=== PATIENT | male | born 1945 | race Caucasian/White ===

== ENCOUNTER 2016-03-13 20:10 | Inpatient (IN) | payer MEDICARE, OTHER ==
[~2016-03-13] VITALS: Ht 172.7 cm; Wt 85.5 kg
[~2016-03-13 20:10] MED LIST: ACETAMINOPHEN500 M1 PO; ATIVAN1 MG PO; BUMEX 1 MG TAB1 MG PO; CARDURA8 MG PO; CATAPRES0.2 MG PO; CELEXA10 MG PO; CLARITIN 10 MG10 MG PO; DIOVAN320 MG PO; FERROUS SULFAT325 MG PO; FLOMAX0.4 MG PO; FLOVENT DISKU100 MCG INH; FLUTICASONE PRO16 GM NASAL; HYDROCODON-ACE1 EAC7 PO; IPRAT-ALBUT 0.5-3 ML UPD; LANTUS INSULIN10 ML SC; LANTUS SOL100 UNIT/1 SC; LEVEMIR100 U/M1 SC; LIPOFEN50 MG PO; LOFIBRA134 MG PO; METOLAZONE5 MG PO; MUCINEX600 MG PO; NORVASC10 MG PO; NOVOLOG100 U/M1 SC; OMEPRAZOLE40 MG PO; PEPCID40 MG PO; PERSANTINE75 MG PO; PLAVIX75 MG PO; PREDNISONE20 MG PO; PROVENTIL HFA6.7 GM INH; RENA-VITE TABL0.8 MG PO; ROCALTROL0.25 MCG PO; SINGULAIR10 MG PO; SODIUM BICARBO650 MG PO; SYMBICORT 16010.2 GM INH; TOPROL XL100 MG PO; TOUJEO SOL300 UNIT/1 SQ; ULTRAM50 MG PO; VITAMIN D250000 UNIT PO; VITAMIN D50000 UNIT PO; ZOCOR40 MG PO; Zaroxolyn PO; [UNRECOGNIZED DRUG - OTHER]
[2016-03-13 20:35] LABS: BASOPHILS 0.2 % (0.0-2.0); EOSINOPHILS 2.7 % (0-7); HEMOGLOBIN 11.1 g/dL (13.5-17.5); IMMATURE GRANULOCYTES 0.3 % (0-5); LYMPHOCYTES 14.1 % (15-50); MCH 30.5 pg (26.0-34.0); MCHC 33.6 g/dL (31.0-37.0); MCV 90.7 fL (80.0-100.0); MEAN PLATELET VOLUME 12.2 fL (7.4-10.4); MONOCYTES 7.3 % (2-11); NEUTROPHILS 75.4 % (40-80); PLATELET COUNT 184 10x3/uL (130-400); RBC 3.64 10x6/uL (4.20-6.10); RDW 15.2 % (11.5-14.5); WBC 10.1 10x3/uL (4.8-10.8)
[2016-03-13 20:54] LABS: ALBUMIN 3.7 g/dL (3.4-5.0); ANION GAP 16.2 mmol/L (8-16); BILIRUBIN - TOTAL 0.3 mg/dL (0.2-1.3); CARBON DIOXIDE 29.4 mmol/L (21.0-32.0); CREATININE - SERUM 6.5 mg/dL (0.6-1.3); POTASSIUM - SERUM 3.6 mmol/L (3.5-5.1); PROTEIN - SERUM 7.4 g/dL (6.4-8.2)
[2016-03-14] VITALS (7 sets, daily range): BP systolic 138–164; BP diastolic 65–81; Ht 172.7 cm; Wt 85.5 kg
[2016-03-14] MEDS ORDERED: ULTRAM50 MG PO (01:25)
[2016-03-14] MEDS ORDERED: SINGULAIR10 MG PO (01:29)
--- NOTE | 2016-03-14 01:50 | NUR ---
PT ARRIVED TO ROOM @ 23:30 VIA WHEELCHAIR, AWAKE, ALERT, ORIENTED, OBVIOUSLY WEAK AND NEEDING ASSIST WITH AMBULATION. PT STATES HE DOES STILL MAKE URINE AND NEEDED TO HAVE A BM SOON HE GOT TO HIS ROOM. PT WAS GIVEN 58 UNITS OF LEVEMIR IN THE ER, FSBS AT THAT TIME WAS 128. PT WAS GIVEN WAS A TURKEY SANDWICH ONCE PLACED IN BED AFTER USING THE BATHROOM. I RECHECKED PTS FSBS AFTER HE ATE AND IT WAS 149. PT IS C/O PAIN BEING 7 OUT OF 10 ON NUMERIC PAIN SCALE AT THIS TIME. PT STATES HE HAS FALLEN AT HOME X 2, ONCE 03/13/16, AND ONCE TWO DAYS AGO PER PT. PT DENIES ANY OTHER NEEDS. PT STATES HE HAS NEVER BEEN TOLD HE HAS A-FIB, AND HAS HAD STENT PLACEMENT IN HIS LEG, AND IS CURRENTLY TAKING PLAVIX FOR OVER A YEAR NOW. WILL CONTINUE TO MONITOR CLOSELY.
--- NOTE | 2016-03-14 02:12 | NUR ---
SPOKE WITH SHAE MARTINS, INSURANCE COORDINATOR FOR RENAL, WHO GAVE VERBAL AUTHORIZATION TO GIVE TRAMADOL AND HIS PRN LORAZEPAM BUT TO HOLD ALL OTHER MEDICATIONS AT THIS TIME. CONTINUE TO MONITOR PT CLOSELY.
--- NOTE | 2016-03-14 02:28 | NUR ---
PT NEEDED TO GO TO BATHROOM TO VOID, HAD URGENCY INCONTINENCE, HOWEVER, STATED THAT HE DID NOT GET WEAK OR DIZZY WHEN AMBULATING AND WALKING. I WAS THERE TO ASSIST PT. CONTINUE TO MONITOR CLOSELY. AGAIN, REMINDED PT THAT HE IS TO ALWAYS CALL WHEN NEEDING TO GET UP. PT STATED THAT HE AGREED TO DO SO.
--- NOTE | 2016-03-14 05:51 | NUR ---
PT HAS HAD BOTH URINARY AND BOWEL URGENCY WITH INCONTINENCE. PT IS WEARING DISPOSABLE BRIEFS. CONTINUE TO MONITOR CLOSELY.
--- NOTE | 2016-03-14 14:47 | NUR ---
Patient Name: ASHLEY HSU Admission Status: ER Accout number: [id number] Admission Date: 03-13-2016 : 1945 Admission Diagnosis: Attending: ERIK Current LOS: 1 Anticipated DC Date: Planned Disposition: Home Primary Insurance: MEDICARE A & B Discharge Planning Comments: * Is the patient Alert and Oriented? Yes 0 * How many steps to enter\exit or inside your home? 13 W/RAIL 0 * PCP DR. MICKY HOOK 0 * Pharmacy [facility] ON [address] 0 * Preadmission Environment Home with Family 0 * ADLs Independent 0 * Equipment None 0 * Other Equipment NONE 0 * List name and contact numbers for known caregivers / representatives who currently or will assist patient after discharge: ENRIQUETA HSU, SPOUSE, 0 * Community resources currently utilized None 0 * Please name any agencies selected above. NONE 0 * Additional services required to return to the preadmission environment? No 0 * Can the patient safely return to the preadmission environment? Yes 0 * Has this patient been hospitalized within the prior 30 days at any hospital? No 0 CM MET WITH PT AND SPOUSE IN ROOM TO DISCUSS DISCHARGE PLANNING AND NEEDS. PT REPORTS LIVING AT HOME INDEPENDENTLY WITH SPOUSE. PT HAS NO MEDICAL EQUIPMENT AND NO OUTSIDE SERVICES ASSISTING IN THE HOME. CM DISCUSSED AVAILABILITY OF HOME HEALTH, REHAB SERVICES AND MEDICAL EQUIPMENT. PT DENIES DISCHARGE NEEDS, REPORTS HIS WILL PICK HIM UP FOR DISCHARGE HOME. PT PLANS TO DISCHARGE HOME WITH SPOUSE, DENIES DISCHARGE NEEDS AT THIS TIME. CM TO FOLLOW AND ASSIST NEEDED. Car Rental Sales Assistant: Tate Paula
--- NOTE | 2016-03-14 18:50 | NUR ---
NO CHANGE. DENIES SOB. DENIES PAIN OR SOB. CONTINUE PLAN OF CARE AND SAFETY PRECAUTIONS. PREPARE SHIFT CHANGE REPORT. CONTROLLED A FIB ON TELEMETRY 65bpm.
--- NOTE | 2016-03-14 20:14 | NUR ---
PT LYING IN BED, FLAT ON BACK, C/O GREAT PAIN IN HIS LEFT SIDE, AND ASKING IF HIS CHEST X-RAY SHOWED ANY RIB FX, IN WHICH IT DID NOT. PT STATES HIS PRN TRAMADOL HELPS MINIMALLY. DENIES ANY OTHER NEEDS. CONTINUE TO MONITOR CLOSELY.
[2016-03-15 01:42] VITALS: BP 156/66
--- NOTE | 2016-03-15 03:56 | NUR ---
PT LYING IN BED, ON HIS RIGHT SIDE, EYES CLOSED, RESPIRATIONS EVEN AND UNLABORED. CONTINUE TO MONITOR CLOSELY.
[2016-03-15 05:24] LABS: BASOPHILS 0.5 % (0.0-2.0); EOSINOPHILS 2.6 % (0-7); HEMOGLOBIN 9.5 g/dL (13.5-17.5); IMMATURE GRANULOCYTES 0.3 % (0-5); LYMPHOCYTES 16.4 % (15-50); MCH 30.6 pg (26.0-34.0); MCHC 33.9 g/dL (31.0-37.0); MCV 90.3 fL (80.0-100.0); MEAN PLATELET VOLUME 12.4 fL (7.4-10.4); MONOCYTES 6.9 % (2-11); NEUTROPHILS 73.3 % (40-80); PLATELET COUNT 156 10x3/uL (130-400); RDW 15.1 % (11.5-14.5); WBC 8.8 10x3/uL (4.8-10.8)
[2016-03-15 05:34] LABS: CALCIUM 10.7 mg/dL (8.5-10.1); CARBON DIOXIDE 25.2 mmol/L (21.0-32.0); CREATININE - SERUM 6.2 mg/dL (0.6-1.3); PHOSPHOROUS 4.5 mg/dL (2.5-4.9)
[2016-03-15 05:46] LABS: ANION GAP 17.6 mmol/L (8-16)
[2016-03-15 05:48] VITALS: BP 140/77
[2016-03-15 05:50] LABS: POTASSIUM - SERUM 2.8 mmol/L (3.5-5.1)
--- NOTE | 2016-03-15 05:57 | NUR ---
RECIEVED CRITICAL LAB FROM JUAN IN LAB, K+ 2.8, NOTIFIED DIPTI FLORES.
[2016-03-15 07:45] VITALS: BP 124/60
--- NOTE | 2016-03-15 12:12 | NUR ---
ALERT AND ORIENTED X4. RESTING IN BED. ORTHOSTATIC BP COMPLETE. LAYING-178/64, P-87. SITTING-104/56, P-96. STANDING-97/51, P-97. DENIES SOB. CONTINUE PAIN MANAGEMENT. CONTROLLED A-FIB 78bpm ON TELEMETRY. CONTINUE PLAN OF CARE AND SAFETY PRECAUTIONS.
[2016-03-15 12:20] VITALS: BP 178/64
[2016-03-15 15:43] VITALS: BP 140/89
[2016-03-15 20:03] VITALS: BP 125/57
[2016-03-16 01:14] VITALS: BP 125/57
[2016-03-16 04:00] VITALS: BP 144/67
--- NOTE | 2016-03-16 04:14 | NUR ---
NURSE ROUNDS 20:00 - PT SITTING ON SIDE OF BED, AWAKE, ALERT, ORIENTED. DENIES ANY ACUTE NEEDS. CONTINUE TO MONITOR CLOSELY. GAVE PT VIVEK CRACKERS AND SALTINE CRACKERS WITH HIS INSULIN.
--- NOTE | 2016-03-16 05:35 | NUR ---
PT LYING IN BED ON LEFT SIDE, EYES CLOSED, RESPIRATIONS EVEN AND UNLABORED. CONTINUE TO MONITOR CLOSELY.
[2016-03-16 05:51] LABS: BASOPHILS 0.2 % (0.0-2.0); EOSINOPHILS 3.1 % (0-7); HEMOGLOBIN 9.8 g/dL (13.5-17.5); IMMATURE GRANULOCYTES 0.2 % (0-5); LYMPHOCYTES 17.2 % (15-50); MCH 30.8 pg (26.0-34.0); MCHC 33.8 g/dL (31.0-37.0); MCV 91.2 fL (80.0-100.0); MEAN PLATELET VOLUME 12.7 fL (7.4-10.4); MONOCYTES 7.8 % (2-11); NEUTROPHILS 71.5 % (40-80); PLATELET COUNT 162 10x3/uL (130-400); RBC 3.18 10x6/uL (4.20-6.10); RDW 15.4 % (11.5-14.5); WBC 8.1 10x3/uL (4.8-10.8)
[2016-03-16 06:21] LABS: ANION GAP 17.2 mmol/L (8-16); CALCIUM 9.8 mg/dL (8.5-10.1); CREATININE - SERUM 5.9 mg/dL (0.6-1.3); PHOSPHOROUS 4.8 mg/dL (2.5-4.9); POTASSIUM - SERUM 3.2 mmol/L (3.5-5.1)
--- NOTE | 2016-03-16 06:50 | NUR ---
PT EASILY ROUSABLE TO VERBAL STIMULI, DENIES ANY NEEDS. CONTINUE TO MONITOR CLOSELY.
[2016-03-16 07:50] VITALS: BP 166/76
[2016-03-16 11:59] VITALS: BP 155/68
--- NOTE | 2016-03-16 12:58 | NUR ---
Nutrition follow-up: Diet: Consistent CHO PO intake ~75% of meals Labs reviewed Wt: 187# Diet changed to consistent CHO by physician due to low K. RDN following.
[2016-03-16 16:44] VITALS: BP 157/89
[2016-03-16 20:20] VITALS: BP 158/73
[2016-03-17 01:10] VITALS: BP 139/56
--- NOTE | 2016-03-17 03:32 | NUR ---
NURSE ROUNDS 19:30 - PT LYING ON HIS RIGHT SIDE, EYES CLOSED, RESPIRATIONS EVEN AND UNLABORED. PT EASILY ROUSABLE TO VERBAL STIMULI. CONTINUE TO MONITOR CLOSELY.
[2016-03-17 05:14] VITALS: BP 181/73
[2016-03-17 05:24] LABS: BASOPHILS 0.3 % (0.0-2.0); EOSINOPHILS 4.4 % (0-7); HEMATOCRIT 27.1 % (42.0-54.0); HEMOGLOBIN 8.9 g/dL (13.5-17.5); IMMATURE GRANULOCYTES 0.2 % (0-5); LYMPHOCYTES 18.4 % (15-50); MCH 30.6 pg (26.0-34.0); MCHC 32.8 g/dL (31.0-37.0); MCV 93.1 fL (80.0-100.0); MEAN PLATELET VOLUME 12.9 fL (7.4-10.4); MONOCYTES 8.2 % (2-11); NEUTROPHILS 68.5 % (40-80); PLATELET COUNT 150 10x3/uL (130-400); RBC 2.91 10x6/uL (4.20-6.10); RDW 15.6 % (11.5-14.5)
[2016-03-17 05:34] LABS: ANION GAP 15.3 mmol/L (8-16); CALCIUM 9.1 mg/dL (8.5-10.1); CARBON DIOXIDE 25.3 mmol/L (21.0-32.0); POTASSIUM - SERUM 3.6 mmol/L (3.5-5.1)
[2016-03-17 05:40] LABS: PHOSPHOROUS 2.9 mg/dL (2.5-4.9)
[2016-03-17 08:37] VITALS: BP 144/43
--- NOTE | 2016-03-17 09:57 | NUR ---
EPOGEN NOT LOCATED IN [facility], BRITTANY FLORES NOTIFIED. WILL CALL PHARMACY
--- NOTE | 2016-03-17 10:45 | NUR ---
Nutrition Education: Pt and had questions regarding renal diabetic diet. RD spoke with them regarding diet and provided written information. RD name and email address provided to pt. Pt and encouraged to contact RD with any questions or concerns. RD will continue to monitor pt progress.
[2016-03-17 12:29] VITALS: BP 147/61
--- NOTE | 2016-03-17 13:59 | EC ---
PATIENT:ASHLEY HSU DATE OF SERVICE: 03/14/16 SEX: M MEDICAL RECORD: [id number] DATE OF : [birth year] LOCATION:D.M2 D.210 AGE OF PATIENT: 70 ADMISSION DATE: 03/14/16 REFERRING PHYSICIAN: INTERPRETING PHYSICIAN: ELISSA MILLER MD ECHOCARDIOGRAM REPORT ECHO CHARGES 4 ECHO COMPLETE CLINICAL DIAGNOSIS: A-FIB ECHOCARDIOGRAPHIC MEASUREMENTS (adult normal given) AC root (d.<3.7cm) 2.9 LV Septum d (<1.2 cm> 1.4 Valve Excursion 1.7 LV Septum (systole) 2.1 Left Atria (s.<4.0cm> 4.8 LVPW d(<1.2cm) 1.4 RV (d.<2.3cm) 2.6 LVPW (sytole) 1.8 LV diastole(<5.6CM) 5.2 MV E-F(>70mm/sec) LV systole 3.0 LVOT Diameter 1.9 MV exc.(>10mm) Est.ejection fraction (50-75%) Pericardial Effusion N DOPPLER: LVIT A E 116 LA RVSP 30.0 LVOT 90.0 AOP1/2T Asc. Ao 210 RVOT 111 RA PA 111 AV Gradient Peak 18.0 AV Mean 8.7 AV Area 1.1 MV Gradient Peak 6.2 MV Mean 1.8 MV Area COMMENTS: Housekeeper Manager: Mao GIMENEZ Prawn Trawler Hand:Josey Owusu TAPE# PACS DATE OF SERVICE: 03/14/2016 Echocardiogram FINDINGS: 1. Left ventricular chamber size is within normal limits. Left ventricular systolic function is normal. Overall ejection fraction estimated at 60%. 2. Left atrium, right atrium, and right ventricular chamber sizes are mildly dilated. Left atrium measures 4.8 cm. 3. Valvular structures have normal structure and motion. ECHOCARDIOGRAM REPORT [id number] ASHLEY HSU 4. Doppler interrogation reveals trace mitral regurgitation. No other valvular insufficiency or stenosis. Pulmonary systolic pressure is normal estimated at 30 mmHg. 5. No evidence of pericardial effusion or left ventricular thrombus. TRANSINT:[id number] Voice Confirmation ID: [id number] DOCUMENT ID: [id number] ELISSA MILLER MD at 1352 CC: [id number] DICTATION DATE: 03/16/16921 THIRD MATE: 03/16/[address] [facility] [address] [facility]
--- NOTE | 2016-03-17 14:44 | NUR ---
Patient Name: ASHLEY HSU Encounter No: [id number] : 1945 Primary Insurance: MEDICARE A & B Anticipated DC Date: 03-17-2016 Planned Disposition: Home WITH HOME HEALTH External Planned Provider: [facility] DCP follow-up note: CM MET WITH PT AND SPOUSE IN ROOM TO DISCUSS DISCHARGE NEEDS AND PLANNING. CM DISCUSSED AVAILABILITY OF HOME HEALTH, REHAB SERVICES AND MEDICAL EQUIPMENT. PT AND SPOUSE WOULD LIKE PT TO HAVE FOLLOW UP FOR PHYSICAL THERAPY AND NURSING; SPOUSE IS CONCERNED THAT PT WILL BE HOME ALL DAY WHILE SHE IS AT WORK. SPOUSE TO TRANSPORT HOME AT DISCHARGE. IMPORTANT MESSAGE FROM MEDICARE PROVIDED AND EXPLAINED. CHOICE LETTER SIGNED FOR [facility]. CM CALLED [facility], , PROVIDED REFERRAL TO [facility]IA [facility]ICE [facility]IL. CM CONFIRMED WITH [facility] VIA CELL PHONE AT [phone]. CM FAXED REFERRAL TO [facility] AT [phone]. PT NOTIFIED, NO FURHTER DISCHARGE NEEDS IDENTIFIED. Tate Paula, CASE MANAGEMENT
--- NOTE | 2016-03-17 15:47 | NUR ---
REVIEWED PATIENT'S DISCHARGE INSTRUCTIONS. HE AND ARE WITHOUT QUESTIONS.
== END 2016-03-17 15:45 | disposition home health service (06) | DRG 309 ==
LOC: D.ER 20:10 → D.M2 21:29 → OBSVTIME 21:29 → D.M2 03-14 15:30
PROVIDERS: Emergency Medicine; Internal Medicine Nephrology; ADMIT Internal Medicine Nephrology
DX: I48.91 Unspecified atrial fibrillation (principal); N18.4 Chronic kidney disease, stage 4 (severe); R55 Syncope and collapse; E11.22 Type 2 diabetes mellitus with diabetic chronic kidney disease; I12.9 Hypertensive chronic kidney disease with stage 1 through stage 4 chronic kidney disease, or unspecified chronic kidney disease; J44.9 Chronic obstructive pulmonary disease, unspecified; D63.1 Anemia in chronic kidney disease; E83.39 Other disorders of phosphorus metabolism; E78.5 Hyperlipidemia, unspecified; E87.6 Hypokalemia; Z72.0 Tobacco use

== ENCOUNTER 2016-05-25 07:59 | Outpatient (CLI) | payer MEDICARE, OTHER ==
[~2016-05-25] VITALS: Ht 172.7 cm; Wt 83.2 kg
--- NOTE | ~2016-05-25 | HP ---
PATIENT: ASHLEY HSU MEDICAL RECORD: [id number] ACCOUNT: [id number] LOCATION:[place] : [birth year] ADMISSION DATE: 05/25/16 HISTORY AND PHYSICAL EXAMINATION DIAGNOSES: 1. Angina. 2. Coronary artery disease. 3. Hypertension. 4. Hyperlipidemia. 5. End-stage renal failure, on dialysis. HISTORY OF PRESENT ILLNESS: This is a gentleman who presents with anginal symptomatology, found to have significant stress test with reversible ischemia. He is now brought for cardiac catheterization. PHYSICAL EXAMINATION: GENERAL APPEARANCE: Well-nourished, well-developed, appears stated age. Level of distress, comfortable. PSYCHIATRIC: Mental status, alert, normal affect. Orientation, oriented to time, place and person. EYES: Lids and conjunctiva, noninjected. No discharge, no pallor. ENT: Lips, teeth, gums, normal dentition. Oropharynx, no cyanosis, no pallor. NECK: Carotid arteries, bilateral normal upstroke, no bruits, no thrills. JUGULAR VEINS: No jugular venous pressure or distention. CERVICAL LYMPH NODES: Nontender, nonenlarged. THYROID: Not enlarged. Nontender. No nodules. LUNGS: Respiratory effort, unlabored. CHEST: Normal curvature. No thoracic deformity. No chest wall tenderness. Percussion, resonant. Auscultation, clear. No wheezes, no rales, no rhonchi. CARDIOVASCULAR: Precordial exam, nondisplaced. No heaves or pericardial thrills. Rate and rhythm, regular. Heart sounds, normal S1, normal S2. No S3, no gallop, no rub. Systolic murmur, not heard. Diastolic murmur, not heard. EXTREMITIES: No cyanosis, no edema. Peripheral pulses, full and equal in all extremities, except as noted. No bruits appreciated. ABDOMEN: Soft, nondistended. Normal aorta. No bruit. Nontender. No masses. Liver, nontender, no hepatomegaly. Spleen, nontender, no splenomegaly. MUSCULOSKELETAL: No joint tenderness. No joint swelling. No erythema. NEUROLOGICAL: Normal gait, normal strength, normal tone. SKIN: Warm and dry. REVIEW OF SYSTEMS: The patient reports easy bruising but reports no swollen glands. The patient reports no fever, no night sweats, no significant weight gain, no significant weight loss. No significant exercise tolerance. The patient reports no dry eyes, no irritation, no vision change. Patient reports no difficulty hearing and no ear pain. Patient reports no frequent nose bleeds or nose and sinus problems. Patient reports on arm pain on exertion. No shortness of breath while lying down. No history of heart murmur. Patient reports no cough, no wheezing or coughing up blood. Patient reports no abdominal pain, no vomiting. Normal appetite. No diarrhea and not vomiting blood. No nausea and no constipation. Patient reports no incontinence. No difficulty urinating. No hematuria. No increased frequency. Patient reports no muscle aches. No weakness, no arthralgias, no back pain. No swelling of the extremities. Patient reports no abnormal mole, no jaundice, no rashes. Reports no loss of consciousness. No weakness and no numbness. No seizures, dizziness, HISTORY AND PHYSICAL [id number] ASHLEY HSU or headaches. The patient reports no depression, no sleep disturbance, feeling safe in a relationship and no alcohol abuse. Patient reports on fatigue. Reports no runny nose or sinus pressure. No itching, no hives, and no frequent sneezing. OVERALL IMPRESSION: Anginal symptomatology with abnormal nuclear stress test, most likely he has hemodynamically significant coronary artery disease. We will proceed with coronary angiography. Further care depends upon findings of the angiography. TRANSINT:[id number] Voice Confirmation ID: [id number] DOCUMENT ID: [id number] ELISSA MILLER MD CC: [id number] DICTATION DATE: 05/25/16 0952 FLAKE OR SHRED ROLL OPERATOR: 05/25/16 1034 [facility] [address] [place] [address]
--- NOTE | ~2016-05-25 | OP ---
PATIENT NAME: ASHLEY HSU MEDICAL RECORD: [id number] :[birth year] LOCATION:D.CAT ADMISSION DATE: SURGEON: ELISSA MILELR MD DATE OF OPERATION: 05/25/2016 PROCEDURES: 1. Aortofemoral runoff. 2. Abdominal aortography. INDICATION: Claudication, peripheral vascular disease. PROCEDURE IN DETAIL: After informed consent obtained and after detailed explanation of risks, benefits as well as alternative therapies, the patient elected to proceed with angiogram and aortofemoral runoff. The right femoral area had a preexisting sheath from coronary intervention. All catheters exchanged through this sheath. FINDINGS: The abdominal aortography was performed. The catheter was pulled down for aortofemoral runoff. Abdominal aortography reveals no significant abdominal aortic disease. No dissection or aneurysm formation. No renal artery stenosis. RIGHT LEG: A. Iliac: The common internal and external iliacs have moderate irregularities, but no flow-limiting stenosis. B. Femoral system: The common superficial and deep femoral have moderate irregularities, but no flow-limiting stenosis. C. Popliteal and infrapopliteal vessels are widely patent with good 3-vessel runoff to the foot. LEFT LEG: A. Iliac: There is a previously placed stent in the common iliac. This is widely patent with no significant restenosis. No disease elsewise throughout the iliac system. B. Femoral system: The common superficial and deep femoral have moderate irregularities, but no flow-limiting stenosis. C. Popliteal and infrapopliteal vessels are widely patent with good 3-vessel runoff to the foot. OVERALL IMPRESSION: Wide patency of the previously placed stent in the left iliac, no disease elsewise. Continue medical management of peripheral vascular disease and peripheral risk factors. TRANSINT:[id number] Voice Confirmation ID: [id number] DOCUMENT ID: [id number] ELISSA MILLER MD CC: [id number] DICTATION DATE: 05/25/16 1048 RAILROAD REPAIRER: 05/25/16 [id number] [place] [address]
--- NOTE | ~2016-05-25 | OP ---
PATIENT NAME: ASHLEY HSU MEDICAL RECORD: [id number] :[birth year] LOCATION:D.CAT ADMISSION DATE: SURGEON: ELISSA MILLER MD DATE OF OPERATION: 05/25/2016 PROCEDURES: 1. PTCA stent LAD. 2. Left heart catheterization. 3. Selective coronary angiography. 4. Left ventriculogram. 5. Intravascular ultrasound. PROCEDURE IN DETAIL: After informed consent was obtained, after detailed explanation of risks, benefits as well as alternative therapies, the patient elected to proceed with angiogram and angioplasty. The right femoral area was prepped and draped in normal sterile fashion. The right femoral artery was cannulated via modified Seldinger technique with placement of 6-Pashto sheath. All catheters exchanged through this sheath. FINDINGS: Left ventriculogram was performed in the standard 30-degree POSADA view, reveals preserved cardiac wall motion, ejection fraction 55%. SELECTIVE CORONARY ANGIOGRAPHY: 1. Left main showed no significant angiographic disease. 2. Left anterior descending has a 75% stenosis proximally confirmed by intravascular ultrasound. 3. Left circumflex has moderate irregularities, but no flow-limiting stenosis. 4. Right coronary has moderate irregularities, but no flow-limiting stenosis. PTCA STENT OF THE LAD: The stent used is a 3.5 x 22 mm Integrity. Result was 0% residual stenosis. OVERALL IMPRESSION: Successful percutaneous transluminal coronary angioplasty stent of the left anterior descending going from 75% initial stenosis to 0% residual. TRANSINT:[id number] Voice Confirmation ID: [id number] DOCUMENT ID: [id number] ELISSA MILLER MD CC: [id number] DICTATION DATE: 05/25/16 1048 PARTS RUNNER: 05/25/16 1148 [facility] [address] [place] [address]
--- NOTE | ~2016-05-25 | HEMODYNAMI ---
PATIENT:ASHLEY HSU MEDICAL RECORD: [id number] : 43 LOCATION:D.CAT ADMISSION DATE: 05/25/16 Generatedon:05/25/201610:47 Patient name: ASHLEY HSU Patient #: [id number] SSN: : 1945 Date of study: 05/25/2016 Page: Of Hemodynamic Procedure Report Patient Data Patient Demographics Procedure consent was obtained First Name: ASHLEY Gender: Male Last Name: SHADI : 1945 Middle Initial: M Age: 70 year(s) Patient #: [id number] Race: Unknown Additional ID: [id number] Contact details Address: [address] [place] [address] State: [place] City: [place] Zip code: [address] Past Medical History Allergies Allergen Reaction Date Comments Reported Aspirin 05/25/2016 Admission Admission Data Admission Date: 05/25/2016 Admission Time: 7:59 Lab Results Lab Result Date: 05/25/2016 Lab Result Time: 0:00 Biochemistry Name Units Result Min Max Creatinine mg/dl 4.2 --(----)-* 0.6 1.3 CBC Name Units Result Min Max Hemoglobin g/dl 11.4 *-(----)-- 13.5 17.5 Procedure Procedure Types Cath Procedure Diagnostic Procedure [facility] w/Coronaries FFR/IVUS Intra-Coronary IVUS Initial PCI Procedure Coronary Stent Initial Miscellaneous Procedures Moderate Sedation up to 45 minutes Peripheral Cath Diagnostic Procedure Cath Peripheral Msroq-Uebacrv-Lgg-Off Procedure Description Procedure Date Procedure Date: 05/25/2016 Procedure Start Time: 10:23 Procedure End Time: 10:45 Procedure Staff Name Function Jeramie Guzmán MD Performing Physician Francis Blevins RT Scrub Joby Luciano RN Nurse Larissa Oodm RT Monitor Procedure Data Cath Procedure Fluoroscopy Diagnostic fluoroscopy Total fluoroscopy Time: 4.6 time: 4.6 min min Diagnostic fluoroscopy Total fluoroscopy dose: 818 dose: 818 mGy mGy Contrast Material Contrast Material Type Amount (ml) Isovue 300 187 Entry Location Entry Primary Successful Side Size Upsize Upsize Entry Closure Succes sful Closure Location (Fr) 1 (Fr) 2 (Fr) Remarks Device Remarks Femoral Right 5 Fr 6 Fr Exoseal artery Short Estimated blood loss: 10 ml Diagnostic catheters Device Type Used For End Catheter Placement Cordis 5Fr Pigtail LV Angiography Catheter (MP) Cordis 5Fr Pigtail Abdominal Catheter (MP) aortogram with runoff Cordis 5Fr JL 4.0 Left Coronary Catheter (MP) Angiography Cordis 5Fr 3DRC Catheter Right Coronary (MP) Angiography Procedure Complications No complications Procedure Medications Medication Administration Route Dosage Oxygen NC 2 l/min Heparin Flush Bag added to field 2 bags (1000units/500ml NS) 0.9% NaCl I.V. 100 ml/hr Fentanyl I.V. 50 mcg Versed I.V. 1 mg Fentanyl I.V. 50 mcg Versed I.V. 1 mg Fentanyl I.V. 50 mcg Heparin Bolus I.V. 4000 units Fentanyl I.V. 50 mcg Hemodynamics Rest HGB: 11.4 (g/dl) Heart Rate: 68 (bpm) Snapshots Pre Cath Intra NCS Post Cath Vital Signs Time Heart Resp SPO2 etCO2 [id number] NIBP (mmHg) Rhythm Pain Sedation Rate (ipm) (%) (mmHg) (mmHg) Status Level (bpm) 10:03:24 68 20 99 0 0 176/84(140) NSR 0 (11) 10(A) , No pain 10:08:38 66 16 100 0 0 172/75(135) NSR 0 (11) 10(A) , No pain 10:13:02 66 20 100 0 0 171/72(142) NSR 0 (11) 9(A) , No pain 10:17:26 65 17 97 0 0 161/70(128) NSR 0 (11) 9(A) , No pain 10:21:48 65 17 97 0 0 158/72(132) NSR 0 (11) 9(A) , No pain 10:26:08 65 18 98 0 0 151/71(123) NSR 0 (11) 9(A) , No pain 10:30:24 69 16 98 0 0 159/72(129) NSR 0 (11) 9(A) , No pain 10:34:44 69 17 96 0 0 159/70(119) NSR 0 (11) 9(A) , No pain 10:39:06 71 18 96 0 0 147/68(117) NSR 0 (11) 9(A) , No pain 10:43:23 68 17 97 0 0 150/69(129) NSR 0 (11) 9(A) , No pain Medications Time Medication Route Dose Verified Delivered Reason Notes Effectiveness by by 10:06:51 Oxygen NC 2 Joby Joby Per physician l/min Mustapha Luciano RN RN 10:07:00 Heparin Flush added 2 Joby Joby used for Bag to bags Mustapha Luciano RN procedure (1000units/500ml field RN NS) 10:07:09 0.9% NaCl I.V. 100 Joby Joby Per physician ml/hr Mustapha Luciano RN RN 10:09:46 Fentanyl I.V. 50 Joby Joby for sedation mcg Mustapha Luciano RN RN 10:09:54 Versed I.V. 1 mg Joby Joby for sedation Mustapha Luciano RN RN 10:19:30 Fentanyl I.V. 50 Joby Joby for sedation mcg Mustapha Luciano RN RN 10:19:33 Versed I.V. 1 mg Joby Joby for sedation Mustapha Luciano RN RN 10:24:37 Fentanyl I.V. 50 Joby Joby for sedation mcg Mustapha Luciano RN RN 10:32:58 Heparin Bolus I.V. 4000 Joby Joby for units Mustapha Luciano RN anticoagulation RN 10:33:02 Fentanyl I.V. 50 Joby Joby for sedation mcg Mustapha Luciano RN clothing consultant Log Time Note 9:42:05 Francis Blevins RT(R) sent for patient. Start room use. 9:52:06 Time tracking: Regular hours 9:52:10 Plan of Care:Hemodynamics will remain stable., Cardiac rhythm will remain stable., Comfort level will be maintained., Respiratory function will remain adequate., Patient/ family verbilizes understanding of procedure., Procedure tolerated without complication., Recovers from procedure without complications.. 9:56:30 Patient received from Pre/Post Procedure Room to CCL 1 Alert and oriented. Tansferred to table in Supine position. 9:56:31 Warm blankets applied, and bartolo hugger turned on for patient comfort. 9:56:32 Correct patient and procedure confirmed by team. 9:56:33 Signed procedure consent form obtained from patient. 9:56:34 ECG and BP/O2 sat monitors applied to patient. 9:56:34 Full Disclosure recording started 10:02:14 Vital chart was started 10:02:17 Rhythm: sinus rhythm 10:02:22 H&P Date Dictated: 05/25/2016 New H&P dictated by physician.. 10:02:24 Pre-procedure instructions explained to patient. 10:02:24 Pre-op teaching completed and patient verbalized understanding. 10:02:26 Family in waiting room. 10:02:27 Patient NPO since Midnight. 10:02:34 Patient allergic to Aspirin 10:02:36 Is the patient allergic to Iodine/contrast media? No. 10:02:37 Is patient on blood thinner?Yes 10:02:39 ACC The patient was administered the following blood thiners within the last 24 hours: ACCPlavix 10:02:41 Patient diabetic? Yes. 10:02:43 If diabetic: On Metformin? No 10:02:46 Previous problem with sedation/anesthesia? No ? 10:02:47 Snore? Yes 10:02:48 Sleep apnea? No 10:02:49 Deviated septum? No 10:02:50 Opens mouth fully? Yes 10:02:50 Sticks out tongue? Yes 10:02:54 Airway obstruction? Yes COPD 10:03:20 Dentures? No ? 10:03:33 Pre procedure: right dorsailis pedis pulse 2+ Normal; easily identifiable; not easily obliterated 10:03:35 Patient pain scale 0/10 ?. 10:04:29 IV patent on arrival in right wrist with 0.9% NaCl at KVO. 10:04:49 Lab Result : Hemoglobin 11.4 g/dl 10:04:49 Lab Result : Creatinine 4.2 mg/dl 10:04:53 Lab results completed and on chart. 10:04:56 Right groin area was prepped with chlora-prep and draped in sterile fashion 10:04:58 Alarms reviewed by R. N. 10:04:58 Sharps counted by scrub and verified by R.N. 10:05:02 Use device set Femoral Dx 10:05:03 Acist Syringe opened to sterile field. 10:05:03 Bag Decanter opened to sterile field. 10:05:04 Medline Cath Pack opened to sterile field. 10:05:04 Terumo 5Fr Bellevue Sheath opened to sterile field. 10:05:05 St Flaco 260cm J .035 wire opened to sterile field. 10:05:06 Acist Hand Control opened to sterile field. 10:05:06 Acist Manifold opened to sterile field. 10:05:07 Diagnostic Infinity 5Fr Multipack catheter opened to sterile field. 10:05:07 Tegaderm 4 x 4 opened to sterile field. 10:05:12 Baseline sample Acquired. 10:06:51 Oxygen 2 l/min NC was administered by Joby Luciano RN; Per physician; 10:07:00 Heparin Flush Bag (1000units/500ml NS) 2 bags added to field was administered by Joby Luciano RN; used for procedure; 10:07:09 0.9% NaCl 100 ml/hr I.V. was administered by Joby Luciano RN; Per physician; 10:09:14 Final Timeout: patient, procedure, and site verified with staff and physician. All members of the team are in agreement. 10:09:17 Right groin site verified by team. 10:09:19 Physical assessment completed. ASA score P 2 - A patient with mild systemic disease as per Jeramie Guzmán MD. 10:09:22 Sedation plan: IV Moderate Sedation Versed, Fentanyl 10:09:46 Fentanyl 50 mcg I.V. was administered by Joby Luciano RN; for sedation; 10:09:54 Versed 1 mg I.V. was administered by Joby Luciano RN; for sedation; 10:12:08 Zero performed for pressure channel P1 10:19:30 Fentanyl 50 mcg I.V. was administered by Joby Luciano RN; for sedation; 10:19:33 Versed 1 mg I.V. was administered by Joby Luciano RN; for sedation; 10:23:15 Procedure started. 10:23:23 Local anesthetic to right femoral artery with Lidocaine 2% by Jeramie Guzmán MD.INITIAL ACCESS ONLY 10:24:17 A 5 Fr sheath was inserted into the Right Femoral artery 10:24:37 Fentanyl 50 mcg I.V. was administered by Joby Luciano RN; for sedation; 10:24:50 A Cordis 5Fr Pigtail Catheter (MP) was advanced over the wire and used for LV Angiography. 10:25:19 LV gram done using POSADA 10:25:22 Injector settings: Ml/sec: 10, Volume: 20, 10:25:38 EF : 55 % 10:26:50 A Cordis 5Fr Pigtail Catheter (MP) was advanced over the wire and used for Abdominal aortogram with runoff. 10:27:22 Catheter removed. 10:27:38 A Cordis 5Fr JL 4.0 Catheter (MP) was advanced over the wire and used for Left Coronary Angiography. 10:27:56 Procedure type changed to Cath procedure, Diagnostic procedure, LHC, LHC w/Coronaries, FFR/IVUS, Intra-Coronary IVUS Initial, PCI procedure, Coronary Stent Initial, Miscellaneous Procedures, Moderate Sedation up to 45 minutes, Peripheral Cath Diagnostic Procedure, Cath Peripheral, Jpfeb-Uzmfonl-Svv-Off 10:29:15 Terumo 6Fr Bellevue Sheath opened to sterile field. 10:29:15 Allen Yobongoisper J 300cm 0.014 guide wire opened to sterile field. 10:29:16 Seedpost & Seedpaper BasixCompak Inflation Kit opened to sterile field. 10:30:08 Catheter removed. 10:30:13 A Cordis 5Fr 3DRC Catheter (MP) was advanced over the wire and used for Right Coronary Angiography. 10:31:20 Cordis 6FR XBLAD 3.5 guide catheter opened to sterile field. 10:32:06 Grannis [place] Eagleye IVUS Catheter opened to sterile field. 10:32:44 Sheath upsized to a 6 Fr Short. 10:32:57 6 Fr XBLAD 3.5 guide catheter was inserted over the wire 10:32:58 Heparin Bolus 4000 units I.V. was administered by Joby Luciano RN; for anticoagulation; 10:33:02 Fentanyl 50 mcg I.V. was administered by Joby Luciano RN; for sedation; 10:33:26 WHISPER wire advanced. 10:34:48 IVUS catheter advanced over wire. 10:37:35 IVUS pass to LAD lesion performed. 10:37:36 IVUS catheter removed over wire. 10:39:48 Inflation Number: 1 A Fraud Sciencestronic Integrity 3.5 X 22 stent was prepped and advanced across the Mid LAD. The stent was deployed at 11 VICTOR M for 0:08 (min:sec). 10:40:09 Stent catheter was removed intact over wire. 10:40:10 Wire removed. 10:40:10 Guide catheter removed. 10:40:24 Sheath removed intact; hemostasis achieved with Exoseal to the Right Femoral artery. 10:40:26 Procedure ended.(Physican Out) 10:41:36 Fluoroscopy time 04.60 minutes. 10:41:40 Fluoroscopy dose: 818 mGy 10:41:40 Flurop Dose total: 818 10:41:43 Contrast amount:Isovue 300 187ml. 10:41:45 Sharps counted by scrub and verified by R.N. 10:41:47 Insertion/operative site no bleeding no hematoma. 10:41:50 Post-op/insertion site Right Femoral artery dressed using a 4 x 4 and Tegaderm. 10:41:53 Post right femoral artery:stable, clean and dry 10:41:56 Post Procedure Pulses reassessed and unchanged 10:42:04 Post-procedure physical assessment completed. ASA score P 2 - A patient with mild systemic disease as per Jeramie Guzmán MD. 10:42:09 Post procedure rhythm: unchanged. 10:42:15 Estimated blood loss: 10 ml 10:42:17 Post procedure instruction explained to patient.Patient verbalizes understanding. 10:42:17 Patient needs reinforcement of post procedure teaching. 10:42:22 Procedure Complication : No complications 10:42:28 Cordis 6Fr Exoseal opened to sterile field. 10:42:31 See physician's report for complete and final results. 10:45:23 Procedure and supply charges have been captured, reviewed, submitted and are correct. 10:45:31 Vital chart was stopped 10:45:33 Report given to Pre/Post Procedure Room. 10:45:36 Patient transfered to Pre/Post Procedure Room with Stretcher. 10:45:44 Procedure ended. 10:45:44 Full Disclosure recording stopped 10:47:23 End room use (Document Last) Intervention Summary Intervention Notes Time ActionType Lesion and Equipment Action# Pressure Duration Attributes Used 10:39:48 Place stent Mid LAD Medtronic 1 11 00:08 Integrity 3.5 X 22 stent Device Usage Item Name Manufacture Quantity Catalog Hospital Part Current Minimal L ot# / Number Charge Number Stock Stock Serial# Code [employer] 1 30029 [id number] [id number] 221038 20 Syringe Medical Systems Inc Bag Microtek 1 2002S 086141 20966 377415 5 DecThe [employer]. Medline Cardinal 1 [id number] 560501 35343 759937 5 Cath Pack Health Terumo 5Fr Terumo 1 [id number] 182156 099794 784849 [address] Flaco St Flaco 1 856037 416564 724442 134068 30 260cm J .035 wire Acist Hand Acist 1 59032 023571 987673 942018 5 Control Medical Systems Inc Acist Acist 1 58462 901649 025203 880565 5 Manifold Medical Systems Inc Diagnostic Cardinal 1 [id number] 022352 45172 434868 30 Infinity Health 5Fr Multipack catheter Tegaderm 4 3M 1 1626W 417095 977403 735414 5 x 4 Cordis 5Fr Cardinal 1 141541 5 Pigtail Health Catheter (MP) Cordis 5Fr Cardinal 1 043863 5 JL 4.0 Health Catheter (MP) Terumo 6Fr Terumo 1 TRI137 062622 277470 951590 40 Bellevue Sheath Allen Allen 1 [id number] 734723 913115 853646 5 Whisper J Vascular 300cm 0.014 guide wire Merit Merit 1 [id number] 118631 108688 333288 15 Instart LogicTimpanogos Regional HospitalMill33 Medical Inflation Kit Cordis 5Fr Cardinal 1 952135 5 3DRC Health Catheter (MP) Cordis 6FR Cardinal 1 [id number] 167681 707151 285324 10 XBLAD 3.5 Health guide catheter Grannis Grannis 1 [id number] 147107 460672 656288 8 [place] Eagleye IVUS Catheter Medtronic Medtronic 1 [id number] 825733 430692 1 0 [id number] Integrity 3.5 X 22 stent Cordis 6Fr Cardinal 1 EX600 904566 054195 567021 10 [facility] Signature Audit [place] Stage Time Signature Unsigned Intra-Procedure 05/25/2016 Larissa 10:47:33 AM Counts RT(R) Signatures Monitor : Larissa Signature : Counts RT Date : Time : [facility] [address] [place] [address]
[2016-05-25 08:23] VITALS: BP 177/65; Ht 172.7 cm; Wt 83.2 kg
[2016-05-25 08:37] LABS: BASOPHILS 0.5 % (0.0-2.0); EOSINOPHILS 3.9 % (0-7); HEMATOCRIT 35.2 % (42.0-54.0); HEMOGLOBIN 11.4 g/dL (13.5-17.5); IMMATURE GRANULOCYTES 0.1 % (0-5); LYMPHOCYTES 11.8 % (15-50); MCHC 32.4 g/dL (31.0-37.0); MCV 95.7 fL (80.0-100.0); MEAN PLATELET VOLUME 11.3 fL (7.4-10.4); MONOCYTES 10.5 % (2-11); NEUTROPHILS 73.2 % (40-80); RBC 3.68 10x6/uL (4.20-6.10); WBC 7.8 10x3/uL (4.8-10.8)
[2016-05-25 08:50] LABS: ANION GAP 17.2 mmol/L (8-16); CALCIUM 7.6 mg/dL (8.5-10.1); CARBON DIOXIDE 24.6 mmol/L (21.0-32.0); CREATININE - SERUM 4.2 mg/dL (0.6-1.3); PLATELET COUNT 191 10x3/uL (130-400); POTASSIUM - SERUM 3.8 mmol/L (3.5-5.1)
--- NOTE | 2016-05-25 11:12 | NUR ---
VSS WITH CHEST PAIN DENIED 6 FR EXOSEAL R/GROIN CDI NO BLEEDING NO HEMATOMA NOTED PULSES PRESENT AND MARKED. INSTRUCTED PATIENT TO KEEP HEAD FLAT ON PILLOW WITH RLE STRAIGHT
--- NOTE | 2016-05-25 11:45 | NUR ---
1145 RESTING QUIETLY WITH EYES CLOSED NO DISTRESS NOTED. VSS WITH 6 FR EXOSEAL R/GROIN CDI NO BLEEDING NO HEMATOMA NOTED 1215 NO CHANGE IN ASSESSMENT PATIENT CONTINUES TO SLEEP
--- NOTE | 2016-05-25 12:48 | NUR ---
SANDWICH AND SODA TO BEDSIDE WITH PRESENT TO ASSIST. 6 FR EXOSEAL R/GROIN CDI NO BLEEDING NO HEMATOMA NOTED
--- NOTE | 2016-05-25 13:15 | NUR ---
NO CHANGE IN ASSESSMENT CHEST PAIN DENIED
--- NOTE | 2016-05-25 13:45 | NUR ---
RESTING QUIETLY WITH EYES CLOSED. FAMILY AT BEDSIDE VSS WITH 6 FR EXOSEAL R/GROIN CDI NO BLEEDING NO HEMATOMA NOTED.
--- NOTE | 2016-05-25 14:18 | NUR ---
SODA TO BEDSIDE WITH CHEST PAIN DENIED R/GROIN CDI NO BLEEDING NO HEMATOMA NOTED
--- NOTE | 2016-05-25 14:41 | NUR ---
PATIENT REPOSITIONED TO SITTING WITH HOB UP 45 DEGREES. CHEST PAIN IS DENIED WITH 6 FR EXOSEAL R/GROIN CDI NO BLEEDING NO HEMATOMA NOTED. VSS. PIV REMOVED WITH DRESSING APPLIED. PATIENT UP TO GET DRESSED FOR DISCHARGE HOME
--- NOTE | 2016-05-25 15:05 | NUR ---
D/C INSTRUCTIONS DISCUSSED WITH PATIENT AND AT BEDSIDE. WHEELED OUT VIA WHEELCHAIR BY CATH TEAM.
== END 2016-05-25 15:06 | disposition home or self-care (01) ==
LOC: D.CATH 07:59
PROVIDERS: Internal Medicine Interventional Cardiology
DX: I25.119 Atherosclerotic heart disease of native coronary artery with unspecified angina pectoris (principal); E78.5 Hyperlipidemia, unspecified; I12.0 Hypertensive chronic kidney disease with stage 5 chronic kidney disease or end stage renal disease; N18.6 End stage renal disease; Z99.2 Dependence on renal dialysis; R94.30 Abnormal result of cardiovascular function study, unspecified

== ENCOUNTER → 2017-08-11 11:26 | Outpatient (CLI) | payer MEDICARE, OTHER ==
[2016-05-25 08:23] VITALS: BMI 27.8
[~2017-08-11 11:26] MED LIST changes: +AUGMENTIN 500-11 TA1 PO; +HYDRALAZINE HCL25 MG PO; +LASIX20 MG PO; +LEVEMIR100 U/M1 SQ; +PROTONIX40 MG PO
== END | disposition home or self-care (01) ==
LOC: D.CT 11:26
DX: I73.9 Peripheral vascular disease, unspecified (principal)

== ENCOUNTER → 2017-09-12 09:37 | Outpatient (CLI) | payer MEDICARE, OTHER ==
[2016-05-25 08:23] VITALS: BMI 27.8
--- NOTE | ~2017-09-12 | HEMODYNAMI ---
PATIENT:ASHLEY HSU III MEDICAL RECORD: [id number] : 43 [facility] AD[facility] DATE: 09/12/17 Generatedon:09/12/201710:39 Patient name: ASHLEY HSU Patient #: [id number] SSN: : 1945 Date of study: 09/12/2017 Page: Of Hemodynamic Procedure Report Patient Data Patient Demographics Procedure consent was obtained First Name: ASHLEY Gender: Male Last Name: SHADI Suffix: III Middle Initial: M : 1945 Patient #: [id number] Age: 71 year(s) Race: Unknown Additional ID: [id number] Contact details Address: [address] [place] [address] State: [place] City: [place] Zip code: [address] Past Medical History Allergies Allergen Reaction Date Comments Reported Aspirin 05/25/2016 Aspirin 09/12/2017 Admission Admission Data Admission Date: 09/12/2017 Admission Time: 9:37 Procedure Procedure Types Cath Procedure Peripheral Cath Diagnostic Procedure Miscellaneous Procedure Description Procedure Date Procedure Date: 09/12/2017 Procedure Start Time: 10:19 Procedure Staff Name Function Jhony Linares MD Performing Physician Jethro Dinh RT Monitor Edith Garcia RN Nurse Procedure Data Cath Procedure Fluoroscopy Diagnostic fluoroscopy Total fluoroscopy Time: 1.8 time: 1.8 min min Diagnostic fluoroscopy Total fluoroscopy dose: 71 dose: 71 mGy mGy Hemodynamics Rest Pre Cath Intra NCS Post Cath Procedure Log Time Note 10:05:02 Jethro Dinh RT (R) (CV) sent for patient. Start room use. 10:05:14 Patient received from Outpatients to IR Alert and oriented. Tansferred to table in Prone position. 10:05:16 Correct patient and procedure confirmed by team. 10:05:18 Signed procedure consent form obtained from patient. 10:05:20 Pre-procedure instructions explained to patient. 10:05:21 Pre-op teaching completed and patient verbalized understanding. 10:05:35 Patient allergic to Aspirin 10:06:22 PT TAKES PLAVIX HAS BEEN OFF OF IT FOR 3 DAYS PRIOR TO PROCEDURED 10:06:36 Left abdomen area was prepped with betadine and draped in sterile fashion 10:13:00 Physician arrived 10:19:23 --------ALL STOP TIME OUT------ 10:19:24 Final Timeout: patient, procedure, and site verified with staff and physician. All members of the team are in agreement. 10:19:28 Lumbar site verified by team. 10:19:34 Sedation plan: Local Anesthetic Medication:Lidocaine 10:19:51 Local anesthetic to Lumbar area with Lidocaine 1% by Jhony Linares MD.INITIAL ACCESS ONLY 10:19:53 Procedure started. 10:19:54 Full Disclosure recording started 10:35:23 Procedure ended.(Physican Out) 10:35:46 Fluoroscopy time 01.80 minutes. 10:35:50 Fluoroscopy dose: 71 mGy 10:35:50 Flurop Dose total: 71 10:35:55 Insertion/operative site no bleeding no hematoma. 10:36:04 BANDAIDE APPLIED 10:36:14 Post Lumbar area:stable 10:36:16 Post procedure instruction explained to patient.Patient verbalizes understanding. 10:36:19 Procedure and supply charges have been captured, reviewed, submitted and are correct. Signature Audit [place] Stage Time Signature Unsigned Intra-Procedure 09/12/2017 Jethro 10:39:05 AM Fabrizio RT (R) (CV) Signatures Monitor : Jethro Signature : Fabrizio RT Date : Time : [facility] [address] [place] [address]
== END | disposition home or self-care (01) ==
LOC: D.RAD 09-01 13:30
DX: M48.061 Spinal stenosis, lumbar region without neurogenic claudication (principal)

== ENCOUNTER → 2017-10-04 11:48 | Outpatient (CLI) | payer MEDICARE, OTHER ==
[2016-05-25 08:23] VITALS: BMI 27.8
[2017-10-04 12:45] LABS: BASOPHILS 0.1 % (0-2); EOSINOPHILS 0.1 % (0-7); HEMATOCRIT 24.6 % (42.0-54.0); HEMOGLOBIN 8.1 g/dL (13.5-17.5); IMMATURE GRANULOCYTES 0.3 % (0-5); LYMPHOCYTES 8.8 % (15-50); MCH 32.1 pg (26.0-34.0); MCHC 32.9 g/dL (31.0-37.0); MCV 97.6 fL (80.0-100.0); MEAN PLATELET VOLUME 10.3 fL (7.4-10.4); MONOCYTES 5.6 % (2-11); NEUTROPHILS 85.1 % (40-80); RBC 2.52 10x6/uL (4.20-6.10); RDW 14.4 % (11.5-14.5); WBC 10.8 10x3/uL (4.8-10.8)
[2017-10-04 12:46] LABS: PLATELET COUNT 392 10x3/uL (130-400)
== END | disposition home or self-care (01) ==
LOC: D.LAB 11:48
PROVIDERS: Internal Medicine Nephrology
DX: R05 Cough (principal); R42 Dizziness and giddiness; R53.1 Weakness; R53.83 Other fatigue; Z91.81 History of falling; R41.0 Disorientation, unspecified

== ENCOUNTER 2017-10-13 16:21 | Inpatient (IN) | payer MEDICARE, OTHER ==
[~2017-10-13] VITALS: Ht 172.7 cm; Wt 90.9 kg
[~2017-10-13 16:21] MED LIST changes: -AUGMENTIN 500-11 TA1 PO; -HYDRALAZINE HCL25 MG PO; -LASIX20 MG PO; -LEVEMIR100 U/M1 SQ; -PROTONIX40 MG PO
[2017-10-13] MEDS ORDERED: LEVEMIR100 U/M1 SQ (16:36)
[2017-10-13] MEDS ORDERED: AUGMENTIN 500-11 TA1 PO (16:38)
[2017-10-13] MEDS ORDERED: RENA-VITE TABL0.8 MG PO (16:38)
[2017-10-13] MEDS ORDERED: LASIX20 MG PO (16:39)
[2017-10-13 17:38] LABS: HEMOGLOBIN 8.2 g/dL (13.5-17.5); MCV 95.4 fL (80.0-100.0); RBC 2.62 10x6/uL (4.20-6.10); WBC 8.6 10x3/uL (4.8-10.8)
[2017-10-13 17:39] LABS: BASOPHILS 0.1 % (0-2); EOSINOPHILS 0.6 % (0-7); LYMPHOCYTES 16.4 % (15-50); MCH 31.3 pg (26.0-34.0); MCHC 32.8 g/dL (31.0-37.0); MEAN PLATELET VOLUME 9.9 fL (7.4-10.4); PLATELET COUNT 349 10x3/uL (130-400); RDW 15.3 % (11.5-14.5)
[2017-10-13 17:40] LABS: IMMATURE GRANULOCYTES 0.9 % (0-5)
[2017-10-13 18:37] LABS: CALCIUM 10.2 mg/dL (8.5-10.1); CARBON DIOXIDE 26.7 mmol/L (21.0-32.0); GLUCOSE 206 mg/dL (74-106); UREA NITROGEN 105 mg/dL (7-18)
[2017-10-13 18:38] LABS: ALBUMIN 2.6 g/dL (3.4-5.0); ALKALINE PHOSPHATASE 67 U/L (46-116); ALT (SGPT) 31 U/L (10-68); PROTEIN - SERUM 6.8 g/dL (6.4-8.2)
[2017-10-13 19:20] VITALS: BP 136/66
[2017-10-13 22:00] VITALS: BP 153/66
[2017-10-13 23:00] VITALS: BP 142/71
[2017-10-14] VITALS (23 sets, daily range): BP systolic 124–175; BP diastolic 57–90; Ht 172.7 cm; Wt 90.9 kg
[2017-10-14 02:24] LABS: BASOPHILS 0.1 % (0-2); EOSINOPHILS 0.7 % (0-7); HEMATOCRIT 24.4 % (42.0-54.0); IMMATURE GRANULOCYTES 0.5 % (0-5); LYMPHOCYTES 17.4 % (15-50); MCH 30.9 pg (26.0-34.0); MCHC 32.8 g/dL (31.0-37.0); MCV 94.2 fL (80.0-100.0); MONOCYTES 5.9 % (2-11); NEUTROPHILS 75.4 % (40-80); PLATELET COUNT 291 10x3/uL (130-400); RBC 2.59 10x6/uL (4.20-6.10); RDW 15.9 % (11.5-14.5); WBC 8.8 10x3/uL (4.8-10.8)
[2017-10-14 02:42] LABS: ALBUMIN 2.3 g/dL (3.4-5.0); BILIRUBIN - TOTAL 0.8 mg/dL (0.2-1.3); CALCIUM 9.7 mg/dL (8.5-10.1); CARBON DIOXIDE 26.8 mmol/L (21.0-32.0); CREATININE - SERUM 7.5 mg/dL (0.6-1.3); POTASSIUM - SERUM 3.8 mmol/L (3.5-5.1)
[2017-10-14] MEDS ORDERED: HYDRALAZINE HCL25 MG PO (05:58)
[2017-10-14 06:04] LABS: HEMATOCRIT 27.9 % (42.0-54.0); HEMOGLOBIN 9.2 g/dL (13.5-17.5)
[2017-10-14 12:41] LABS: HEMOGLOBIN 9.7 g/dL (13.5-17.5)
[2017-10-14 21:28] LABS: HEMATOCRIT 27.6 % (42.0-54.0); HEMOGLOBIN 9.1 g/dL (13.5-17.5)
[2017-10-15] VITALS (21 sets, daily range): BP systolic 101–165; BP diastolic 56–101
[2017-10-15 04:03] LABS: BASOPHILS 0.3 % (0-2); EOSINOPHILS 0.5 % (0-7); HEMATOCRIT 28.4 % (42.0-54.0); HEMOGLOBIN 9.3 g/dL (13.5-17.5); IMMATURE GRANULOCYTES 0.6 % (0-5); LYMPHOCYTES 16.2 % (15-50); MCH 30.7 pg (26.0-34.0); MCHC 32.7 g/dL (31.0-37.0); MCV 93.7 fL (80.0-100.0); MEAN PLATELET VOLUME 10.1 fL (7.4-10.4); MONOCYTES 5.1 % (2-11); NEUTROPHILS 77.3 % (40-80); PLATELET COUNT 238 10x3/uL (130-400); RBC 3.03 10x6/uL (4.20-6.10); RDW 16.3 % (11.5-14.5); WBC 7.8 10x3/uL (4.8-10.8)
[2017-10-15 04:21] LABS: ALBUMIN 2.4 g/dL (3.4-5.0); ANION GAP 16.6 mmol/L (8-16); BILIRUBIN - TOTAL 0.61 mg/dL (0.2-1.3); CARBON DIOXIDE 21.6 mmol/L (21.0-32.0); CREATININE - SERUM 7.9 mg/dL (0.6-1.3); POTASSIUM - SERUM 4.2 mmol/L (3.5-5.1); PROTEIN - SERUM 6.2 g/dL (6.4-8.2)
[2017-10-15 04:35] LABS: APTT 27.3 SECONDS (22.8-39.4); INR 1.09 (0.85-1.17); PROTIME 13.7 SECONDS (11.6-15.0)
[2017-10-16 00:07] VITALS: BP 130/54
[2017-10-16 04:00] VITALS: BP 156/75
[2017-10-16 05:21] LABS: BASOPHILS 0.1 % (0-2); EOSINOPHILS 0.8 % (0-7); HEMATOCRIT 28.8 % (42.0-54.0); HEMOGLOBIN 9.3 g/dL (13.5-17.5); IMMATURE GRANULOCYTES 0.7 % (0-5); LYMPHOCYTES 15.4 % (15-50); MCH 30.9 pg (26.0-34.0); MCHC 32.3 g/dL (31.0-37.0); MEAN PLATELET VOLUME 10.3 fL (7.4-10.4); MONOCYTES 6.9 % (2-11); NEUTROPHILS 76.1 % (40-80); PLATELET COUNT 257 10x3/uL (130-400); RBC 3.01 10x6/uL (4.20-6.10); RDW 16.3 % (11.5-14.5); WBC 7.1 10x3/uL (4.8-10.8)
[2017-10-16 05:24] LABS: MCV 95.7 fL (80.0-100.0)
[2017-10-16 05:29] LABS: ALBUMIN 2.5 g/dL (3.4-5.0); BILIRUBIN - TOTAL 0.43 mg/dL (0.2-1.3); CALCIUM 8.5 mg/dL (8.5-10.1); CREATININE - SERUM 8.5 mg/dL (0.6-1.3); PROTEIN - SERUM 6.1 g/dL (6.4-8.2)
[2017-10-16 05:31] LABS: ANION GAP 11.7 mmol/L (8-16); CARBON DIOXIDE 27.3 mmol/L (21.0-32.0)
[2017-10-16 09:21] VITALS: BP 114/72
[2017-10-16 11:51] VITALS: BP 150/69
[2017-10-16 16:35] VITALS: BP 136/76
[2017-10-16 18:45] LABS: MACROPHAGES BF 20 %; MESOTHELIALS BF 2 %; NEUT - BF 22 %
[2017-10-16 20:00] VITALS: BP 149/80
[2017-10-17 00:04] VITALS: BP 112/76
[2017-10-17 04:00] VITALS: BP 158/84
[2017-10-17 05:35] LABS: BASOPHILS 0.1 % (0-2); EOSINOPHILS 0.5 % (0-7); HEMATOCRIT 28.3 % (42.0-54.0); HEMOGLOBIN 9.4 g/dL (13.5-17.5); IMMATURE GRANULOCYTES 0.6 % (0-5); LYMPHOCYTES 8.6 % (15-50); MCH 31.1 pg (26.0-34.0); MCHC 33.2 g/dL (31.0-37.0); MEAN PLATELET VOLUME 10.5 fL (7.4-10.4); MONOCYTES 4.4 % (2-11); NEUTROPHILS 85.8 % (40-80); PLATELET COUNT 260 10x3/uL (130-400); RBC 3.02 10x6/uL (4.20-6.10); RDW 15.9 % (11.5-14.5); WBC 8.6 10x3/uL (4.8-10.8)
[2017-10-17 05:42] LABS: MCV 93.7 fL (80.0-100.0)
[2017-10-17 05:55] LABS: ALBUMIN 2.5 g/dL (3.4-5.0); ANION GAP 14.3 mmol/L (8-16); BILIRUBIN - TOTAL 0.41 mg/dL (0.2-1.3); CALCIUM 8.1 mg/dL (8.5-10.1); CARBON DIOXIDE 24.3 mmol/L (21.0-32.0); CREATININE - SERUM 8.2 mg/dL (0.6-1.3); POTASSIUM - SERUM 3.6 mmol/L (3.5-5.1); PROTEIN - SERUM 6.2 g/dL (6.4-8.2)
[2017-10-17 07:40] VITALS: BP 100/48
[2017-10-17] MEDS ORDERED: PROTONIX40 MG PO (11:35)
[2017-10-17 11:37] VITALS: BP 154/73
== END 2017-10-17 13:51 | disposition home or self-care (01) | DRG 377 ==
LOC: D.ER 16:21 → D.ICU 20:27 → D.M2 20:27
PROVIDERS: Anesthesiology; Emergency Medicine; Family Medicine; Internal Medicine Gastroenterology; Internal Medicine Nephrology
PROC: 0DB78ZX Excision of Stomach, Pylorus, Via Natural or Artificial Opening Endoscopic, Diagnostic (ICD-10-PCS; principal; 2017-10-15 12:30)
DX: K26.4 Chronic or unspecified duodenal ulcer with hemorrhage (principal); N18.6 End stage renal disease; D62 Acute posthemorrhagic anemia; E87.1 Hypo-osmolality and hyponatremia; I12.0 Hypertensive chronic kidney disease with stage 5 chronic kidney disease or end stage renal disease; D63.1 Anemia in chronic kidney disease; E11.22 Type 2 diabetes mellitus with diabetic chronic kidney disease; J44.9 Chronic obstructive pulmonary disease, unspecified; F41.9 Anxiety disorder, unspecified; F32.9 Major depressive disorder, single episode, unspecified; K44.9 Diaphragmatic hernia without obstruction or gangrene; K21.9 Gastro-esophageal reflux disease without esophagitis; I48.2 Chronic atrial fibrillation; K29.00 Acute gastritis without bleeding

== ENCOUNTER → 2017-12-06 11:23 | Outpatient (CLI) | payer MEDICARE, OTHER ==
[2017-10-14 13:35] VITALS: BMI 28.2
[~2017-12-06 11:23] MED LIST changes: +AUGMENTIN 500-11 TA1 PO; +HYDRALAZINE HCL25 MG PO; +LASIX20 MG PO; +LEVEMIR100 U/M1 SQ; +PROTONIX40 MG PO
== END | disposition home or self-care (01) ==
LOC: D.RAD 11:23
DX: R06.02 Shortness of breath (principal)

== ENCOUNTER 2017-12-08 09:18 | Outpatient (CLI) | payer MEDICARE, OTHER ==
[~2017-12-08] VITALS: Ht 172.7 cm; Wt 88.2 kg
--- NOTE | ~2017-12-08 | OP ---
PATIENT NAME: ASHLEY HSU III MEDICAL RECORD: [id number] :43 LOCATION:D.CAT ADMISSION DATE: SURGEON: ELISSA MILLER MD DATE OF OPERATION: 12/08/2017 DATE OF SERVICE: 12/08/2017 PROCEDURE: Four-vessel carotid and vertebral angiography. INDICATION: Unsteady gait, syncope. PROCEDURE IN DETAIL: After informed consent was obtained and after detailed description of risks, benefits as well as alternative therapies, the patient elected to proceed with angiogram. The left femoral area had a preexisting sheath from cardiac intervention. All catheters exchanged through this sheath. FINDINGS: There was subselection of each subclavian as well as the left carotid. RIGHT SIDE: Common internal and external carotids have mild plaquing, none greater than 30%, no flow-limiting stenosis. Vertebral artery is with no significant angiographic disease. LEFT SYSTEM: The common carotid is devoid of disease. The external carotid appears to be totally occluded. The internal carotid has 70% to 80% stenosis proximally. Vertebral artery has no significant disease. 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 TRANSINT:[id number] Voice Confirmation ID: [id number] DOCUMENT ID: [id number] ELISSA MILLER MD at 1256 CC: [id number] DICTATION DATE: 12/19/17 1209 SENIOR SUSTAINABILITY ADVISOR: 12/19/17 1245 DEP CLI 12/08/17 [place] [id number] [place] [id number]
--- NOTE | ~2017-12-08 | HEMODYNAMI ---
PATIENT:ASHLEY HSU III MEDICAL RECORD: [id number] : 43 LOCATION:D.CAT ADMISSION DATE: 12/08/17 Generatedon:12/08/201714:26 Patient name: ASHLEY HSU Patient #: [id number] SSN: : 1945 Date of study: 12/08/2017 Page: Of Hemodynamic Procedure Report Patient Data Patient Demographics Procedure consent was obtained First Name: ASHLEY Gender: Male Last Name: SHADI Suffix: NATHALY Middle Initial: M : 1945 Patient #: [id number] Age: 72 year(s) Race: Unknown Additional ID: [id number] Contact details [address]: [address] [place] [address] State: [place] City: [place] Zip code: [address] Past Medical History Allergies Allergen Reaction Date Comments Reported Aspirin 05/25/2016 Aspirin 09/12/2017 Admission Admission Data Admission Date: 12/08/2017 Admission Time: 9:18 Procedure Procedure Types Cath Procedure Diagnostic Procedure LHC LHC w/Coronaries Sedation Charges Moderate Sedation up to 15 minutes PCI Procedure Coronary Stent Coronary Stent Initial Peripheral Cath Diagnostic Procedure Professor/Nurse Anesthetist Peripheral Procedures Ehkrr-Mqpclhr-Nxn-Off Four Vessel Arteriogram Peripheral vascular Intervention Stent Stent Iliac w/plasty Initial Procedure Description Procedure Date Procedure Date: 12/08/2017 Procedure Start Time: 13:45 Procedure Staff Name Function Jeramie Guzmán MD Performing Physician Joie Villegas RT Monitor Donnell Ortiz RT Scrub Eran Lacey RN Nurse Procedure Data Cath Procedure Fluoroscopy Diagnostic fluoroscopy Total fluoroscopy Time: time: 11.5 min 11.5 min Diagnostic fluoroscopy Total fluoroscopy dose: dose: 2184 mGy 2184 mGy Contrast Material Contrast Material Type Amount (ml) Isovue 300 222 Entry Location Entry Primary Successful Side Size Upsize Upsize Entry Closure Succes sful Closure Location (Fr) 1 (Fr) 2 (Fr) Remarks Device Remarks Femoral Right 5 Fr Vascade artery Closure System Femoral Left 6 Fr 6 Fr Exoseal artery Long Short Estimated blood loss: 5 ml Diagnostic catheters Device Type Used For End Catheter Placement MULTIPACK Pigtail 5 Fr LV Angiography catheter MULTIPACK JL 4.0 5Fr Left Coronary catheter Angiography MULTIPACK 3DRC 5Fr Right Coronary catheter Angiography MULTIPACK 3DRC 5Fr Multi-vessel catheter Angiography Procedure Medications Medication Administration Route Dosage 0.9% NaCl I.V. 10 ml/hr Oxygen etCO2 Nasal cannula 3 l/min Heparin Flush Bag added to field 2 bags (1000units/500ml NS) Lidocaine 2% added to field 20 Versed I.V. 0.5 mg Fentanyl I.V. 25 mcg Heparin Bolus I.V. 5000 units Hemodynamics Rest Heart Rate: 72 (bpm) Snapshots Pre Cath Intra NCS Post Cath Vital Signs Time Heart Resp SPO2 etCO2 NIBP (mmHg) Rhythm Pain Sedation Rate (ipm) (%) (mmHg) Status Level (bpm) 13:26:25 72 15 100 12.7 160/80(125) NSR 0 (11) 10(A) , No pain 13:30:41 71 16 100 17.2 160/85(140) NSR 0 (11) 10(A) , No pain 13:34:57 85 16 99 21.6 158/85(119) NSR 0 (11) 10(A) , No pain 13:39:13 72 18 99 21.6 153/81(101) NSR 0 (11) 10(A) , No pain 13:43:29 72 17 98 23.1 159/78(101) NSR 0 (11) 10(A) , No pain 13:47:47 72 16 97 21.6 137/81(124) NSR 0 (11) 9(A) , No pain 13:51:57 72 15 93 15.6 156/79(121) NSR 0 (11) 9(A) , No pain 13:56:11 73 19 97 23.9 155/84(118) NSR 0 (11) 9(A) , No pain 14:00:27 73 14 96 27.6 156/78(125) NSR 0 (11) 9(A) , No pain 14:04:43 73 15 96 32.1 150/81(110) NSR 0 (11) 9(A) , No pain 14:08:59 75 18 90 26.9 144/74(116) NSR 0 (11) 9(A) , No pain 14:13:15 73 18 94 21.6 132/71(111) NSR 0 (11) 10(A) , No pain 14:17:23 74 17 94 21.6 152/79(120) NSR 0 (11) 10(A) , No pain 14:21:39 73 16 97 24.6 155/80(125) NSR 0 (11) 10(A) , No pain Medications Time Medication Route Dose Verified Delivered Reason Notes Effectiveness by by 13:25:01 0.9% NaCl I.V. 10 Eran Eran Per physician ml/hr Abhijit Lacey RN RN 13:25:11 Oxygen etCO2 3 Eran Eran Per physician Nasal l/min Abhijit Lacey cannula RN RN 13:25:28 Heparin Flush added 2 Eran Eran used for Bag to bags Abhijit Lacey procedure (1000units/500ml field RN RN NS) 13:25:43 Lidocaine 2% added 20ml Eran Eran for local to vial Abhijit Lacey anesthetic field RN RN 13:44:31 Versed I.V. 0.5 Eran Eran for sedation mg Abhijit Lacey RN RN 13:44:38 Fentanyl I.V. 25 Eran Eran for sedation mcg Abhijit Lacey RN RN 13:56:16 Heparin Bolus I.V. 5000 Eran Eran for units Abhijit Lacey anticoagulation RN clamper Log Time Note 13:10:05 Eran Lacey RN sent for patient. Start room use. 13:10:06 Time tracking: Regular hours (M-F 7:00 - 5:00) 13:10:10 Plan of Care:Hemodynamics will remain stable., Cardiac rhythm will remain stable., Comfort level will be maintained., Respiratory function will remain adequate., Patient/ family verbilizes understanding of procedure., Procedure tolerated without complication., Recovers from procedure without complications.. 13:12:21 Patient received from Pre/Post Procedure Room to CCL 2 Alert and oriented. Tansferred to table in Supine position. 13:12:22 Warm blankets applied, and bartolo hugger turned on for patient comfort. 13:12:23 Correct patient and procedure confirmed by team. 13:12:24 Signed procedure consent form obtained from patient. 13:12:25 ECG and BP/O2 sat monitors applied to patient. 13:25:01 0.9% NaCl 10 ml/hr I.V. was administered by Eran Lacey RN; Per physician; 13:25:11 Oxygen 3 l/min etCO2 Nasal cannula was administered by Eran Lacey RN; Per physician; 13:25:13 Vital chart was started 13:25:28 Heparin Flush Bag (1000units/500ml NS) 2 bags added to field was administered by Eran Lacey RN; used for procedure; 13::43 Lidocaine 2% 20ml vial added to field was administered by Eran Lacey RN; for local anesthetic; 13:26:44 Baseline sample Acquired. 13:26:50 Rhythm: sinus rhythm 13:26:51 Full Disclosure recording started 13:27:03 H&P Date Dictated: 12/08/2017 Within 30 days and on chart., H&P Addendum completed by physician on day of procedure. (MUST COMPLETE FOR ALL OUTPATIENTS). 13:27:04 Pre-procedure instructions explained to patient. 13:27:05 Pre-op teaching completed and patient verbalized understanding. 13:27:06 Family in waiting room. 13:27:07 Patient NPO since Midnight. 13:27:09 Is the patient allergic to Iodine/contrast media? No. 13:27:10 Was the patient premedicated? No 13:27:22 Is patient on blood thinner?Yes 13:27:25 ACC The patient was administered the following blood thiners within the last 24 hours: ACCPlavix 13:27:30 Patient diabetic? Yes. 13:27:43 If diabetic: On Metformin? No 13:27:51 Previous problem with sedation/anesthesia? No ? 13:27:53 Snore? Yes 13:27:55 Sleep apnea? Yes 13:27:58 Deviated septum? No 13:27:58 Opens mouth fully? Yes 13:27:59 Sticks out tongue? Yes 13:28:07 Airway obstruction? No ? 13:28:10 Dentures? No ? 13:28:13 Pre procedure: right dorsailis pedis pulse 2+ Normal; easily identifiable; not easily obliterated 13:28:16 Pre procedure: left dorsailis pedis pulse 2+ Normal; easily identifiable; not easily obliterated 13:28:19 Patient pain scale 0/10 ?. 13:28:26 IV patent on arrival in right forearm with 0.9% NaCl at [facility]. 13:28:29 Lab results completed and on chart. 13::33 Right groin area was prepped with chlora-prep and draped in sterile fashion 13::34 Alarms reviewed by R. N. 13:28:34 Sharps counted by scrub and verified by R.N. 13:35:03 Zero performed for pressure channel P1 13:38: Physician arrived 13:: --------ALL STOP TIME OUT------ 13:: Final Timeout: patient, procedure, and site verified with staff and physician. All members of the team are in agreement. 13:38:25 Right groin site verified by team. 13:38:28 Physical assessment completed. ASA score P 2 - A patient with mild systemic disease as per Jeramie Guzmán MD. 13:38:32 Sedation plan: IV Moderate Sedation Medication:Versed, Fentanyl 13:38:47 Use device set Femoral Dx 13:38:48 ACIST Syringe (35522) opened to sterile field. 13:38:48 Bag Decanter (2002S) opened to sterile field. 13:38:49 Medline Cath Pack ([id number]) opened to sterile field. 13:38:49 DIAGNOSTIC WIRE .035 260cm J wire (401092) opened to sterile field. 13:38:51 ACIST Hand Control (63792) opened to sterile field. 13:38:51 ACIST Manifold (27313) opened to sterile field. 13:38:52 DIAGNOSTIC Multipack 5Fr catheter set (MT0421) opened to sterile field. 13:38:52 Tegaderm 4 x 4 (1626W) opened to sterile field. 13:38:54 SHEATH Prelude 5Fr 0.035 (ZJY-4A-05-035) opened to sterile field. 13:44:31 Versed 0.5 mg I.V. was administered by Eran Lacey RN; for sedation; 13:44:38 Fentanyl 25 mcg I.V. was administered by Eran Lacey RN; for sedation; 13:44:56 Procedure started. 13:45:06 Local anesthetic to right femoral artery with Lidocaine 2% by Jeramie Guzmán MD.INITIAL ACCESS ONLY 13:45:20 A 5 Fr sheath was inserted into the Right Femoral artery 13:45:55 A MULTIPACK Pigtail 5 Fr catheter was advanced over the wire and used for LV Angiography. 13:46:09 LV hemodynamics recorded. 13:46:10 LV gram done using POSADA 13:46:13 Injector settings: Ml/sec: 5, Volume: 15, 13:46:41 EF : 40 % 13:46:51 Abdominal angiogram w/ runoff was performed. 13:48:05 Catheter removed. 13:48:12 A MULTIPACK JL 4.0 5Fr catheter was advanced over the wire and used for Left Coronary Angiography. 13:48:16 LCA angiography performed. 13:49:49 Catheter removed. 13:49:54 A MULTIPACK 3DRC 5Fr catheter was advanced over the wire and used for Right Coronary Angiography. 13:50:28 RCA angiography performed. 13:50:30 Injector settings: Ml/sec: 3, Volume: 6, 13:54:50 Catheter removed. 13:54:51 Proceeding to intervention. 13:54:59 Local anesthetic to left femerol artery with Lidocaine 2% by Jeramie Guzmán MD.ADDITIONAL ACCESS 13:55:20 A 6 Fr Long sheath was inserted into the Left Femoral artery 13:55:50 SHEATH 6FR Brite Tip 35cm ([id number]) opened to sterile field. 13:55:51 SHEATH 6FR [place] (NOM766) opened to sterile field. 13:56:04 INFLATOR Merit BasixCompak (FY6037) opened to sterile field. 13:56:12 SHINOBI 300cm 0.014 guide wire ([id number]) opened to sterile field. 13:56:16 Heparin Bolus 5000 units I.V. was administered by Eran Lacey RN; for anticoagulation; 13:56:29 GLIDE WIRE Super Stiff Angled 260cm (JO7786) opened to sterile field. 13:57:03 glise wire advanced. 13:58:10 Procedure type changed to Cath procedure, Diagnostic procedure, LHC, LHC w/Coronaries, Sedation Charges, Moderate Sedation up to 15 minutes, PCI procedure, Coronary Stent, Coronary Stent Initial, Peripheral Cath Diagnostic Procedure, Professor/Nurse Anesthetist Peripheral Procedures, Hhesd-Axiecfh-Zvs-Off, Four Vessel Arteriogram, Peripheral vascular Intervention, Stent, Stent Iliac w/plasty Initial 13:58:28 Place stent Inflation Number: 1 A FRANCIA 7 x 29 x 135 stent ([id number]) was prepped and advanced across the Proximal Common Iliac, Left. The stent was deployed at 9 VICTOR M for 0:10 (min:sec). 13:58:35 Inflation number: 2 The stent balloon was then re-inflated across the Proximal Common Iliac, Left to 13 VICTOR M for 0:10 (min:sec). 13:58:42 Inflation number: 3 The stent balloon was then re-inflated across the Proximal Common Iliac, Left to 13 VICTOR M for 0:10 (min:sec). 13:58:54 Balloon removed over the wire. 13:59:57 GUIDE 6FR XBLAD 4.0 catheter ([id number]) opened to sterile field. 14:00:53 A MULTIPACK 3DRC 5Fr catheter was advanced over the wire and used for Multi-vessel Angiography. 14:01:09 Bilateral carotid angiography performed. 14:02:12 Catheter removed. 14:02:18 6 Fr xblad 4 guide catheter was inserted over the wire 14:02:35 shinobi wire advanced. 14:06:09 Inflate balloon Inflation number: 1 A EMERGE OTW 1.5 x 20 balloon ([id number]) was prepped and advanced across the Prox LAD, then inflated to 21 VICTOR M for 0:10 (min:sec). 14:06:15 Inflation number: 2 The EMERGE OTW 1.5 x 20 balloon ([id number]) was reinflated across the Prox LAD, to 21 VICTOR M for 0:10 (min:sec). 14:06:24 Inflation number: 3 The EMERGE OTW 1.5 x 20 balloon ([id number]) was reinflated across the Prox LAD, to 21 VICTOR M for 0:10 (min:sec). 14:08:08 CHOICE PT Extra Support J 300cm guide wire ([id number]) opened to sterile field. 14:11:26 shinobi wire exchanged for choice pt 14:12:17 Place stent Inflation Number: 4 A ANA OTW 2.25 x 26 stent ([id number]) was prepped and advanced across the Prox LAD. The stent was deployed at 9 VICTOR M for 0:10 (min:sec). 14:19:20 Stent catheter was removed intact over wire. 14:19:21 Wire removed. 14:19:22 Guide catheter removed. 14:20:32 Sheath removed intact; hemostasis achieved with Vascade Closure System to the Right Femoral artery. 14:20:46 Sheath upsized to a 6 Fr Short. 14:21:13 Sheath removed intact; hemostasis achieved with Exoseal to the Left Femoral artery. 14:21:20 Procedure ended.(Physican Out) 14:22:32 Fluoroscopy time 11.50 minutes. 14:22:37 Fluoroscopy dose: 2184 mGy 14:22:37 Flurop Dose total: 2184 14:22:48 Contrast amount:Isovue 300 222ml. 14:22:49 Sharps counted by scrub and verified by R.N. 14:22:50 Insertion/operative site no bleeding no hematoma. 14:22:54 Post-op/insertion site Right Femoral artery dressed using a 4 x 4 and Tegaderm. 14:22:58 Post-op/insertion site Left Femoral artery dressed using a 4 x 4 and Tegaderm. 14:23:00 Post right femoral artery:stable 14:23:05 Post left femerol artery:stable 14:23:07 Post Procedure Pulses reassessed and unchanged 14:23:09 Post procedure rhythm: unchanged. 14:23:11 Estimated blood loss: 5 ml 14:23:13 Post procedure instruction explained to patient.Patient verbalizes understanding. 14:23:13 Patient needs reinforcement of post procedure teaching. 14:24:22 EXOSEAL 6Fr (EX600) opened to sterile field. 14:24:24 VASCADE 5Fr ([id number]) opened to sterile field. 14:26:15 Vital chart was stopped Intervention Summary Intervention Notes Time ActionType Lesion and Equipment Action# Pressure Duration Attributes Used 13:58:28 Place stent Proximal FRANCIA 7 x 1 9 00:10 Common 29 x 135 Iliac, Left stent ([id number]) 13:58:35 Reinflate Proximal FRANCIA 7 x 2 13 00:10 stent Common 29 x 135 balloon Iliac, Left stent ([id number]) 13:58:42 Reinflate Proximal FRANCIA 7 x 3 13 00:10 stent Common 29 x 135 balloon Iliac, Left stent ([id number]) 14:06:09 Inflate Prox LAD EMERGE OTW 1 21 00:10 balloon 1.5 x 20 balloon ([id number]) 14:06:15 Reinflate Prox LAD EMERGE OTW 2 21 00:10 balloon 1.5 x 20 balloon ([id number]) 14:06:24 Reinflate Prox LAD EMERGE OTW 3 21 00:10 balloon 1.5 x 20 balloon ([id number]) 14:12:17 Place stent Prox LAD ANA OTW 2.25 4 9 00:10 x 26 stent ([id number]) Device Usage Item Name Manufacture Quantity Catalog Number Hospital Part Current Minimal Lot# / Charge Number Stock Stock Serial# Code ACIST Syringe Acist 1 41463 464763 242560 409465 20 (81346) Medical [employer] Inc Bag Decanter Microtek 1 2001S 434650 97695 642886 5 () Medical Inc. Medline Cath Medline 1 [id number] 288677 04778 125224 5 Pack ([id number]) DIAGNOSTIC WIRE St Flaco 1 273439 133472 562298 408211 30 .035 260cm J wire (259083) ACIST Hand Acist 1 78874 786168 591658 870536 5 Control (14980) [employer] Inc ACIST Manifold Acist 1 24482 095675 216600 285342 5 (85126) [employer] Inc DIAGNOSTIC Cardinal 1 XD8485 789683 97958 995583 30 Multipack 5Fr Health catheter set (RB7413) Tegaderm 4 x 4 3M 1 1626W 002491 637464 646502 5 (1626W) SHEATH Prelude Merit 1 [id number]-0K-79-035 002461 061757 396538 5 5Fr 0.035 Medical (WVI-3C-54-035) MULTIPACK Cardinal 1 844826 5 Pigtail 5 Fr Health catheter MULTIPACK JL Cardinal 1 409619 5 4.0 5Fr Health catheter MULTIPACK 3DRC Cardinal 1 566490 5 5Fr catheter Health SHEATH 6FR Cardinal 1 [id number] 936763 989812 073712 1 Brite Tip 35cm Health (024178V) SHEATH 6FR Terumo 1 DOQ061 794875 703686 818998 40 [place] (XES538) INFLATOR Merit Merit 1 SW4724 483457 808277 353482 15 [facility] (SQ8310) SHINOBI 300cm Cardinal 1 [id number] 158548 621405 054110 1 0.014 guide Health wire (260663X) GLIDE WIRE Terumo 1 PB0863 786669 500190 676290 5 Super Stiff Angled 260cm (GO0550) FRANCIA 7 x 29 Cardinal 1 [id number] 822453 346307 5 70967000 x 135 stent Health ([id number]) GUIDE 6FR XBLAD Cardinal 1 01042040 459833 063481 617167 3 4.0 catheter Health (37265977) EMERGE OTW 1.5 Jasper 1 [id number] 176267 727824 601775 5 [id number] x 20 balloon Scientific ([id number]) CHOICE PT Extra Jasper 1 [id number] 990481 303257 338084 5 Support J 300cm Scientific guide wire ([id number]) ANA OTW 2.25 x Medtronic 1 [id number] 420531 62254 963056 5 [id number] 26 stent ([id number]) EXOSEAL 6Fr Cardinal 1 EX600 672046 528759 855234 10 (EX600) Health VASCADE 5Fr Cardiva 1 [id number] 978446 43744 328120 10 ([id number]) Medical, Inc. Signature Audit [place] Stage Time Signature Unsigned Intra-Procedure 12/08/2017 Joie Villegas 2:26:12 PM RT(R) Signatures Monitor : Joie Villegas RT Signature : Date : Time : [facility] [address] [place] [address]
--- NOTE | ~2017-12-08 | OP ---
PATIENT NAME: ASHLEY HSU III MEDICAL RECORD: [id number] :43 LOCATION:D.CAT ADMISSION DATE: SURGEON: ELISSA MILLER MD DATE OF OPERATION: 12/08/2017 DATE OF SERVICE: 12/08/2017 PROCEDURES: 1. Stent placement, iliac, left. 2. CLIPPER OPERATOR iliac, left. 3. Aortofemoral runoff. INDICATION: Claudication and peripheral vascular disease. DESCRIPTION OF PROCEDURE: After informed consent was obtained and after detailed explanation of risks, benefits as well as alternative therapies, the patient elected to proceed with angiogram and angioplasty. The left femoral area had a preexisting sheath from cardiac interventional catheters exchanged through this sheath. FINDINGS: Abdominal aortography was performed. The catheter was pulled down for aortofemoral runoff and abdominal aortography, reveals no significant abdominal aortic disease, no dissection or annulus formation. RIGHT LEG: A. Iliac: The common internal and external iliacs have moderate irregularities, but no flow-limiting stenosis. B. Femoral system: The common superficial and deep femoral have moderate irregularities, but no discrete flow-limiting stenosis. C. Popliteal and infrapopliteal vessels are widely patent giving good 3-vessel runoff to the foot. LEFT LEG: A. Iliac: The common iliac has previously placed stent. This is widely patent; however, after this, in the external iliac there is 90-95% stenosis. B. Femoral system: The common superficial and deep femoral have moderate irregularities, but no flow-limiting stenosis. C. Popliteal and infrapopliteal vessels are widely patent with good 3-vessel runoff to the foot. CLIPPER OPERATOR STENT OF THE LEFT EXTERNAL ILIAC: The stent used was a 7 x 29 Cordis Marva stent. Result was 0% residual stenosis. OVERALL IMPRESSION: Successful percutaneous transluminal angioplasty stent of the left external iliac going from 95% initial stenosis to 0% residual. TRANSINT:[id number] Voice Confirmation ID: [id number] DOCUMENT ID: [id number] OPERATIVE REPORT [id number] ASHLEY HSU III ELISSA MILLER MD at 1256 CC: [id number] DICTATION DATE: 12/19/17 1209 GROUP CAPTAIN: 12/19/17 1252 DEP CLI 12/08/17 [place] [address]
--- NOTE | ~2017-12-08 | OP ---
PATIENT NAME: ASHLEY HSU III MEDICAL RECORD: [id number] :43 LOCATION:D.CAT ADMISSION DATE: SURGEON: ELISSA MILLER MD DATE OF OPERATION: 12/08/2017 DATE OF SERVICE: 12/08/2017 PROCEDURES: 1. PTCA stent LAD. 2. Left heart catheterization. 3. Selective coronary angiography. 4. Left ventriculogram. INDICATION: Acute coronary syndrome, angina. PROCEDURE IN DETAIL: After informed consent was obtained and after detailed description of risks, benefits as well as alternative therapies, the patient elected to proceed with angiogram and angioplasty. The left femoral area was prepped and draped in normal sterile fashion. Left femoral artery was cannulated via modified Seldinger technique with placement of 6-[place] sheath. All catheters exchanged through this sheath. FINDINGS: The left ventriculogram was performed in standard 30-degree POSADA view, reveals anteroapical hypokinesis. Overall ejection fraction is 30 to 35%. SELECTIVE CORONARY ANGIOGRAPHY: 1. Left main is with no significant angiographic disease. 2. Left anterior descending is totally occluded proximally. 3. Left circumflex has mild irregularities, but no flow-limiting stenosis. 4. Right coronary has mild irregularities, but no flow-limiting stenosis. PTCA STENT OF THE LAD: We are able to traverse the chronic total occlusion with a Shinobi wire and ballooned this with a 1.5 and 2.0 balloon. Stenting was undertaken with a 2.25 x 26 mm [place] stent. Result was 0% residual stenosis. OVERALL IMPRESSION: Successful percutaneous transluminal coronary angioplasty stent of the left anterior descending going from 100% initial stenosis to 0% residual. TRANSINT:[id number] Voice Confirmation ID: [id number] DOCUMENT ID: [id number] ELISSA MILLER MD at 1256 CC: [id number] DICTATION DATE: 12/19/17 1209 NURSE COORDINATOR: 12/19/17 1241 [facility] CLI 12/08/17 [place] [id number]
[2017-12-08 10:12] VITALS: BP 143/65; Ht 172.7 cm; Wt 88.2 kg
[2017-12-08 10:34] LABS: ANION GAP 15.8 mmol/L (8-16); CALCIUM 8.1 mg/dL (8.5-10.1); CARBON DIOXIDE 28.4 mmol/L (21.0-32.0); CREATININE - SERUM 6.5 mg/dL (0.6-1.3); POTASSIUM - SERUM 3.2 mmol/L (3.5-5.1)
[2017-12-08 10:36] LABS: BASOPHILS 0.3 % (0-2); EOSINOPHILS 1.9 % (0-7); HEMATOCRIT 26.9 % (42.0-54.0); HEMOGLOBIN 8.7 g/dL (13.5-17.5); IMMATURE GRANULOCYTES 0.2 % (0-5); LYMPHOCYTES 16.9 % (15-50); MCH 31.1 pg (26.0-34.0); MCHC 32.3 g/dL (31.0-37.0); MCV 96.1 fL (80.0-100.0); MEAN PLATELET VOLUME 11.6 fL (7.4-10.4); MONOCYTES 7.8 % (2-11); NEUTROPHILS 72.9 % (40-80); PLATELET COUNT 213 10x3/uL (130-400); RDW 17.1 % (11.5-14.5); WBC 6.2 10x3/uL (4.8-10.8)
[2017-12-08] MEDS ORDERED: TOPROL XL50 MG PO (10:43)
== END 2017-12-08 18:30 | disposition home or self-care (01) ==
LOC: D.CATH 09:18
PROVIDERS: Internal Medicine Interventional Cardiology
DX: I24.9 Acute ischemic heart disease, unspecified (principal); I25.10 Atherosclerotic heart disease of native coronary artery without angina pectoris; I25.82 Chronic total occlusion of coronary artery; R26.81 Unsteadiness on feet; R55 Syncope and collapse; I65.22 Occlusion and stenosis of left carotid artery; I70.212 Atherosclerosis of native arteries of extremities with intermittent claudication, left leg; Z01.812 Encounter for preprocedural laboratory examination
CPT/HCPCS: 93458; 36222; 36225; 37221; C9600

== ENCOUNTER → 2018-01-03 12:49 | Outpatient (CLI) | payer MEDICARE, OTHER ==
[2017-12-08 10:12] VITALS: BMI 29.5
[~2018-01-03 12:49] MED LIST changes: +TOPROL XL50 MG PO
== END | disposition home or self-care (01) ==
LOC: D.CT 12:49
DX: I25.10 Atherosclerotic heart disease of native coronary artery without angina pectoris (principal)

== ENCOUNTER → 2018-02-05 12:19 | Outpatient (CLI) | payer MEDICARE, OTHER ==
[2017-12-08 10:12] VITALS: BMI 29.5
[~2018-02-05 12:19] MED LIST changes: +HYDROXYZINE HCL10 MG PO; +IPRAT-ALBUT 0.5-3 ML; -IPRAT-ALBUT 0.5-3 ML UPD; +LASIX80 MG PO; +LEVEMIR IN100 UNITS/ SC; +MIRALAX17 GM PO; +NOVOLOG100 UNIT/1 SQ; +STOOL SOFTENER100 M1 PO
[2018-02-05 15:16] LABS: APPEARANCE CLEAR (CLEAR); BILIRUBIN NEGATIVE (NEGATIVE); COLOR YELLOW (YELLOW); GLUCOSE 250 mg/dL (NEGATIVE); KETONE NEGATIVE (NEGATIVE); NITRITE NEGATIVE (NEGATIVE); PROTEIN 1+ mg/dL (NEGATIVE); SPECIFIC GRAVITY 1.015 (1.005-1.020); UROBILINOGEN NORMAL (NORMAL)
[2018-02-05 15:18] LABS: EPITHELIAL CELLS 0-5 /hpf (0-5); RED CELLS - URINE 0-5 /hpf (0-5)
[2018-02-05 15:19] LABS: BACTERIA FEW /hpf (NONE SEEN)
== END | disposition home or self-care (01) ==
LOC: D.LAB 12:19
PROVIDERS: Internal Medicine Cardiovascular Disease
DX: N39.0 Urinary tract infection, site not specified (principal)

== ENCOUNTER 2018-02-21 05:00 | Inpatient (IN) | payer MEDICARE, OTHER ==
[2018-02-19 11:23] LABS: HEMATOCRIT 30.8 % (42.0-54.0); MCH 31.9 pg (26.0-34.0); MCHC 32.5 g/dL (31.0-37.0); MCV 98.4 fL (80.0-100.0); MEAN PLATELET VOLUME 11.1 fL (7.4-10.4); RBC 3.13 10x6/uL (4.20-6.10); RDW 14.6 % (11.5-14.5); WBC 9.2 10x3/uL (4.8-10.8)
[2018-02-19 11:39] LABS: APTT 30.1 SECONDS (22.8-39.4); INR 1.15 (0.85-1.17); PROTIME 14.2 SECONDS (11.6-15.0)
[2018-02-19 11:52] LABS: ALBUMIN 3.1 g/dL (3.4-5.0); ANION GAP 16.9 mmol/L (8-16); BILIRUBIN - TOTAL 0.63 mg/dL (0.2-1.3); CALCIUM 7.7 mg/dL (8.5-10.1); CARBON DIOXIDE 27.6 mmol/L (21.0-32.0); CREATININE - SERUM 9.3 mg/dL (0.6-1.3); POTASSIUM - SERUM 4.5 mmol/L (3.5-5.1); PROTEIN - SERUM 7.7 g/dL (6.4-8.2)
[2018-02-19 11:58] LABS: APPEARANCE CLOUDY (CLEAR); COLOR YELLOW (YELLOW)
[2018-02-19 11:59] LABS: BILIRUBIN NEGATIVE (NEGATIVE); GLUCOSE NEGATIVE (NEGATIVE); KETONE NEGATIVE (NEGATIVE); NITRITE NEGATIVE (NEGATIVE); PROTEIN 3+ mg/dL (NEGATIVE); UROBILINOGEN NORMAL (NORMAL); WHITE CELLS - URINE >50 /hpf (0-5)
[2018-02-19 12:18] LABS: BACTERIA MANY /hpf (NONE SEEN); EPITHELIAL CELLS 0-5 /hpf (0-5)
[2018-02-20 09:17] LABS: HEPATITIS C ANTIBODY <0.1 S/CO RAT (0.0-0.9)
[2018-02-21] VITALS (46 sets, daily range): BP systolic 113–138; BP diastolic 47–62; BMI 27.7
[~2018-02-21] VITALS: Ht 172.7 cm; Wt 85.1 kg
[~2018-02-21 05:00] MED LIST changes: +VENTOLIN HFA18 GM INH
[2018-02-21] MEDS ORDERED: TUMS X-STR300 MG PO (05:34)
--- NOTE | 2018-02-21 11:48 | NUR ---
PT RECIEVED TO ROOM APPROX 1040 ALERT ANDCONFUSED TO SITUATION, VSS, O2 3L NC, R SUBCLAVIAN CVL DRESSIN GCDI WITH PLASMALYTE 30ML/HR ZINACEF INITAITED AND NITRO TITRATING TO BP, L NECK CEA DRESSING CDI WITH ICE APPLIED AND GELACIO DRAIN COMPRESSED, PD CATH TO ABD, JJ DRAINING SCANT YELLOW URINE, TOLERATING ICE CHIPS WELL, WILL CONTINUE TO MONITOR
--- NOTE | 2018-02-21 12:47 | NUR ---
PD SUPPLIES BROUGHT BY CENTRAL SUPPLY, AWAITING PD TO WARM AND WILL ADMINISTER
--- NOTE | 2018-02-21 19:15 | NUR ---
Received patient resting in bed with eyes open, assessment completed per flowsheet. Patient AOx4, calm and cooperative. L anterior neck GELACIO x1 with small bloody drainage, compressed with dressing CDI. Patient slightly hoarse, no difficulty breathing/swallowing noted. S1/S2 noted NSR on telemetry, rythmic and regular. Breathing is even/unlabored on 2L via NC with O2 sat 96%, lung sounds clear throughout. Performs 1000ml consistently on IS, strong cough/good effort noted. Peritoneal dialysis catheter R lower abdomen secured, clamped with dressing CDI. R radial A-line with good waveform, wrist protector in use. Remaining pulses palpable with cap refill < 3 sec, skin warm/dry. Denies pain or other needs at this time, see flowsheet for details. All VSS and will continue to monitor.
--- NOTE | 2018-02-21 19:40 | NUR ---
PD started per orders, Heparin added to dialysate as ordered. 1500ml drained from indwelling, 1500ml instilled without difficulty.
--- NOTE | 2018-02-21 21:00 | NUR ---
HS meds given without difficulty, no breathing/swallowing problem noted. No visitors at this time, discussed medications with all questions answered to satisfaction. No further needs at this time, all VSS and will continue to monitor.
--- NOTE | 2018-02-21 23:10 | NUR ---
Reassessment completed per flowsheet, patient resting in bed with eyes closed. L anterior neck GELACIO x1 with dressing CDI, small bloody drainage. No difficulty breathing/swallowing noted, no edema noted. Abdominal PD cath clamped/secure, dressing CDI. All pulses palpable with cap refill < 3 sec, skin warm/dry. No further needs at this time, see flowsheet for details. All VSS and will continue to monitor.
[2018-02-22] VITALS (69 sets, daily range): BP systolic 107–154; BP diastolic 41–111; Ht 172.7 cm; Wt 85.1 kg
--- NOTE | 2018-02-22 01:00 | NUR ---
Patient awake in bed with eyes open, states having "trouble sleeping". Repositioned with stated relief, denies pain or other needs at this time. All VSS and will continue to monitor.
--- NOTE | 2018-02-22 01:35 | NUR ---
PD performed as ordered, 1500ml dialysate drained. 1500ml infused without difficulty, PD cath clamped/secured.
--- NOTE | 2018-02-22 03:10 | NUR ---
Reassessment completed per flowsheet, patient resting in bed with eyes open. L anterior neck incision dressing CDI, no difficulty breathing/swallowing noted. GELACIO x1 with bloody drainage noted, compressed. Abdominal PD Cath secured/clamped, dressing CDI. R radial A-line with good waveform, wrist protector in use. Remaining pulses palpable with cap refill < 3 sec, skin warm/dry. No further needs at this time, see flowsheet for details. All VSS and will continue to monitor.
--- NOTE | 2018-02-22 04:55 | NUR ---
Patient laying in bed with eyes open, denies pain or other needs at this time. States he wants to "get out of the bed and stretch", explained why he shouldn't right now and patient declined to be repositioned in bed. No further needs at this time, all VSS and will continue to monitor.
--- NOTE | 2018-02-22 07:00 | NUR ---
ASSESSMENT COMPLETE PER FLOWSHEET.
[2018-02-22 11:08] LABS: BASOPHILS 0.1 % (0-2); EOSINOPHILS 0.2 % (0-7); HEMATOCRIT 21.8 % (42.0-54.0); IMMATURE GRANULOCYTES 0.2 % (0-5); LYMPHOCYTES 3.6 % (15-50); MCH 31.6 pg (26.0-34.0); MCHC 32.6 g/dL (31.0-37.0); MCV 96.9 fL (80.0-100.0); MEAN PLATELET VOLUME 11.2 fL (7.4-10.4); MONOCYTES 7.6 % (2-11); NEUTROPHILS 88.3 % (40-80); RBC 2.25 10x6/uL (4.20-6.10); RDW 14.4 % (11.5-14.5); WBC 11.8 10x3/uL (4.8-10.8)
[2018-02-22 11:11] LABS: HEMOGLOBIN 7.1 g/dL (13.5-17.5); PLATELET COUNT 159 10x3/uL (130-400)
[2018-02-22 11:18] LABS: ANION GAP 20.2 mmol/L (8-16); CALCIUM 7.5 mg/dL (8.5-10.1); CARBON DIOXIDE 23.4 mmol/L (21.0-32.0); CREATININE - SERUM 9.3 mg/dL (0.6-1.3); MAGNESIUM - SERUM 1.1 mg/dL (1.8-2.4); POTASSIUM - SERUM 4.6 mmol/L (3.5-5.1)
[2018-02-22 11:50] LABS: BASOPHILS 0.1 % (0-2); EOSINOPHILS 0.1 % (0-7); IMMATURE GRANULOCYTES 0.1 % (0-5); LYMPHOCYTES 5.1 % (15-50); MCHC 33.2 g/dL (31.0-37.0); MCV 96.4 fL (80.0-100.0); MONOCYTES 4.7 % (2-11); NEUTROPHILS 89.9 % (40-80); RDW 14.4 % (11.5-14.5)
--- NOTE | 2018-02-22 11:54 | MORECARE ---
CASE MANAGEMENT DISCHARGE SUMMARY PATIENT: ASHLEY HSU III UNIT: [id number] ADM DATE: 02/21/18 AGE: 72 : 44 SEX: M ROOM/BED: D[facility] AUTHOR: JUDITH CASE PHYSICIAN: REFERRING PHYSICIAN: KELLEN SAENZ MD DATE OF SERVICE: 02/22/18 Discharge Plan Patient Name: ASHLEY HSU [facility] [facility] 1945 Planned Disposition: Home Anticipated Discharge Date: Discharge Date: Expected LOS: Initial Reviewer: [email or web address] Initial Review Date: 02/22/2018 Generated: 02/22/18 12:54 pm DCPIA - Discharge Planning Initial Assessment Updated by [email or web address]: Laurie Torres on 02/22/18 11:54 am * Is the patient Alert and Oriented? Yes * How many steps to enter\exit or inside your home? * PCP Dr. Betancourt * Pharm[facility] * Preadmission Environment Home with Family * ADLs Independent * Equipment Oxygen * Other Equipment PD supplies * List name and contact numbers for known caregivers / representatives who currently or will assist patient after discharge: Robert Hsu - - [phone] * Verbal permission to speak to the caregivers and representatives has been obtained from the patient. N/A * Community resources currently utilized None * Additional services required to return to the preadmission environment? No * Can the patient safely return to the preadmission environment? Yes * Has this patient been hospitalized within the prior 30 days at any hospital? No Patient Name: ASHLEY HSU Page 99833 at 1154 All edits/amendments must be made on the electronic document DICTATION DATE: 02/22/18 1154 LAVENDER FARM WORKER: KARIN 02/22/18 1154 RPT#: [id number] DE DATE: STATUS: ADM IN [facility] [address] [place] [address] END OF REPORT
[2018-02-22 12:00] LABS: HEMATOCRIT 26.5 % (42.0-54.0); HEMOGLOBIN 8.8 g/dL (13.5-17.5); PLATELET COUNT 192 10x3/uL (130-400); RBC 2.75 10x6/uL (4.20-6.10); WBC 14.8 10x3/uL (4.8-10.8)
--- NOTE | 2018-02-22 12:04 | MORECARE ---
CASE MANAGEMENT DISCHARGE SUMMARY PATIENT: ASHLEY HSU III UNIT: [id number] ADM DATE: 02/21/18 AGE: 72 : 44 SEX: M ROOM/BED: D[facility] AUTHOR: EVIE,DOC PHYSICIAN: REFERRING PHYSICIAN: KELLEN SAENZ MD DATE OF SERVICE: 02/22/18 Discharge Plan Patient Name: ASHLEY HSU Facility: [facility]:[place] : 1945 Planned Disposition: Home Anticipated Discharge Date: Discharge Date: Expected LOS: Initial Reviewer: [email or web address] Initial Review Date: 02/22/2018 Generated: 02/22/18 1:04 pm Comments DCP- Discharge Planning Updated by [email or web address]: Laurie Torres on 02/22/18 10:[address] Patient Name: ASHLEY HSU Admission Status: Elective Accout number: [id number] Admission Date: 02-21-2018 : 1945 Admission Diagnosis: Attending: KELLEN SAENZ Current LOS: 1 Anticipated DC Date: Planned Disposition: Home Primary Insurance: MEDICARE A & B Discharge Planning Comments: CM met with patient at bedside after obtaining verbal consent. Patient states he plans on returning home after discharge with his . Patient states he does peritoneal dialysis at home daily. Patient sates he has home 02. Patient denies any discharge needs at this time. CM will continue to follow and assist as needed for discharge planning / needs. Supervisor Propellant Charge Loading: Laurie Torres DCPIA - Discharge Planning Initial Assessment Updated by [email or web address]: Laurie Torres on 02/22/18 11:54 am * Is the patient Alert and Oriented? Yes * How many steps to enter\exit or inside your home? * PCP Dr. Betancourt * Pharmacy [facility] * Preadmission Environment Home with Family * ADLs Independent * Equipment Oxygen * Other Equipment PD supplies * List name and contact numbers for known caregivers / representatives who currently or will assist patient after discharge: Robert Hsu - - [phone] * Verbal permission to speak to the caregivers and representatives has been obtained from the patient. N/A * Community resources currently utilized None * Additional services required to return to the preadmission environment? No * Can the patient safely return to the preadmission environment? Yes * Has this patient been hospitalized within the prior 30 days at any hospital? No Last DP export: 02/22/18 10:54 a Patient Name: ASHLEY HSU Page 12651 at 1204 All edits/amendments must be made on the electronic document DICTATION DATE: 02/22/181203 ENVIRONMENTAL SERVICES TECH: KARIN 02/22/18 1204 RPT#: [id number] DC DATE: STATUS: ADM IN [facility] [address] [place] [address] END OF REPORT
--- NOTE | 2018-02-22 13:00 | NUR ---
UP IN CHAIR WITH PT. VOICES NO CO AT TIME. PT HAS PERIODS OF CONFUSION BUT EASILY REORIENT.
--- NOTE | 2018-02-22 15:00 | NUR ---
UP IN CHAIR NO CO AT TIME.
--- NOTE | 2018-02-22 17:30 | NUR ---
UP IN CHAIR. DR SAENZ HERE SEEING PATIENT. NO NEW ORDERS OBTAINED.
--- NOTE | 2018-02-22 19:10 | NUR ---
Received patient resting in bed with eyes open, assessment completed per flowsheet. Patient Disoriented to time/place/situation, reorients easily but requires frequent reorientation. L anterior neck incision dressing CDI, no difficulty swallowing/breathing noted. S1/S2 noted NSR with rare PVC on telemetry, rythmic and regular. Breathing is even/unlabored on 2L via NC with O2 sat 94%, expiratory/inspiratory wheeze noted bilateral upper and mid with diminished lower. PD Cath R lower abdomen with dressing CDI, cath is clamped/secure. All pulses palpable with cap refill < 3 sec, skin warm/dry. Denies pain or other needs at this time, see flowsheet for details. All VSS and will continue to monitor.
--- NOTE | 2018-02-22 21:00 | NUR ---
HS meds given and PD initiated, 1400ml drained. 1500ml infused without difficulty, cath clamped/secured. Patient disoriented to time/place/situation with frequent reorientation required, slight agitation observed with patient stating desire to "go home now". Will continue to close monitoring
--- NOTE | 2018-02-22 23:10 | NUR ---
Reassessment completed per flowsheet, patient laying in bed with eyes open. Patient disoriented to time/place/situation, patient requires frequent reorientation with increasing agitation noted. L anterior neck incision dressing CDI, no difficulty breathing/swallowing noted. Breathing is even/unlabored on 2L via NC with O2 sat 93%, lung sounds clear bilateral upper and mid with diminished lower. Frequent coughing with small thick/white sputum, 750ml IS performed. No further needs at this time, see flowsheet for details. All VSS and will continue to monitor.
[2018-02-23] VITALS (48 sets, daily range): BP systolic 115–144; BP diastolic 57–81
--- NOTE | 2018-02-23 01:00 | NUR ---
Patient laying in bed with eyes closed, no s/s of distress at this time. Patient remains disoriented to time/place/situation and requires frequent reorientation, appears less agitated. Denies pain or other needs at this time, will continue close monitoring.
--- NOTE | 2018-02-23 03:10 | NUR ---
Reassessment completed per flowsheet, patient resting in bed with eyes closed. Patient disoriented to time/place/situation, appears calmer and follows instructions. L anterior neck incision dressing CDI, no difficulty breathing/swallowing noted. S1/S2 noted NSR with rare PVC on telemetry, rythmic and regular. Breathing is even/unlabored on 2L via NC with O2 sat 94%, expiratory wheeze noted bilateral upper and mid with diminished lower. All pulses palpable with cap refill < 3 sec, skin warm/dry. PD intiated per orders with 1600ml drained. Denies pain or other needs at this time, see flowsheet for details. All VSS and will continue to monitor.
--- NOTE | 2018-02-23 03:35 | NUR ---
1500ml instilled via abdominal PD cath, cath clamped/secured. Patient c/o slight nausea, denies needs at this time.
--- NOTE | 2018-02-23 05:10 | NUR ---
Patient agitated and attempting to get out of bed, states he "needs to pee". Provided Urinal jug and attempted to calm with limited success, small yellow urine collected. Patient eventually calmed and returned to resting in bed with eyes open, will continue close monitoring.
--- NOTE | 2018-02-23 07:00 | NUR ---
REPORT RECIEVED FROM THE OFF GOING RN. ASSISTED WITH THE OVER NIGHT NURSE GET HIM OOB AND INTO THE BEDSIDE CHAIR. BED WAS WET WITH URINE. THE OVER NIGHT NURSE STATED THAT HE JUST NOW URINATED IN THE URINAL AND SPILLED IT. PT CLEANED AND A NEW GOWN KIMBERLY ON THE PT. PT VSS. PT A&OX2 TO PERSON AND PLACE ONLY. HE KNOWS STATED HIS NAME, STATED HE WAS IN A HOSPITAL FOR HIP SURGERY AND THAT ITS 2004. REORIENTED THE PT. PT IN A PLEASANT AND COOPERATIVE MOOD. DRESSING NOTED TO HIS LEFT NECK. C/D/I. TRACHIA MID LINE. ABD SOFT AND ROUND. PD CATH NOTED TO HIS ABD. DRESSING C/D/I. RIGHT SUBCLAVIAN DRESSING NOTED WITH IV FLUIDS INFUSING. SEE IV FLOW SHEET. VSS. BREAKFAST TRAY PROVIDED. CALL LIGTH IN REACH. WILL CONT POC.
[2018-02-23 07:10] LABS: ANION GAP 18.9 mmol/L (8-16); CALCIUM 7.4 mg/dL (8.5-10.1); CARBON DIOXIDE 23.4 mmol/L (21.0-32.0); CREATININE - SERUM 9.4 mg/dL (0.6-1.3); PHOSPHOROUS 7.6 mg/dL (2.5-4.9); POTASSIUM - SERUM 4.3 mmol/L (3.5-5.1)
[2018-02-23 07:15] LABS: BASOPHILS 0.1 % (0-2); EOSINOPHILS 0.3 % (0-7); HEMATOCRIT 24.8 % (42.0-54.0); HEMOGLOBIN 8.1 g/dL (13.5-17.5); IMMATURE GRANULOCYTES 0.3 % (0-5); MCH 31.6 pg (26.0-34.0); MCHC 32.7 g/dL (31.0-37.0); MCV 96.9 fL (80.0-100.0); MEAN PLATELET VOLUME 11.5 fL (7.4-10.4); MONOCYTES 5.4 % (2-11); NEUTROPHILS 88.9 % (40-80); PLATELET COUNT 184 10x3/uL (130-400); RBC 2.56 10x6/uL (4.20-6.10); RDW 14.4 % (11.5-14.5)
[2018-02-23 07:21] LABS: WBC 10.7 10x3/uL (4.8-10.8)
[2018-02-23 07:24] LABS: MAGNESIUM - SERUM 1.6 mg/dL (1.8-2.4)
--- NOTE | 2018-02-23 08:30 | NUR ---
NITRO AND CLEVIPREX OFF
--- NOTE | 2018-02-23 09:11 | NUR ---
PT UP AMBULATING WITH PHYSCIAL THERAPY. ABOUT 80 FEET WITH A VERY SLOW AND SOMEWHAT UNSTEADY GAIT PER PHYSCIAL THEARPY.
--- NOTE | 2018-02-23 09:59 | NUR ---
PD DIALYSIS COMPLETED WITH 1700CC CLEAR, YELLOW LIQUID DRAIN AND 1500CC PER ORDERS ADMINISTERED.
--- NOTE | 2018-02-23 11:20 | NUR ---
PT HAD A RUN OF VT. PT NON SYMTOMATIC. VSS PT BACK IN NSR. DR SAENZ NOTIFIED. THE PT SEES DR MILLER FOR CARDIOLOGY. DR SAENZ STATED TO CONSULT DR MILLER FOR VT.
--- NOTE | 2018-02-23 12:31 | NUR ---
SPOKE WITH DR MILLER. HE IS AWARE OF CONSULT.
--- NOTE | 2018-02-23 14:47 | NUR ---
SPOKE WITH DR MILLER AGAIN ABOUT THE PT AND DR MILLER BEING CONSULTED. DR MILLER OK FOR THE PT TO GO HOME SINCE THAT HE IS ON LOPRESSOR XL. DR MILLER WANTS HIM TO F/U IN 2-[address] LOGAN NURSE NOTIFIED.
--- NOTE | 2018-02-23 14:49 | MORECARE ---
CASE MANAGEMENT DISCHARGE SUMMARY PATIENT: ASHLEY HSU III UNIT: [id number] ADM DATE: 02/21/18 AGE: 72 : 43 SEX: M [facility] AUTHOR: EVIE,DOC PHYSICIAN: REFERRING PHYSICIAN: KELLEN SAENZ MD DATE OF SERVICE: 02/23/18 Discharge Plan Patient Name: ASHLEY HSU Facility: [facility]:[place] : 1945 Planned Disposition: Home Anticipated Discharge Date: Discharge Date: Expected LOS: Initial Reviewer: [email or web address] Initial Review Date: 02/22/2018 Generated: 02/23/18 3:49 pm Comments DCP- Discharge Planning Updated by [email or web address]: Laurie Torres on 02/23/18 1:[address] CM explained and served d/c IMM 02/23/18 @ [facility]. Denies any discharge needs at this time. CM will continue to follow and assist as needed with discharge planning / needs. DCP- Discharge Planning Updated by [id number]: Laurie Torres on 02/22/18 10:[address] Patient Name: ASHLEY HSU Admission Status: Elective Accout number: [id number] Admission Date: 02-21-2018 : 1945 Admission Diagnosis: Attending: KELLEN SAENZ Current LOS: 1 Anticipated DC Date: Planned Disposition: Home Primary Insurance: MEDICARE A & B Discharge Planning Comments: CM met with patient at bedside after obtaining verbal consent. Patient states he plans on returning home after discharge with his . Patient states he does peritoneal dialysis at home daily. Patient sates he has home 02. Patient denies any discharge needs at this time. CM will continue to follow and assist as needed for discharge planning / needs. Net Wpf Developer: Laurie Torres DCPIA - Discharge Planning Initial Assessment Updated by [id number]: Laurie Torres on 02/22/18 11:54 am * Is the patient Alert and Oriented? Yes * How many steps to enter\exit or inside your home? * PCP Dr. Betancourt * Pharmacy [facility] * Preadmission Environment Home with Family * ADLs Independent * Equipment Oxygen * Other Equipment PD supplies * List name and contact numbers for known caregivers / representatives who currently or will assist patient after discharge: Robert Hsu - - [phone] * Verbal permission to speak to the caregivers and representatives has been obtained from the patient. N/A * Community resources currently utilized None * Additional services required to return to the preadmission environment? No * Can the patient safely return to the preadmission environment? Yes * Has this patient been hospitalized within the prior 30 days at any hospital? No Coverage Notice Reviewer: [id number] Roxanna Torres Notice Issued Date-Time: 02/23/2018 9:40 Notice Type: IM Discharge Notice Notice Delivered To: Family Member Relationship to Patient: Spouse Emergency Communications Dispatcher Name: WES HSU Delivery Method: HAND - Hand Delivered Suki Days: Prior Verbal Notification: Recipient Understood Notice: Yes Recipient Signature: Yes Med Rec Note Co-signed by Attending: Coverage Notice Comment: Last DP export: 02/22/18 11:04 a Patient Name: ASHLEY HSU Page 61710 at 1449 All edits/amendments must be made on the electronic document DICTATION DATE: 02/23/18 1449 APPRENTICE FUNERAL DIRECTOR: KARIN 02/23/18 1449 RPT#: [id number] DC DATE: STATUS: ADM IN [facility] [address] [place] [address] END OF REPORT
[2018-02-23] MEDS ORDERED: OMNICEF300 MG PO (15:34)
--- NOTE | 2018-02-23 16:00 | NUR ---
Simon SAENZ IN THE UNIT. DR SAENZ WANTS TO KEEP THE PT OVER NIGHT THEN DC IN THE AM.
--- NOTE | 2018-02-23 19:00 | NUR ---
REPORT RECEIVED AND ASSESSMENT COMPLETED. SEE FLOWSHEET FOR FULL DETAILS. VSS. PT TO HAVE FOLLOW UP APPOINTMENT WITH DR MILLER AND DANY FOLLOWING POTENTIAL D/C IN THE AM. WILL MONITOR THROUGHOUT SHIFT.
--- NOTE | 2018-02-23 21:54 | NUR ---
INCORRECT PD FLUID PRESENT. COMMUNITY HEALTH WORKER CONTACTED. WILL ADMINISTER WHEN AVAILABLE.
--- NOTE | 2018-02-23 23:03 | NUR ---
PT FINISHED DRAINING PT FLUID. 1750 REMOVED. NOW -750 BALANCE. REASSESSMENT COMPLETED. SEE FLOWSHEET.
[2018-02-24] VITALS (19 sets, daily range): BP systolic 130–158; BP diastolic 56–80
[2018-02-24 06:36] LABS: ANION GAP 17.6 mmol/L (8-16); CALCIUM 7.8 mg/dL (8.5-10.1); CARBON DIOXIDE 24.2 mmol/L (21.0-32.0); CREATININE - SERUM 9.5 mg/dL (0.6-1.3); PHOSPHOROUS 7.7 mg/dL (2.5-4.9); POTASSIUM - SERUM 3.8 mmol/L (3.5-5.1)
[2018-02-24 06:59] LABS: HEMATOCRIT 22.3 % (42.0-54.0); HEMOGLOBIN 7.6 g/dL (13.5-17.5); LYMPHOCYTES 7.3 % (15-50); MCH 32.6 pg (26.0-34.0); MCHC 34.1 g/dL (31.0-37.0); MCV 95.7 fL (80.0-100.0); MEAN PLATELET VOLUME 11.8 fL (7.4-10.4); NEUTROPHILS 87.4 % (40-80); PLATELET COUNT 144 10x3/uL (130-400); RBC 2.33 10x6/uL (4.20-6.10); RDW 13.7 % (11.5-14.5); WBC 7.9 10x3/uL (4.8-10.8)
--- NOTE | 2018-02-24 07:00 | NUR ---
ALERT. REORIENTATED TO WHAT HOSPITAL AND WHY HE IS HERE. NO DISTRESS DENIES PAIN. RIGHT NECK DRESSING DRY AND INTACT. HAND DISTRICT LEADER EQUAL. VOIDING SMALL AMOUNTS OF CLEAR YELLOW URINE. PD CATH INTACT. NO REDNESS OR DRAINAGE AT SITE. PATIENT STATES HE IS READY TO GO HOME
--- NOTE | 2018-02-24 08:00 | NUR ---
OATMEAL ORDERED FOR BREAKFAST. ONLY ATE A COUPLE OF BITES DRANK SOME MILK. NO DISTRESS. HERE UPDATE GIVEN
--- NOTE | 2018-02-24 09:00 | NUR ---
PD EXCHANGE INPROGRESS. PATIENT TOLERATED WELL. NO DIFFICULTIES. LOPRESSOR IV GIVEN FOR ELEVATED BLOOD PRESSURE GREATER THAN 150 SYS.
--- NOTE | 2018-02-24 10:43 | NUR ---
NO DISTRESS. WAITING ON PHYSICAN TO DISCHARGE PATIENT
--- NOTE | 2018-02-24 12:02 | NUR ---
RENAL ADA DIET SERVED. ENCOURAGE TO USE INCENTIVE SPIROMETRY. AT BEDSIDE ASSISTING WITH INSTRUCTING PATIENT. ON DEEP BREATHING AND COUGHING.
--- NOTE | 2018-02-24 12:30 | NUR ---
AMBULATED TO BATHROOM. PATIENT COULD NOT HARDLY WALK, ASSISTANCES REQUIRED TO MAKE IT TO THE BATHROOM. LARGE SOFT BROWN STOOL. WALKER USED TO AMBULATE TO CHAIR IN ROOM. AT BEDSIDE
--- NOTE | 2018-02-24 13:54 | NUR ---
AMBULATED AROUND BED, MUCH IMPROVED WALKING WITH WALKER. AT BEDSIDE. STATES THIS IS HIS NORMAL WALKING. PATIENT WANTED TO GO BACK TO BED.
--- NOTE | 2018-02-24 14:24 | NUR ---
HERE ORDERS RECEIVED TO TRANFUSE ONE UNIT OF BLOOD BEFORE GOING HOME. HERE AGREES WITH BLOOD TRANFUSION.G PATIENT NAPPING IN BED.
--- NOTE | 2018-02-24 16:05 | NUR ---
UNIT OF BLOOD STARTED WITHOUT REACTION REVIEWED SIGNS AND SYMTPOMS OF BLOOD REACTION AND PATIENT VERBALIZED UNDERSTANDING.
--- NOTE | 2018-02-24 16:51 | NUR ---
NO REACTION TO BLOOD TOLERATING WELL. NO COMPLAINTS VOICED
--- NOTE | 2018-02-24 17:06 | NUR ---
BLOOD INFUSING WITHOUT REACTION. TOLERATING WELL. UP IN CHAIR WATCHING TV WITH
--- NOTE | 2018-02-24 18:23 | NUR ---
blood complete. pateint tolerated well. states he is feeling better. ambulated to bed. central line pulled. no bleeding at site. small bruise noted. tolerated well reviewed reaction of blood with . discharge papers reviewed with patient and . reviewed MD nati appointments, wound care. papers signed by . assist patient with dressing self.
--- NOTE | 2018-02-26 10:06 | MORECARE ---
CASE MANAGEMENT DISCHARGE SUMMARY PATIENT: ASHLEY HSU III UNIT: [id number] ADM DATE: 02/21/18 AGE: 72 : 44 SEX: M [facility] AUTHOR: EVIE,DOC PHYSICIAN: REFERRING PHYSICIAN: KELLEN SAENZ MD DATE OF SERVICE: 02/26/18 Discharge Plan Patient Name: ASHLEY HSU Facility: [facility]:[place] : 1945 Planned Disposition: Home Anticipated Discharge Date: Discharge Date: 02/24/2018 Expected LOS: Initial Reviewer: [email or web address] Initial Review Date: 02/22/2018 Generated: 02/26/18 11:06 am Comments DCP- Discharge Planning Updated by [id number]: Laurie Torres on 02/23/18 1:[address] CM explained and served d/c IMM 02/23/18 @ [facility]. Denies any discharge needs at this time. CM will continue to follow and assist as needed with discharge planning / needs. DCP- Discharge Planning Updated by [id number]: Laurie Torres on 02/22/18 10:[address] Patient Name: ASHLEY HSU Admission Status: Elective Accout number: [id number] Admission Date: 02-21-2018 : 1945 Admission Diagnosis: Attending: KELLEN SAENZ Current LOS: 1 Anticipated DC Date: Planned Disposition: Home Primary Insurance: MEDICARE A & B Discharge Planning Comments: CM met with patient at bedside after obtaining verbal consent. Patient states he plans on returning home after discharge with his . Patient states he does peritoneal dialysis at home daily. Patient sates he has home 02. Patient denies any discharge needs at this time. CM will continue to follow and assist as needed for discharge planning / needs. Disability Manager: Laurie Torres DCPIA - Discharge Planning Initial Assessment Updated by [id number]: Laurie Torres on 02/22/18 11:54 am * Is the patient Alert and Oriented? Yes * How many steps to enter\exit or inside your home? * PCP Dr. Betancourt * [facility] * Preadmission Environment Home with Family * ADLs Independent * Equipment Oxygen * Other Equipment PD supplies * List name and contact numbers for known caregivers / representatives who currently or will assist patient after discharge: Robert Hsu - - [phone] * Verbal permission to speak to the caregivers and representatives has been obtained from the patient. N/A * Community resources currently utilized None * Additional services required to return to the preadmission environment? No * Can the patient safely return to the preadmission environment? Yes * Has this patient been hospitalized within the prior 30 days at any hospital? No Coverage Notice Reviewer: [id number] Roxanna Torres Notice Issued Date-Time: 02/23/2018 9:40 Notice Type: IM Discharge Notice Notice Delivered To: Family Member Relationship to Patient: Spouse Ict Sales Representative Name: WES HSU Delivery Method: HAND - Hand Delivered Suki Days: Prior Verbal Notification: Recipient Understood Notice: Yes Recipient Signature: Yes Med Rec Note Co-signed by Attending: Coverage Notice Comment: Last DP export: 02/23/18 1:49 p Patient Name: ASHLEY HSU Page 69963 at 1006 All edits/amendments must be made on the electronic document DICTATION DATE: 02/26/18 1006 CREW CAR DRIVER: KARIN 02/26/18 1006 RPT#: [id number] DC DATE:02/24/18 STATUS: DIS IN [facility] [address] [place] [address] END OF REPORT
--- NOTE | 2018-03-03 12:11 | HP ---
PATIENT: ASHLEY HSU III MEDICAL RECORD: [id number] ACCOUNT: [id number] LOCATION:[facility].CV04 : 44 ADMISSION DATE: 02/21/18 PCP: KELLEN SAENZ MD HISTORY AND PHYSICAL EXAMINATION ASHLEY Palomo (72yo, M) ID# [id number]. Date/Time01/08/2018 01:40BUITS29 1945Service Dept.NPP_[facility] ClinicProviderEDWAYNE SAENZ MDInsuranceMed Primary[place] Insurance # : [id number] Referring Provider Name : GUANAKITO HOOK Employer Name : RETIRED Med Secondary: [employer] [place] (POS) Insurance # : [id number] Policy/Group # : PSPRIM Employer Name : RETIRED Prescription: DSTPSDIR - Member is eligible. Prescription: MDIM - Member is eligible. Chief Complaint Carotid stenosis Patient's Care Team Referring Provider (): GUANAKITO HOOK: [address] [place] [address], [address], [place] [address], , Patient's Pharmacies [facility] [address] (ERX): [address] [facility] [address], , Vitals BP:128/56 sitting R arm 01/08/2018 01:15 pmHR:76/reg 01/08/2018 01:15 pmHt:5 ft 8 in 01/08/2018 01:09 pmWt:194 lbs 01/08/2018 01:12 pmBMI:29.5 01/08/2018 01:12 pmAllergies Reviewed Allergies ASPIRINMedications Reviewed Medications acetaminophen 500 mg obnhsd57/13/17 [facility] 10 mg oeetwy43/23/17 [facility]ArgSilver[facility] Newseramoxicillin 500 mg chbanxr86/17/18 filledArgSilverado Health Newseramoxicillin 500 mg-potassium clavulanate 125 mg qfilcd37/29/18 filledArgSilverado Health Systemsazithromycin 250 mg /18/18 filledAbrazo Central CampusViraloid SystemsBD Luer-Rachel Syringe 3 mL 25 gauge x 1" U UTD06/12/17 filledsurescriptsbisacodyl 5 mg tablet,delayed release TK JXELAUIR17/26/18 filledsurescriptsbumetanide 1 mg tablet TK 3 TS PO BID01/13/16 filledArgus Health Systemscalcitriol 0.25 mcg capsule TK 1 C PO D004/27/16 filledsurescriptscefdinir 300 mg /20/18 filledArgus Health SystemscephALEXin 500 mg sedfupf61/06/18 filledArgus Health Systemscitalopram 10 mg tablet TK 1 T PO QD10/10/17 filledArgus Health Systemsclopidogrel 75 mg tablet TK 1 T PO QD01/05/18 filledArgus Health SystemsContour Test Strips CHECK BS QID09/25/17 filledsurescriptscyproheptadine 4 mg jbifxw63/24/17 filledArgus Health Systemsergocalciferol (vitamin D2) 50,000 unit capsule TK 1 C PO CRTECD37/17/16 filledsurescriptsethyl chloride 100 % topical spray TK TO UNIT ON DIALYSIS DAYS05/24/16 filledsurescriptsferrous sulfate 325 mg (65 mg iron) tablet TK 1 T PO BID04/08/16 filledsurescriptsfluticasone 50 mcg/actuation nasal spray,tarlhmbttn98/01/17 filledArgus Health Systemsfurosemide 20 mg ajjtjz82/23/15 filledArgus Health Systemsfurosemide 80 mg nuavea93/05/18 filledArgus Health SystemshydrALAZINE 10 mg tablet TK 1 T PO BID02/15/17 filledsurescriptshydrALAZINE 25 mg /07/18 filledArgus Health SystemsHYDROcodone 5 mg-acetaminophen 325 mg mhlocz27/17/16 HISTORY AND PHYSICAL [id number] ASHLEY HSU III filledArgus Health SystemshydrOXYzine HCl 10 mg tablet TK 1 T PO TID PRN FOR AZVJPMJ37/08/18 filledsurescripts insulin aspart U-100 100 unit/mL subcutaneous jolapwze61/13/[address] [facility] syringe U-100 with needle 0.3 mL 29 gauge12/14/17 filledArgus Health Systemsipratropium-albuterol 0.5 mg-3 mg(2.5 mg base)/3 mL nebulization soln VVN Q 4 H UTD10/25/17 filledsurescriptsLevemir FlexTouch U-100 Insulin 100 unit/mL (3 mL) subcutaneous pen INJECT 48 UNITS SUBCUTANEOUSLY ONCE DAILY AT SMPAENA55/24/18 filledArgus Health SystemsLevemir U-100 Insulin 100 unit/mL subcutaneous solution INJECT 48 UNITS SUBCUTANEOUSLY HS12/16/16 filledsurescriptsLORazepam 1 mg wosicx32/01/18 filledArgus InneractivemetOLazone 5 mg tablet TK 1 T PO BID02/08/16 filledsurescriptsmetoprolol succinate ER 100 mg tablet,extended release 24 hr TK 1 T PO BID07/05/17 filledArgus Health Systemsmetoprolol succinate ER 50 mg tablet,extended release 24 hr11/08/17 filledAbrazo Central CampusInspherionmetroNIDAZOLE 500 mg tablet Take 1 tablet(s) every 12 hours by oral route for 10 days.02/09/16 filledGeoDigitalmontelukast 10 mg /02/18 filledAbrazo Central CampusViraloid Systemsneomycin 500 mg /30/16 filledAbrazo Central CampusViraloid SystemsNovoLIN R Regular U-100 Insulin 100 unit/mL injection patelxgb74/30/18 filledAbrazo Central CampusInspherionNovoLOG Flexpen U-100 Insulin aspart 100 unit/mL subcutaneous INJECT UP TO 100 UNITS DAILY12/01/17 filledsurescriptsnystatin-triamcinolone 100,000 unit/g-0.1 % topical cream10/03/15 filledGeoDigitalomeprazole 40 mg capsule,delayed release TK ONE C PO D004/18/16 filledsurescriptspantoprazole 40 mg tablet,delayed fjonrji31/12/18 filledGeoDigitalpeg 3350 240 gram-electrolytes 22.72 gram-6.72 g-5.84 g powdr for soln06/01/17 filledAbrazo Central CampusViraloid SystemspredniSONE 10 mg yqesks09/18/16 filledAbrazo Central CampusInspherionpromethazine 25 mg tablet TK 1-2 TS PO Q 6 HOURS PRN FOR NV04/11/15 filledsurescriptsRena-Dwayne 0.8 mg tablet TK 1 T PO D010/10/17 filledArgInspherionsimvastatin 40 mg wniqrn04/23/17 filledAbrazo Central CampusInspherionsodium bicarbonate 650 mg tablet TK 2 TS PO BID04/04/16 filledArgus InneractiveSymbicort 160 mcg-4.5 mcg/actuation HFA aerosol inhaler INHALE 2 PUFFS PO BID09/21/17 filledArgus Inneractivetamsulosin 0.4 mg capsule TK 1 C PO D007/31/16 filledArgInspheriontemazepam 15 mg /28/15 filledGeoDigitaltraMADol 50 mg tablet TK 1 T PO Q 8 H PRN FOR PAIN12/14/17 filledArgInspheriontriamcinolone acetonide 0.1 % topical bwihtlwo77/05/16 filledArgInspherionvalsartan 320 mg tgquoq92/04/18 filledGeoDigitalVentolin HFA 90 mcg/actuation aerosol inhaler INL 2 PFS PO Q 4 H009/20/17 filledGeoDigitalVaccines Reviewed Vaccines Vaccine TypeDateAmt.RouteSiteLot #Mfr.Exp. DateDate on VISVIS GivenVaccinatorInfluenzainfluenza, high dose [id number] Reviewed Problems Polyp of colon Diabetes mellitus Hyperlipidemia Slkxf-6-fhdcimyffco deficiency Deficiency anemias Anemia of renal disease HISTORY AND PHYSICAL [id number] ASHLEY HSU III Tobacco dependence syndrome Obstructive sleep apnea syndrome Malignant essential hypertension Heart valve disorder Congestive heart failure Peripheral arterial occlusive disease Allergic rhinitis Asthma Chronic obstructive lung disease Chronic hypoxemic respiratory failure Chronic kidney disease stage 4 Chronic kidney disease Benign prostatic hyperplasia Family History Reviewed Family History Mother- Hypertensive disorderFather- Heart diseaseMaternal Grandfather- Kidney diseaseSocial History Reviewed Social History Smoking Status: Current every day smoker (Notes: 2- PPD) Surgical History Reviewed Surgical History Other - STINT PLACEMENT Other - FISTULA Hemicolectomy, peritoneal dialysis catheter placed Past Medical History Reviewed Past Medical History Anemia: Y Diabetes: Y High Blood Pressure: Y Joint Pain or Swelling: Y Kidney Disease: Y Kidney Failure: Y Peripheral Vascular Disease (PVD): Y Notes: BPH Documents for Discussion N/A Screening None recorded. HPI Bilateral carotid artery disease left greater than the right ROS Patient reports difficulty hearing but reports no ear pain. He reports nose/sinus problems but reports no frequent nosebleeds. He reports snoring and dry mouth but reports no sore throat, no bleeding gums, no mouth ulcers, no oral abnormalities, and no teeth problems. He reports shortness of br eath when walking but reports no chest pain, no arm pain on exertion, no shortness of breath when lying down, no palpitations, and no known heart murmur. He reports no incontinence, no difficulty urinating, and no hematuria; peritoneal dialysis catheter placed . He reports rash, itching, and dry skin but reports no abnormal mole and no jaundice. He reports depression and sleep disturbances but reports feeling safe in relationship and no alcohol abuse. He reports fatigue and cold intolerance. He reports sinus pressure and itching but reports no runny nose, no hives, and no HISTORY AND PHYSICAL [id number] SHADIBAILEY III frequent sneezing. He reports no fever, no night sweats, no significant weight gain, no significant weight loss, and no exercise intolerance. He reports no dry eyes, no irritation, and no v ision change. He reports no jugular vein distension and no swollen glands. He reports no cough, no wheezing, no shortness of breath, and no coughing up blood. He reports no abdominal pain, no vomiting, normal appetite, no diarrhea, not vomiting blood, no n ausea, and no constipation. He reports no muscle aches, no muscle weakness, no arthralgias/joint pain, no back pain, and no swelling in the extremities. He reports no loss of consciousness, no weakness, no numbness, no seizures, no dizziness, and no heada ches. He reports no swollen glands and no bruising. Physical Exam Patient is a 72-year-old male. Constitutional: General Appearance: well developed. Level of Distress: no acute distress. Ears: Cerumen negative. Canal: no erythema or swelling. Tympanic Membrane: no bulging or fluid and perforated; scarring in both TMs left greater than right. Nasal: Nasal Mucosa: no discharge and edematous. Septum: not markedly deformed. Oropharynx: Lips, Teeth, and Gums normal dentition and lips. Oral Mucosa no ulcer, ma ss, inflammation, swelling, or leukoplakia and moist. Palate: normal hard palate and soft palate. Tongue: no erythema, lesions, enlargement, or swelling. Tonsils: no enlargement or lesions. Posterior Pharynx no enlargement, erythema, exudate, ulcers, mass , or white patches. Neck: Neck: supple, trachea midline, no masses, and Full ROM. Thyroid: no enlargement or nodules and non-tender. Jugular Veins: no jugular venous distention or browning a waves present and normal jugular venous pressure. Lungs: Respiratory effort: unlabored. Inspection: normal curve and chest wall expansion; no deformity, tenderness, or swelling; and tactile fremitus present and equal on both sides. Auscultation: no wheezing or rales/crackles and rhonchi, and decreased breath sounds,. Percussion: hyperresonance. Cardiovascular: Precordial Exam: non displaced focal PMI. Heart Rate And Rhythm: normal heart rate and rhythm. Heart Sounds: no gallop, click, physiologically split S2, or pericardial friction rub and normal s1. Systolic Murmur: grade 2/6 systolic murmur. Diastolic Murmur: no diastolic murmurs. Observation/Palpation of peripheral vascular system: no cyanosis or varicosity changes and normal dorsalis pedis and posterior tibialis. Abdomen: Inspection and Palpation: no tende rness or masses and soft and non-distended. Liver: non-tender and no hepatomegaly. Spleen: non-tender and no splenomegaly. Bowel Sounds: normal and no abdominal bruits. Lymphatic: no cervical lymph enlargement, axillary LAD, inguinal LAD, femoral LAD, sup raclavicular LAD, or popliteal LAD. Musculoskeletal:: Motor Strength and Tone: normal bulk, tone, and motor strength. Gait and Station: normal gait, station, and tandem gait. Joints, Bones, and Muscles: no contractures, malalignment, tenderness, scoliosis, kyphosis, or bony abnormalities and normal movement of all extremities. Extremities: Inspection/Palpation of digits and nails: no clubbing, cyanosis, HISTORY AND PHYSICAL [id number] ASHLEY HSU III petechiae, ischemia, edema, or nodular lesions. Skin: Inspection and palpation: no rash, lesions, jaundice, ulcer, erythema, or induration and normal turgor; Rt hand skin tear. Neurologic: Mental Status/Orientation: oriented to person, place, problem/situation, and time. Mood/Affect: normal mood and affect. Sensation sensation normal. Cranial Nerves cranial nerves II - XII intact; [place]. Deep Tendon Reflexes upper extremities positive and lower extremities positive. Assessment / Plan Severe left internal carotid artery stenosis Peritoneal dialysis daily 1. Carotid artery stenosis I65.29: Occlusion and stenosis of unspecified carotid artery CAROTID STENOSIS: CARE INSTRUCTIONS Discussion Notes I have discussed the patient's disease process with him and his in detail as well as the alternative methods of treatment. We discussed left carotid e ndarterectomy including the splenic benefits and risks which include bleeding, infection, stroke, , and imponderables. They understand all of the above and he wishes to proceed with planned surgery .We will discuss with Dr. Mitchell and schedule his operation Return to Office None recorded. KELLEN SAENZ MD at 1211 CC: [id number] DICTATION DATE: 01/08/18 1300 INSURANCE RATER: DM 02/13/18 0945 DIS IN 02/24/18 [facility] [address] [place] [address]
--- NOTE | 2018-03-03 12:11 | OP ---
PATIENT NAME: ASHLEY HSU III MEDICAL RECORD: [id number] :43 LOCATION:[place] [address] ADMISSION DATE:02/21/18 SURGEON: KELLEN SAENZ MD DATE OF OPERATION: 02/21/2018 SURGEON: Kellen Saenz MD ANESTHESIA: General endotracheal, Dr. Levin. OPERATION PERFORMED: Left carotid endarterectomy with patch angioplasty. PREOPERATIVE DIAGNOSIS: Severe left internal carotid artery stenosis. POSTOPERATIVE DIAGNOSIS: Severe left internal carotid artery stenosis. INDICATION FOR OPERATION: Severe left internal carotid artery stenosis. FINDINGS OF THE OPERATION: Severe left internal carotid artery stenosis. There were no EEG changes with unclamping or clamping of the carotid artery. ESTIMATED BLOOD LOSS: Less than 100 mL. DESCRIPTION OF PROCEDURE: After informed consent, adequate preoperative medication evaluation, the patient was brought to the operating room, placed on the table in the supine position. After induction of general endotracheal anesthesia and application of appropriate monitoring devices, the left neck and chest were prepped and draped in sterile field, utilizing Betadine scrub, alcohol, and Betadine solution. Betadine-impregnated drape was also used. An oblique incision was made in the skin crease. Dissection carried down the fascia. Hemostasis maintained with electrocautery. Facial vein was identified and divided. Utilizing sharp dissection, the common carotid, internal and external carotid arteries were dissected free of surrounding structures, protecting the neurological structures. The patient was given a calculated dose of heparin, after 3 minutes, clamps were applied. After 2 minutes, no EEG change. The arteriotomy was made and extended with Bahena scissors. Artery underwent endarterectomy sharply. Artery underwent extensive debridement and irrigation. Utilizing a CorMatrix vascular patch and running 7-0 Prolene suture, the arteriotomy was closed with a patch angioplasty technique. All maneuvers to remove trapped air were performed. The clamps removed sequentially. There were no EEG changes. The patient was given a calculated dose of protamine to reverse the heparin. Hemostasis was achieved. A #7 Avni-Oswald drain was left in depths of wound and brought through the base of the neck. Neck was again irrigated. Instrument count and sponge count were correct times 2. Neck was closed in layers utilizing 3-0 Vicryl on the platysma, 5-0 subcuticular Monocryl on the skin. Sterile dressings were applied. The patient tolerated the procedure well and was transferred to ICU in satisfactory condition. TRANSINT:[id number] Voice Confirmation ID: [id number] DOCUMENT ID: [id number] OPERATIVE REPORT [id number] ASHLEY HSU III, EDWARD MD at 1211 CC: [id number] DICTATION DATE: 02/21/18 1115 APPAREL FASHION DESIGNER: 02/21/18 1456 DIS IN 02/24/18 [place] [address] [place] [address]
== END 2018-02-24 18:26 | disposition home or self-care (01) | DRG 37 ==
LOC: D.SDCHOLD 05:00 → D.CVICU 05:00 → D.SDCHOLD 07:30 → D.CVICU 08:52
PROVIDERS: Internal Medicine Nephrology; ADMIT Internal Medicine Cardiovascular Disease
PROC: 03UL0JZ Supplement Left Internal Carotid Artery with Synthetic Substitute, Open Approach (ICD-10-PCS; 2018-02-21)
PROC: 03CL0ZZ Extirpation of Matter from Left Internal Carotid Artery, Open Approach (ICD-10-PCS; principal; 2018-02-21 07:30)
DX: I65.23 Occlusion and stenosis of bilateral carotid arteries (principal); N18.6 End stage renal disease; I12.0 Hypertensive chronic kidney disease with stage 5 chronic kidney disease or end stage renal disease; N39.0 Urinary tract infection, site not specified; I47.2 Ventricular tachycardia; E11.22 Type 2 diabetes mellitus with diabetic chronic kidney disease; Z99.2 Dependence on renal dialysis; J44.9 Chronic obstructive pulmonary disease, unspecified; K21.9 Gastro-esophageal reflux disease without esophagitis; F41.9 Anxiety disorder, unspecified; D63.1 Anemia in chronic kidney disease; F17.200 Nicotine dependence, unspecified, uncomplicated; I73.9 Peripheral vascular disease, unspecified

== ENCOUNTER 2018-06-12 19:33 | Inpatient (IN) | payer MEDICARE, BC ==
[~2018-06-12] VITALS: Ht 172.7 cm; Wt 79.1 kg
[~2018-06-12 19:33] MED LIST changes: +OMNICEF300 MG PO; +TUMS X-STR300 MG PO
[2018-06-12 21:19] LABS: ALBUMIN 2.7 g/dL (3.4-5.0); ALKALINE PHOSPHATASE 89 U/L (46-116); ALT (SGPT) 21 U/L (10-68); BILIRUBIN - TOTAL 0.53 mg/dL (0.2-1.3); CALC OSMOLALITY 306 mosm/kg (275-300); CALCIUM 8.2 mg/dL (8.5-10.1); CARBON DIOXIDE 23.2 mmol/L (21.0-32.0); CHLORIDE - SERUM 94 mmol/L (98-107); POTASSIUM - SERUM 4.2 mmol/L (3.5-5.1); PROTEIN - SERUM 7.6 g/dL (6.4-8.2); SODIUM 134 mmol/L (136-145); UREA NITROGEN 115 mg/dL (7-18); eGFR NON AFRICAN AMERICAN 4 mL/min (90-120)
[2018-06-12 21:21] LABS: GLUCOSE 131 mg/dL (74-106)
[2018-06-12 21:30] LABS: CKMB 1.8 U/L (0.0-3.6); CREATINE KINASE 88 UL (21-232)
--- NOTE | 2018-06-12 21:34 | NUR ---
PATIENT COMPLAINS OF PAIN IN BOTH KNEES FROM FALL. AT BEDSIDE. PATIENT VERY [place]. NO OTHER COMPLAINTS VOICED.
[2018-06-12 21:35] LABS: TROPONIN-I 0.123 ng/mL (0.000-0.060)
[2018-06-12 22:51] LABS: APPEARANCE HAZY (CLEAR); BILIRUBIN NEGATIVE (NEGATIVE); COLOR YELLOW (YELLOW); GLUCOSE NEGATIVE (NEGATIVE); KETONE NEGATIVE (NEGATIVE); NITRITE NEGATIVE (NEGATIVE); PROTEIN 2+ mg/dL (NEGATIVE); UROBILINOGEN NORMAL (NORMAL)
[2018-06-12 22:58] LABS: BACTERIA FEW /hpf (NONE SEEN); EPITHELIAL CELLS OCC /hpf (0-5); HYALINE CAST RARE /lpf (NONE SEEN); MUCUS >1+ /lpf (NONE SEEN); RED CELLS - URINE 0-5 /hpf (0-5); WHITE CELLS - URINE >50 /hpf (0-5)
[2018-06-12 23:24] LABS: BASOPHILS 0.1 % (0-2); EOSINOPHILS 0.5 % (0-7); HEMATOCRIT 23.1 % (42.0-54.0); HEMOGLOBIN 7.8 g/dL (13.5-17.5); IMMATURE GRANULOCYTES 0.5 % (0-5); LYMPHOCYTES 7.8 % (15-50); MCHC 33.8 g/dL (31.0-37.0); MCV 94.7 fL (80.0-100.0); MEAN PLATELET VOLUME 10.5 fL (7.4-10.4); MONOCYTES 8.2 % (2-11); NEUTROPHILS 82.9 % (40-80); RBC 2.44 10x6/uL (4.20-6.10); RDW 13.4 % (11.5-14.5); WBC 7.9 10x3/uL (4.8-10.8)
[2018-06-12 23:25] LABS: PLATELET COUNT 250 10x3/uL (130-400)
[2018-06-12 23:50] LABS: UDS - AMPHET NEGATIVE QUAL (NEGATIVE); UDS - BARB NEGATIVE QUAL (NEGATIVE); UDS - BENZO NEGATIVE QUAL (NEGATIVE); UDS - COCAINE NEGATIVE QUAL (NEGATIVE); UDS - OPIATE NEGATIVE QUAL (NEGATIVE); UDS - PCP NEGATIVE QUAL (NEGATIVE); UDS - THC NEGATIVE QUAL (NEGATIVE)
[2018-06-13] VITALS (7 sets, daily range): BP systolic 116–145; BP diastolic 46–75; Ht 172.7 cm; Wt 79.1 kg
--- NOTE | 2018-06-13 01:30 | NUR ---
PATIENT AWAKE AND ALERT, NO COMPLAINTS VOICED.
--- NOTE | 2018-06-13 01:52 | NUR ---
STOP TIME FOR NS AND ROCEPHIN IS 3601
--- NOTE | 2018-06-13 02:12 | NUR ---
PT ARRIVED BY BED TO MED 3 UNIT. CALL LIGHT IN REACH. DENIES NEEDS AT THIS TIME. BED IN LOW. SIDE RAILS X2. RESP EVEN AND UNLABORED. WCTM
--- NOTE | 2018-06-13 05:37 | NUR ---
PT LYING IN BED. CALL LIGHT IN REACH. DENIES NEEDS OR PAIN. BED IN LOW SIDE RAILS X2. IV TO RIGHT FORARM. NS RUNNING 125ML/HR. PD SITE TO [facility] DRESSING INTACT. SCABS/SORES TO BILATERAL KNEES FROM PREVIOUS FALL. A/O X4. BOWEL ACTIVE X4. LUNGS DO HAVE WHEEZES EXPIRATORY. WCTM
--- NOTE | 2018-06-13 07:20 | NUR ---
INITIAL ROUNDING ON THE PATIENT, HE IS AWAKE AND DRESSED IN HIS CLOTHES. ON O2 VIA NC AT 2LPM, CALL LIGHT IN REACH, PATIENT DENIES PAIN AND SOB.
[2018-06-13 08:40] LABS: % SATURATION 12 % (15-55); IRON 23 ug/dl (35-150); TOTAL IRON BIND CAPACITY 188 ug/dl (260-445); UNSAT IRON BIND CAPACITY 165 ug/dl (150-375)
[2018-06-13 08:56] LABS: CKMB 2.1 U/L (0.0-3.6); CREATINE KINASE 81 UL (21-232); FERRITIN 927 ng/mL (3-244); MAGNESIUM - SERUM 1.3 mg/dL (1.8-2.4)
[2018-06-13 08:57] LABS: TROPONIN-I 0.137 ng/mL (0.000-0.060)
[2018-06-13 09:01] LABS: APTT 36.4 SECONDS (22.8-39.4); INR 1.27 (0.85-1.17); PROTIME 15.3 SECONDS (11.6-15.0)
--- NOTE | 2018-06-13 10:00 | MORECARE ---
CASE MANAGEMENT DISCHARGE SUMMARY PATIENT: ASHLEY HSU III UNIT: [id number] ADM DATE: 06/12/18 AGE: 72 : 44 SEX: M ROOM/BED: D.1211 AUTHOR: JUDITH CASE PHYSICIAN: REFERRING PHYSICIAN: YESIKA SMITH MD DATE OF SERVICE: 06/13/18 Discharge Plan Patient Name: ASHLEY HSU [facility] [facility] 1945 Planned Disposition: Anticipated Discharge Date: Discharge Date: Expected LOS: Initial Reviewer: [email or web address] Initial Review Date: 06/13/2018 Generated: 06/13/18 10:59 am DCPIA - Discharge Planning Initial Assessment Updated by [email or web address]: Yadira Samson on 06/13/18 9:58 am * Is the patient Alert and Oriented? Yes * PCP CRISTINA * Pharmacy [facility] * Preadmission Environment Home with Family * ADLs Independent * Equipment Glucometer Oxygen Walker * Other Equipment CYCLER FOR PERITONEAL DYALISIS, * List name and contact numbers for known caregivers / representatives who currently or will assist patient after discharge: GALE ROBISON, * Verbal permission to speak to the caregivers and representatives has been obtained from the patient. Yes * Community resources currently utilized None * Has this patient been hospitalized within the prior 30 days at any hospital? No Patient Name: ASHLEY HSU Page 40463 at 1000 All edits/amendments must be made on the electronic document DICTATION DATE: 06/13/18958 FOREIGN STUDENT ADVISER: KARIN 06/13/1859 RPT#: [id number] DC DATE: STATUS: ADM IN [facility] [address] [place] [address] END OF REPORT
--- NOTE | 2018-06-13 10:06 | MORECARE ---
CASE MANAGEMENT DISCHARGE SUMMARY PATIENT: ASHLEY HSU III UNIT: [id number] ADM DATE: 06/12/18 AGE: 72 : 44 SEX: M ROOM/BED: D.1211 AUTHOR: EVIEDOC PHYSICIAN: REFERRING PHYSICIAN: YESIKA SMITH MD DATE OF SERVICE: 06/13/18 Discharge Plan Patient Name: ASHLEY HSU Facility: [facility]:[place] : 1945 Planned Disposition: Anticipated Discharge Date: Discharge Date: Expected LOS: Initial Reviewer: [email or web address] Initial Review Date: 06/13/2018 Generated: 06/13/18 11:06 am Comments DCP- Discharge Planning Updated by [id number]: Yadira Samson on 06/13/18 9:[address] Patient Name: ASHLEY HSU Encounter No: [id number] : 1945 Primary Insurance: MEDICARE A & B Anticipated DC Date: Planned Disposition: External Planned Provider: :CM MET WITH PATIENT AND HIS ENRIQUETA ABOUT DC PLANNING/NEEDS. THINKS HE MAY HAVE [facility], STATES IF HE IS NOT ABLE TO WALK AT TIME OF DISCHARGE THAT HE MAY NEED SOME TYPE OF SERVICE. CM WILL FOLLOW AND ASSES NEEDED WITH DC PLANNING/NEEDS. DCP follow-up note: Patient and family in agreement with discharge plan. No changes to plan. Case management will follow and assist as needed. Yadira Samson DCPIA - Discharge Planning Initial Assessment Updated by [id number]: Yadira Samson on 06/13/18 9:58 am * Is the patient Alert and Oriented? Yes * PCP CRISTINA * Pharmacy [facility] [address] * Preadmission Environment Home with Family * ADLs Independent * Equipment Glucometer Oxygen Walker * Other Equipment CYCLER FOR PERITONEAL DYALISIS, * List name and contact numbers for known caregivers / representatives who currently or will assist patient after discharge: ENRIQUETA, , * Verbal permission to speak to the caregivers and representatives has been obtained from the patient. Yes * Community resources currently utilized None * Has this patient been hospitalized within the prior 30 days at any hospital? No Last DP export: 06/13/18 8:59 am Patient Name: ASHLEY HSU Page 43969 at 1006 All edits/amendments must be made on the electronic document DICTATION DATE: 06/13/18 100 REPAIRER AND CHECKER: KARIN 06/13/18 1006 RPT#: [id number] DC DATE: STATUS: ADM IN [facility] [address] [place] [address] END OF REPORT
[2018-06-13 14:14] LABS: CKMB 2.3 U/L (0.0-3.6); CREATINE KINASE 88 UL (21-232)
[2018-06-13 14:16] LABS: TROPONIN-I 0.127 ng/mL (0.000-0.060)
--- NOTE | 2018-06-13 16:03 | NUR ---
CONSULTS CALLED TO DR MILLER, SPOKE TO CELSO AND TO DR SÁNCHEZ, SPOKE TO JESSENIA
--- NOTE | 2018-06-13 19:00 | NUR ---
NOTIFIED [facility] THAT WE NEED DELFLEX 1.5% SOLUTION TO START PD DIALYSIS.
[2018-06-13 20:30] LABS: CKMB 2.1 U/L (0.0-3.6); CREATINE KINASE 89 UL (21-232)
[2018-06-13 20:31] LABS: TROPONIN-I 0.115 ng/mL (0.000-0.060)
[2018-06-13 22:41] LABS: EOS BF 1 %; MACROPHAGES BF 9 %; MESOTHELIALS BF 4 %; NEUT - BF 37 %
--- NOTE | 2018-06-14 03:03 | NUR ---
I have reviewed this patient and I concur with the Shift Assessment completed by the Licensed Practical Nurse today this shift.
[2018-06-14 04:00] VITALS: BP 117/50
--- NOTE | 2018-06-14 04:39 | NUR ---
PD EXCHANGE COMPLETE. PT TOLERATED WELL.
[2018-06-14 05:36] LABS: BASOPHILS 0 % (0-2); EOSINOPHILS 0.2 % (0-7); HEMATOCRIT 22.1 % (42.0-54.0); IMMATURE GRANULOCYTES 0.5 % (0-5); LYMPHOCYTES 6.2 % (15-50); MCH 31.3 pg (26.0-34.0); MCV 94.8 fL (80.0-100.0); MONOCYTES 8.2 % (2-11); NEUTROPHILS 84.9 % (40-80); RBC 2.33 10x6/uL (4.20-6.10); WBC 8.8 10x3/uL (4.8-10.8)
[2018-06-14 05:49] LABS: HEMOGLOBIN 7.3 g/dL (13.5-17.5); PLATELET COUNT 317 10x3/uL (130-400)
[2018-06-14 05:55] LABS: ALBUMIN 2.3 g/dL (3.4-5.0); ANION GAP 23.3 mmol/L (8-16); BILIRUBIN - TOTAL 0.47 mg/dL (0.2-1.3); CALCIUM 7.9 mg/dL (8.5-10.1); CREATININE - SERUM 12.3 mg/dL (0.6-1.3); POTASSIUM - SERUM 4.3 mmol/L (3.5-5.1); PROTEIN - SERUM 6.9 g/dL (6.4-8.2)
--- NOTE | 2018-06-14 07:36 | NUR ---
REPORT RECIEVED AND MORNING ROUNDING COMPLETE. PT SITTING UP IN CHAIR. BLOOD ON THE FLOOR. PT STATES HE STUBBED HIS TOE. UPON FURTHER INSPECTION PT HAD PULLED OUT HIS RIGHT FOREARM PIV. CATH INTACT. CLEANED UP THE BLOOD ON THE FLOOR. BLLEDING HAS STOPPED ON PT'S FOREARM. NO OTHER NEEDS AT THIS TIME CALL LIGHT WITHIN REACH. PT STILL SITTING UP IN HIS CHAIR.
[2018-06-14 07:46] VITALS: BP 143/52
[2018-06-14 11:39] VITALS: BP 142/71
--- NOTE | 2018-06-14 12:03 | NUR ---
PT REFUSES TO WEAR YELLOW GOWN. HE WANTS TO WEAR HIS OWN CLOTHES.
[2018-06-14 13:12] LABS: FOLATE (FOLIC ACID) - SERUM >20.0 ng/mL (>3.0)
[2018-06-14 15:37] VITALS: BP 131/66
--- NOTE | 2018-06-14 16:55 | NUR ---
20 GUAGE PIV INSERTED TO R.MACHELLE X1 STICK. HUSSAIN WITH FRANCOIS CDI.
[2018-06-14 20:00] VITALS: BP 153/75
[2018-06-14 20:08] LABS: APPEARANCE CLOUDY (CLEAR); COLOR YELLOW (YELLOW); NITRITE NEGATIVE (NEGATIVE); PROTEIN 2+ mg/dL (NEGATIVE)
[2018-06-14 20:09] LABS: BILIRUBIN NEGATIVE (NEGATIVE); GLUCOSE 100 mg/dL (NEGATIVE); KETONE NEGATIVE (NEGATIVE); RED CELLS - URINE 0-5 /hpf (0-5); UROBILINOGEN NORMAL (NORMAL); WHITE CELLS - URINE 25-50 /hpf (0-5)
[2018-06-14 20:10] LABS: BACTERIA FEW /hpf (NONE SEEN)
--- NOTE | 2018-06-14 20:15 | NUR ---
EVENING ROUNDS COMPLETED. REPORT RECEIVED. PT SITTING UP IN BED WITH EYES OPEN, RR EVEN AND UNLABORED. ONE UNIT OF PRBC INFUSING ORDERED. ASSISTED PT BACK TO BED, FALL ALARM TURNED ON. CALL LIGHT IN REACH. WILL CTM.
--- NOTE | 2018-06-14 23:01 | NUR ---
ASSISTED YVON RN TELEPHONE TRIAGE WITH PD FOR PT. PT DRAINED 1550 PT TOLERATED, HAS NO S/S OF DISTRESS. WILL CPOC
--- NOTE | 2018-06-15 03:31 | NUR ---
OBSERVED [employer] YVON STARTED PD. CORRECT TECHNIQUE.
--- NOTE | 2018-06-15 03:32 | NUR ---
I have reviewed this patient and I concur with the Shift Assessment completed by the Licensed Practical Nurse today this shift.
[2018-06-15 04:00] VITALS: BP 132/66
--- NOTE | 2018-06-15 07:12 | NUR ---
PT AWAKE AND ORIENTED, NO REQUESTS OR COMPLAINTS AT THIS TIME. CL IN REACH, SRX2. AT BEDSIDE.
--- NOTE | 2018-06-15 07:52 | NUR ---
NO 2.5 PD BAGS AVALIABLE AT THIS TIME. CALLED [facility], THEY'RE NOT HERE YET. TOLD RN URGENT CARE. WAITING ON BAG
[2018-06-15 07:56] VITALS: BP 163/72
[2018-06-15 08:07] LABS: BASOPHILS 0 % (0-2); EOSINOPHILS 0.1 % (0-7); HEMATOCRIT 25.9 % (42.0-54.0); IMMATURE GRANULOCYTES 0.6 % (0-5); LYMPHOCYTES 4.6 % (15-50); MCH 31.5 pg (26.0-34.0); MEAN PLATELET VOLUME 10.9 fL (7.4-10.4); MONOCYTES 7.1 % (2-11); NEUTROPHILS 87.6 % (40-80); PLATELET COUNT 297 10x3/uL (130-400); RBC 2.79 10x6/uL (4.20-6.10); RDW 14.8 % (11.5-14.5); WBC 10.3 10x3/uL (4.8-10.8)
[2018-06-15 08:12] LABS: HEMOGLOBIN 8.8 g/dL (13.5-17.5); MCV 92.8 fL (80.0-100.0)
[2018-06-15 08:30] LABS: ALBUMIN 2.5 g/dL (3.4-5.0); ANION GAP 24.6 mmol/L (8-16); BILIRUBIN - TOTAL 0.5 mg/dL (0.2-1.3); CALCIUM 8.5 mg/dL (8.5-10.1); CARBON DIOXIDE 21.7 mmol/L (21.0-32.0); CREATININE - SERUM 12.3 mg/dL (0.6-1.3); POTASSIUM - SERUM 4.3 mmol/L (3.5-5.1); PROTEIN - SERUM 7.4 g/dL (6.4-8.2)
--- NOTE | 2018-06-15 09:53 | NUR ---
INSTILLED 1999, WILL DO AGAIN AT 1345. PT VOMMITED ALEJANDRA DORSEY VOMIT DURING PROCESS. STATES HE FEELS BETTER NOW, GAVE ZOFRAN TO HELP WITH FURTHER NAUSEA.
[2018-06-15 11:37] VITALS: BP 149/78
--- NOTE | 2018-06-15 14:08 | NUR ---
I have reviewed this patient and I concur with the Shift Assessment completed by the Licensed Practical Nurse today this shift.
--- NOTE | 2018-06-15 15:38 | MORECARE ---
CASE MANAGEMENT DISCHARGE SUMMARY PATIENT: ASHLEY HSU III UNIT: [id number] ADM DATE: 06/12/18 AGE: 72 : [birth year] SEX: M ROOM/BED: D.2111 AUTHOR: EVIE,DOC PHYSICIAN: REFERRING PHYSICIAN: YESIKA SMITH MD DATE OF SERVICE: 06/15/18 Discharge Plan Patient Name: ASHLEY HSU Facility: [facility]:[place] : 1945 Planned Disposition: Inpatient Rehab Anticipated Discharge Date: Discharge Date: Expected LOS: Initial Reviewer: [id number] Initial Review Date: 06/13/2018 Generated: 06/15/18 4:37 pm Comments DCP- Discharge Planning Updated by [email or web address]: Yadira Samson on 06/13/18 9:[address] Patient Name: ASHLEY HSU Encounter No: [id number] : 1945 Primary Insurance: MEDICARE A & B Anticipated DC Date: Planned Disposition: External Planned Provider: :CM MET WITH PATIENT AND HIS ENRIQUETA ABOUT DC PLANNING/NEEDS. THINKS HE MAY HAVE [facility], STATES IF HE IS NOT ABLE TO WALK AT TIME OF DISCHARGE THAT HE MAY NEED SOME TYPE OF SERVICE. CM WILL FOLLOW AND ASSES NEEDED WITH DC PLANNING/NEEDS. DCP follow-up note: Patient and family in agreement with discharge plan. No changes to plan. Case management will follow and assist as needed. Yadira Samson DCPIA - Discharge Planning Initial Assessment Updated by [email or web address]: Yadira Samson on 06/13/18 9:58 am * Is the patient Alert and Oriented? Yes * PCP CRISTINA * Pharmacy [facility] [address] * Preadmission Environment Home with Family * ADLs Independent * Equipment Glucometer Oxygen Walker * Other Equipment CYCLER FOR PERITONEAL DYALISIS, * List name and contact numbers for known caregivers / representatives who currently or will assist patient after discharge: ENRIQUETA, , * Verbal permission to speak to the caregivers and representatives has been obtained from the patient. Yes * Community resources currently utilized None * Has this patient been hospitalized within the prior 30 days at any hospital? No Coverage Notice Reviewer: [id number] - Tate Paula Notice Issued Date-Time: 06/15/2018 15:15 Notice Type: IM Discharge Notice Notice Delivered To: Family Member Relationship to Patient: Spouse City Weighmaster Name: ENRIQUETA HSU Delivery Method: HAND - Hand Delivered Suki Days: Prior Verbal Notification: Recipient Understood Notice: Yes Recipient Signature: Yes Med Rec Note Co-signed by Attending: Coverage Notice Comment: Last DP export: 06/13/18 9:06 am Patient Name: ASHLEY HSU Page [phone] at 1538 All edits/amendments must be made on the electronic document DICTATION DATE: 06/15/181536 PAYLOADER MACHINE OPERATOR: KARIN 06/15/181536 RPT#: [id number] DC DATE: STATUS: ADM IN [facility] [address] [place] [address] END OF REPORT
[2018-06-15 15:56] VITALS: BP 167/71
--- NOTE | 2018-06-15 16:42 | EC ---
PATIENT:ASHLEY HSU III DATE OF SERVICE: 06/12/18 SEX: M MEDICAL RECORD: [id number] DATE OF : [birth year] LOCATION:D.M2 D.211 AGE OF PATIENT: 72 ADMISSION DATE: 06/12/18 REFERRING PHYSICIAN: INTERPRETING PHYSICIAN: ELISSA GUZMÁN MD ECHOCARDIOGRAM REPORT ECHO CHARGES 4 ECHO COMPLETE Date: 06/13/18 CLINICAL DIAGNOSIS: CHF ECHOCARDIOGRAPHIC MEASUREMENTS (adult normal given) AC root (d.<3.7cm) 3.2 cm LV Septum d (<1.2 cm> 1.1 cm Valve Excursion 1.8 cm LV Septum (systole) 1.5 cm Left Atria (s.<4.0cm> 4.4 cm LVPW d(<1.2cm) 1.2 cm RV (d.<2.3cm) 2.7 cm LVPW (sytole) 1.8 cm LV diastole(<5.6CM) 7.2 cm MV E-F(>70mm/sec) cm LV systole 5.5 cm LVOT Diameter 1.8 cm MV exc.(>10mm) cm Est.ejection fraction (50-75%) % DOPPLER: LVIT cm/sec A cm/sec E 141 cm/sec LA cm/sec RVSP 32.0 mmHg LVOT 72.0 cm/sec AOP1/2T m/s Asc. Ao 176 cm/sec RVOT 65.0 cm/sec RA cm/sec PA 77.0 cm/sec AV Gradient Peak 12.4 mmHg AV Mean 5.6 mmHg AV Area 1.2 cm MV Gradient Peak 10.4 mmHg MV Mean 2.8 mmHg MV Area cm COMMENTS: Irrigation Pump Installer: Mao CORONADOOE Button Cutting Machine Operator: 1 Dr. Guzmán TAPE# PACS Pericardial Effusion N DATE OF SERVICE: 06/13/2018 PROCEDURE: Echocardiogram. FINDINGS: 1. Left ventricular chamber size is dilated. Left ventricular systolic function is moderately reduced. Overall ejection fraction in the 30% range. 2. Left atrium is enlarged at 4.4 cm. Right atrium and right ventricular chamber sizes are as well mildly dilated. 3. Valvular structures have normal structure and motion. ECHOCARDIOGRAM REPORT [id number] ASHLEY HSU III 4. Doppler interrogation reveals trace aortic insufficiency, mild mitral regurgitation, mild tricuspid regurgitation, no other valvular insufficiency or stenosis. Pulmonary systolic pressure is estimated at 32 mmHg. 5. No evidence of pericardial effusion or left ventricular thrombus. TRANSINT:[id number] Voice Confirmation ID: [id number] DOCUMENT ID: [id number] ELISSA GUZMÁN MD at 1642 CC: [id number] DICTATION DATE: 06/14/18 0836 DISTRIBUTION A CLASS LINEMAN: 06/14/[address] [facility] [address] [id number]
--- NOTE | 2018-06-15 18:47 | NUR ---
STARTED P.D. PT UP AT BESIDE. AND SON IN ROOM. CL IN REACH, SRX2. NO COMPLAINTS/CONCERNS AT THIS TIME.
--- NOTE | 2018-06-15 19:55 | NUR ---
EVENING ROUNDS COMPLETED. REPORT RECEIVED. PT SITTING UP IN BEDSIDE CHAIR WITH EYES OPEN, RR EVEN AND UNLABORED. ORDERED PD FLUIDS FINISHED FILL AT 194. INTRODUCED SELF TO PT. PT DENIES FURTHER NEEDS AT THIS TIME. CALL LIGHT IN REACH. ALYSON ALARM PLACED BENEATH PT. WILL CTM.
[2018-06-15 20:00] VITALS: BP 124/70
[2018-06-16] VITALS (7 sets, daily range): BP systolic 128–163; BP diastolic 66–95
--- NOTE | 2018-06-16 03:31 | NUR ---
I have reviewed this patient and I concur with the Shift Assessment completed by the Licensed Practical Nurse today this shift.
[2018-06-16 06:48] LABS: BASOPHILS 0 % (0-2); EOSINOPHILS 0.4 % (0-7); HEMATOCRIT 25.5 % (42.0-54.0); HEMOGLOBIN 8.6 g/dL (13.5-17.5); IMMATURE GRANULOCYTES 0.7 % (0-5); LYMPHOCYTES 4.9 % (15-50); MCH 30.9 pg (26.0-34.0); MCHC 33.7 g/dL (31.0-37.0); MCV 91.7 fL (80.0-100.0); MONOCYTES 6.5 % (2-11); NEUTROPHILS 87.5 % (40-80); PLATELET COUNT 245 10x3/uL (130-400); RBC 2.78 10x6/uL (4.20-6.10); RDW 14.8 % (11.5-14.5); WBC 10.4 10x3/uL (4.8-10.8)
[2018-06-16 07:05] LABS: ALBUMIN 2.2 g/dL (3.4-5.0); BILIRUBIN - TOTAL 0.46 mg/dL (0.2-1.3); CALCIUM 8.3 mg/dL (8.5-10.1); CARBON DIOXIDE 23.9 mmol/L (21.0-32.0); CREATININE - SERUM 10.5 mg/dL (0.6-1.3); MAGNESIUM - SERUM 1.6 mg/dL (1.8-2.4)
[2018-06-16 07:08] LABS: ANION GAP 18.6 mmol/L (8-16); POTASSIUM - SERUM 3.5 mmol/L (3.5-5.1)
--- NOTE | 2018-06-16 07:30 | NUR ---
REPORT RECIEVED AND MORNING ROUNDING COMPLETE. PT SITTING UP ON THE SIDE OF HIS BED. PT HAS A RIGHT AC PIV THAT'S SALINE LOCKED. PT IS VERY HARD OF HEARING. PT STATES THAT HE HAS NO NEEDS AT THIS TIME CALL LIGHT WITHIN REACH AND BED IN LOWEST POSITION. AT BEDSIDE
--- NOTE | 2018-06-16 09:39 | NUR ---
PT'S IN ROOM CLEANING HIS PD CATH SITE. STATED IT NEEDED TO BE DONE EVERYDAY. I ASKED HER TO INFORM THE NURSE WHEN SHE DOES SO WE CAN NOTE IT. I ALSO OFFERED TO DO IT FOR HER AND SHE REFUSED MT HELP OR ASSISTANCE.
--- NOTE | 2018-06-16 15:39 | NUR ---
I have reviewed this patient and I concur with the Shift Assessment completed by the Licensed Practical Nurse today this shift.
--- NOTE | 2018-06-16 16:31 | NUR ---
ASSISTED CARD PUNCHER IN ADJUSTING PT IN BED. PT LETHARGIC TODAY. EASLY AROUSED AND SPOKE JUST FINE , STATED HE WAS JUST SUPER TIRED TODAY. PT HAS NO APPETITE HAS NOT ATE IN SEVERAL DAYS. ASKED PT IF HE WOULD LIKE AN ENSURE OR A DRINK ALIKE IT AND HE STATED NOT AT THIS TIME.
--- NOTE | 2018-06-16 20:03 | NUR ---
EVENING ROUNDS COMPLETED. REPORT RECEIVED. PT SITTING UP IN BED WITH EYES OPEN, RR EVEN AND UNLABORED. PERITONEAL DIALYSIS CURRENTLY DRAINING ORDERED. INTRODUCED SELF TO PT. PT DENIES FURTHER NEEDS AT THIS TIME. BED IN LOW POSITION. FALL ALARM TURNED ON. CALL LIGHT IN REACH. WILL CTM.
--- NOTE | 2018-06-17 02:03 | NUR ---
I have reviewed this patient and I concur with the Shift Assessment completed by the Licensed Practical Nurse today this shift.
[2018-06-17 03:55] VITALS: BP 148/79
[2018-06-17 04:30] VITALS: BP 110/56
[2018-06-17 06:35] LABS: BASOPHILS 0 % (0-2); EOSINOPHILS 0.7 % (0-7); HEMATOCRIT 27.9 % (42.0-54.0); HEMOGLOBIN 9.3 g/dL (13.5-17.5); IMMATURE GRANULOCYTES 0.8 % (0-5); LYMPHOCYTES 2.7 % (15-50); MCH 31.4 pg (26.0-34.0); MCHC 33.3 g/dL (31.0-37.0); MCV 94.3 fL (80.0-100.0); MEAN PLATELET VOLUME 10.5 fL (7.4-10.4); MONOCYTES 9.5 % (2-11); NEUTROPHILS 86.3 % (40-80); PLATELET COUNT 275 10x3/uL (130-400); RBC 2.96 10x6/uL (4.20-6.10); RDW 14.6 % (11.5-14.5); WBC 10.7 10x3/uL (4.8-10.8)
[2018-06-17 06:50] LABS: ALBUMIN 2.3 g/dL (3.4-5.0); ANION GAP 20.2 mmol/L (8-16); BILIRUBIN - TOTAL 0.49 mg/dL (0.2-1.3); CALCIUM 8.7 mg/dL (8.5-10.1); CARBON DIOXIDE 24.3 mmol/L (21.0-32.0); CREATININE - SERUM 10.3 mg/dL (0.6-1.3); POTASSIUM - SERUM 3.5 mmol/L (3.5-5.1); PROTEIN - SERUM 7.5 g/dL (6.4-8.2)
--- NOTE | 2018-06-17 07:30 | NUR ---
REPORT RECIEVED AND MORNING ROUNDING COMPLETE. PT LAYING IN BED. EYES CLOSED BREATHING EVEN AND UNLABORED. PT NOT WEARING NC THIS AM. PT NOT SHOWING ANY S/SX OF DISTRESS. CALL LIGHT LAYING NEXT TO PATIENT ON BED AND BED IN LOWEST POSITION. BED ALARM IS ON.
[2018-06-17 08:10] VITALS: BP 154/84
[2018-06-17 13:10] VITALS: BP 150/66
--- NOTE | 2018-06-17 13:17 | NUR ---
I have reviewed this patient and I concur with the Shift Assessment completed by the Licensed Practical Nurse today this shift.
--- NOTE | 2018-06-17 13:37 | NUR ---
PT REQUESTED A SHOWER. PLATE PUT IN WORKER AND PHYSICAL THERAPY ASSISTED PT INTO SHOWER.
[2018-06-17 16:20] VITALS: BP 148/71
--- NOTE | 2018-06-17 19:40 | NUR ---
EVENING ROUNDS COMPLETED. REPORT RECEIVED. PT CURRENTLY SITTING UP IN BEDSIDE CHAIR WITH EYES OPEN, RR EVEN AND UNLABORED. NO S/S OF DISTRESS NOTED. CALL LIGHT IN REACH. INTRODUCED SELF TO PT. PT REQUESTED ASSISTANCE WITH URINAL, 100 MLS OF CONCENTRATED YELLOW URINE VOIDED. PT THEN STATED HE WANTED TO SIT IN CHAIR. ASSISTED PT IN AMBULATING 3 STEPS TO BEDSIDE CHAIR. ALYSON ALARM PLACED UNDER PT. PT DENIES FURTHER NEEDS AT THIS TIME. CALL LIGHT IN REACH. WILL CTM.
[2018-06-18 00:24] VITALS: BP 160/75
--- NOTE | 2018-06-18 04:38 | NUR ---
PT SITTING UP IN BED WITH EYES CLOSED, RR EVEN AND UNLABORED. BED IN LOW POSITION. NO S/S OF DISTRESS NOTED. OXYGEN AT 3 LITERS BY NASAL CANNULA. 103 SINUS TACH ON TELEMETRY. CALL LIGHT IN REACH. WILL CTM.
[2018-06-18 05:34] VITALS: BP 154/89
[2018-06-18 06:09] LABS: BASOPHILS 0 % (0-2); HEMATOCRIT 27.4 % (42.0-54.0); HEMOGLOBIN 8.8 g/dL (13.5-17.5); IMMATURE GRANULOCYTES 0.7 % (0-5); LYMPHOCYTES 5.1 % (15-50); MCH 30.4 pg (26.0-34.0); MCHC 32.1 g/dL (31.0-37.0); MCV 94.8 fL (80.0-100.0); MEAN PLATELET VOLUME 10.6 fL (7.4-10.4); MONOCYTES 7.5 % (2-11); NEUTROPHILS 85.7 % (40-80); PLATELET COUNT 268 10x3/uL (130-400); RBC 2.89 10x6/uL (4.20-6.10); RDW 14.5 % (11.5-14.5)
[2018-06-18 06:33] LABS: ALBUMIN 2.1 g/dL (3.4-5.0); BILIRUBIN - TOTAL 0.47 mg/dL (0.2-1.3); CALCIUM 8.7 mg/dL (8.5-10.1); CARBON DIOXIDE 25.2 mmol/L (21.0-32.0); CREATININE - SERUM 9.5 mg/dL (0.6-1.3); POTASSIUM - SERUM 3.2 mmol/L (3.5-5.1); PROTEIN - SERUM 6.9 g/dL (6.4-8.2)
--- NOTE | 2018-06-18 08:23 | NUR ---
AM MEDICATIONS ADMINISTERED. RECEIVED ORDERS FROM TO PERFORM PD ONE MORE TIME AND THEN THE PT WILL BE SCHEDULED FOR HD THIS AM. PT DENIES ANY NEEDS AT THIS TIME. ABX CURRENTLY INFUSING VIA R.FOR PIV. NO S/S OF DISTRESS NOTED. PD PERFORMED. WILL CTM.
[2018-06-18 08:47] VITALS: BP 129/81
--- NOTE | 2018-06-18 09:53 | NUR ---
PT CURRENTLY LYING SEMI FOWLERS. CALL LIGHT W/I REACH. RR EVEN AND UNLABORED ON 3L 02. ABX INFUSION COMPLETE. R.FOR PIV IS SALINE LOCKED. FAMILY AT BEDSIDE. PT DENIES ANY NEEDS. WILL CTM. NO S/S OF DISTRESS NOTED. PD COMPLETED.
--- NOTE | 2018-06-18 11:55 | NUR ---
Rehab Note- Acute Inpatient Rehab prescreen order received. The patient is still being worked up by Nephrology at this time to determine if will continue PD or change number operator to HD. WIll follow at this time as the patient may benenfit from a short inpatient rehab stay prior to discharging home. Will continue to follow at this time. Thank you for this referral! Tessie Garcia RN Clinical Liaison, [facility]
[2018-06-18 13:02] VITALS: BP 101/63
--- NOTE | 2018-06-18 14:56 | NUR ---
PT TRANSFERED TO DIALYSIS. WILL CTM.
--- NOTE | 2018-06-18 19:36 | NUR ---
STILL REMAINS IN DYALISIS WAITING ON PT REPORT FOR HIM TO RETURN
[2018-06-18 20:00] VITALS: BP 123/63
--- NOTE | 2018-06-18 20:02 | NUR ---
RETURNED FROM DYALISIS ESCORTED BY MYSELF TO ROOM AND COMFORT MEASURES TAKEN
[2018-06-19] VITALS: BP 124/64
[2018-06-19 04:00] VITALS: BP 135/71
--- NOTE | 2018-06-19 05:02 | NUR ---
I have reviewed this patient and I concur with the Shift Assessment completed by the Licensed Practical Nurse today this shift.
[2018-06-19 06:24] LABS: BASOPHILS 0.1 % (0-2); HEMATOCRIT 26.8 % (42.0-54.0); HEMOGLOBIN 8.7 g/dL (13.5-17.5); MCH 31.1 pg (26.0-34.0); MCHC 32.5 g/dL (31.0-37.0); MCV 95.7 fL (80.0-100.0); MEAN PLATELET VOLUME 10.4 fL (7.4-10.4); NEUTROPHILS 78.9 % (40-80); PLATELET COUNT 261 10x3/uL (130-400); RDW 14.7 % (11.5-14.5); WBC 8.2 10x3/uL (4.8-10.8)
[2018-06-19 06:27] LABS: ANION GAP 14.3 mmol/L (8-16); CALCIUM 8.9 mg/dL (8.5-10.1); CARBON DIOXIDE 27.5 mmol/L (21.0-32.0); MAGNESIUM - SERUM 1.8 mg/dL (1.8-2.4); PHOSPHOROUS 4.8 mg/dL (2.5-4.9); VANCOMYCIN - RANDOM 15.8 ug/mL (10.0-20.0)
[2018-06-19 06:32] LABS: POTASSIUM - SERUM 3.8 mmol/L (3.5-5.1)
[2018-06-19 08:35] VITALS: BP 141/72
[2018-06-19 11:33] VITALS: BP 123/87
--- NOTE | 2018-06-19 13:25 | NUR ---
ALERT AND ORIENTED TO SELF. SPOUSE AT BEDSIDE. INITIATE PD DIALYSIS ORDERED. SITTING UP IN CHAIR FOR BETTER DRAINAGE PER PATIENT'S SPOUSE. REFUSED TO EAT LUNCH. DRANK 90% OF ENSURE. DENIES ANY NEEDS AT THIS TIME. CONTINUE PLAN OF CARE AND SAFETY PRECAUTIONS.
[2018-06-19 15:59] VITALS: BP 161/83
[2018-06-19 20:00] VITALS: BP 157/86
--- NOTE | 2018-06-19 21:30 | NUR ---
PD IN PROCESS. DRAINED 2000ML OF PLACED 2000ML OF 2.5% PT HAS NO S/S OF DISTRESS. BEDLOW AND CALL LIGHT IN REACH. PT URINATED A SMALL AMOUNT IN URINAL, CLEANED PT AND CHANGED BRIEF FOR THE URINE THAT MISSED URINAL. WILL CPOC
[2018-06-20] VITALS: BP 178/80
--- NOTE | 2018-06-20 02:21 | NUR ---
ASSISTING NURSE IN CHARGE OF PATIENT WITH PD, NURSE USED CORRECT TECH. PT HAS NO S/S OF DISTRESS. WILL CPOC
--- NOTE | 2018-06-20 03:43 | NUR ---
I have reviewed this patient and I concur with the Shift Assessment completed by the Licensed Practical Nurse today this shift.
[2018-06-20 04:00] VITALS: BP 175/68
--- NOTE | 2018-06-20 04:57 | NUR ---
RESUMING CARE, PT LAYING IN BED ALEART/CONFUSED BREATH SOUNDS EVEN 3LITERS NC IV RT FOREARM , LEFT ARM RESERVE LFT AVF, RT ABDOMIN PD CATH, NO C/O PAIN OR DISTRESS CL IN REACH WILL CONT TO MONITOR
--- NOTE | 2018-06-20 05:02 | NUR ---
PT C/O OF NAUSEA AND VOMITED , PT GIVEN IV ZOFRAN
[2018-06-20 07:11] LABS: BASOPHILS 0.3 % (0-2); EOSINOPHILS 0.7 % (0-7); HEMATOCRIT 27.3 % (42.0-54.0); HEMOGLOBIN 8.7 g/dL (13.5-17.5); IMMATURE GRANULOCYTES 1.5 % (0-5); LYMPHOCYTES 1.4 % (15-50); MCH 30.9 pg (26.0-34.0); MCHC 31.9 g/dL (31.0-37.0); MCV 96.8 fL (80.0-100.0); MEAN PLATELET VOLUME 11.1 fL (7.4-10.4); MONOCYTES 10.6 % (2-11); NEUTROPHILS 85.5 % (40-80); PLATELET COUNT 268 10x3/uL (130-400); RBC 2.82 10x6/uL (4.20-6.10); RDW 14.5 % (11.5-14.5)
[2018-06-20 07:12] LABS: WBC 12.7 10x3/uL (4.8-10.8)
[2018-06-20 07:16] LABS: ANION GAP 15.8 mmol/L (8-16); CALCIUM 8.9 mg/dL (8.5-10.1); CARBON DIOXIDE 26.4 mmol/L (21.0-32.0); CREATININE - SERUM 7.2 mg/dL (0.6-1.3); VANCOMYCIN - RANDOM 21.5 ug/mL (10.0-20.0)
[2018-06-20 07:19] LABS: POTASSIUM - SERUM 4.2 mmol/L (3.5-5.1)
--- NOTE | 2018-06-20 08:45 | MORECARE ---
CASE MANAGEMENT DISCHARGE SUMMARY PATIENT: ASHLEY HSU III UNIT: [id number] ADM DATE: 06/12/18 AGE: 72 : 44 SEX: M ROOM/BED: D.[facility] AUTHOR: JUDITH CASE PHYSICIAN: REFERRING PHYSICIAN: YESIKA SMITH MD DATE OF SERVICE: 06/20/18 Discharge Plan Patient Name: ASHLEY HSU Facility: [facility]:[place] : 1945 Planned Disposition: Inpatient Rehab Anticipated Discharge Date: 06/20/18 Discharge Date: Expected LOS: 8 Initial Reviewer: [id number] Initial Review Date: 06/13/2018 Generated: 06/20/18 9:44 am Comments DCP- Discharge Planning Updated by [email or web address]: Tate Paula on 06/20/18 7:[address] Patient Name: ASHLEY HSU Encounter No: [id number] : 1945 Primary Insurance: MEDICARE A & B Anticipated DC Date: 06-20-2018 Planned Disposition: Inpatient Rehab External Planned Provider: [facility] INPATIENT REH[facility] DCP follow-up note: CM SPOKE TO DR. SANTOYO WHO INFORMED CM THAT PT IS STABLE FOR DISCHARGE TO REHAB TODAY. PT NOTIFIED, IN AGREEMENT WITH DISCHARGE TO INPATIENT REHAB. IMPORTANT MESSAGE FROM MEDICARE PROVIDED AND EXPLAINED. CM TO NOTIFY [facility] INPATIENT REHAB SCREENER THIS MORNING. [facility] INPATIENT REHAB TO CONTACT MED 2 NURSE WITH ROOM NUMBER IF ACCEPTING AND WHEN READY TO ACCEPT PT AND NURSE REPORT. JANA Tian DCP- Discharge Planning Updated by [email or web address]: Tate Paula on 06/15/18 2:[address] Patient Name: ASHLEY HSU Admission Status: ER Accout number: [id number] Admission Date: 06-12-2018 : 1945 Admission Diagnosis:WEAKNESS Attending: YESIKA SMITH Current LOS: 3 Anticipated DC Date: Planned Disposition: Inpatient Rehab Primary Insurance: MEDICARE A & B PLANNED EXTERNAL PROVIDER: [facility] INPATIENT REH[facility] Discharge Planning Comments: CM MET WITH PT AND SPOUSE IN ROOM TO DISCUSS DISCHARGE PLANNING AND NEEDS. ASHLEY HSU provided verbal consent to discuss current and ongoing needs with/in the presence of: SPOUSE, ENRIQUETA. CM DISCUSSED AVAILABILITY OF HOME HEALTH, REHAB SERVICES AND MEDICAL EQUIPMENT. PT AND SPOUSE WOULD LIKE FOR PT TO BE CONSIDERED FOR INPATIENT REHAB. IMPORTANT MESSAGE FROM MEDICARE PROVIDED AND EXPLAINED. CM NOTIFIED SHAE OF INPATIENT REHAB, SPOKE TO DR. SMITH AND OBTAINED ORDER FOR INPATIENT REHAB PRESCREENING. CM WAITING MEDICAL STABILITY AND INPATIENT REHAB PRESCREENING BY [facility] INPATIENT [facility]. Sausage Smoker: Tate Paula DCP- Discharge Planning Updated by [id number]: Yadira Samson on 06/13/18 9:[address] Patient Name: ASHLEY HSU Encounter No: [id number] : 1945 Primary Insurance: MEDICARE A & B Anticipated DC Date: Planned Disposition: External Planned Provider: :CM MET WITH PATIENT AND HIS ENRIQUETA ABOUT DC PLANNING/NEEDS. THINKS HE MAY HAVE [facility], STATES IF HE IS NOT ABLE TO WALK AT TIME OF DISCHARGE THAT HE MAY NEED SOME TYPE OF SERVICE. CM WILL FOLLOW AND ASSES NEEDED WITH DC PLANNING/NEEDS. DCP follow-up note: Patient and family in agreement with discharge plan. No changes to plan. Case management will follow and assist as needed. Yadira Samson DCPIA - Discharge Planning Initial Assessment Updated by [id number]: Yadira Samson on 06/13/18 9:58 am * Is the patient Alert and Oriented? Yes * PCP CRISTINA * Pharmacy [facility] [address] * Preadmission Environment Home with Family * ADLs Independent * Equipment Glucometer Oxygen Walker * Other Equipment CYCLER FOR PERITONEAL DYALISIS, * List name and contact numbers for known caregivers / representatives who currently or will assist patient after discharge: GALE ROBISON, * Verbal permission to speak to the caregivers and representatives has been obtained from the patient. Yes * Community resources currently utilized None * Has this patient been hospitalized within the prior 30 days at any hospital? No Coverage Notice Reviewer: [id number] Roxanna Paula Notice Issued Date-Time: 06/15/2018 15:15 Notice Type: IM Discharge Notice Notice Delivered To: Family Member Relationship to Patient: Spouse Infusion Pharmacist Name: ENRIQUETA HSU Delivery Method: HAND - Hand Delivered Suki Days: Prior Verbal Notification: Recipient Understood Notice: Yes Recipient Signature: Yes Med Rec Note Co-signed by Attending: Coverage Notice Comment: Reviewer: [id number] Paula Notice Issued Date-Time: 06/20/2018 8:35 Notice Type: IM Discharge Notice Notice Delivered To: Patient Relationship to Patient: Infusion Pharmacist Name: Delivery Method: HAND - Hand Delivered Suki Days: Prior Verbal Notification: Recipient Understood Notice: Yes Recipient Signature: Yes Med Rec Note Co-signed by Attending: Coverage Notice Comment: Last DP export: 06/15/18 2:38 p Patient Name: ASHLEY HSU Page [id number] at 0845 All edits/amendments must be made on the electronic document DICTATION DATE: 06/20/18843 PROOFER: KARIN 06/[birth year]44 RPT#: [id number] DC DATE: STATUS: ADM IN [facility] [address] [place] [address] END OF REPORT
--- NOTE | 2018-06-20 09:01 | NUR ---
Nutrition follow-up: Diet: Renal ADA Visited with pt and at bedside; reports pts po intake has been poor during hospital stay. states pt will drink Ensure. RDN order ensure Labs reviewed Will honor food preferences due to pt with very poor po intake at this time. RDN following.
[2018-06-20 09:06] VITALS: BP 162/79
[2018-06-20] MEDS ORDERED: OMNICEF300 MG PO (10:09)
[2018-06-20] MEDS ORDERED: LEVEMIR FL100 UNIT/1 SC (10:14)
[2018-06-20] MEDS ORDERED: HUMULIN R100 U/ML SC (10:14)
[2018-06-20] MEDS ORDERED: TUMS PO (10:15)
[2018-06-20] MEDS ORDERED: MAG-OX 400 MG400 MG PO (10:15)
--- NOTE | 2018-06-20 12:02 | MORECARE ---
CASE MANAGEMENT DISCHARGE SUMMARY PATIENT: ASHLEY HSU III UNIT: [id number] ADM DATE: 06/12/18 AGE: 72 : 44 SEX: M ROOM/BED: D.2111 AUTHOR: EVIE,DOC PHYSICIAN: REFERRING PHYSICIAN: YESIKA SMITH MD DATE OF SERVICE: 06/20/18 Discharge Plan Patient Name: ASHLYE HSU [facility] [facility] 1945 Planned Disposition: Inpatient Rehab Anticipated Discharge Date: 06/20/18 Discharge Date: Expected LOS: 8 Initial Reviewer: [id number] Initial Review Date: 06/13/2018 Generated: 06/20/18 1:02 pm Comments DCP- Discharge Planning Updated by [id number]: Tate Paula on 06/20/18 11:[address] Patient Name: ASHLEY HSU Encounter No: [id number] : 1945 Primary Insurance: MEDICARE A & B Anticipated DC Date: 06-20-2018 Planned Disposition: Inpatient Rehab External Planned Provider: [facility] INPATIENT REH[facility] DCP follow-up note: CM SPOKE TO DR. SANTOYO WHO INFORMED CM THAT PT IS STABLE FOR DISCHARGE TO REHAB TODAY. PT NOTIFIED, IN AGREEMENT WITH DISCHARGE TO INPATIENT REHAB. IMPORTANT MESSAGE FROM MEDICARE PROVIDED AND EXPLAINED. CM TO NOTIFY [facility] INPATIENT REHAB SCREENER THIS MORNING. [facility] INPATIENT REH[facility] TO CONTACT MED 2 NURSE WITH ROOM NUMBER IF ACCEPTING AND WHEN READY TO ACCEPT PT AND NURSE REPORT. Tate Paula, CASE MANAGEMENT Appended by Tate Paula on 06/20/2018 12:01 CDT: CM NOTIFIED BILLY OF [facility] INPATIENT REH[facility] WHO INFORMED CM THEY PLAN TO ACCEPT PT TODAY FOR REHAB. BILLY IS AWARE THAT DR. SANTOYO HAS DISCHARGED, WAITING PRIMARY DOCTOR DISCHARGE. NOTIFY REHAB WHEN DISCHARGE ORDER IS RECEIVED. [facility] INPATIENT REH[facility] TO CONTACT MED 2 NURSE WITH ROOM NUMBER IF ACCEPTING AND WHEN READY TO ACCEPT PT AND NURSE REPORT. JANA Tian DCP- Discharge Planning Updated by [email or web address]: Tate Paula on 06/15/18 2:[address] Patient Name: ASHLEY HSU Admission Status: ER Accout number: [id number] Admission Date: 06-12-2018 : 1945 Admission Diagnosis:WEAKNESS Attending: YESIKA SMITH Current LOS: 3 Anticipated DC Date: Planned Disposition: Inpatient Rehab Primary Insurance: MEDICARE A & B PLANNED EXTERNAL PROVIDER: [facility] INPATIENT REH[facility] Discharge Planning Comments: CM MET WITH PT AND SPOUSE IN ROOM TO DISCUSS DISCHARGE PLANNING AND NEEDS. ASHLEY HSU provided verbal consent to discuss current and ongoing needs with/in the presence of: SPOUSE, ENRIQUETA. CM DISCUSSED AVAILABILITY OF HOME HEALTH, REHAB SERVICES AND MEDICAL EQUIPMENT. PT AND SPOUSE WOULD LIKE FOR PT TO BE CONSIDERED FOR INPATIENT REHAB. IMPORTANT MESSAGE FROM MEDICARE PROVIDED AND EXPLAINED. CM NOTIFIED SHAE OF INPATIENT REHAB, SPOKE TO DR. SMITH AND OBTAINED ORDER FOR INPATIENT REHAB PRESCREENING. CM WAITING MEDICAL STABILITY AND INPATIENT REHAB PRESCREENING BY [facility] INPATIENT [facility]. Acid Tender: Tate Paula DCP- Discharge Planning Updated by [email or web address]: Yadira Samson on 06/13/18 9:[address] Patient Name: ASHLEY HSU Encounter No: [id number] : 1945 Primary Insurance: MEDICARE A & B Anticipated DC Date: Planned Disposition: External Planned Provider: :CM MET WITH PATIENT AND HIS ENRIQUETA ABOUT DC PLANNING/NEEDS. THINKS HE MAY HAVE [facility], STATES IF HE IS NOT ABLE TO WALK AT TIME OF DISCHARGE THAT HE MAY NEED SOME TYPE OF SERVICE. CM WILL FOLLOW AND ASSES NEEDED WITH DC PLANNING/NEEDS. DCP follow-up note: Patient and family in agreement with discharge plan. No changes to plan. Case management will follow and assist as needed. Yadira Samson DCPIA - Discharge Planning Initial Assessment Updated by [id number]: Yadira Samson on 06/13/18 9:58 am * Is the patient Alert and Oriented? Yes * PCP CRISTINA * Pharmacy [facility] [address] * Preadmission Environment Home with Family * ADLs Independent * Equipment Glucometer Oxygen Walker * Other Equipment CYCLER FOR PERITONEAL DYALISIS, * List name and contact numbers for known caregivers / representatives who currently or will assist patient after discharge: ENRIQUETA , * Verbal permission to speak to the caregivers and representatives has been obtained from the patient. Yes * Community resources currently utilized None * Has this patient been hospitalized within the prior 30 days at any hospital? No Coverage Notice Reviewer: [id number] Roxanna Paula Notice Issued Date-Time: 06/15/2018 15:15 Notice Type: IM Discharge Notice Notice Delivered To: Family Member Relationship to Patient: Spouse Prosthetist Name: ENRIQUETA HSU Delivery Method: HAND - Hand Delivered Suki Days: Prior Verbal Notification: Recipient Understood Notice: Yes Recipient Signature: Yes Med Rec Note Co-signed by Attending: Coverage Notice Comment: Reviewer: [id number] Paula Notice Issued Date-Time: 06/20/2018 8:35 Notice Type: IM Discharge Notice Notice Delivered To: Patient Relationship to Patient: Prosthetist Name: Delivery Method: HAND - Hand Delivered Suki Days: Prior Verbal Notification: Recipient Understood Notice: Yes Recipient Signature: Yes Med Rec Note Co-signed by Attending: Coverage Notice Comment: Last DP export: 06/20/18 7:45 a Patient Name: ASHLEY HSU Page [phone] at 1202 All edits/amendments must be made on the electronic document DICTATION DATE: 06/20/18 1202 CIVIL DIVISION COMMANDER DEPUTY SHERIFF: KARIN 06/20/18 1202 RPT#: [id number] DC DATE: STATUS: ADM IN [facility] [address] [place] [address] END OF REPORT
[2018-06-20 12:20] VITALS: BP 101/74
--- NOTE | 2018-06-20 17:28 | NUR ---
CONFUSED. SPOUSE AT BEDSIDE. DISCHARGE INSTRUCTIONS GIVEN VERBALLY AND WRITTEN. DISCHARGE PAPERS SIGNED ON CHART. RT FA IV SL. ASSIST GETTING DRESSED. CALL REPORT TO MARK ALONSO IN REHAB. TRANSPORT TO ROOM 1109 VIA WHEELCHAIR. REMAINS FREE FROM INJURY.
[2018-06-21 21:06] LABS: WNVS - IGG Positive (Negative); WNVS - IGM Negative (Negative)
[2018-06-22 03:08] LABS: RMSF IGM 0.47 index (0.00-0.89)
[2018-06-22 14:11] LABS: EHRLICHIA CHAFF IGG Negative (Neg:<1:64); EHRLICHIA CHAFF IGM Negative (Neg:<1:20); HGE IGG TITER Negative (Neg:<1:64); HGE IGM TITER Negative (Neg:<1:20)
[2018-06-25 11:09] LABS: F. TULARENSIS - IGG Negative (Negative); F. TULARENSIS - IGM Negative (Negative)
== END 2018-06-20 17:56 | DRG 689 ==
LOC: D.ER 19:33 → D.EDHOLD 23:57 → D.M3 23:57 → D.M2 23:57 → D.M3 06-13 01:57 → D.M2 06-13 17:42
PROVIDERS: Family Medicine; Internal Medicine Nephrology; ADMIT Internal Medicine Nephrology; ATTEND Internal Medicine Nephrology
PROC: 5A1D70Z Performance of Urinary Filtration, Intermittent, Less than 6 Hours Per Day (ICD-10-PCS; principal; 2018-06-18)
DX: N39.0 Urinary tract infection, site not specified (principal); K65.9 Peritonitis, unspecified; N18.6 End stage renal disease; I13.2 Hypertensive heart and chronic kidney disease with heart failure and with stage 5 chronic kidney disease, or end stage renal disease; I42.9 Cardiomyopathy, unspecified; F17.213 Nicotine dependence, cigarettes, with withdrawal; Z99.2 Dependence on renal dialysis; Z91.15 Patient's noncompliance with renal dialysis; D50.9 Iron deficiency anemia, unspecified; E11.22 Type 2 diabetes mellitus with diabetic chronic kidney disease; I50.9 Heart failure, unspecified; B95.2 Enterococcus as the cause of diseases classified elsewhere; E11.51 Type 2 diabetes mellitus with diabetic peripheral angiopathy without gangrene; I48.0 Paroxysmal atrial fibrillation; J44.9 Chronic obstructive pulmonary disease, unspecified; I25.10 Atherosclerotic heart disease of native coronary artery without angina pectoris; F01.50 Vascular dementia, unspecified severity, without behavioral disturbance, psychotic disturbance, mood disturbance, and anxiety; E78.5 Hyperlipidemia, unspecified; Z91.81 History of falling

== ENCOUNTER 2018-06-20 17:53 | Inpatient (IN) | payer MEDICARE, BC ==
[~2018-06-20] VITALS: Ht 172.7 cm; Wt 84.8 kg
--- NOTE | ~2018-06-20 | RHP ---
PATIENT: ASHLEY HSU III MEDICAL RECORD: [id number] ACCOUNT: [id number] LOCATION:[id number] : 43 ADMISSION DATE: 06/20/18 REHABILITATION HISTORY AND PHYSICAL EXAMINATION POST ADMISSION PHYSICIAN EXAMINATION DATE OF ADMISSION: 06/20/2018. ADMITTING DIAGNOSIS: Uremic myopathy. HISTORY OF PRESENT ILLNESS: The patient is a 72-year-old gentleman admitted with a neurological condition of uremic myopathy. He has had a history of coronary artery stenosis status post left CEA in February of 2018. He has got diabetes, CHF with an EF of 25%, cardiomyopathy, coronary artery disease, peripheral arterial disease, peripheral vascular disease, and weakness. He also has end-stage dialysis and dementia. He was admitted to the acute hospital on 06/12/2018. His family reports that he had been having some increased weakness, falls over the previous 2-3 days and mental status changes prior to this. He had not on any peritoneal dialysis since 06/11/2018. His BUN was 115 upon admission. Nephrology was consulted and restarted his PD. CT of his head was negative. EF is 30% on his most recent echocardiogram. Neurology and cardiology were consulted for recommendations on his dyspnea on exertion. He was found to have a UTI with Enterococcus faecalis and placed on Rocephin. He started having hemodialysis on 06/18/2018 and he was placed in for acute therapies at that time with intensive therapies to include PT, OT, speech therapy in order to regain strength. Barriers to his discharge now at this time include a new onset hemodialysis, electrolyte replacement protocol, self-care deficits, he is on GI and DVT prophylaxis, telemetry, smoking cessation. He has got an ataxic gait. He has only walked minimal steps with his PT. He has also got 13 steps or stairs to get into his house. Prior to this episode he was moderately independent at home with a rolling walker was independent with ADLs. He is currently min to mod assist with ADLs and max assist with rolling walker, ambulating only 12 feet with PT. COMORBIDITIES: In this patient include end-stage renal dialysis. He has got an elevated troponin, UTI, microcytic anemia, hyperlipidemia, tobacco use, nicotine dependence, peritonitis, carotid disease, hyperlipidemia, atrial fib, dementia, arthritis, osteoporosis, falls, and cardiomyopathy. PAST MEDICAL HISTORY: Significant for coronary artery disease, diabetes, hypertension, CHF, COPD, arthritis, osteoporosis, dementia. PAST SURGICAL HISTORY: Includes gallbladder surgery, peritoneal catheter placement, AV fistula placement, bilateral stents to his legs. ALLERGIES: LISINOPRIL AND ASPIRIN. CURRENT MEDICATIONS: Include calcitriol 0.25 mcg on Monday, Monday and Monday. He is on erythropoietin 6000 units on Monday, and Monday. He is on heparin prior to dialysis, on nicotine patch 14 mg in 24 hours, Floranex 460 daily, calcium 500 mg t.i.d. with meals, Protonix 40 mg daily, Mag-Ox 400 mg daily, furosemide 80 mg daily, folic acid 1 tab daily, Colace 100 mg daily, Plavix 75 mg daily, citalopram 10 mg daily, Omnicef 300 mg daily, insulin glucose replacement, tramadol 50 mg b.i.d., polyethylene glycol 17 grams in 8 ounces of water daily, metoprolol 50 mg b.i.d., Ativan 0.5 mg b.i.d., HISTORY AND PHYSICAL [id number] ASHLEY HSU III [facility] updrafts 3 cc q.i.d. p.r.n. He is on a low-resistant sliding scale with Humulin, Levemir 30 units q.h.s., Atarax 10 mg q.8 hours p.r.n., Flonase nasal spray 1 spray b.i.d., Advair 115/21 two puffs b.i.d., and Ventolin p.r.n. HABITS: He does have a history of tobacco use. FAMILY HISTORY: Noncontributory. SOCIAL HISTORY: The patient hopes to return back home and get back to his prior level of functioning. REVIEW OF SYSTEMS: GENERAL: Does complain of weakness and fatigue. HEENT: Denies cold, cough, or congestion. CARDIOVASCULAR: Denies chest pain. PHYSICAL EXAMINATION: VITAL SIGNS: Stable, afebrile. GENERAL: A well-developed gentleman in no acute distress, alert upon exam. HEENT: Normocephalic and atraumatic. Mucosa moist. NECK: Supple, with no lymphadenopathy. LUNGS: Clear at this time. HEART: Regular rate and rhythm. ABDOMEN: Benign, nontender, nondistended. Positive bowel sounds times 4. EXTREMITIES: No clubbing, cyanosis or edema. NEUROLOGIC: He does have some noted problems with his memory and also with proximal muscle weakness. LABORATORY DATA: White count is 14,000, H&H of 7.9 and 24.5, and platelet count was noted to be 254. His sodium is 131, potassium 4.5, BUN and creatinine of 93 and 8.5, and blood sugar was noted to be 152. ASSESSMENT: This is a 72-year-old gentleman admitted to the rehab with a working diagnosis of uremic myopathy. The patient has potential to make improvement. We instituted the following multidisciplinary therapies including, but not limited to physical, occupational, respiratory, speech, nutritional services, prosthetics and orthotics. Given his complex medical condition and risks for more complications, rehabilitation services cannot be provided at a low level of care such as jail facility. PLAN: 1. Admit to [facility] for intensive inpatient therapy to include the following disciplines: A. Physical therapy to improve gait, all transfer skills and bed mobility to a modified independent level. B. Occupational therapy to improve activities of daily living to a modified independent level. C. Case management to assist with discharge planning and placement options. D. Nutrition to assist with nutritional needs. E. Rehabilitation nursing to assist in monitoring the patient's underlying medical conditions and to assist with any type of bowel or bladder management. 2. The patient's current medications and medical care will be continued. 3. The patient will be placed on standard fall precautions. 4. The patient's estimated length of stay is approximately 7-10 days. 5. I will discuss the patient during care team staff meeting this week and will HISTORY AND PHYSICAL [id number] ASHLEY HSU III go ahead and continue on current medications. Appreciate nephrology seeing this patient, may consider giving him some blood at some point if it affects his therapy. TRANSINT:[id number] Voice Confirmation ID: [id number] DOCUMENT ID: [id number] BREANNA notes whether there has been none or any medical/functional change since admission: - No change since prescreen. BREANNA attests patient continues to be appropriate for IRF: - Continues to be approptiate. ASHLEY WADE MD CC: [id number] DICTATION DATE: 06/21/18 1011 GENERAL INTERN: 06/21/18 1205 ADM IN [facility] [address] [place] [address]
[~2018-06-20 17:53] MED LIST changes: +HUMULIN R100 U/ML SC; +LEVEMIR FL100 UNIT/1 SC; +MAG-OX 400 MG400 MG PO; +TUMS PO
[2018-06-20 19:00] VITALS: BP 154/73
[2018-06-21 00:51] VITALS: BP 154/73; BMI 28.4
[2018-06-21 07:26] LABS: ANION GAP 16.4 mmol/L (8-16); CALCIUM 9.3 mg/dL (8.5-10.1); CARBON DIOXIDE 27.1 mmol/L (21.0-32.0); CREATININE - SERUM 8.5 mg/dL (0.6-1.3); POTASSIUM - SERUM 4.5 mmol/L (3.5-5.1)
[2018-06-21 07:28] LABS: BASOPHILS 0 % (0-2); EOSINOPHILS 0.3 % (0-7); HEMATOCRIT 24.5 % (42.0-54.0); HEMOGLOBIN 7.9 g/dL (13.5-17.5); IMMATURE GRANULOCYTES 0.9 % (0-5); LYMPHOCYTES 5.8 % (15-50); MCH 31.1 pg (26.0-34.0); MCHC 32.2 g/dL (31.0-37.0); MCV 96.5 fL (80.0-100.0); MEAN PLATELET VOLUME 10.5 fL (7.4-10.4); MONOCYTES 7.7 % (2-11); NEUTROPHILS 85.3 % (40-80); PLATELET COUNT 254 10x3/uL (130-400); RBC 2.54 10x6/uL (4.20-6.10); RDW 14.5 % (11.5-14.5); WBC 14.1 10x3/uL (4.8-10.8)
[2018-06-21 08:00] VITALS: BP 185/65
[2018-06-21 09:24] VITALS: Ht 172.7 cm; Wt 84.8 kg
[2018-06-22] VITALS: BP 154/75
[2018-06-22 05:00] VITALS: BP 170/77
[2018-06-22 07:52] LABS: ANION GAP 16.4 mmol/L (8-16); CALCIUM 8.9 mg/dL (8.5-10.1); CARBON DIOXIDE 27.2 mmol/L (21.0-32.0); CREATININE - SERUM 6.7 mg/dL (0.6-1.3); POTASSIUM - SERUM 4.6 mmol/L (3.5-5.1)
[2018-06-22 08:02] VITALS: BP 165/70
[2018-06-22 08:23] LABS: HEMATOCRIT 26.4 % (42.0-54.0); HEMOGLOBIN 8.4 g/dL (13.5-17.5); MCH 30.9 pg (26.0-34.0); MCHC 31.8 g/dL (31.0-37.0); MCV 97.1 fL (80.0-100.0); MEAN PLATELET VOLUME 11.1 fL (7.4-10.4); PLATELET COUNT 315 10x3/uL (130-400); RBC 2.72 10x6/uL (4.20-6.10); RDW 14.9 % (11.5-14.5)
[2018-06-22 09:41] LABS: HYPOCHROMASIA OCC; LYMPHOCYTES 10 % (15-50); MONOCYTES 11 % (2-11); NEUTROPHILS 76 % (40-80); PLATELET ESTIMATE NORMAL
[2018-06-22 09:42] LABS: ANISOCYTOSIS OCC; POLYCHROMASIA OCC
[2018-06-22 12:31] LABS: MAGNESIUM - SERUM 2.3 mg/dL (1.8-2.4); PHOSPHOROUS 6.4 mg/dL (2.5-4.9)
[2018-06-22 18:00] VITALS: BP 142/54
[2018-06-23 00:01] VITALS: BP 170/70
[2018-06-23 06:01] VITALS: BP 168/69
[2018-06-23 07:26] LABS: ANION GAP 17.2 mmol/L (8-16); CALCIUM 8.6 mg/dL (8.5-10.1); CARBON DIOXIDE 25.1 mmol/L (21.0-32.0); CREATININE - SERUM 6.6 mg/dL (0.6-1.3); PHOSPHOROUS 4.9 mg/dL (2.5-4.9); POTASSIUM - SERUM 4.3 mmol/L (3.5-5.1); THYROID STIMULATING HORMONE 1.41 uIU/mL (0.36-3.74)
[2018-06-23 07:41] LABS: BASOPHILS 0.2 % (0-2); EOSINOPHILS 1.2 % (0-7); HEMOGLOBIN 7.9 g/dL (13.5-17.5); IMMATURE GRANULOCYTES 4.4 % (0-5); LYMPHOCYTES 6.5 % (15-50); MCH 30.6 pg (26.0-34.0); MCHC 31.6 g/dL (31.0-37.0); MCV 96.9 fL (80.0-100.0); MEAN PLATELET VOLUME 10.8 fL (7.4-10.4); MONOCYTES 8.2 % (2-11); NEUTROPHILS 79.5 % (40-80); PLATELET COUNT 252 10x3/uL (130-400); RBC 2.58 10x6/uL (4.20-6.10); RDW 14.7 % (11.5-14.5); WBC 11.9 10x3/uL (4.8-10.8)
[2018-06-23 12:05] VITALS: BP 151/63
[2018-06-23 17:39] VITALS: BP 126/77
[2018-06-23 20:00] VITALS: BP 168/54
[2018-06-24] VITALS: BP 150/69
[2018-06-24 06:35] VITALS: BP 175/80
[2018-06-24 06:43] LABS: APPEARANCE CLEAR (CLEAR); BILIRUBIN NEGATIVE (NEGATIVE); COLOR YELLOW (YELLOW); GLUCOSE 250 mg/dL (NEGATIVE); KETONE NEGATIVE (NEGATIVE); NITRITE NEGATIVE (NEGATIVE); PROTEIN 1+ mg/dL (NEGATIVE); UROBILINOGEN NORMAL (NORMAL)
[2018-06-24 06:45] LABS: BACTERIA FEW /hpf (NONE SEEN); EPITHELIAL CELLS 0-5 /hpf (0-5); RED CELLS - URINE 0-5 /hpf (0-5); WHITE CELLS - URINE 0-5 /hpf (0-5)
[2018-06-24 13:13] VITALS: BP 136/66
[2018-06-24 18:19] VITALS: BP 156/67
[2018-06-25 00:05] VITALS: BP 171/80
[2018-06-25 06:02] VITALS: BP 163/78
[2018-06-25 06:32] LABS: BASOPHILS 0.1 % (0-2); EOSINOPHILS 0.7 % (0-7); HEMATOCRIT 27.7 % (42.0-54.0); HEMOGLOBIN 8.9 g/dL (13.5-17.5); IMMATURE GRANULOCYTES 4.2 % (0-5); LYMPHOCYTES 4.1 % (15-50); MCH 30.9 pg (26.0-34.0); MCHC 32.1 g/dL (31.0-37.0); MCV 96.2 fL (80.0-100.0); MEAN PLATELET VOLUME 10.9 fL (7.4-10.4); MONOCYTES 9.5 % (2-11); NEUTROPHILS 81.4 % (40-80); PLATELET COUNT 278 10x3/uL (130-400); RBC 2.88 10x6/uL (4.20-6.10); RDW 14.5 % (11.5-14.5); WBC 10.9 10x3/uL (4.8-10.8)
[2018-06-25 06:36] LABS: ANION GAP 19.4 mmol/L (8-16); CARBON DIOXIDE 24.9 mmol/L (21.0-32.0); CREATININE - SERUM 7.7 mg/dL (0.6-1.3); POTASSIUM - SERUM 5.3 mmol/L (3.5-5.1)
[2018-06-25 12:24] VITALS: BP 133/53
[2018-06-25 18:00] VITALS: BP 152/71
[2018-06-26 00:19] VITALS: BP 167/79
[2018-06-26 06:22] VITALS: BP 175/77
[2018-06-26 11:56] VITALS: BP 142/52
[2018-06-26 18:00] VITALS: BP 165/68
[2018-06-27] VITALS: BP 151/64
[2018-06-27 06:27] VITALS: BP 171/78
[2018-06-27 13:08] VITALS: BP 149/64
[2018-06-27 18:00] VITALS: BP 128/61
[2018-06-28 00:02] VITALS: BP 163/77
[2018-06-28 06:15] VITALS: BP 127/61
[2018-06-28] MEDS ORDERED: SINEMET 25-2501 EACH PO (07:25)
[2018-06-28] MEDS ORDERED: CARBIDOPA-LEVO1 EAC2 PO (07:35)
[2018-06-28] MEDS ORDERED: EPOGEN3000 U/ML SC (07:37)
== END 2018-06-28 09:14 | disposition short-term general hospital (02) | DRG 91 ==
LOC: D.REHAB 17:53
PROVIDERS: Internal Medicine; Internal Medicine Nephrology; ADMIT Emergency Medicine; ATTEND Emergency Medicine
DX: G72.89 Other specified myopathies (principal); N18.6 End stage renal disease; K65.9 Peritonitis, unspecified; I13.2 Hypertensive heart and chronic kidney disease with heart failure and with stage 5 chronic kidney disease, or end stage renal disease; N39.0 Urinary tract infection, site not specified; I42.9 Cardiomyopathy, unspecified; F17.203 Nicotine dependence unspecified, with withdrawal; E11.22 Type 2 diabetes mellitus with diabetic chronic kidney disease; I50.9 Heart failure, unspecified; Z99.2 Dependence on renal dialysis; Z79.4 Long term (current) use of insulin; E78.5 Hyperlipidemia, unspecified; F17.200 Nicotine dependence, unspecified, uncomplicated; I48.91 Unspecified atrial fibrillation; F03.90 Unspecified dementia, unspecified severity, without behavioral disturbance, psychotic disturbance, mood disturbance, and anxiety; M19.90 Unspecified osteoarthritis, unspecified site; D50.9 Iron deficiency anemia, unspecified; M81.0 Age-related osteoporosis without current pathological fracture; B95.2 Enterococcus as the cause of diseases classified elsewhere; R53.1 Weakness

== ENCOUNTER 2018-07-31 15:31 | Emergency (ER) | payer MEDICARE, BC ==
[~2018-07-31] VITALS: Ht 172.7 cm; Wt 86.4 kg
[~2018-07-31 15:31] MED LIST changes: +CARBIDOPA-LEVO1 EAC2 PO; +EPOGEN3000 U/ML SC; +SINEMET 25-2501 EACH PO
[2018-07-31 15:39] VITALS: Ht 172.7 cm; Wt 86.4 kg
[2018-07-31 16:10] LABS: HEMATOCRIT 25.2 % (42.0-54.0); HEMOGLOBIN 8.2 g/dL (13.5-17.5); MCHC 32.5 g/dL (31.0-37.0); MCV 98.4 fL (80.0-100.0); MEAN PLATELET VOLUME 10.4 fL (7.4-10.4); PLATELET COUNT 267 10x3/uL (130-400); RBC 2.56 10x6/uL (4.20-6.10); RDW 18.7 % (11.5-14.5); WBC 10.4 10x3/uL (4.8-10.8)
[2018-07-31 16:28] LABS: APTT 25.4 SECONDS (22.8-39.4); INR 1.18 (0.85-1.17); PROTIME 14.5 SECONDS (11.6-15.0)
[2018-07-31 16:37] LABS: ALBUMIN 2.8 g/dL (3.4-5.0); ALKALINE PHOSPHATASE 97 U/L (46-116); ALT (SGPT) 9 U/L (10-68); BILIRUBIN - TOTAL 0.63 mg/dL (0.2-1.3); CALC OSMOLALITY 308 mosm/kg (275-300); CALCIUM 8.6 mg/dL (8.5-10.1); CARBON DIOXIDE 24.7 mmol/L (21.0-32.0); CHLORIDE - SERUM 95 mmol/L (98-107); CREATININE - SERUM 10.1 mg/dL (0.6-1.3); GLUCOSE 153 mg/dL (74-106); POTASSIUM - SERUM 5.1 mmol/L (3.5-5.1); SODIUM 135 mmol/L (136-145); UREA NITROGEN 114 mg/dL (7-18); eGFR NON AFRICAN AMERICAN 5 mL/min (90-120)
[2018-07-31 16:52] LABS: CREATINE KINASE 105 UL (21-232); MAGNESIUM - SERUM 1.5 mg/dL (1.8-2.4)
[2018-07-31 16:58] LABS: TROPONIN-I 0.079 ng/mL (0.000-0.060)
[2018-07-31 17:10] LABS: EOSINOPHILS 3 % (0-7); LYMPHOCYTES 7 % (15-50); NEUTROPHILS 89 % (40-80); PLATELET ESTIMATE NORMAL
[2018-07-31 17:38] VITALS: BP 112/60
--- NOTE | 2018-08-01 10:00 | CN ---
PATIENT NAME:ASHLEY HSU III MEDICAL RECORD: [id number] : 43 LOCATION:.ER ADMIT DATE: ACCOUNT: [id number] CONSULTING PHYSICIAN: ELISSA MILLER MD REFERRING PHYSICIAN: СЕРГЕЙ MILLIGAN MD DATE OF CONSULTATION: 07/31/2018 Cardiology Consultation DIAGNOSES: 1. Atrial fibrillation. 2. Hypertension. 3. Coronary artery disease. 4. Previous percutaneous transluminal coronary angioplasty stent. 5. Peripheral vascular disease. 6. Diabetes. 7. Chronic obstructive pulmonary disease. 8. Anemia. 9. Carotid vascular disease. HISTORY OF PRESENT ILLNESS: Mr. Hsu presents with atrial fibrillation to his PCP. He has had a history of atrial fibrillation. He is only on metoprolol on a p.r.n. basis. He states that the last time he had atrial fibrillation he had hemodynamically significant coronary artery disease and required stent. This was December of 2017. He has had no anginal symptomatology at this time. He did have anginal symptomatology last time. His EKG is with no ST-T changes, only atrial fibrillation at a fairly controlled rate of 100-110. He is not a candidate for anticoagulation at this time as his hemoglobin is 8.2. PHYSICAL EXAMINATION: GENERAL APPEARANCE: Well-nourished, well-developed, appears stated age. Level of distress, comfortable. PSYCHIATRIC: Mental status, alert, normal affect. Orientation, oriented to time, place and person. EYES: Lids and conjunctiva, noninjected. No discharge, no pallor. ENT: Lips, teeth, gums, normal dentition. Oropharynx, no cyanosis, no pallor. NECK: Carotid arteries, bilateral normal upstroke, no bruits, no thrills. JUGULAR VEINS: No jugular venous pressure or distention. CERVICAL LYMPH NODES: Nontender, nonenlarged. THYROID: Not enlarged. Nontender. No nodules. LUNGS: Respiratory effort, unlabored. CHEST: Normal curvature. No thoracic deformity. No chest wall tenderness. Percussion, resonant. Auscultation, clear. No wheezes, no rales, no rhonchi. CARDIOVASCULAR: Precordial exam, nondisplaced. No heaves or pericardial thrills. Rate and rhythm, regular. Heart sounds, normal S1, normal S2. No S3, no gallop, no rub. Systolic murmur, not heard. Diastolic murmur, not heard. EXTREMITIES: No cyanosis, no edema. Peripheral pulses, full and equal in all extremities, except as noted. No bruits appreciated. ABDOMEN: Soft, nondistended. Normal aorta. No bruit. Nontender. No masses. Liver, nontender, no hepatomegaly. Spleen, nontender, no splenomegaly. MUSCULOSKELETAL: No joint tenderness. No joint swelling. No erythema. NEUROLOGICAL: Normal gait, normal strength, normal tone. SKIN: Warm and dry. OVERALL IMPRESSION: Atrial fibrillation. At this time, we will discontinue CONSULT REPORT [id number] SHADIASHLEY Alex III metoprolol and put him on sotalol 80 mg b.i.d. We will follow up next week and reevaluate his heart rhythm at that time. TRANSINT:[id number] Voice Confirmation ID: [id number] DOCUMENT ID: [id number] ELISSA MILLER MD at 1000 CC: [id number] DICTATION DATE: 07/31/18 164 PROOF TECHNICIAN: 08/01/18 0118 DEP ER 07/31/18 [facility] [address] [place] [address]
== END 2018-07-31 17:30 | disposition home or self-care (01) ==
LOC: D.ER 15:31
PROVIDERS: Family Medicine
DX: I48.91 Unspecified atrial fibrillation (principal); E11.22 Type 2 diabetes mellitus with diabetic chronic kidney disease; I13.2 Hypertensive heart and chronic kidney disease with heart failure and with stage 5 chronic kidney disease, or end stage renal disease; I50.9 Heart failure, unspecified; N18.6 End stage renal disease; Z99.2 Dependence on renal dialysis; J44.9 Chronic obstructive pulmonary disease, unspecified; F17.210 Nicotine dependence, cigarettes, uncomplicated; D64.9 Anemia, unspecified; I25.10 Atherosclerotic heart disease of native coronary artery without angina pectoris

== ENCOUNTER 2018-08-20 13:40 | Inpatient (IN) | payer MEDICARE, BC ==
[~2018-08-20] VITALS: Ht 172.7 cm; Wt 78.2 kg
[2018-08-20 11:00] VITALS: BP 128/49
[2018-08-20] MEDS ORDERED: PACERONE200 MG PO (13:52)
[2018-08-20 14:39] LABS: BASOPHILS 0.2 % (0-2); EOSINOPHILS 1.1 % (0-7); HEMATOCRIT 29.3 % (42.0-54.0); HEMOGLOBIN 9.5 g/dL (13.5-17.5); IMMATURE GRANULOCYTES 2.2 % (0-5); LYMPHOCYTES 10.3 % (15-50); MCH 33.1 pg (26.0-34.0); MCHC 32.4 g/dL (31.0-37.0); MCV 102.1 fL (80.0-100.0); MEAN PLATELET VOLUME 10.7 fL (7.4-10.4); MONOCYTES 5.5 % (2-11); NEUTROPHILS 80.7 % (40-80); PLATELET COUNT 231 10x3/uL (130-400); RBC 2.87 10x6/uL (4.20-6.10); RDW 19.9 % (11.5-14.5); WBC 9.3 10x3/uL (4.8-10.8)
[2018-08-20 14:54] VITALS: BP 139/61
[2018-08-20 14:55] LABS: ALBUMIN 2.8 g/dL (3.4-5.0); BILIRUBIN - TOTAL 0.54 mg/dL (0.2-1.3); CALCIUM 7.2 mg/dL (8.5-10.1); CARBON DIOXIDE 24.2 mmol/L (21.0-32.0); CREATININE - SERUM 10.2 mg/dL (0.6-1.3); POTASSIUM - SERUM 4.2 mmol/L (3.5-5.1); PROTEIN - SERUM 6.8 g/dL (6.4-8.2)
[2018-08-20 15:00] VITALS: BP 134/50
[2018-08-20 15:46] VITALS: BP 112/58
--- NOTE | 2018-08-20 16:10 | NUR ---
REPORT CALLED TO MARK ARCHIBALD BY SBAR FORMAT
--- NOTE | 2018-08-20 16:23 | NUR ---
TRANS[PORTED TO ROOM # 2103 VIA STRETCHER CONDITION STABLE
[2018-08-20 17:10] VITALS: BP 154/56; BMI 28.4
--- NOTE | 2018-08-20 17:43 | NUR ---
ARRIVED FROM ER VIA STRETCHER. AWAKE AND ORIENTED. SEE ASSESSMENT FOR FURTHER EVAL.
--- NOTE | 2018-08-20 18:18 | MORECARE ---
CASE MANAGEMENT DISCHARGE SUMMARY PATIENT: ASHLEY HSU III UNIT: [id number] ADM DATE: 08/20/18 AGE: 72 : 44 SEX: M ROOM/BED: D.2103 AUTHOR: JUDITH CASE PHYSICIAN: REFERRING PHYSICIAN: YESIKA SMITH MD DATE OF SERVICE: 08/20/18 Discharge Plan Patient Name: ASHLEY HSU [facility] [facility] 1945 Planned Disposition: Home Anticipated Discharge Date: 08/22/18 Discharge Date: Expected LOS: 2 Initial Reviewer: [email or web address] Initial Review Date: 08/20/2018 Generated: 08/20/18 7:17 pm Patient Name: ASHLEY HSU Page 94976 at 1818 All edits/amendments must be made on the electronic document DICTATION DATE: 08/20/181816 RADAR AIR TRAFFIC CONTROLLER: KARIN 08/20/181816 RPT#: [id number] DC DATE: STATUS: ADM IN [facility] [address] [place] [address] END OF REPORT
--- NOTE | 2018-08-20 18:31 | MORECARE ---
CASE MANAGEMENT DISCHARGE SUMMARY PATIENT: ASHLEY HSU III UNIT: [id number] ADM DATE: 08/20/18 AGE: 72 : 44 SEX: M ROOM/BED: D.2103 AUTHOR: JUDITH CASE PHYSICIAN: REFERRING PHYSICIAN: YESIKA SMITH MD DATE OF SERVICE: 08/20/18 Discharge Plan Patient Name: ASHLEY HSU [facility] [facility] 1945 Planned Disposition: Home Anticipated Discharge Date: 08/22/18 Discharge Date: Expected LOS: 2 Initial Reviewer: [email or web address] Initial Review Date: 08/20/2018 Generated: 08/20/18 7:30 pm DCPIA - Discharge Planning Initial Assessment Updated by [email or web address]: Arielle Alvarenga on 08/20/18 6:30 pm * Is the patient Alert and Oriented? Yes * How many steps to enter\exit or inside your home? 13 * PCP Jose R Moore * Pharmacy [facility] * Preadmission Environment Home with Family * ADLs Partial Dependent * Partial ADLs (Assistance needed) Medication Management * Equipment Bedside Commode Cane Nebulizer Oxygen Rolling Walker Wheelchair * Other Equipment Wears O2 at hs * List name and contact numbers for known caregivers / representatives who currently or will assist patient after discharge: Robert Hsu - - [phone] * Verbal permission to speak to the caregivers and representatives has been obtained from the patient. Yes * Community resources currently utilized Home Health * Please name any agencies selected above. [facility] signed in ER. * Additional services required to return to the preadmission environment? No * Can the patient safely return to the preadmission environment? Yes * Has this patient been hospitalized within the prior 30 days at any hospital? No Last DP export: 08/20/18 5:18 p Patient Name: ASHLEY HSU Page 17992 at 1831 All edits/amendments must be made on the electronic document DICTATION DATE: 08/20/181829 HAND BULLDOZER: KARIN 08/20/181829 RPT#: [id number] DC DATE: STATUS: ADM IN [facility] [address] [facility] [place] [address] END OF REPORT
--- NOTE | 2018-08-20 18:38 | MORECARE ---
CASE MANAGEMENT DISCHARGE SUMMARY PATIENT: ASHLEY HSU III UNIT: [id number] ADM DATE: 08/20/18 AGE: 72 : 44 SEX: M ROOM/BED: D.9997 AUTHOR: JUDITH CASE PHYSICIAN: REFERRING PHYSICIAN: YESIKA SMITH MD DATE OF SERVICE: 08/20/18 Discharge Plan Patient Name: ASHLEY HSU Facility: [facility]:[place] : 1945 Planned Disposition: Home Anticipated Discharge Date: 08/22/18 Discharge Date: Expected LOS: 2 Initial Reviewer: [email or web address] Initial Review Date: 08/20/2018 Generated: 08/20/18 7:37 pm DCP- Discharge Planning Updated by [email or web address]: Arielle Alvarenga on 08/20/18 5:[address] Patient Name: ASHLEY HSU Admission Status: ER Accout number: [id number] Admission Date: 08-20-2018 : 1945 Admission Diagnosis: Attending: YESIKA SMITH Current LOS: 1 Anticipated DC Date: 08-22-2018 Planned Disposition: Home Primary Insurance: MEDICARE A & B Discharge Planning Comments: CM met with patient and his to complete initial dc planning assessment. CM educated patient on the CM role and verbal consent given by patient to complete assessment. CM verified patient's address, phone number, and emergency contact phone numbers. Patient lives at home with his . Patient currently has [facility] and wishes to resume at discharge. ANDRESSA form signed by patient for resumption of [facility]. Signed form placed in chart and signed form given to patient. Patient does PD at home everyday. His assists him with his treatment. At discharge patient plans to return home with his and feels this is a safe discharge. Patient denied further known discharge needs at this time. Patient reports his will transport him/her home at time of discharge.CM will continue to follow and will assist as needed with dc plans/needs. Corporate Pilot: Arielle Alvarenga RN, [facility] DCPIA - Discharge Planning Initial Assessment Updated by [email or web address]: Arielle Alvarenga on 08/20/18 6:30 pm * Is the patient Alert and Oriented? Yes * How many steps to enter\exit or inside your home? 13 * PCP Jose R Moore * Pharmacy [facility] [address] * Preadmission Environment Home with Family * ADLs Partial Dependent * Partial ADLs (Assistance needed) Medication Management * Equipment Bedside Commode Cane Nebulizer Oxygen Rolling Walker Wheelchair * Other Equipment Wears O2 at hs * List name and contact numbers for known caregivers / representatives who currently or will assist patient after discharge: Robert Hsu - - [phone] * Verbal permission to speak to the caregivers and representatives has been obtained from the patient. Yes * Community resources currently utilized Home Health * Please name any agencies selected above. [facility] signed in ER. * Additional services required to return to the preadmission environment? No * Can the patient safely return to the preadmission environment? Yes * Has this patient been hospitalized within the prior 30 days at any hospital? No Last DP export: 08/20/18 5:30 p Patient Name: ASHLEY HSU Page 39798 at 1838 All edits/amendments must be made on the electronic document DICTATION DATE: 08/20/181836 BODY WIRER: KARIN 08/20/181836 RPT#: [id number] DC DATE: STATUS: ADM IN [facility] [address] [place] [address] END OF REPORT
--- NOTE | 2018-08-20 18:40 | NUR ---
PT REFUSES HIS PD UNTIL TOMORROW. WAITING FOR TRYA.
[2018-08-20 20:00] VITALS: BP 128/46
--- NOTE | 2018-08-20 21:14 | NUR ---
PATIENT LAYING IN BED. PATIENT HAS NO COMPLAINTS AT THIS TIME. NO DISTRESS NOTED. AT BEDSIDE.
[2018-08-21 00:18] VITALS: BP 124/70
--- NOTE | 2018-08-21 02:00 | NUR ---
PATIENT LAYING IN BED. EYES CLOSED, CHEST RISING AND FALLING. NO DISTRESS NOTED.
[2018-08-21 04:00] VITALS: BP 139/59
[2018-08-21 06:03] LABS: BASOPHILS 0.2 % (0-2); EOSINOPHILS 1.1 % (0-7); HEMATOCRIT 26.6 % (42.0-54.0); HEMOGLOBIN 8.6 g/dL (13.5-17.5); IMMATURE GRANULOCYTES 1.8 % (0-5); LYMPHOCYTES 12.5 % (15-50); MCHC 32.3 g/dL (31.0-37.0); MCV 101.9 fL (80.0-100.0); MEAN PLATELET VOLUME 10.8 fL (7.4-10.4); MONOCYTES 6.3 % (2-11); NEUTROPHILS 78.1 % (40-80); PLATELET COUNT 206 10x3/uL (130-400); RBC 2.61 10x6/uL (4.20-6.10); RDW 19.6 % (11.5-14.5); WBC 8.5 10x3/uL (4.8-10.8)
--- NOTE | 2018-08-21 06:12 | NUR ---
PATIENT LAYING IN BED. EYES CLOSED, CHEST RISING AND FALLING. NO DISTRESS NOTED.
[2018-08-21 06:38] LABS: ALBUMIN 2.5 g/dL (3.4-5.0); ALKALINE PHOSPHATASE 81 U/L (46-116); BILIRUBIN - TOTAL 0.49 mg/dL (0.2-1.3); CALCIUM 7.1 mg/dL (8.5-10.1); CHLORIDE - SERUM 101 mmol/L (98-107); CREATININE - SERUM 11.1 mg/dL (0.6-1.3); POTASSIUM - SERUM 4.5 mmol/L (3.5-5.1); PROTEIN - SERUM 5.9 g/dL (6.4-8.2); SODIUM 141 mmol/L (136-145); UREA NITROGEN 82 mg/dL (7-18); eGFR NON AFRICAN AMERICAN 5 mL/min (90-120)
[2018-08-21 06:39] LABS: ALT (SGPT) < 6 U/L (10-68); CALC OSMOLALITY 307 mosm/kg (275-300); GLUCOSE 129 mg/dL (74-106)
--- NOTE | 2018-08-21 06:56 | NUR ---
INITIAL ROUNDING, WHITE BOARD UPDATED. DR SÁNCHEZ IN THE ROOM, GETTING UPDATE FROM LEADER TIER PAN SHAKER. PATIENT IS ASLEEP ON HIS LEFT/STOMACH, ON ROOM AIR AND TELE MONITORING. CALL LIGHT IN REACH.
--- NOTE | 2018-08-21 07:00 | NUR ---
PATIENT RECEIVING PD DIALYSIS. NO COMPLAINTS AT THIS TIME. NO DISTRESS NOTED.
--- NOTE | 2018-08-21 07:30 | NUR ---
PATIENT IS SLEEPING, AND REFUSED TO HAVE PD AT THIS TIME
[2018-08-21 08:00] VITALS: BP 136/52
[2018-08-21 09:58] VITALS: Ht 172.7 cm; Wt 78.2 kg
[2018-08-21 12:00] VITALS: BP 161/74
--- NOTE | 2018-08-21 14:46 | MORECARE ---
CASE MANAGEMENT DISCHARGE SUMMARY PATIENT: ASHLEY HSU III UNIT: [id number] ADM DATE: 08/20/18 AGE: 72 : 43 SEX: M ROOM/BED: D.2102 AUTHOR: JUDITH CASE PHYSICIAN: REFERRING PHYSICIAN: YESIKA SMITH MD DATE OF SERVICE: 08/21/18 Discharge Plan Patient Name: ASHLEY HSU Facility: [facility]:[place] : 1945 Planned Disposition: Home Anticipated Discharge Date: 08/22/18 Discharge Date: Expected LOS: 2 Initial Reviewer: [email or web address] Initial Review Date: 08/20/2018 Generated: 08/21/18 3:46 pm DCP- Discharge Planning Updated by [email or web address]: Arielle Alvarenga on 08/20/18 5:[address] Patient Name: ASHLEY HSU Admission Status: ER Accout number: [id number] Admission Date: 08-20-2018 : 1945 Admission Diagnosis: Attending: YESIKA SMITH Current LOS: 1 Anticipated DC Date: 08-22-2018 Planned Disposition: Home Primary Insurance: MEDICARE A & B Discharge Planning Comments: CM met with patient and his to complete initial dc planning assessment. CM educated patient on the CM role and verbal consent given by patient to complete assessment. CM verified patient's address, phone number, and emergency contact phone numbers. Patient lives at home with his . Patient currently has [facility] and wishes to resume at discharge. ANDRESSA form signed by patient for resumption of [facility]. Signed form placed in chart and signed form given to patient. Patient does PD at home everyday. His assists him with his treatment. At discharge patient plans to return home with his and feels this is a safe discharge. Patient denied further known discharge needs at this time. Patient reports his will transport him/her home at time of discharge.CM will continue to follow and will assist as needed with dc plans/needs. Assigner: Arielle Alvarenga RN, [facility] DCPIA - Discharge Planning Initial Assessment Updated by [email or web address]: Arielle Alvarenga on 08/20/18 6:30 pm * Is the patient Alert and Oriented? Yes * How many steps to enter\exit or inside your home? 13 * PCP Jose R Moore * Pharmacy [facility] on [address] * Preadmission Environment Home with Family * ADLs Partial Dependent * Partial ADLs (Assistance needed) Medication Management * Equipment Bedside Commode Cane Nebulizer Oxygen Rolling Walker Wheelchair * Other Equipment Wears O2 at hs * List name and contact numbers for known caregivers / representatives who currently or will assist patient after discharge: Robert Hsu - - [phone] * Verbal permission to speak to the caregivers and representatives has been obtained from the patient. Yes * Community resources currently utilized Home Health * Please name any agencies selected above. [facility] CR[facility] signed in ER. * Additional services required to return to the preadmission environment? No * Can the patient safely return to the preadmission environment? Yes * Has this patient been hospitalized within the prior 30 days at any hospital? No External Providers External Provider: [facility] Next Contact Date: 08/21/2018 Service Request Date: Service Type: Resolution: Reviewer: Comments: Last DP export: 08/20/18 5:38 p Patient Name: ASHLEY HSU Page 13598 at 1446 All edits/amendments must be made on the electronic document DICTATION DATE: 08/21/181444 WIRE HANGER: KARIN 08/21/181444 RPT#: [id number] DC DATE: STATUS: ADM IN [facility] [address] [place] [address] END OF REPORT
--- NOTE | 2018-08-21 14:53 | MORECARE ---
CASE MANAGEMENT DISCHARGE SUMMARY PATIENT: ASHLEY HSU III UNIT: [id number] ADM DATE: 08/20/18 AGE: 72 : 44 SEX: M ROOM/BED: D.2103 AUTHOR: JUDITH CASE PHYSICIAN: REFERRING PHYSICIAN: YESIKA SMITH MD DATE OF SERVICE: 08/21/18 Discharge Plan Patient Name: ASHLEY HSU Facility: [facility]:[place] : 1945 Planned Disposition: Home Anticipated Discharge Date: 08/22/18 Discharge Date: Expected LOS: 2 Initial Reviewer: [email or web address] Initial Review Date: 08/20/2018 Generated: 08/21/18 3:53 pm Comments DCP- Discharge Planning Updated by [email or web address]: Tate Paula on 08/21/18 1:[address] Patient Name: ASHLEY HSU Encounter No: [id number] : 1945 Primary Insurance: MEDICARE A & B Anticipated DC Date: 08-22-2018 Planned Disposition: Home WITH HOME HEALTH External Planned Provider: [facility] RESUMPTION DCP follow-up note: CM SPOKE TO VARDAMAN OF [facility], THEY PLAN TO RESUME HOME HEALTH AT HOSPITAL DISCHARGE. CM FAXED HOSPITAL UPDATE TO [facility] AT [phone]. FOR DISCHARGE, NOTIFY [facility] AT [phone], FAX DISCHARGE INFORMATION TO [facility] AT [phone]. JANA OROURKE DCP- Discharge Planning Updated by [id number]: Arielle Alvarenga on 08/20/18 5:[address] Patient Name: ASHLEY HSU Admission Status: ER Accout number: [id number] Admission Date: 08-20-2018 : 1945 Admission Diagnosis: Attending: YESIKA SMITH Current LOS: 1 Anticipated DC Date: 08-22-2018 Planned Disposition: Home Primary Insurance: MEDICARE A & B Discharge Planning Comments: CM met with patient and his to complete initial dc planning assessment. CM educated patient on the CM role and verbal consent given by patient to complete assessment. CM verified patient's address, phone number, and emergency contact phone numbers. Patient lives at home with his . Patient currently has [facility] and wishes to resume at discharge. ANDRESSA form signed by patient for resumption of [facility]. Signed form placed in chart and signed form given to patient. Patient does PD at home everyday. His assists him with his treatment. At discharge patient plans to return home with his and feels this is a safe discharge. Patient denied further known discharge needs at this time. Patient reports his will transport him/her home at time of discharge.CM will continue to follow and will assist as needed with dc plans/needs. Share Holder: Arielle Alvarenga RN, [facility] DCPIA - Discharge Planning Initial Assessment Updated by [id number]: Arielle Alvarenga on 08/20/18 6:30 pm * Is the patient Alert and Oriented? Yes * How many steps to enter\exit or inside your home? 13 * PCP Jose R Moore * Pharmacy [facility] on [address] * Preadmission Environment Home with Family * ADLs Partial Dependent * Partial ADLs (Assistance needed) Medication Management * Equipment Bedside Commode Cane Nebulizer Oxygen Rolling Walker Wheelchair * Other Equipment Wears O2 at hs * List name and contact numbers for known caregivers / representatives who currently or will assist patient after discharge: Robert Hsu - - [phone] * Verbal permission to speak to the caregivers and representatives has been obtained from the patient. Yes * Community resources currently utilized Home Health * Please name any agencies selected above. [facility]. ANDRESSA signed in ER. * Additional services required to return to the preadmission environment? No * Can the patient safely return to the preadmission environment? Yes * Has this patient been hospitalized within the prior 30 days at any hospital? No Last DP export: 08/21/18 1:46 p Patient Name: ASHLEY HSU Page 21054 at 1453 All edits/amendments must be made on the electronic document DICTATION DATE: 08/21/181451 COUNSELING SERVICES DIRECTOR: KARIN 08/21/181451 RPT#: [id number] DC DATE: STATUS: ADM IN [facility] [address] [place] [address] END OF REPORT
[2018-08-21 15:45] VITALS: BP 159/75
--- NOTE | 2018-08-21 15:50 | NUR ---
AFTER 2 ATTEMPTS BY THIS NURSE, FLOW COORD ATTEMPTED, AND AT THIS TIME THE CLINICAL INVESTIGATOR WAS ABLE TO PLACE IV TO THE RIGHT FA.
[2018-08-21 20:00] VITALS: BP 124/61
[2018-08-22] VITALS: BP 132/69
--- NOTE | 2018-08-22 03:00 | NUR ---
PATIENT'S IV CAME OUT. TIP INTACT.
[2018-08-22 04:00] VITALS: BP 126/63
--- NOTE | 2018-08-22 04:17 | NUR ---
NEW 20G IV TO RIGHT AC X3 ATTEMPTS.
[2018-08-22 04:36] LABS: BASOPHILS 0.2 % (0-2); EOSINOPHILS 1.9 % (0-7); HEMOGLOBIN 7.6 g/dL (13.5-17.5); IMMATURE GRANULOCYTES 1.1 % (0-5); LYMPHOCYTES 11.8 % (15-50); MCH 33.3 pg (26.0-34.0); MCV 100.9 fL (80.0-100.0); MONOCYTES 6.9 % (2-11); NEUTROPHILS 78.1 % (40-80); PLATELET COUNT 212 10x3/uL (130-400); RBC 2.28 10x6/uL (4.20-6.10); RDW 19.3 % (11.5-14.5); WBC 6.4 10x3/uL (4.8-10.8)
[2018-08-22 05:07] LABS: % SATURATION 45 % (15-55); IRON 94 ug/dl (35-150); TOTAL IRON BIND CAPACITY 207 ug/dl (260-445); UNSAT IRON BIND CAPACITY 113 ug/dl (150-375)
[2018-08-22 05:30] LABS: CARBON DIOXIDE 22.5 mmol/L (21.0-32.0); CREATININE - SERUM 9.9 mg/dL (0.6-1.3); MAGNESIUM - SERUM 1.2 mg/dL (1.8-2.4); PHOSPHOROUS 7.5 mg/dL (2.5-4.9)
[2018-08-22 05:33] LABS: ANION GAP 15.2 mmol/L (8-16); POTASSIUM - SERUM 3.7 mmol/L (3.5-5.1)
[2018-08-22 05:35] LABS: CALCIUM 6.3 mg/dL (8.5-10.1)
--- NOTE | 2018-08-22 05:40 | NUR ---
LAB CALLED WITH CRITICAL LAB CAL[facility]UM AT 6.3. JORDIN DOTSON NOTIFIED AND ORDERED AN ALBUMIN LAB. ALBUMIN LAB ORDER PUT IN AND LAB NOTIFIED. JORDIN DOTSON ALSO SAID TO PASS TO DAY SHIFT THAT USABILITY ARCHITECT NEEDS TO BE AWARE WHEN DOING ROUNDS. WILL PASS ON TO DAY SHIFT.
--- NOTE | 2018-08-22 07:05 | NUR ---
INITIAL ROUNDING, WHITE BOARD UPDATED. PATIENT SLEEPING ON HIS RIGHT SIDE, LIGHTS AND TV OFF. CALL LIGHT IN REACH. ON ROOM AIR AT THIS TIME. BED LOW POSITION
--- NOTE | 2018-08-22 07:32 | NUR ---
SPOKE WITH DR SANTOYO, HE WANTS US TO ALTERNATE 2.5% WITH 4.25% IN DIALYSIS, TRY TO GET 5 EXCHANGES IN BY 2199.
[2018-08-22 09:55] VITALS: BP 139/52
[2018-08-22 12:53] VITALS: BP 149/76
[2018-08-22 14:51] LABS: BASOPHILS 0.3 % (0-2); EOSINOPHILS 1.8 % (0-7); IMMATURE GRANULOCYTES 1.9 % (0-5); LYMPHOCYTES 8.6 % (15-50); MCH 32.7 pg (26.0-34.0); MCHC 32.3 g/dL (31.0-37.0); MCV 101.5 fL (80.0-100.0); MEAN PLATELET VOLUME 10.8 fL (7.4-10.4); MONOCYTES 5.1 % (2-11); NEUTROPHILS 82.3 % (40-80); PLATELET COUNT 196 10x3/uL (130-400); RDW 19.2 % (11.5-14.5); WBC 6.8 10x3/uL (4.8-10.8)
[2018-08-22 14:56] LABS: HEMATOCRIT 27.9 % (42.0-54.0); RBC 2.75 10x6/uL (4.20-6.10)
[2018-08-22 15:11] LABS: APTT 32.8 SECONDS (22.8-39.4); INR 1.15 (0.85-1.17); PROTIME 14.2 SECONDS (11.6-15.0)
[2018-08-22 16:44] VITALS: BP 132/61
--- NOTE | 2018-08-22 19:00 | NUR ---
PATIENT LAYING IN BED. EYES CLOSED, CHEST RISING AND FALLING. NO DISTRESS NOTED.
[2018-08-22 20:00] VITALS: BP 134/67; BP 135/100
--- NOTE | 2018-08-23 02:00 | NUR ---
PATIENT LAYING IN BED, EYES CLOSED, CHEST RISING AND FALLING. NO DISTRESS NOTED.
[2018-08-23 04:00] VITALS: BP 156/86
[2018-08-23 04:56] LABS: BASOPHILS 0.3 % (0-2); EOSINOPHILS 1.6 % (0-7); HEMATOCRIT 26.1 % (42.0-54.0); HEMOGLOBIN 8.5 g/dL (13.5-17.5); IMMATURE GRANULOCYTES 1.3 % (0-5); LYMPHOCYTES 9.3 % (15-50); MCH 32.6 pg (26.0-34.0); MCHC 32.6 g/dL (31.0-37.0); MEAN PLATELET VOLUME 10.9 fL (7.4-10.4); MONOCYTES 9.1 % (2-11); NEUTROPHILS 78.4 % (40-80); PLATELET COUNT 199 10x3/uL (130-400); RBC 2.61 10x6/uL (4.20-6.10); RDW 19.1 % (11.5-14.5); WBC 6.7 10x3/uL (4.8-10.8)
[2018-08-23 05:23] LABS: ANION GAP 16.1 mmol/L (8-16); CALCIUM 7.4 mg/dL (8.5-10.1); CARBON DIOXIDE 26.7 mmol/L (21.0-32.0); CREATININE - SERUM 10.8 mg/dL (0.6-1.3); MAGNESIUM - SERUM 1.4 mg/dL (1.8-2.4); PHOSPHOROUS 8.7 mg/dL (2.5-4.9); POTASSIUM - SERUM 3.8 mmol/L (3.5-5.1)
--- NOTE | 2018-08-23 08:05 | NUR ---
INITIAL ROUNDING ON THE PATIENT, WHITE BOARD UPDATED. PATIETN IS AWAKE AND RESTING IN BED. CALL LIGHT IN REACH, BED IN LOW POSITION.
[2018-08-23 08:22] VITALS: BP 142/59
[2018-08-23 13:22] VITALS: BP 138/65
--- NOTE | 2018-08-23 14:03 | NUR ---
PATIENT JUST BACK FROM [place], AWAKE, ALERT AND VITALS TAKEN BY ACCOUNT MANAGEMENT ASSISTANT
[2018-08-23 14:05] VITALS: BP 122/67
[2018-08-23 14:26] VITALS: BP 143/74
--- NOTE | 2018-08-23 14:55 | NUR ---
STEPPED OUT OF THE PATIENTS ROOM TO ASSIST TRANSFERRING ANO THE PATIENT "FILLED HIMSELF", THUS NOT TURNING THE DIAL TO THE CORRECT POSITION, FILLING THE DRAIN BAG WITH THE FILL LIQUID. UNABLE TO MEASURE THE DRAIN DUE TO THIS. DR BAILEY NOTIFIED. ADIN DAMIAN FOR DR SANTOYO WAS ALSO NOTIFIED. NO NEW ORDERS GIVEN AT THIS TIME
[2018-08-23 20:00] VITALS: BP 126/110
[2018-08-24] VITALS: BP 122/82
--- NOTE | 2018-08-24 01:05 | NUR ---
INFORMED JUNIOR RUSSELL THAT PATIENT HAS REFUSED HIS LAST ROUND OF PD FOR THE [place]. JUNIOR STATED SHE WILL LET DR. DANIEL KNOW.
[2018-08-24 04:50] LABS: BASOPHILS 0.3 % (0-2); EOSINOPHILS 1.8 % (0-7); HEMATOCRIT 25.5 % (42.0-54.0); HEMOGLOBIN 8.4 g/dL (13.5-17.5); IMMATURE GRANULOCYTES 0.8 % (0-5); LYMPHOCYTES 11.9 % (15-50); MCH 33.2 pg (26.0-34.0); MCHC 32.9 g/dL (31.0-37.0); MCV 100.8 fL (80.0-100.0); MONOCYTES 9.6 % (2-11); NEUTROPHILS 75.6 % (40-80); PLATELET COUNT 178 10x3/uL (130-400); RBC 2.53 10x6/uL (4.20-6.10); RDW 19.1 % (11.5-14.5); WBC 6.2 10x3/uL (4.8-10.8)
[2018-08-24 05:07] LABS: % SATURATION 39 % (15-55); IRON 74 ug/dl (35-150); TOTAL IRON BIND CAPACITY 189 ug/dl (260-445); UNSAT IRON BIND CAPACITY 115 ug/dl (150-375)
[2018-08-24 05:16] LABS: ANION GAP 16.6 mmol/L (8-16); CALCIUM 7.5 mg/dL (8.5-10.1); CARBON DIOXIDE 27.3 mmol/L (21.0-32.0); CREATININE - SERUM 11.2 mg/dL (0.6-1.3); PHOSPHOROUS 8.8 mg/dL (2.5-4.9); POTASSIUM - SERUM 3.9 mmol/L (3.5-5.1)
--- NOTE | 2018-08-24 05:23 | NUR ---
INFORMED PATIENT THAT WE NEEDED TO START PD THIS MORNING, PATIENT ASKED IF HE HAD A CHOICE AND I REPLIED WITH OFCOURSE BUT THE DOCTOR WANTS YOU TO HAVE IT SEVERAL TIMES DRUING THE DAY AND IF WE START EARLY WE CAN FIT THEM ALL IN AND NOT HAVE TO GO LATE INTO THE NIGHT. PATIENT REPLIED THAT HE WANT TO START PD AT 0900. I TOLD HIM THAT I DIDNT BELIEVE THAT WAS A GOOD CHOICE AND PATIENT STATES HE WANTS TO SLLEP AND IS TIRED OF NOT GETTING ENOUGH SLEEP WITH BEING WOKE UP SEVERAL TIMES DURING THE NIGHT. NO OTHER NEEDS AT THIS TIME OTHER THEN TO BE LEFT ALONE TO SLEEP. CALL [facility] WITHIN REACH AND BED IN LOWEST POSITION.
--- NOTE | 2018-08-24 05:42 | NUR ---
I have reviewed this patient and I concur with the Shift Assessment completed by the Licensed Practical Nurse today this shift.
--- NOTE | 2018-08-24 07:10 | NUR ---
REPORT RECEIVED FROM FEED PROJECT ENGINEER AND PATIENT CARE ASSUMED. PATIENT LAYING IN BED AWAKE AND ALERT. PATIENT DENIES ANY NEEDS OR PAIN. PATIENT IS STABLE AND VSS. WILL CONTINUE WITH PLAN OF CARE. SR UP X 2 BED IN LOW POSITION AND CALL LIGHT IN REACH.
[2018-08-24 09:49] VITALS: BP 148/51
--- NOTE | 2018-08-24 10:00 | NUR ---
PATIENT IS UNCHAGED. AT BS. PATIENT DENIES ANY NEEDS OR PAIN. WILL CONTINUE TO MONITOR. SR UP X 2 BED IN LOW POSITION AND CALL LIGHT IN REACH.
[2018-08-24 12:21] VITALS: BP 177/78
--- NOTE | 2018-08-24 15:00 | NUR ---
Nutrition follow-up: Diet advanced to renal ADA post-bronch No po intake recorded Labs reviewed RDN following.
--- NOTE | 2018-08-24 17:08 | NUR ---
PATIENT IS STABLE AND UCHANGED. PATIENT DENIES ANY NEEDS OR PAIN. WILL CONTINUE TO MONITOR. SR UP X 2 BED IN LOW POSITION AND CALL LIGHT IN REACH.
[2018-08-24 18:08] LABS: ACID FAST SMEAR Negative (()); AFB SPECIMEN PROCESSING Concentration (())
[2018-08-24 20:00] VITALS: BP 138/54
[2018-08-25] VITALS: BP 154/74
--- NOTE | 2018-08-25 01:56 | NUR ---
RESTING IN BED WITH EYES CLOSED.
--- NOTE | 2018-08-25 03:59 | NUR ---
I have reviewed this patient and I concur with the Shift Assessment completed by the Licensed Practical Nurse today this shift.
[2018-08-25 04:30] VITALS: BP 177/88
[2018-08-25 04:58] LABS: BASOPHILS 0.2 % (0-2); EOSINOPHILS 2.3 % (0-7); HEMATOCRIT 30.4 % (42.0-54.0); HEMOGLOBIN 9.7 g/dL (13.5-17.5); IMMATURE GRANULOCYTES 0.9 % (0-5); LYMPHOCYTES 10.7 % (15-50); MCH 33.2 pg (26.0-34.0); MCHC 31.9 g/dL (31.0-37.0); MCV 104.1 fL (80.0-100.0); MONOCYTES 9.1 % (2-11); NEUTROPHILS 76.8 % (40-80); PLATELET COUNT 181 10x3/uL (130-400); RBC 2.92 10x6/uL (4.20-6.10); RDW 18.7 % (11.5-14.5); WBC 5.7 10x3/uL (4.8-10.8)
[2018-08-25 05:14] LABS: ANION GAP 16.1 mmol/L (8-16); CARBON DIOXIDE 26.1 mmol/L (21.0-32.0); CREATININE - SERUM 11.2 mg/dL (0.6-1.3); MAGNESIUM - SERUM 1.9 mg/dL (1.8-2.4); PHOSPHOROUS 8.2 mg/dL (2.5-4.9); POTASSIUM - SERUM 4.2 mmol/L (3.5-5.1)
--- NOTE | 2018-08-25 07:18 | NUR ---
PT ASLEEP, LYING ON BACK. BREATHS EVEN/REGULAR/UNLABORED, NO S/S OF DISTRESS. DID NOT WAKE I ENTERED, DID NOT FURTHER DSITRUB AT THIS TIME. CL IN REACH, SRX2.
[2018-08-25 08:06] VITALS: BP 106/73
[2018-08-25 12:26] VITALS: BP 149/59
[2018-08-25 15:59] VITALS: BP 128/64
--- NOTE | 2018-08-25 16:17 | NUR ---
LAST P.D DIALYISIS DID NOT DRAIN/FILL WELL. SPOKE WITH MAURI WHITE ABOUT IT, SHE STATED TO MAKE SURE PT WAS NOT CONSITPATED (LBM YESTERDAY) AND THE NEXT TIME HE AHS P.D ALLOW IT TO FULLY DRAIN REGARDLESS OF THE LENGTH OF TIME HE'S THERE. WILL DO. PT HAS BEEN/IS AWAKE AND ORIENTED, NO CMPLAINTS OR CONCERNS OR QUESTIONS TODAY. FAMILY VISITED EARLIER BUT ARE GONE AT THIS TIME. CL IN REACH, SRX2.
[2018-08-25 20:00] VITALS: BP 98/67
--- NOTE | 2018-08-25 23:12 | NUR ---
INITIAL ROUNDS COMPLETED AT 1910 HRS. PT RESTING WITH EYES CLOSED. RESP EVEN AND REGULAR. AT BEDSIDE. ASSESSMENT COMPLETED AT 1950 HRS. VSS. CAF PER CM HR 77. ALERT AND ORIENTED TO PERSON, PLACE AND TIME. CIFUENTES. IV TO RAC SL. OLD L WRIST FISTULA WITH NO BRUIT OR THRILL. LUNGS DMINISHED IN BASES BILAT. O2 2LNC. PD CATH CLEAN, DRY AND INTACT. CIFUENTES. PM FSBS 271. 6 UNITS REG INSULIN GIVEN SUB-Q TO UPPER R ARM. PM MEDS GIVEN. PD EXCAHGE INITIATED AT 2200 HRS USING STERILE TECHNIQUE. 2.5% 2000CC. EXCAJGE COMPETED AT 2245 HRS WITH 2500CC RETURN. PT CURRENTLY RESTING WITH EYES CLOSED. RESP EVEN AND REGULAR. SR UP X1, CALL LIGHT WITHIN REACH.
[2018-08-26] VITALS: BP 126/66
--- NOTE | 2018-08-26 00:13 | NUR ---
PT RESTING WITH EYES CLOSED. RESP EVEN AND REGULAR. SR UP X2, CALL LIGHT WITHIN REACH.
--- NOTE | 2018-08-26 02:17 | NUR ---
PT RESTING WITH EYES CLOSED. RESP EVEN AND REGULAR. SR UP X2, CALL LIGHT WITHIN REACH.
--- NOTE | 2018-08-26 04:02 | NUR ---
PT RESTING WITH EYES CLOSED. RESP EVEN AND REGULAR. SR UP X2, CALL LIGHT WITHIN REACH.
[2018-08-26 04:30] VITALS: BP 143/63
[2018-08-26 05:11] LABS: BASOPHILS 0.2 % (0-2); EOSINOPHILS 2.8 % (0-7); HEMATOCRIT 28.4 % (42.0-54.0); HEMOGLOBIN 9.2 g/dL (13.5-17.5); IMMATURE GRANULOCYTES 1.2 % (0-5); LYMPHOCYTES 18.1 % (15-50); MCH 32.7 pg (26.0-34.0); MCHC 32.4 g/dL (31.0-37.0); MEAN PLATELET VOLUME 11.2 fL (7.4-10.4); NEUTROPHILS 67.7 % (40-80); PLATELET COUNT 183 10x3/uL (130-400); RBC 2.81 10x6/uL (4.20-6.10); RDW 18.1 % (11.5-14.5); WBC 5.8 10x3/uL (4.8-10.8)
[2018-08-26 05:17] LABS: MCV 101.1 fL (80.0-100.0)
[2018-08-26 05:24] LABS: ANION GAP 13.5 mmol/L (8-16); CALCIUM 7.9 mg/dL (8.5-10.1); CARBON DIOXIDE 28.3 mmol/L (21.0-32.0); CREATININE - SERUM 10.8 mg/dL (0.6-1.3); MAGNESIUM - SERUM 1.7 mg/dL (1.8-2.4); PHOSPHOROUS 7.8 mg/dL (2.5-4.9); POTASSIUM - SERUM 3.8 mmol/L (3.5-5.1)
--- NOTE | 2018-08-26 06:27 | NUR ---
VSS THROUGHOUT NIGHT. CAF PER CM. PT RESTED WELL DURING SHIFT. AM FSBS 87. NO COVERAGE NEEDED. PD 4.25% 2000CC INITIATED AT 0615 HRS. NEEDS MET; WILL CONTINUE TO MONITOR.
--- NOTE | 2018-08-26 07:09 | NUR ---
PT AWAKE AND ORIENTED, FILLIGN ON HIS P.D. NO COMPLAINTS/CONCERNS/QUESTIONS THIS MORNING, OTHER THAN HE WOULD VERY MUST LIKE TO GO HOME. CL IN REACH, SRX2. NO FAMILY PRESENT AT THIS TIME.
[2018-08-26 08:06] VITALS: BP 111/60
--- NOTE | 2018-08-26 10:42 | NUR ---
PT STATES HE'S FEELING GREAT TODAY AND IS THRILLED TO BE LEAVING. SPOKE WITH DR MONAHAN THIS A.M AND HE STATED THAT THE PT COULD GO HOME ON THE ANTIBITOICS LISTED IN HIS NOTES. AT BESIDE AT THIS TIME. P.D. DUE AT 1100. CL IN REACH, SRX2. NO CMOPLAINTS/CONCERNS/QUESTIONS AT THIS TIME. CL IN REACH, SRX2.
[2018-08-26] MEDS ORDERED: OMNICEF300 MG PO (12:31)
[2018-08-26] MEDS ORDERED: VIBRAMYCIN 100100 MG PO (12:32)
--- NOTE | 2018-08-26 12:37 | NUR ---
I have reviewed this patient and I concur with the Shift Assessment completed by the Licensed Practical Nurse today this shift.
--- NOTE | 2018-08-26 13:07 | MORECARE ---
CASE MANAGEMENT DISCHARGE SUMMARY PATIENT: ASHLEY HSU III UNIT: [id number] ADM DATE: 08/20/18 AGE: 72 : 44 SEX: M ROOM/BED: D.2103 AUTHOR: EVIE,DOC PHYSICIAN: REFERRING PHYSICIAN: YESIKA SMITH MD DATE OF SERVICE: 08/26/18 Discharge Plan Patient Name: ASHLEY HSU Facility: [facility]:[place] : 1945 Planned Disposition: Home Anticipated Discharge Date: 08/22/18 Discharge Date: Expected LOS: 2 Initial Reviewer: [email or web address] Initial Review Date: 08/20/2018 Generated: 08/26/18 2:07 pm Comments DCP- Discharge Planning Updated by [id number]: Caron hKan on 08/26/18 12:[address] Patient Name: ASHLEY HSU Admission Status: ER Accout number: [id number] Admission Date: 08-20-2018 : 1945 Admission Diagnosis:SHORTNESS OF BREATH Attending: YESIKA SMITH Current LOS: 6 Anticipated DC Date: 08-22-2018 Planned Disposition: Home Primary Insurance: MEDICARE A & B Discharge Planning Comments: DC WITH [facility] . [facility] NOTITFED AND INFO FAXED. Gate Tender: Caron Khan DCP- Discharge Planning Updated by [id number]: Tate Perez on 08/21/18 1:[address] Patient Name: ASHLEY HSU Encounter No: [id number] : 1945 Primary Insurance: MEDICARE A & B Anticipated DC Date: 08-22-2018 Planned Disposition: Home WITH HOME HEALTH External Planned Provider: [facility] RESUMPTION DCP follow-up note: CM SPOKE TO SUKHI OF [facility], THEY PLAN TO RESUME HOME HEALTH AT HOSPITAL DISCHARGE. CM FAXED HOSPITAL UPDATE TO [facility] AT [phone]. FOR DISCHARGE, NOTIFY [facility] AT [phone], FAX DISCHARGE INFORMATION TO [facility] AT [phone]. TATE PEREZ CASE MANAGEMENT DCP- Discharge Planning Updated by [email or web address]: Arielle Alvarenga on 08/20/18 5:[address] Patient Name: ASHLEY HSU Admission Status: ER Accout number: [id number] Admission Date: 08-20-2018 : 1945 Admission Diagnosis: Attending: YESIKA SMITH Current LOS: 1 Anticipated DC Date: 08-22-2018 Planned Disposition: Home Primary Insurance: MEDICARE A & B Discharge Planning Comments: CM met with patient and his to complete initial dc planning assessment. CM educated patient on the CM role and verbal consent given by patient to complete assessment. CM verified patient's address, phone number, and emergency contact phone numbers. Patient lives at home with his . Patient currently has [facility] and wishes to resume at discharge. ANDRESSA form signed by patient for resumption of [facility]. Signed form placed in chart and signed form given to patient. Patient does PD at home everyday. His assists him with his treatment. At discharge patient plans to return home with his and feels this is a safe discharge. Patient denied further known discharge needs at this time. Patient reports his will transport him/her home at time of discharge.CM will continue to follow and will assist as needed with dc plans/needs. Gate Tender: Arielle Alvarenga RN, [facility] DCPIA - Discharge Planning Initial Assessment Updated by [id number]: Arielle Alvarenga on 08/20/18 6:30 pm * Is the patient Alert and Oriented? Yes * How many steps to enter\exit or inside your home? 13 * PCP Jose R Moore * Pharmacy [facility] on [facility] * Preadmission Environment Home with Family * ADLs Partial Dependent * Partial ADLs (Assistance needed) Medication Management * Equipment Bedside Commode Cane Nebulizer Oxygen Rolling Walker Wheelchair * Other Equipment Wears O2 at hs * List name and contact numbers for known caregivers / representatives who currently or will assist patient after discharge: Robert Hsu - - [phone] * Verbal permission to speak to the caregivers and representatives has been obtained from the patient. Yes * Community resources currently utilized Home Health * Please name any agencies selected above. [facility] . ANDRESSA signed in ER. * Additional services required to return to the preadmission environment? No * Can the patient safely return to the preadmission environment? Yes * Has this patient been hospitalized within the prior 30 days at any hospital? No Coverage Notice Reviewer: [id number] - Caron Khan Notice Issued Date-Time: 08/26/2018 13:00 Notice Type: IM Discharge Notice Notice Delivered To: Patient Relationship to Patient: Self Botany Technician Name: Delivery Method: HAND - Hand Delivered Suki Days: Prior Verbal Notification: Recipient Understood Notice: Yes Recipient Signature: Yes Med Rec Note Co-signed by Attending: Coverage Notice Comment: Last DP export: 08/21/18 1:53 p Patient Name: ASHLEY HSU Page 38619 at 1307 All edits/amendments must be made on the electronic document DICTATION DATE: 08/26/18 1307 MANAGER GRAPHIC: KARIN 08/26/18 1307 RPT#: [id number] DC DATE: STATUS: ADM IN [facility] [address] [place] [address] END OF REPORT
--- NOTE | 2018-08-26 13:36 | NUR ---
PT ESCORTED OUT VIA WHEELCHAIR TO [facility].
--- NOTE | 2018-08-27 08:23 | [facility] ---
CASE MANAGEMENT DISCHARGE SUMMARY PATIENT: ASHLEY HSU III UNIT: [id number] ADM DATE: 08/20/18 AGE: 72 : 44 SEX: M ROOM/BED: D.2103 AUTHOR: EVIE,DOC PHYSICIAN: REFERRING PHYSICIAN: YESIKA SMITH MD DATE OF SERVICE: 08/27/18 Discharge Plan Patient Name: ASHLEY HSU Facility: [facility]:[place] : 1945 Planned Disposition: Home Anticipated Discharge Date: 08/22/18 Discharge Date: 08/26/2018 Expected LOS: 2 Initial Reviewer: [id number] Initial Review Date: 08/20/2018 Generated: 08/27/18 9:22 am Comments DCP- Discharge Planning Updated by [id number]: Caron Khan on 08/26/18 12:[address] Patient Name: ASHLEY HSU Admission Status: ER Accout number: [id number] Admission Date: 08-20-2018 : 1945 Admission Diagnosis:SHORTNESS OF BREATH Attending: YESIKA SMITH Current LOS: 6 Anticipated DC Date: 08-22-2018 Planned Disposition: Home Primary Insurance: MEDICARE A & B Discharge Planning Comments: DC WITH [facility]. [facility] NOTITFED AND INFO FAXED. Safety Equipment Testing Specialist: Caron Khan DCP- Discharge Planning Updated by [email or web address]: Tate Paula on 08/21/18 1:[address] Patient Name: ASHLEY HSU Encounter No: [id number] : 1945 Primary Insurance: MEDICARE A & B Anticipated DC Date: 08-22-2018 Planned Disposition: Home WITH HOME HEALTH External Planned Provider: [facility] RESUMPTION DCP follow-up note: CM SPOKE TO SUKHI OF [facility], THEY PLAN TO RESUME HOME HEALTH AT HOSPITAL DISCHARGE. CM FAXED HOSPITAL UPDATE TO [facility] AT [phone]. FOR DISCHARGE, NOTIFY [facility] AT [phone], FAX DISCHARGE INFORMATION TO [facility] AT [phone]. JANA OROURKE DCP- Discharge Planning Updated by [email or web address]: Arielle Alvarenga on 08/20/18 5:[address] Patient Name: ASHLEY HSU Admission Status: ER Accout number: [id number] Admission Date: 08-20-2018 : 1945 Admission Diagnosis: Attending: YESIKA SMITH Current LOS: 1 Anticipated DC Date: 08-22-2018 Planned Disposition: Home Primary Insurance: MEDICARE A & B Discharge Planning Comments: CM met with patient and his to complete initial dc planning assessment. CM educated patient on the CM role and verbal consent given by patient to complete assessment. CM verified patient's address, phone number, and emergency contact phone numbers. Patient lives at home with his . Patient currently has [facility] and wishes to resume at discharge. ANDRESSA form signed by patient for resumption of [facility]. Signed form placed in chart and signed form given to patient. Patient does PD at home everyday. His assists him with his treatment. At discharge patient plans to return home with his and feels this is a safe discharge. Patient denied further known discharge needs at this time. Patient reports his will transport him/her home at time of discharge.CM will continue to follow and will assist as needed with dc plans/needs. Safety Equipment Testing Specialist: Arielle Alvarenga RN, [facility] DCPIA - Discharge Planning Initial Assessment Updated by [email or web address]: Arielle Alvarenga on 08/20/18 6:30 pm * Is the patient Alert and Oriented? Yes * How many steps to enter\exit or inside your home? 13 * PCP Jose R Moore * Pharmacy [facility] * Preadmission Environment Home with Family * ADLs Partial Dependent * Partial ADLs (Assistance needed) Medication Management * Equipment Bedside Commode Cane Nebulizer Oxygen Rolling Walker Wheelchair * Other Equipment Wears O2 at hs * List name and contact numbers for known caregivers / representatives who currently or will assist patient after discharge: Robert Hsu - - [phone] * Verbal permission to speak to the caregivers and representatives has been obtained from the patient. Yes * Community resources currently utilized Home Health * Please name any agencies selected above. [facility] . ANDRESSA signed in ER. * Additional services required to return to the preadmission environment? No * Can the patient safely return to the preadmission environment? Yes * Has this patient been hospitalized within the prior 30 days at any hospital? No Coverage Notice Reviewer: [id number] Roxanna Reardon Khan Notice Issued Date-Time: 08/26/2018 13:00 Notice Type: IM Discharge Notice Notice Delivered To: Patient Relationship to Patient: Self Heavy Lift Rigger Name: Delivery Method: HAND - Hand Delivered Suki Days: Prior Verbal Notification: Recipient Understood Notice: Yes Recipient Signature: Yes Med Rec Note Co-signed by Attending: Coverage Notice Comment: Last DP export: 08/26/18 12:07 p Patient Name: ASHLEY HSU Page 54060 at 0823 All edits/amendments must be made on the electronic document DICTATION DATE: 08/27/18821 MEDICAL OFFICE PROFESSIONAL INSTRUCTOR: KARIN 08/27/18821 RPT#: [id number] DC DATE:08/26/18 STATUS: DIS IN [facility] [address] [place] [address] END OF REPORT
== END 2018-08-26 13:37 | disposition home health service (06) | DRG 177 ==
LOC: D.ER 13:40 → D.M2 15:56
PROVIDERS: Family Medicine; Internal Medicine Nephrology; Internal Medicine Pulmonary Disease; ADMIT Internal Medicine Nephrology; ATTEND Internal Medicine Nephrology
PROC: 5A1D70Z Performance of Urinary Filtration, Intermittent, Less than 6 Hours Per Day (ICD-10-PCS; principal; 2018-08-20)
PROC: 0B968ZZ Drainage of Right Lower Lobe Bronchus, Via Natural or Artificial Opening Endoscopic (ICD-10-PCS; 2018-08-23)
PROC: 0B958ZZ Drainage of Right Middle Lobe Bronchus, Via Natural or Artificial Opening Endoscopic (ICD-10-PCS; 2018-08-23)
PROC: 0BD58ZX Extraction of Right Middle Lobe Bronchus, Via Natural or Artificial Opening Endoscopic, Diagnostic (ICD-10-PCS; 2018-08-23)
DX: J15.6 Pneumonia due to other Gram-negative bacteria (principal); N18.6 End stage renal disease; F17.213 Nicotine dependence, cigarettes, with withdrawal; I13.2 Hypertensive heart and chronic kidney disease with heart failure and with stage 5 chronic kidney disease, or end stage renal disease; I50.32 Chronic diastolic (congestive) heart failure; E11.22 Type 2 diabetes mellitus with diabetic chronic kidney disease; I48.91 Unspecified atrial fibrillation; E78.5 Hyperlipidemia, unspecified; K21.9 Gastro-esophageal reflux disease without esophagitis; E11.51 Type 2 diabetes mellitus with diabetic peripheral angiopathy without gangrene; N40.0 Benign prostatic hyperplasia without lower urinary tract symptoms; D50.9 Iron deficiency anemia, unspecified; I08.1 Rheumatic disorders of both mitral and tricuspid valves; I27.21 Secondary pulmonary arterial hypertension; J15.212 Pneumonia due to Methicillin resistant Staphylococcus aureus; Y95 Nosocomial condition

== ENCOUNTER 2018-08-28 14:52 | Outpatient (CLI) | payer MEDICARE, BC ==
[~2018-08-28] VITALS: Ht 172.7 cm; Wt 77.7 kg
--- NOTE | ~2018-08-28 | HEMODYNAMI ---
PATIENT:ASHLEY HSU III MEDICAL RECORD: [id number] : 43 LOCATION:[facility] D.2122 ADMISSION DATE: 08/28/18 Generatedon:08/29/201811:56 Patient name: ASHLEY HSU Patient #: [id number] SSN: : 1945 Date of study: 08/29/2018 Page: Of Hemodynamic Procedure Report Patient Data Patient Demographics Procedure consent was obtained First Name: ASHLEY Gender: Male Last Name: SHADI Suffix: NATHALY Middle Initial: Abi : 1945 Patient #: [id number] Age: 72 year(s) Race: Unknown Additional ID: [id number] Contact details Address: [address] [place] [address] State: [place] City: [place] Zip code: [address] Past Medical History Allergies Allergen Reaction Date Comments Reported Aspirin 05/25/2016 Aspirin 09/12/2017 Aspirin 08/29/2018 Admission Admission Data Admission Date: 08/28/2018 Admission Time: 14:52 Room #: D.2122 Lab Results Lab Result Date: 08/29/2018 Lab Result Time: 0:00 Biochemistry Name Units Result Min Max BUN mg/dl 11 --(-*--)-- 7 18 Creatinine mg/dl 6 --(----)-* 0.6 1.3 eGFR ml/min 6 *-(----)-- 90 120 AM eGFR ml/min 5 *-(----)-- 90 120 NONAFRICAN CBC Name Units Result Min Max Hemoglobin g/dl 9 *-(----)-- 13.5 17.5 Procedure Procedure Types Cath Procedure Diagnostic Procedure LHC LHC w/Coronaries Cardioversion External PCI Procedure Coronary Stent Coronary Stent Initial Procedure Description Procedure Date Procedure Date: 08/29/2018 Procedure Start Time: 11:26 Procedure End Time: 11:54 Procedure Staff Name Function Eran Lacey RN Nurse Giorgio Doll RT Monitor Arsenio Barajas RT Scrub María Chambers RT Scrub Jeramie Guzmán MD Performing Physician Freddy Fuller Jr, CRNA Additional personnel Procedure Data Cath Procedure Fluoroscopy Diagnostic fluoroscopy Total fluoroscopy Time: 9.8 time: 9.8 min min Diagnostic fluoroscopy Total fluoroscopy dose: dose: 1159 mGy 1159 mGy Contrast Material Contrast Material Type Amount (ml) Isovue 370 123 Entry Location Entry Primary Successful Side Size Upsize Upsize Entry Closure Succes sful Closure Location (Fr) 1 (Fr) 2 (Fr) Remarks Device Remarks Femoral Right 5 Fr 6 Fr Exoseal artery Short Diagnostic catheters Device Type Used For End Catheter Placement MULTIPACK Pigtail 5 Fr LV Angiography catheter MULTIPACK JL 4.0 5Fr Left Coronary catheter Angiography MULTIPACK 3DRC 5Fr Right Coronary catheter Angiography Procedure Complications No complications Procedure Medications Medication Administration Route Dosage 0.9% NaCl I.V. 10 ml/hr Oxygen etCO2 Nasal cannula 4 l/min Heparin Flush Bag added to field 2 bags (1000units/500ml NS) Lidocaine 2% added to field 20 Refer to Anesthesia Notes for Sedation Medications Heparin Bolus I.V. 4000 units Lopressor I.V. 5 mg Hemodynamics Rest HGB: 9 (g/dl) Heart Rate: 73 (bpm) Snapshots Pre Cath Intra NCS Post Cath Vital Signs Time Heart Resp SPO2 etCO2 NIBP (mmHg) Rhythm Pain Sedation Rate (ipm) (%) (mmHg) Status Level (bpm) 11:11:31 73 17 94 0 163/82(129) A-Fib 0 (11) 10(A) , No pain 11:15:57 75 16 100 0 157/76(125) A-Fib 0 (11) 10(A) , No pain 11:20:32 83 19 100 25.6 72/62(70) A-Fib 0 (11) 8(A) , No pain 11:27:03 91 15 97 0 129/70(102) NSR 0 (11) 8(A) , No pain 11:31:17 84 13 98 0 114/54(71) NSR 0 (11) 9(A) , No pain 11:35:29 91 13 97 0 99/44(58) NSR 0 (11) 8(A) , No pain 11:39:41 90 20 99 0 73/43(56) NSR 0 (11) 8(A) , No pain 11:43:43 79 17 100 12 90/47(63) NSR 0 (11) 8(A) , No pain 11:47:44 77 17 98 22.6 95/67(82) NSR 0 (11) 8(A) , No pain 11:51:52 77 22 100 9.7 74/47(62) NSR 0 (11) 9(A) , No pain Medications Time Medication Route Dose Verified Delivered Reason Notes Effectiveness by by 11:10:02 0.9% NaCl I.V. 10 Eran Erna Per physician ml/hr Abhijit Lacey RN RN 11:10:16 Oxygen etCO2 4 Eran Eran for low 02 sats Nasal l/min Abhijit Lacey cannula RN RN 11:10:34 Heparin Flush added 2 Eran Eran used for Bag to bags Abhijit Lacey procedure (1000units/500ml field RN RN NS) 11:10:48 Lidocaine 2% added 20ml Eran Eran for local to vial Abhijit Lacey anesthetic field RN RN 11:19:42 Refer to Eran Barillas for sedation Anesthesia Notes Abhijit Lacey for Sedation RN RN Medications 11:33:35 Heparin Bolus I.V. 4000 Eran Eran for units Abhijit Lacey anticoagulation RN RN 11:43:24 Lopressor I.V. 5 mg Eran Eran for arrhythmia Abhijit Lacey RN hr shared services consultant Log Time Note 11:10:02 0.9% NaCl 10 ml/hr I.V. was administered by Eran Lacey RN; Per physician; 11:10:16 Oxygen 4 l/min etCO2 Nasal cannula was administered by Eran Lacey RN; for low 02 sats; 11:10:19 Vital chart was started 11:10:34 Heparin Flush Bag (1000units/500ml NS) 2 bags added to field was administered by Eran Lacey RN; used for procedure; 11:10:48 Lidocaine 2% 20ml vial added to field was administered by Eran Lacey RN; for local anesthetic; 11:13:00 Procedure Status Elective Heart Cath (OP). 11:13:37 Giorgio Doll RT(R) sent for patient. Start room use. 11:13:38 Time tracking: Regular hours (M-F 7:00 - 5:00) 11:13:43 Plan of Care:Hemodynamics will remain stable., Cardiac rhythm will remain stable., Comfort level will be maintained., Respiratory function will remain adequate., Patient/ family verbilizes understanding of procedure., Procedure tolerated without complication., Recovers from procedure without complications.. 11:13:49 Patient received from PCU to CCL 1 Alert and oriented. Tansferred to table in Supine position. 11:13:51 Warm blankets applied, and bartolo hugger turned on for patient comfort. 11:13:52 Signed procedure consent form obtained from patient. 11:13:53 Correct patient and procedure confirmed by team. 11:13:53 ECG and BP/O2 sat monitors applied to patient. 11:13:54 Baseline sample Acquired. 11:13:56 Rhythm: sinus rhythm 11:13:57 Full Disclosure recording started 11:14:04 H&P Date Dictated: 08/28/2018 Within 30 days and on chart.. 11:14:06 Pre-procedure instructions explained to patient. 11:14:06 Pre-op teaching completed and patient verbalized understanding. 11:14:09 Family in patients room. 11:14:13 Patient NPO since Midnight. 11:14:14 Patient NPO since Midnight. 11:14:22 Patient allergic to Aspirin 11:14:37 Is the patient allergic to Iodine/contrast media? No. 11:14:40 Was the patient premedicated? No 11:14:44 Is patient on blood thinner?Yes 11:14:46 ACC The patient was administered the following blood thiners within the last 24 hours: ACCPlavix 11:15:31 Patient diabetic? No. 11:15:32 ----Pre-sedation anethsthesia assessment.---- 11:15:35 Previous problem with sedation/anesthesia? No ? 11:15:37 Snore? Yes 11:16:37 Sleep apnea? No 11:16:39 Deviated septum? No 11:16:40 Opens mouth fully? Yes 11:16:44 Sticks out tongue? Yes 11:16:48 Airway obstruction? Yes COPD 11:16:51 Dentures? No ? 11:16:54 Pre procedure: right dorsailis pedis pulse 2+ Normal; easily identifiable; not easily obliterated 11:16:59 Patient pain scale 0/10 ?. 11:17:04 IV patent on arrival in right antecubital with 0.9% NaCl at [facility]. :18: Lab Result : BUN 11 mg/dl :: Lab Result : Creatinine 6 mg/dl :: Lab Result : eGFR NONAFRICAN 5 ml/min :: Lab Result : eGFR AM 6 ml/min :: Lab Result : Hemoglobin 9 g/dl :18: Lab results completed and on chart. 11:18:28 Right groin area was prepped with chlora-prep and draped in sterile fashion 11:18:29 Alarms reviewed by R. N. 11:18:30 Sharps counted by scrub and verified by R.N. 11:18:31 Physician arrived 11:18:59 --------ALL STOP TIME OUT------ 11:19:00 Final Timeout: patient, procedure, and site verified with staff and physician. All members of the team are in agreement. 11:19:01 Right groin site verified by team. 11:19:04 Fire Safety Assessment: A--An alcohol-based skin anteseptic being used preoperatively., C--Open oxygen or nitrous oxide is being used., D--An ESU, laser, or fiber-optic light is being used. 11:19:09 Physical assessment completed. ASA score P 2 - A patient with mild systemic disease as per Jeramie Guzmán MD. 11:19:14 5) <15 or on dialysis Very severe, or end stage kidney failure. 11:19:42 Refer to Anesthesia Notes for Sedation Medications was administered by Eran Lacey RN; for sedation; 11:20:04 Maximum allowable contrast does (3.7 X eGFR X 0.75)13.875 ml. 11:20:19 Sedation plan: IV Moderate Sedation Medication:Propofol 11:20:27 Vital chart was stopped 11:21:23 Use device set Femoral Dx 11:21:24 ACIST Syringe (06089) opened to sterile field. 11:21:24 Bag Decanter () opened to sterile field. 11:21:25 Medline Cath Pack ([id number]) opened to sterile field. 11:21:26 ACIST Hand Control (46440) opened to sterile field. 11:21:26 ACIST Manifold (20433) opened to sterile field. 11:21:27 DIAGNOSTIC Multipack 5Fr catheter set (GZ4634) opened to sterile field. 11::28 Tegaderm 4 x 4 (1626W) opened to sterile field. 11:21:30 SHEATH 5FR [place] (UCB939) opened to sterile field. 11:21:30 EMERALD Guide Wire (681-816) opened to sterile field. 11::57 Freddy Fuller Jr, CRNA present and monitoring patient for TIVA. 11::59 Procedure started. 11:23:00 ------Cardioversion------ 11:23:01 Quick combo pads placed on patients chest and back. 11:23:09 Defibrillator synced and charged to 275 Joules. 11:23:12 Shock delivered. 11:23:17 Patient cardioverted to sinus rhythm . 11:25:31 Vital chart was started 11::22 Local anesthetic to right femoral artery with Lidocaine 2% by Jeramie Guzmán MD.INITIAL ACCESS ONLY 11::30 A 5 Fr sheath was inserted into the Right Femoral artery 11::58 Zero performed for pressure channel P1 11:27:02 Zero performed for pressure channel P1 11:27:16 A MULTIPACK Pigtail 5 Fr catheter was advanced over the wire and used for LV Angiography. 11:27:20 LV angiography performed. 11:27:22 LV gram done using POSADA 11:27:37 EF : 35 % 11:27:39 Catheter removed. 11:27:46 A MULTIPACK JL 4.0 5Fr catheter was advanced over the wire and used for Left Coronary Angiography. 11:27:49 LCA angiography performed. 11:29:13 Catheter removed. 11:29:24 CHOICE PT Extra Support 182cm wire ([id number]) opened to sterile field. 11:29:25 INFLATOR Merit BasixCompak (LN0048) opened to sterile field. 11:29:35 A MULTIPACK 3DRC 5Fr catheter was advanced over the wire and used for Right Coronary Angiography. 11:29:41 RCA angiography performed. 11:30:09 Catheter removed. 11:30:51 GUIDE 6FR XBLAD 3.5 catheter ([id number]) opened to sterile field. 11:30:59 EXOSEAL 5Fr (EX500) opened to sterile field. 11:31:00 SHEATH 6FR [place] (FXZ835) opened to sterile field. 11:31:38 CHOICE PT Extra Support J 300cm guide wire ([id number]) opened to sterile field. 11:31:48 Sheath upsized to a 6 Fr Short. 11:32:36 ACC Pre-intervention MIHAELA Flow is 0. 11:32:48 Pre PCI Site: [place] mLAD has 100% stenosis. 11:33:35 Heparin Bolus 4000 units I.V. was administered by Eran Lacey RN; for anticoagulation; 11:33:41 ACCDominant side:Co-Dominant 11:36:11 CPTES wire advanced. 11:36:47 Inflate balloon Inflation number: 1 A EMERGE OTW 2.5 x 20 balloon ([id number]) was prepped and advanced across the Mid LAD 100, then inflated to 13 VICTOR M for 0:09 (min:sec) . 11:37:02 CHOICE PT Extra Support J 300cm guide wire ([id number]) opened to sterile field. 11:37:03 Inflation number: 2 The EMERGE OTW 2.5 x 20 balloon ([id number]) was reinflated across the Mid LAD , to 7 VICTOR M for 0:16 (min:sec) . 11:37:18 Balloon removed over the wire. 11:39:42 Inflate balloon Inflation number: 3 A EUPHORA 1.5 x 20 Balloon ([id number]) was prepped and advanced across the Mid LAD , then inflated to 17 VICTOR M for 0:08 (min:sec) . 11:39:52 Inflation number: 4 The EUPHORA 1.5 x 20 Balloon ([id number]) was reinflated across the Mid LAD , to 17 VICTOR M for 0:08 (min:sec) . 11:39:59 Inflation number: 5 The EUPHORA 1.5 x 20 Balloon ([id number]) was reinflated across the Mid LAD , to 21 VICTOR M for 0:06 (min:sec) . 11:40:52 Balloon removed over the wire. 11:42:42 Place stent Inflation Number: 6 A ANA RX 2.0 x 30 stent ([id number]) was prepped and advanced across the Mid LAD . The stent was deployed at 11 VICTOR M for 0:08 (min:sec) . 11:42:55 Inflation number: 7 The stent balloon was then re-inflated across the Mid LAD to 21 VICTOR M for 0:11 (min:sec) . 11:43:24 Lopressor 5 mg I.V. was administered by Eran Lacey RN; for arrhythmia; 11:43:32 Stent catheter was removed intact over wire. 11:48:57 EXOSEAL 6Fr (EX600) opened to sterile field. 11:49:39 Inflation number: 8 The EUPHORA 1.5 x 20 Balloon ([id number]) was reinflated across the Mid LAD , to 9 VICTOR M for 0:14 (min:sec) . 11:50:07 Balloon removed over the wire. 11:50:07 Wire removed. 11:50:10 Guide catheter removed. 11:50:16 Contrast amount:Isovue 370 123ml. 11:50:22 Sheath removed intact; hemostasis achieved with Exoseal to the Right Femoral artery. 11:50:24 Procedure ended.(Physican Out) 11:50:51 Fluoroscopy time 09.80 minutes. 11:51:05 Fluoroscopy dose: 1159 mGy 11:51:05 Flurop Dose total: 1159 11:51:08 Sharps counted by scrub and verified by R.N. 11:51:11 Insertion/operative site no bleeding no hematoma. 11:51:14 Post-op/insertion site Right Femoral artery dressed using a 4 x 4 and Tegaderm. 11:51:17 Post right femoral artery:stable 11:51:19 Post Procedure Pulses reassessed and unchanged 11:51:21 Post procedure: right dorsailis pedis pulse 2+ Normal; easily identifiable; not easily obliterated. 11:51:26 Post procedure rhythm: sinus rhythm 11:51:57 Post procedure instruction explained to patient.Patient verbalizes understanding. 11:51:58 Procedure and supply charges have been captured, reviewed, submitted and are correct. 11:53:24 Procedure type changed to Cath procedure, Diagnostic procedure, LHC, LHC w/Coronaries, Cardioversion External, PCI procedure, Coronary Stent, Coronary Stent Initial 11:53:32 Procedure Complication : No complications 11:53:36 See physician's report for complete and final results. 11:53:39 Report given to PCU. 11:54:02 Patient transfered to PCU with Bed. 11:54:04 Procedure ended. 11:54:04 Full Disclosure recording stopped 11:54:35 ACC-PCI Only Patient was given prescriptions, or instructed by Eran Lacey RN to start/continue the following medications upon discharge: Plavix 11:54:37 End room use (Document Last) 11:56:53 Vital chart was stopped Intervention Summary Intervention Notes Time ActionType Lesion and Equipment Used Action# Pressure Duration Attributes 11:36:47 Inflate Mid LAD EMERGE OTW 2.5 1 13 00:09 balloon x 20 balloon ([id number]) 11:37:03 Reinflate Mid LAD EMERGE OTW 2.5 2 7 00:16 balloon x 20 balloon ([id number]) 11:39:42 Inflate Mid LAD EUPHORA 1.5 x 3 17 00:08 balloon 20 Balloon ([id number]) 11:39:52 Reinflate Mid LAD EUPHORA 1.5 x 4 17 00:08 balloon 20 Balloon ([id number]) 11:39:59 Reinflate Mid LAD EUPHORA 1.5 x 5 21 00:06 balloon 20 Balloon ([id number]) 11:42:42 Place stent Mid LAD ANA RX 2.0 x 6 11 00:08 30 stent ([id number]) 11:42:55 Reinflate Mid LAD ANA RX 2.0 x 7 21 00:11 stent 30 stent balloon ([id number]) 11:49:39 Reinflate Mid LAD EUPHORA 1.5 x 8 9 00:14 balloon 20 Balloon ([id number]) Device Usage Item Name Manufacture Quantity Catalog Number Hospital Part Current Minimal Lot# / Charge Number Stock Stock Serial# Code ACIST Syringe Acist 1 85488 670647 982730 650401 20 (45328) Medical Systems Inc Bag Decanter Microtek 1 632305 92036 506429 5 () Medical Inc. Medline Cath Medline 1 [id number] 919297 58169 170319 5 Pack ([id number]) ACIST Hand Acist 1 45811 820085 004865 966434 5 Control Medical (98037) Systems Inc ACIST Manifold Acist 1 32610 702329 773636 921778 5 (68929) Medical Systems Inc DIAGNOSTIC Cardinal 1 IH0023 551906 12433 472468 30 Multipack 5Fr Health catheter set (NS6872) Tegaderm 4 x 4 3M 1 1626W 692675 116225 662231 5 (1626W) SHEATH 5FR Terumo 1 FFW036 157858 228664 557465 5 [place] (SHL390) EMERALD Guide Cardinal 1 502-455 180329 405799 424144 5 Wire (502-455) Health MULTIPACK Cardinal 1 219358 5 Pigtail 5 Fr Health catheter MULTIPACK JL Cardinal 1 882439 5 4.0 5Fr Health catheter CHOICE PT Roulette 1 [id number] 679921 780239 911873 5 Extra Support Scientific 182cm wire ([id number]) INFLATOR Merit Merit 1 MY4016 651282 373231 494722 15 [employer]Phy Works (JJ0601) MULTIPACK 3DRC Cardinal 1 623416 5 5Fr catheter Health GUIDE 6FR Cardinal 1 22924439 280206 926416 813293 10 XBLAD 3.5 Health catheter (23102269) EXOSEAL 5Fr Cardinal 1 EX500 722957 552530 063130 10 (EX500) Health SHEATH 6FR Terumo 1 TRX429 896005 933270 660780 40 [place] (XEE094) CHOICE PT Roulette 2 [id number] 395411 061195 107535 5 Extra Support Scientific J 300cm guide wire ([id number]) EMERGE OTW 2.5 Roulette 1 [id number] 056520 738471 136453 5 [id number] x 20 balloon Scientific ([id number]) EUPHORA 1.5 x Medtronic 1 [id number] 853405 083427 776969 5 [id number] 20 Balloon ([id number]) ANA RX 2.0 x Medtronic 1 [id number] 613609 8438776 482091 5 [id number] 30 stent ([id number]) EXOSEAL 6Fr Cardinal 1 EX600 838649 140030 222749 10 (EX600) Health Signature Audit [place] Stage Time Signature Unsigned Intra-Procedure 08/29/2018 Giorgio LOPEZ(Clem) 11:56:50 AM Signatures Nurse : Eran aLcey Signature : RN Date : Time : Monitor : Giorgio Suit RT Signature : Date : Time : Performing Physician : Signature : Jeramie Tauth MD Date : Time : [address] [place] [address]
[~2018-08-28 14:52] MED LIST changes: -IPRAT-ALBUT 0.5-3 ML; +IPRAT-ALBUT 0.5-3 ML UPD; +PACERONE200 MG PO; +VIBRAMYCIN 100100 MG PO
--- NOTE | 2018-08-28 16:57 | NUR ---
TRANSFER FROM ADMISSIONS BY W/C. OREINTED TO ROOM. CALL LIGHT IN REACH. WILL CONT. PLAN OF CARE.
[2018-08-28 17:09] VITALS: BP 109/46
[2018-08-28 17:22] VITALS: BP 109/46; Ht 172.7 cm; Wt 77.7 kg
[2018-08-28] MEDS ORDERED: EPOGEN20000 U/ML (17:36)
[2018-08-28] MEDS ORDERED: OMNICEF300 MG PO (17:57)
--- NOTE | 2018-08-28 18:00 | NUR ---
RECIEVED FROM DRS OFFICE. ALERT AND ORIENTED. DENIES ANY NEEDS AT PRESENT TIME. TELEMERTY SHOWS CAF 82. WILL MONITOR
[2018-08-28 18:41] LABS: BASOPHILS 0.4 % (0-2); EOSINOPHILS 1.2 % (0-7); HEMATOCRIT 29.9 % (42.0-54.0); HEMOGLOBIN 9.8 g/dL (13.5-17.5); IMMATURE GRANULOCYTES 1.5 % (0-5); LYMPHOCYTES 7.7 % (15-50); MCH 33.4 pg (26.0-34.0); MCHC 32.8 g/dL (31.0-37.0); MEAN PLATELET VOLUME 11.1 fL (7.4-10.4); MONOCYTES 6.2 % (2-11); RBC 2.93 10x6/uL (4.20-6.10); RDW 18.1 % (11.5-14.5)
[2018-08-28 18:57] LABS: PLATELET COUNT 225 10x3/uL (130-400)
[2018-08-28 19:14] LABS: ANION GAP 18.6 mmol/L (8-16); CALCIUM 7.5 mg/dL (8.5-10.1); CARBON DIOXIDE 24.5 mmol/L (21.0-32.0); CREATININE - SERUM 10.8 mg/dL (0.6-1.3); POTASSIUM - SERUM 4.1 mmol/L (3.5-5.1)
[2018-08-28 19:33] LABS: TROPONIN-I 0.072 ng/mL (0.000-0.060)
--- NOTE | 2018-08-28 19:40 | NUR ---
GONE TO XRAY VIA WC.
[2018-08-28 20:00] VITALS: BP 152/65
--- NOTE | 2018-08-28 20:25 | NUR ---
SPOKE WITH DR MILLRE, RECIEVED ORDERS TO CONSULT RENAL REGARDING PD. PAGE OUT TO RENALS.
--- NOTE | 2018-08-28 21:39 | NUR ---
HS MEDS GIVEN WITH FRESH ICE WATER. PT DENIES PAIN OR NEEDS.
[2018-08-29] VITALS: BP 125/58
--- NOTE | 2018-08-29 00:30 | NUR ---
PD EXCHANGE COMPLETE, PT TOLERATEDWELL.
--- NOTE | 2018-08-29 00:30 | NUR ---
PD EXCHANGE COMPLETE, PT TOLERATED WELL.
--- NOTE | 2018-08-29 01:39 | NUR ---
I have reviewed this patient and I concur with the Shift Assessment completed by the Licensed Practical Nurse today this shift.
[2018-08-29 04:00] VITALS: BP 147/63
--- NOTE | 2018-08-29 07:43 | NUR ---
REPORT RECEIVED. WILL CONTINUE WITH POC. PT CURRENTLY LYING SEMI FOWLERS. CALL LIGHT W/I REACH. PD CATH DRAINING UPON ENTERING THE ROOM AND SET TO FILL BY [facility] NURSE. WILL INFUSE 2000 AND LET INSTILL FOR 4 HOURS. RR EVEN AND UNLABORED ON 2L 02. R.AC PIV IS SALINE LOCKED. NO S/S OF DISTRESS NOTED. WILL CTM.
[2018-08-29 08:44] VITALS: BP 151/64
[2018-08-29 09:39] LABS: BASOPHILS 0.3 % (0-2); EOSINOPHILS 2.9 % (0-7); HEMATOCRIT 27.4 % (42.0-54.0); IMMATURE GRANULOCYTES 1.4 % (0-5); LYMPHOCYTES 13.3 % (15-50); MCH 32.8 pg (26.0-34.0); MCHC 32.8 g/dL (31.0-37.0); MEAN PLATELET VOLUME 10.8 fL (7.4-10.4); MONOCYTES 5.7 % (2-11); NEUTROPHILS 76.4 % (40-80); PLATELET COUNT 228 10x3/uL (130-400); RBC 2.74 10x6/uL (4.20-6.10); RDW 17.7 % (11.5-14.5); WBC 6.5 10x3/uL (4.8-10.8)
[2018-08-29 10:04] LABS: ANION GAP 17.4 mmol/L (8-16); CALCIUM 7.9 mg/dL (8.5-10.1); CARBON DIOXIDE 25.7 mmol/L (21.0-32.0); POTASSIUM - SERUM 4.1 mmol/L (3.5-5.1)
--- NOTE | 2018-08-29 10:21 | NUR ---
PREOP MEDICATIONS ADMINISTERED PER CATALOG LIBRARY ASSISTANT REQUEST. WILL CTM.
--- NOTE | 2018-08-29 10:58 | NUR ---
PT TRANSFERED TO RISK MANAGEMENT DIRECTOR. WILL CTM.
--- NOTE | 2018-08-29 11:59 | HP ---
PATIENT: ASHLEY HSU III MEDICAL RECORD: [id number] ACCOUNT: [id number] LOCATION:[address] : 43 ADMISSION DATE: 08/28/18 PCP: KYLE SANABRIA MD HISTORY AND PHYSICAL EXAMINATION DIAGNOSES: 1. Unstable angina, class IV symptomatology. 2. Shortness of breath, dyspnea on exertion. 3. New onset atrial fibrillation today. 4. History of paroxysmal atrial fibrillation. 5. Abnormal ECG, inferior ischemia. 6. Coronary artery disease. 7. Peripheral vascular disease. 8. Cardiomyopathy. 9. Congestive heart failure. 10. Recent pneumonia. 11. Chronic obstructive pulmonary disease. HISTORY OF PRESENT ILLNESS: Mr. Hsu presents with 1 day of severe shortness of breath, moderate chest discomfort. EKG suggestive of inferior ischemia. He does have a history of coronary artery disease, last cardiac intervention December 2017. He has history of peripheral vascular disease, last peripheral intervention December of 2017 as well. He has a history of paroxysmal atrial fibrillation, on amiodarone. He felt his heart beating irregular starting this morning. He is in atrial fibrillation. PHYSICAL EXAMINATION: GENERAL APPEARANCE: Well-nourished, well-developed, appears stated age. Level of distress, comfortable. PSYCHIATRIC: Mental status, alert, normal affect. Orientation, oriented to time, place and person. EYES: Lids and conjunctiva, noninjected. No discharge, no pallor. ENT: Lips, teeth, gums, normal dentition. Oropharynx, no cyanosis, no pallor. NECK: Carotid arteries, bilateral normal upstroke, no bruits, no thrills. JUGULAR VEINS: No jugular venous pressure or distention. CERVICAL LYMPH NODES: Nontender, nonenlarged. THYROID: Not enlarged. Nontender. No nodules. LUNGS: Respiratory effort, unlabored. CHEST: Normal curvature. No thoracic deformity. No chest wall tenderness. Percussion, resonant. Auscultation, clear. No wheezes, no rales, no rhonchi. CARDIOVASCULAR: Precordial exam, nondisplaced. No heaves or pericardial thrills. Rate and rhythm, regular. Heart sounds, normal S1, normal S2. No S3, no gallop, no rub. Systolic murmur, not heard. Diastolic murmur, not heard. EXTREMITIES: No cyanosis, no edema. Peripheral pulses, full and equal in all extremities, except as noted. No bruits appreciated. ABDOMEN: Soft, nondistended. Normal aorta. No bruit. Nontender. No masses. Liver, nontender, no hepatomegaly. Spleen, nontender, no splenomegaly. MUSCULOSKELETAL: No joint tenderness. No joint swelling. No erythema. NEUROLOGICAL: Normal gait, normal strength, normal tone. SKIN: Warm and dry. OVERALL IMPRESSION: New onset atrial fibrillation and angina, abnormal ECG with ST-T changes in a patient who is on aspirin with a history of coronary artery disease, smoking history, and COPD. Most likely, he has recurrent hemodynamically significant coronary artery disease. We will proceed with HISTORY AND PHYSICAL [id number] ASHLEY HSU III cardiac catheterization, cardioversion in the a.m. TRANSINT:[id number] Voice Confirmation ID: [id number] DOCUMENT ID: [id number] ELISSA MILLER MD at 1159 CC: [id number] DICTATION DATE: 08/28/18 1326 SALES AUDIT CLERK: 08/28/18 1341 REG [facility] [address] [place] [address]
--- NOTE | 2018-08-29 12:15 | NUR ---
PT RETURNED FROM OPERATIONAL ASSISTANT. RIGHT FEMORAL CATH SITE IS C/D/I WITH NO S/S OF HEMATOMA PRESENT. PT IS AAO AND SLEEPY. CALL LIGHT W/I REACH. NO S/S OF DISTRESS NOTED. RR EVEN AND UNLABORED ON 2L 02. WILL CTM.
[2018-08-29] MEDS ORDERED: PLAVIX75 MG PO (13:41)
--- NOTE | 2018-08-29 15:06 | NUR ---
I have reviewed this patient and I concur with the Shift Assessment completed by the Licensed Practical Nurse today this shift.
--- NOTE | 2018-08-29 16:34 | NUR ---
PT DISCHARGED HOME VIA WHEELCHAIR WITH FAMILY. PT SIGNED PROPER DISCHARGE INSTRUCTION AND REMOVED ALL VALUABLES FROM THE ROOM. PIV REMOVED WITH CATHETER TIP FULLY INTACT. TELEMETRY REMOVED AND RETURNED.
--- NOTE | 2018-08-31 11:14 | OP ---
PATIENT NAME: ASHLEY HSU III MEDICAL RECORD: [id number] :43 LOCATION:D.OPS ADMISSION DATE: SURGEON: ELISSA MILLER MD DATE OF OPERATION: 08/29/2018 PROCEDURES: 1. PTCA stent LAD. 2. Left heart catheterization. 3. Selective coronary angiography. 4. Left ventriculogram. 5. DC cardioversion. INDICATION: Non-Q-wave myocardial infarction. PROCEDURE IN DETAIL: After informed consent was obtained and after a detailed description of risks, benefits as well as alternative therapies, the patient elected to proceed with angiogram and angioplasty. The right femoral area was prepped and draped in normal sterile fashion. Right femoral artery was cannulated via modified Seldinger technique with placement of 6-Sami sheath. FINDINGS: The left ventriculogram was performed in standard 30-degree POSADA view, reveals global hypokinesis, ejection fraction in the 30% to 35% range. SELECTIVE CORONARY ANGIOGRAPHY: 1. Left main is with no significant angiographic disease. 2. Left anterior descending has previously placed stent. This is acutely closed. 3. The left circumflex has moderate irregularities, but no flow-limiting stenosis. 4. Right coronary artery has moderate irregularities, but no flow-limiting stenosis. PTCA STENT OF THE LAD: We were able to open this with a 2.0 and 1.5 balloon. The distal vessel was very small; however, patent. Stenting was undertaken with a 2.0 x 30 mm Henrik stent. Result was 0% residual stenosis. OVERALL IMPRESSION: Successful percutaneous transluminal coronary angioplasty stent of the left anterior descending going from 100% initial stenosis to 0% residual. DC CARDIOVERSION: IV conscious sedation per anesthesia. Continuous heart rate, O2 saturation, blood pressure monitoring all undertaken. He received 1 shock restoring sinus rhythm. OVERALL IMPRESSION: Successful DC cardioversion from atrial fibrillation to sinus rhythm. TRANSINT:[id number] Voice Confirmation ID: [id number] DOCUMENT ID: [id number] OPERATIVE REPORT [id number] ASHLEY HSU III ELISSA MILLER MD at 1114 CC: [id number] DICTATION DATE: 08/29/18 1159 TRAFFIC RATE CLERK: 08/29/18 1208 DEP CLI 08/29/18 [place] [address]
--- NOTE | 2018-08-31 11:14 | DS ---
PATIENT:ASHLEY HSU III :43 MEDICAL RECORD: [id number] DISCHARGE SUMMARY ADMISSION DATE: 08/28/18 DISCHARGE DATE: 08/29/18 DATE OF SERVICE: 08/29/2018. DIAGNOSES: 1. Atrial fibrillation. 2. DC cardioversion this admission. 3. Angina. 4. Percutaneous transluminal coronary angioplasty stent left anterior descending this admission. 5. Cardiomyopathy. 6. Coronary artery disease. 7. Shortness of breath, dyspnea on exertion. HOSPITAL COURSE: Mr. Hsu presents with shortness of breath, dyspnea on exertion, angina, ruled in for a non-Q-wave myocardial infarction, underwent cardiac catheterization revealing total occlusion of his LAD, underwent successful PTCA stent of the LAD. He as well had atrial fibrillation with rapid response, underwent DC cardioversion. Discharged home with the addition of Plavix to his medical regimen and increasing his Cordarone to 200 mg b.i.d. from 200 mg every day. Will follow up with [facility] in 1 month. TRANSINT:[id number] Voice Confirmation ID: [id number] DOCUMENT ID: [id number] ELISSA MILLER MD at 1114 CC: [id number] DICTATION DATE: 08/29/18 1157 EXCEPTIONAL STUDENT EDUCATION TEACHER: 08/29/18 2325 DEP CLI 08/29/[address] [address]
== END 2018-08-29 16:35 | disposition home or self-care (01) ==
LOC: D.M2 14:52 → D.OPS 14:52 → D.M2 14:56 → D.OPS 08-29 16:35
PROVIDERS: ATTEND Internal Medicine Interventional Cardiology
DX: I21.4 Non-ST elevation (NSTEMI) myocardial infarction (principal); I25.10 Atherosclerotic heart disease of native coronary artery without angina pectoris; T82.855A Stenosis of coronary artery stent, initial encounter; I48.91 Unspecified atrial fibrillation; Z01.812 Encounter for preprocedural laboratory examination
CPT/HCPCS: C9600; 93458

== ENCOUNTER → 2018-09-07 14:24 | Outpatient (CLI) | payer MEDICARE, BC ==
[2018-08-28 17:22] VITALS: BMI 26.0
[~2018-09-07 14:24] MED LIST changes: +EPOGEN20000 U/ML
== END | disposition home or self-care (01) ==
LOC: D.US 09-03 11:00
PROVIDERS: ATTEND Internal Medicine Cardiovascular Disease
DX: I65.23 Occlusion and stenosis of bilateral carotid arteries (principal)

== ENCOUNTER 2018-11-18 09:24 | Emergency (ER) | payer MEDICARE, BC ==
[~2018-11-18] VITALS: Ht 172.7 cm; Wt 83.6 kg
[2018-11-18 09:25] VITALS: Ht 172.7 cm; Wt 83.6 kg
[2018-11-18 10:25] LABS: BASOPHILS 0.1 % (0-2); EOSINOPHILS 2.5 % (0-7); HEMATOCRIT 36.5 % (42.0-54.0); HEMOGLOBIN 11.4 g/dL (13.5-17.5); IMMATURE GRANULOCYTES 1.6 % (0-5); LYMPHOCYTES 10.1 % (15-50); MCH 32.9 pg (26.0-34.0); MCHC 31.2 g/dL (31.0-37.0); MCV 105.5 fL (80.0-100.0); MEAN PLATELET VOLUME 10.7 fL (7.4-10.4); NEUTROPHILS 80.7 % (40-80); PLATELET COUNT 244 10x3/uL (130-400); RBC 3.46 10x6/uL (4.20-6.10); RDW 16.1 % (11.5-14.5); WBC 6.8 10x3/uL (4.8-10.8)
[2018-11-18 10:48] LABS: ALBUMIN 3.5 g/dL (3.4-5.0); ANION GAP 20.4 mmol/L (8-16); BILIRUBIN - TOTAL 0.45 mg/dL (0.2-1.3); CARBON DIOXIDE 26.3 mmol/L (21.0-32.0); CREATININE - SERUM 11.7 mg/dL (0.6-1.3); MAGNESIUM - SERUM 1.7 mg/dL (1.8-2.4); POTASSIUM - SERUM 4.7 mmol/L (3.5-5.1); PROTEIN - SERUM 8.2 g/dL (6.4-8.2)
[2018-11-18 12:28] LABS: CKMB 7.3 U/L (0.0-3.6); CREATINE KINASE 120 UL (21-232)
[2018-11-18 12:32] LABS: PRO BNP 49924 pg/mL (0-125)
[2018-11-18 12:35] LABS: TROPONIN-I 0.135 ng/mL (0.000-0.060)
[2018-11-18 15:24] VITALS: BP 143/57
== END 2018-11-18 15:05 | disposition home or self-care (01) ==
LOC: D.ER 09:24
PROVIDERS: Emergency Medicine
DX: R55 Syncope and collapse (principal); R53.1 Weakness; I95.1 Orthostatic hypotension; E11.22 Type 2 diabetes mellitus with diabetic chronic kidney disease; I12.0 Hypertensive chronic kidney disease with stage 5 chronic kidney disease or end stage renal disease; N18.6 End stage renal disease

== ENCOUNTER → 2018-12-06 16:29 | Outpatient (CLI) | payer MEDICARE, BC ==
[2018-11-18 09:25] VITALS: BMI 28.0
[2018-12-06 17:03] LABS: ANION GAP 21.4 mmol/L (8-16); CALCIUM 9.5 mg/dL (8.5-10.1); CARBON DIOXIDE 25.6 mmol/L (21.0-32.0)
== END | disposition home or self-care (01) ==
LOC: D.LAB 16:29
PROVIDERS: ATTEND Internal Medicine Pulmonary Disease
DX: J18.9 Pneumonia, unspecified organism (principal)

== ENCOUNTER 2019-01-24 14:55 | Emergency (ER) | payer MEDICARE, BC ==
[~2019-01-24] VITALS: Ht 172.7 cm; Wt 88.5 kg
[2019-01-24 15:08] VITALS: Ht 172.7 cm; Wt 88.5 kg
[2019-01-24 15:43] LABS: BASOPHILS 0.1 % (0-2); EOSINOPHILS 0.4 % (0-7); HEMATOCRIT 29.7 % (42.0-54.0); HEMOGLOBIN 8.8 g/dL (13.5-17.5); IMMATURE GRANULOCYTES 1.6 % (0-5); MCH 31.3 pg (26.0-34.0); MCHC 29.6 g/dL (31.0-37.0); MCV 105.7 fL (80.0-100.0); MEAN PLATELET VOLUME 10.3 fL (7.4-10.4); MONOCYTES 11.3 % (2-11); NEUTROPHILS 81.6 % (40-80); RBC 2.81 10x6/uL (4.20-6.10); RDW 16.8 % (11.5-14.5); WBC 9.9 10x3/uL (4.8-10.8)
[2019-01-24 15:44] LABS: PLATELET COUNT 383 10x3/uL (130-400)
[2019-01-24 15:50] LABS: ANION GAP 22.6 mmol/L (8-16); CALCIUM 8.9 mg/dL (8.5-10.1); CARBON DIOXIDE 25.3 mmol/L (21.0-32.0); POTASSIUM - SERUM 4.9 mmol/L (3.5-5.1)
[2019-01-24 15:56] LABS: ALBUMIN 3.1 g/dL (3.4-5.0); BILIRUBIN - TOTAL 0.5 mg/dL (0.2-1.3); PROTEIN - SERUM 7.9 g/dL (6.4-8.2)
[2019-01-24 19:36] VITALS: BP 140/59
== END 2019-01-24 20:27 | disposition home or self-care (01) ==
LOC: D.ER 14:55
PROVIDERS: Emergency Medicine
DX: I95.9 Hypotension, unspecified (principal); E11.22 Type 2 diabetes mellitus with diabetic chronic kidney disease; N18.6 End stage renal disease; Z99.2 Dependence on renal dialysis; J44.9 Chronic obstructive pulmonary disease, unspecified; I25.10 Atherosclerotic heart disease of native coronary artery without angina pectoris; E87.1 Hypo-osmolality and hyponatremia; J90 Pleural effusion, not elsewhere classified; M48.56XA Collapsed vertebra, not elsewhere classified, lumbar region, initial encounter for fracture; Z72.0 Tobacco use; Z79.4 Long term (current) use of insulin

== ENCOUNTER 2019-01-29 11:40 | Inpatient (IN) | payer MEDICARE, BC ==
[~2019-01-29] VITALS: Ht 172.7 cm; Wt 85.6 kg
--- NOTE | ~2019-01-29 | HEMODYNAMI ---
PATIENT:ASHLEY HSU III MEDICAL RECORD: [id number] : 43 [address] [id number] ADMISSION DATE: 01/29/19 Generatedon:02/05/20199:32 Patient name: ASHLEY HSU Patient #: [id number] SSN: : 1945 Date of study: 02/05/2019 Page: Of Hemodynamic Procedure Report Patient Data Patient Demographics Procedure consent was obtained First Name: ASHLEY Gender: Male Last Name: SHADI Suffix: NATHALY Middle Initial: Abi : 1945 Patient #: [id number] Age: 73 year(s) Race: Unknown Additional ID: [id number] Contact details Address: [address] [place] [address] State: [place] City: [place] Zip code: [address] Past Medical History Allergies Allergen Reaction Date Comments Reported Aspirin 05/25/2016 Aspirin 09/12/2017 Aspirin 08/29/2018 Admission Admission Data Admission Date: 01/29/2019 Admission Time: 12:17 Arrival Date: 01/29/2019 Arrival Time: 12:17 Admit Source: Emergency Insurance Payor: Medicare department [facility] #: [id number] Room #: [facility] Height (in.): 68.11 BSA: 2.02 (m2) Height (cm.): 173 BMI: 29.4 (kg/m2) Weight (lbs.): 194.01 Weight (kg.): 88 Lab Results Lab Result Date: 02/05/2019 Lab Result Time: 0:00 Biochemistry Name Units Result Min Max BUN mg/dl 116 --(----)-* 7 18 Creatinine mg/dl 10.7 --(----)-* 0.6 1.3 eGFR ml/min 5 *-(----)-- 90 120 NONAFRICAN CBC Name Units Result Min Max Hemoglobin g/dl 7.8 *-(----)-- 13.5 17.5 Procedure Procedure Types Cath Procedure Diagnostic Procedure [facility] w/Coronaries Sedation Charges Moderate Sedation up to 30 minutes PCI Procedure Coronary Stent Coronary Stent Initial Hemochron ACT Test Procedure Description Procedure Date Procedure Date: 02/05/2019 Procedure Start Time: 9:04 Procedure End Time: 9:27 Procedure Staff Name Function Jeramie Guzmán MD Performing Physician Joie Villegas RT Monitor Kamila Hunt RT Scrub Tamiko Lua RN Nurse Giorgio Doll RT Felt Hat Pouncing Operator Hand Procedure Data Cath Procedure Fluoroscopy Diagnostic fluoroscopy Total fluoroscopy Time: 6 time: 6 min min Diagnostic fluoroscopy Total fluoroscopy dose: 661 dose: 661 mGy mGy Contrast Material Contrast Material Type Amount (ml) Isovue 300 0 Entry Location Entry Primary Successful Side Size Upsize Upsize Entry Closure Succes sful Closure Location (Fr) 1 (Fr) 2 (Fr) Remarks Device Remarks Femoral Right 5 Fr 6 Fr Exoseal artery Short Estimated blood loss: 5 ml Diagnostic catheters Device Type Used For End Catheter Placement MULTIPACK Pigtail 5 Fr LV Angiography catheter MULTIPACK JL 4.0 5Fr Left Coronary catheter Angiography MULTIPACK 3DRC 5Fr Right Coronary catheter Angiography Procedure Complications No complications Procedure Medications Medication Administration Route Dosage 0.9% NaCl I.V. Oxygen 100 Heparin Flush Bag added to field 2 bags (1000units/500ml NS) Lidocaine 2% added to field 20 Fentanyl I.V. 400 mcg/hr Levophed (8mg/250ml I.V. drip 2 mcg/min D5W) Heparin Bolus I.V. 4000 units Integrilin (Bolus I.V. 7.9 ml 2mg/ml) Integrilin (Bolus I.C. 7.9 ml 2mg/ml) Integrilin Drip I.V. drip 7 ml/hr (75mg/100ml) Plavix 600 mg Integrilin (Bolus wasted 12.1 ml 2mg/ml) Hemodynamics Rest BSA: 2.02 (m2) HGB: 7.8 (g/dl) O2 Consumption: Estimated: 243.61 (ml/min) O2 Con sumption indexed: Estimated:120.6 (ml/min/m) Heart Rate: 85 (bpm) Pressure Samples Time Site Value (mmHg) Purpose Heart Use Rate(bpm) 9:08 LV 89/25,41 Snapshot 79 9:08 LV 94/10,21 Snapshot 79 Snapshots Pre Cath Intra NCS Post Cath Vital Signs Time Heart Resp SPO2 etCO2 NIBP Rhythm Pain Sedation Rate (ipm) (%) (mmHg) (mmHg) Status Level (bpm) 8:45:01 83 23 100 0 119/62(92) NSR 0 (11) 5(A) , No pain 8:49:15 78 21 100 0 105/54(85) NSR 0 (11) 5(A) , No pain 8:53:23 79 23 100 0 81/54(72) NSR 0 (11) 5(A) , No pain 8:57:21 79 23 100 0 93/60(72) NSR 0 (11) 5(A) , No pain 9:01:22 80 23 100 0 100/59(83) NSR 0 (11) 5(A) , No pain 9:05:24 79 23 100 0 103/64(83) NSR 0 (11) 5(A) , No pain 9:09:30 78 23 100 0 103/59(79) NSR 0 (11) 5(A) , No pain 9:13:36 78 23 100 0 107/58(84) NSR 0 (11) 5(A) , No pain 9:17:42 76 23 100 0 117/64(95) NSR 0 (11) 5(A) , No pain 9:21:52 75 23 100 0 117/62(94) NSR 0 (11) 5(A) , No pain 9:26:02 75 22 100 0 127/59(99) NSR 0 (11) 5(A) , No pain Medications Time Medication Route Dose Verified Delivered Reason Notes Effectiveness by by 8:48:41 0.9% NaCl I.V. kvo Jeramie Gauthiera used for Arielle Lua school transportation supervisor 8:49:02 Oxygen vent 100% Jeramie Gauthiera used for FiO2 Arielle Lua school transportation supervisor 8:50:22 Heparin Flush added 2 bags Jeramie Bobo used for Bag to Arielle Guzmán MD procedure (1000units/500ml field NS) 8:50:34 Fentanyl I.V. 400 Jeramie Bobo for sedation infus ing mcg/hr Arielle Guzmán MD via CUSTOMER CARE ASSOCIATE upon arrival to 8:50:34 Lidocaine 2% added 20ml Jeramie Bobo for local to vial Arielle Guzmán MD anesthetic field 8:51:42 Levophed I.V. 2 Jeramie Bobo Per physician infus ing (8mg/250ml D5W) drip mcg/min Arielle Guzmán MD upon arrival to 9:14:34 Heparin Bolus I.V. 4000 Jeramie Morrison for verif ied units Arielle Lua anticoagulation with Dr. MARK Guzmán 9:14:45 Integrilin I.V. 7.9 ml Jeramie Morrison for (Bolus 2mg/ml) Arielle Lua antiplatelet RN therapy 9:14:57 Integrilin I.C. 7.9 ml Jeramie Bobo for (Bolus 2mg/ml) Arielle Guzmán MD antiplatelet therapy 9:15:09 Integrilin Drip I.V. 7 ml/hr Jeramie Morrison for (75mg/100ml) drip Arielle Lua antiplatelet RN therapy 9:16:07 Plavix NGT 600 mg Jeramie Morrison for Arielle Lua antiplatelet RN therapy 9:16:18 Integrilin wasted 12.1 ml Jeramie Morrison for (Bolus 2mg/ml) Arielle Lua antiplatelet RN therapy Procedure Log Time Note 8:00:19 Diagnostic Cath Status : Urgent 8:00:36 Admit Source: Emergency department 8:01:12 Arrival Date: 01/29/2019 12:17:00 PM 8:01:39 Insurance Payor : Medicare 8:02:33 Patient Height : 68.11 inches 8:02:39 Patient Weight : 194.01 lbs 8:13:56 Lab Result : Hemoglobin 7.8 g/dl 8:13:56 Lab Result : eGFR NONAFRICAN 5 ml/min 8:13:56 Lab Result : BUN 116 mg/dl 8:13:56 Lab Result : Creatinine 10.7 mg/dl 8:14:09 Giorgio Doll RT(R) sent for patient. Start room use. 8:14:10 Time tracking: Regular hours (M-F 7:00 - 5:00) 8:14:15 Plan of Care:Hemodynamics will remain stable., Cardiac rhythm will remain stable., Comfort level will be maintained., Respiratory function will remain adequate., Patient/ family verbilizes understanding of procedure., Procedure tolerated without complication., Recovers from procedure without complications.. 8:18:37 Plan of Care:Hemodynamics will remain stable., Cardiac rhythm will remain stable., Comfort level will be maintained., Respiratory function will remain adequate., Patient/ family verbilizes understanding of procedure., Procedure tolerated without complication., Recovers from procedure without complications.. 8:21:23 Risk of Mortality: 4.6 8:21:29 Risk of blood transfusion: 42.9 8:21:34 Risk of ZIYAD: 23.2 8:21:46 5) <15 or on dialysis Very severe, or end stage kidney failure. 8:22:43 Maximum allowable contrast dose (3.7 X eGFR X 0.75)13 ml. 8:22:49 Sedation plan: IV Moderate Sedation Medication:Versed, Fentanyl 8:22:55 Use device set Femoral Dx 8:22:57 ACIST Syringe ([id number]) opened to sterile field. 8:22:57 Bag Decanter (2002S) opened to sterile field. 8:22:58 Medline Cath Pack ([id number]) opened to sterile field. 8:22:59 ACIST Hand Control (88831) opened to sterile field. 8:26:44 ACIST Manifold (21785) opened to sterile field. 8:26:45 DIAGNOSTIC Multipack 5Fr catheter set ([id number]) opened to sterile field. 8:26:45 Tegaderm 4 x 4 (1626W) opened to sterile field. 8:26:48 SHEATH 5FR Paint Bank ([id number]) opened to sterile field. 8:26:48 EMERALD Guide Wire (991-752) opened to sterile field. 8:34:52 Patient received from ICU to CCL 2 On ventilator. Tansferred to table in Supine position. 8:34:55 Signed procedure consent form obtained from patient. 8:34:56 Warm blankets applied, and bartolo hugger turned on for patient comfort. 8:34:57 Correct patient and procedure confirmed by team. 8:34:57 ECG and BP/O2 sat monitors applied to patient. 8:43:49 Vital chart was started 8:43:50 Baseline sample Acquired. 8:43:56 Rhythm: sinus rhythm 8:43:58 Full Disclosure recording started 8:44:02 H&P Date Dictated: 02/05/2019 New H&P dictated by physician.. 8:44:03 Pre-procedure instructions explained to patient. 8:44:03 Pre-op teaching completed and patient verbalized understanding. 8:44:07 Family in waiting room. 8:44:08 Patient NPO since Midnight. 8:44:11 Is the patient allergic to Iodine/contrast media? No. 8:44:12 Was the patient premedicated? Yes 8:44:14 Is patient on blood thinner?No 8:44:15 Patient diabetic? Yes. 8:46:15 If diabetic: On Metformin? No 8:46:17 Previous problem with sedation/anesthesia? No ? 8:46:23 Snore? Yes 8:46:25 Sleep apnea? No 8:46:25 Deviated septum? No 8:46:26 Opens mouth fully? Yes 8:46:27 Sticks out tongue? Yes 8:46:31 Airway obstruction? Yes copd 8:46:34 Dentures? No ? 8:46:38 Pre procedure: right dorsailis pedis pulse 1+ Palpable, but thready & weak; easily obliterated 8:46:40 Pre procedure: left dorsailis pedis pulse 1+ Palpable, but thready & weak; easily obliterated 8:46:42 Patient pain scale 0/10 ?. 8:47:21 IV patent on arrival; right upper thigh 8:47:27 Lab results completed and on chart. 8:47:34 Right groin area was prepped with chlora-prep and draped in sterile fashion 8:47:35 Alarms reviewed by R. N. 8:47:35 Sharps counted by scrub and verified by R.N. 8:47:36 Physician arrived 8:47:36 --------ALL STOP TIME OUT------ 8:47:38 Final Timeout: patient, procedure, and site verified with staff and physician. All members of the team are in agreement. 8:47:39 Right groin site verified by team. 8:47:43 Fire Safety Assessment: A--An alcohol-based skin anteseptic being used preoperatively., C--Open oxygen or nitrous oxide is being used., D--An ESU, laser, or fiber-optic light is being used. 8:47:46 Physical assessment completed. ASA score P 2 - A patient with mild systemic disease as per Jeramie Guzmán MD. 8:48:41 0.9% NaCl kvo I.V. was administered by Tamiko Stoney RN; used for procedure; Verbal order read back and verified. 8:49:02 Oxygen 100% FiO2 vent was administered by Tamiko Lua RN; used for procedure; Verbal order read back and verified. 8:50:22 Heparin Flush Bag (1000units/500ml NS) 2 bags added to field was administered by Jeramie Guzmán MD; used for procedure; Verbal order read back and verified. 8:50:34 Fentanyl 400 mcg/hr I.V. was administered by Jeramie Guzmán MD; for sedation; infusing via CUSTOMER CARE ASSOCIATE upon arrival to Verbal order read back and verified. 8:50:34 Lidocaine 2% 20ml vial added to field was administered by Jeramie Guzmán MD; for local anesthetic; Verbal order read back and verified. 8:51:42 Levophed (8mg/250ml D5W) 2 mcg/min I.V. drip was administered by Jeramie Guzmán MD; Per physician; infusing upon arrival to Verbal order read back and verified. 8:54:02 Pt arrives to #2 via bed from ICU. Pt currently intubated on portable vent upon arrival. Sedation via continuous Fentanyl via CUSTOMER CARE ASSOCIATE pump. Levo infusing upon arrival. Pt not responsive via voice or stimuli. VSS. Will monitor. 9:04:35 Procedure started. 9:04:58 Local anesthetic to right femoral artery with Lidocaine 2% by Jeramie Guzmán MD.INITIAL ACCESS ONLY 9:05:17 Zero performed for pressure channel P1 9:07:30 A 5 Fr sheath was inserted into the Right Femoral artery 9:07:50 A MULTIPACK Pigtail 5 Fr catheter was advanced over the wire and used for LV Angiography. 9:08:09 LV hemodynamics recorded. 9:08:10 LV gram done using POSADA 9:08:13 Injector settings: Ml/sec: 5, Volume: 15, 9:08:18 EF : 30 % 9:08:28 Catheter removed. 9:08:33 A MULTIPACK JL 4.0 5Fr catheter was advanced over the wire and used for Left Coronary Angiography. 9:08:58 LCA angiography performed. 9:09:01 Injector settings: Ml/sec: 3, Volume: 6, 9:09:07 A MULTIPACK 3DRC 5Fr catheter was advanced over the wire and used for Right Coronary Angiography. 9:09:29 SHEATH 6FR Paint Bank ([id number]) opened to sterile field. 9:09:30 INFLATOR Merit BasixCompak (MU6051) opened to sterile field. 9:09:38 GUIDE 6FR XBLAD 3.5 catheter ([id number]) opened to sterile field. 9:09:49 RCA angiography performed. 9::52 Injector settings: Ml/sec: 3, Volume: 6, 9:12:00 ACCDominant side:Right 9:12:01 Catheter removed. 9:12:01 Proceeding to intervention. 9:12:11 Sheath upsized to a 6 Fr Short. 9:12:21 6 Fr xblad 3.5 guide catheter was inserted over the wire 9:12:26 choice pt wire advanced. 9:14:22 The EUPHORA 2.0 x 30 Balloon ([id number]) was advanced and then removed because of failure to cross lesion 9:14:27 Balloon removed over the wire. 9:14:28 Wire removed. 9:14:34 Heparin Bolus 4000 units I.V. was administered by Tamiko Lua RN; for anticoagulation; verified with Dr. Guzmán Verbal order read back and verified. 9:14:40 CHOICE PT Extra Support J 300cm guide wire ([id number]) opened to sterile field. 9:14:45 Integrilin (Bolus 2mg/ml) 7.9 ml I.V. was administered by Tamiko Lua RN; for antiplatelet therapy; Verbal order read back and verified. 9:14:57 Integrilin (Bolus 2mg/ml) 7.9 ml I.C. was administered by Jeramie Guzmán MD; for antiplatelet therapy; Verbal order read back and verified. 9:15:09 Integrilin Drip (75mg/100ml) 7 ml/hr I.V. drip was administered by Tamiko Lua RN; for antiplatelet therapy; Verbal order read back and verified. 9:15:09 choice pt 300 wire advanced. 9:15:18 Wire advanced across lesion. 9:15:39 Inflate balloon Inflation number: 1 A EMERGE OTW 1.5 x 15 balloon ([id number]) was prepped and advanced across the Prox LAD 99, then inflated to 21 VICTOR M for 0:10 (min:sec) 0. 9:15:52 Inflation number: 2 The EMERGE OTW 1.5 x 15 balloon ([id number]) was reinflated across the Prox LAD 0, to 21 VICTOR M for 0:10 (min:sec) . 9:16:01 Inflation number: 3 The EMERGE OTW 1.5 x 15 balloon ([id number]) was reinflated across the Prox LAD , to 21 VICTOR M for 0:10 (min:sec) . 9:16:07 Plavix 600 mg NGT was administered by Tamiko Lua RN; for antiplatelet therapy; Verbal order read back and verified. 9:16:16 Balloon removed over the wire. 9:16:18 Integrilin (Bolus 2mg/ml) 12.1 ml wasted was administered by Tamiko Lua RN; for antiplatelet therapy; Verbal order read back and verified. 9:17:18 Inflate balloon Inflation number: 4 A EUPHORA 2.0 x 30 Balloon ([id number]) was prepped and advanced across the Prox LAD 99, then inflated to 15 VICTOR M for 0:10 (min:sec) 0. 9:17:46 Inflation number: 5 The EUPHORA 2.0 x 30 Balloon ([id number]) was reinflated across the Prox LAD 0, to 15 VICTOR M for 0:10 (min:sec) . 9:19:49 Balloon removed over the wire. 9:20:36 Place stent Inflation Number: 6 A ANA RX 2.0 x 30 stent ([id number]) was prepped and advanced across the Prox LAD 100. The stent was deployed at 15 VICTOR M for 0:10 (min:sec) 0. 9:21:30 Stent catheter was removed intact over wire. 9:22:18 Place stent Inflation Number: 7 A ANA RX 2.0 x 22 stent ([id number]) was prepped and advanced across the Prox LAD 100. The stent was deployed at 17 VICTOR M for 0:10 (min:sec) 0. 9:22:48 Stent catheter was removed intact over wire. 9:22:48 Wire removed. 9:22:49 Guide catheter removed. 9:22:56 EXOSEAL 6Fr (EX600) opened to sterile field. 9:23:08 Sheath removed intact; hemostasis achieved with Exoseal to the Right Femoral artery. 9:23:37 Procedure ended.(Physican Out) 9:24:52 Fluoroscopy time 06.00 minutes. 9:24:56 Flurop Dose total: 661 9:24:56 Fluoroscopy dose: 661 mGy 9:25:01 Dose Area Product 42930 mGy/cm. 9:25:07 Contrast amount:Isovue 300 0ml. 9:25:09 Maximum allowable dose exceeded? No. 9:25:10 Sharps counted by scrub and verified by R.N. 9:25:12 Insertion/operative site no bleeding no hematoma. 9:25:14 Post-op/insertion site Right Femoral artery dressed using a 4 x 4 and Tegaderm. 9:25:20 Post procedure rhythm: unchanged. 9:25:23 Estimated blood loss: 5 ml 9:25:24 Post procedure instruction explained to patient.Patient verbalizes understanding. 9:25:25 Patient needs reinforcement of post procedure teaching. 9:26:44 Procedure type changed to Cath procedure, Diagnostic procedure, LHC, [facility] w/Coronaries, Sedation Charges, Moderate Sedation up to 30 minutes, PCI procedure, Coronary Stent, Coronary Stent Initial, Hemochron ACT Test 9:26:45 Procedure and supply charges have been captured, reviewed, submitted and are correct. 9:26:49 Procedure Complication : No complications 9:26:52 Vital chart was stopped 9:27:06 [facility] Findings: MVD- PCI performed (see procedure note) 9:27:08 Operative report dictated upon procedure completion. 9:27:08 See physician's report for complete and final results. 9:27:13 Report given to ICU. 9:27:15 Patient transfered to ICU with Stretcher. 9:27:17 Procedure ended. 9:27:17 Full Disclosure recording stopped 9:27:27 ACC-PCI Only Patient was given prescriptions, or instructed by Jeramie Guzmán MD to start/continue the following medications upon discharge: Plavix 9:27:28 End room use (Document Last) 9:30:31 ACT drawn and resulted at 239 seconds. (normal therapeutic range 180-240 seconds). Intervention Summary Intervention Notes Time ActionType Lesion and Equipment Used Action# Pressure Duration Attributes 9:14:22 Discard EUPHORA 2.0 x Balloon 30 Balloon ([id number]) 9:15:39 Inflate Prox LAD EMERGE OTW 1.5 1 21 00:10 balloon x 15 balloon ([id number]) 9:15:52 Reinflate Prox LAD EMERGE OTW 1.5 2 21 00:10 balloon x 15 balloon ([id number]) 9:16:01 Reinflate Prox LAD EMERGE OTW 1.5 3 21 00:10 balloon x 15 balloon ([id number]) 9:17:18 Inflate Prox LAD EUPHORA 2.0 x 4 15 00:10 balloon 30 Balloon ([id number]) 9:17:46 Reinflate Prox LAD EUPHORA 2.0 x 5 15 00:10 balloon 30 Balloon ([id number]) 9:20:36 Place stent Prox LAD ANA RX 2.0 x 6 15 00:10 30 stent ([id number]) 9:22:18 Place stent Prox LAD ANA RX 2.0 x 7 17 00:10 22 stent ([id number]) Device Usage Item Name Manufacture Quantity Catalog Number Hospital Part Current Minimal Lot# / Charge Number Stock Stock Serial# Code ACIST Syringe Acist 1 03721 585464 384939 309061 20 (49057) Medical Systems Inc Bag Decanter Microtek 1 2001S 096995 25834 826381 5 (2001S) Medical Inc. Medline Cath Medline 1 [id number] 505380 28481 384832 5 Pack ([id number]) ACIST Hand Acist 1 29018 091028 132154 872719 5 Control Medical (76854) Systems Inc ACIST Manifold Acist 1 60843 954900 990999 590008 5 (17023) Medical Systems Inc DIAGNOSTIC Cardinal 1 VY9081 661978 19165 507446 30 Multipack 5Fr Health catheter set ([id number]) Tegaderm 4 x 4 3M 1 1626W 158139 285348 188506 5 (1626W) SHEATH 5FR Terumo 1 SJZ604 776579 577151 167056 5 Paint Bank (VOR878) EMERALD Guide Cardinal 1 502-455 403179 697019 174438 5 Wire (502-455) Health MULTIPACK Cardinal 1 561909 5 Pigtail 5 Fr Health catheter MULTIPACK JL Cardinal 1 779460 5 4.0 5Fr Health catheter MULTIPACK 3DRC Cardinal 1 929287 5 5Fr catheter Health SHEATH 6FR Terumo 1 DSX466 118088 527568 516703 40 Paint Bank (ZJH512) INFLATOR Merit Merit 1 ZT2575 769404 354000 614826 15 BasixComark Medical (HE1629) GUIDE 6FR Cardinal 1 [id number] 500212 229469 836415 10 XBLAD 3.5 Health catheter ([id number]) EUPHORA 2.0 x Medtronic 1 [id number] 751534 886668 425818 5 [id number] 30 Balloon ([id number]) CHOICE PT [place] 1 [id number] 710405 383714 057536 5 Extra Support Scientific J 300cm guide wire ([id number]) EMERGE OTW 1.5 [place] 1 [id number] 527709 608386 202322 5 [id number] x 15 balloon Scientific ([id number]) ANA RX 2.0 x Medtronic 1 [id number] 109085 3970524 612510 5 [id number] 30 stent ([id number]) ANA RX 2.0 x Medtronic 1 [id number] 577629 4253566 449994 5 [id number] 22 stent ([id number]) EXOSEAL 6Fr Cardinal 1 EX600 619633 591979 983787 10 (EX600) Health Signature Audit [place] Stage Time Signature Unsigned Intra-Procedure 02/05/2019 Joie Villegas 9:29:47 AM RT(R) Intra-Procedure 02/05/2019 Tamiko Lua 9:30:31 AM RN Intra-Procedure 02/05/2019 Jeramie Guzmán 9:32:09 AM Signatures Performing Physician : Signature : Jeramie Guzmán MD Date : Time : Monitor : Joie Villegas RT Signature : Date : Time : Nurse : Tamiko Lua RN Signature : Date : Time : [address] [place] [address]
--- NOTE | 2019-01-29 12:28 | NUR ---
I WAS AT SIDE OF BED JORGE CHARLES FROM RESPIRATORY TO ASSIST PT WITH USING THE URNIAL. HE WAS SITTING ON THE SIDE OF THE BED AND TON WAS HOLDING HIM STEADY WHILE I HELD THE URNINAL. PT STARTED SHAKING AND HIS EYES ROLLED BACK IN HIS HEAD, HE WENT INTO SEIZURE LIKE ACTIVITY. TON AND I SAT HIM ON THE FLOOR BECAUSE HE KEPT TRYING TO LAY BACK AND WAS SLIDING OFF INTO THE FLOOR. DR MONTIEL WAS CALLED TO ROOM WITH ASHLEY FLORES AND AMELIA FLORES. PT OBSERVED BY AND PUT BACK INTO THE BED VSS, HE IS NOT RESPONSIVE AT PRESENT. IT TOOK HIM ABOUT 5 MINUTES TO "SNAP" OUT OF IT OUTSIDE OF ROOM TALKING TO
[2019-01-29 12:34] LABS: HEMATOCRIT 30.5 % (42.0-54.0); HEMOGLOBIN 9.1 g/dL (13.5-17.5); MCH 31.9 pg (26.0-34.0); MCHC 29.8 g/dL (31.0-37.0); MEAN PLATELET VOLUME 10.1 fL (7.4-10.4); PLATELET COUNT 426 10x3/uL (130-400); RBC 2.85 10x6/uL (4.20-6.10); WBC 15.4 10x3/uL (4.8-10.8)
[2019-01-29 12:38] VITALS: BP 135/52
[2019-01-29 12:43] LABS: CALC OSMOLALITY 308 mosm/kg (275-300); CALCIUM 10.7 mg/dL (8.5-10.1); CARBON DIOXIDE 21.9 mmol/L (21.0-32.0); CHLORIDE - SERUM 93 mmol/L (98-107); CREATININE - SERUM 11.5 mg/dL (0.6-1.3); POTASSIUM - SERUM 4.8 mmol/L (3.5-5.1); SODIUM 138 mmol/L (136-145); UREA NITROGEN 84 mg/dL (7-18); eGFR NON AFRICAN AMERICAN 5 mL/min (90-120)
[2019-01-29 12:44] LABS: GLUCOSE 223 mg/dL (74-106)
[2019-01-29 12:48] LABS: APTT 30.7 SECONDS (22.8-39.4); INR 1.17 (0.85-1.17); PROTIME 14.4 SECONDS (11.6-15.0)
[2019-01-29 13:10] LABS: ALBUMIN 3.1 g/dL (3.4-5.0); ALKALINE PHOSPHATASE 156 U/L (46-116); ALT (SGPT) 15 U/L (10-68); BILIRUBIN - TOTAL 0.74 mg/dL (0.2-1.3); CKMB 4.8 U/L (0.0-3.6); CREATINE KINASE 65 UL (21-232); PROTEIN - SERUM 9.3 g/dL (6.4-8.2)
[2019-01-29 13:11] LABS: TROPONIN-I 0.093 ng/mL (0.000-0.060)
[2019-01-29 13:59] LABS: LYMPHOCYTES 11 % (15-50); MONOCYTES 12 % (2-11); NEUTROPHILS 74 % (40-80); PLATELET ESTIMATE INCREASED
--- NOTE | 2019-01-29 14:06 | NUR ---
PT ARRIVED VIA STRECHER. DENIES ANY NEEDS OR PAIN AT THIS TIME. BOTTOM LOOKS WNL. IV NOTED TO RIGHT THUMB INFUSING FIRST BAG OF LACTATED RINGERS. PT IS NINILCHIK AND CAN ANSWER MOST QUESTIONS. @ BEDSIDE IS ASSISTING WITH ANSWERING QUESTIONS. SUCTION SET UP @ BEDSIDE FOR ASPIRATION PRECAUTIONS DUE TO SEIZURE IN ER. PT IS CLEAN AND DRY. RR EVEN AND UNLABORED ON RA. PT HAS SABA DIALYS[employer] CATHETER TO RLQ, LOCKED AT THIS MOMENT. PT ASLO HAS CONTINUOUS "DEXCOM" TO LUQ, CHECKS FSBS Q5 MIN. CURRENTLY 186. BED IN LOWEST POSITION. PT ORIENTED TO ROOM. CALL LIGHT WITHIN REACH. WILL CONTINUE TO MONITOR.
[2019-01-29] MEDS ORDERED: LEVEMIR FL100 UNIT/1 SC (14:26)
[2019-01-29] MEDS ORDERED: MIDODRINE HCL2.5 MG PO (14:31)
[2019-01-29 14:58] VITALS: BP 118/51; BMI 28.6
[2019-01-29 15:47] VITALS: BP 118/51
[2019-01-29 16:32] LABS: % SATURATION 49 % (15-55); IRON 140 ug/dl (35-150); TOTAL IRON BIND CAPACITY 285 ug/dl (260-445); UNSAT IRON BIND CAPACITY 145 ug/dl (150-375)
[2019-01-29] MEDS ORDERED: LEVOTHYROXINE50 MCG PO (17:03)
[2019-01-29] MEDS ORDERED: HYDROCODON-ACE1 EAC7 PO (17:05)
--- NOTE | 2019-01-29 19:26 | NUR ---
RECEIVED UP IN BED WITH EYES CLOSED. LETHARGICAND DOES AROUSE WITH VERBAL STIMULI. UNABLE TO GIVE HIS NAME.CONFUSED X4. HAVING TREMORS. IV TO EIGHT THUMB WITH NS AT TKO. POINT LAY IRA. O2@ 2 LITERS PER N/C IN PLACE.LEFT ARM RESERVED D/T AVF. FISTULA HAS GOOD BRUIT AND TRILL. PD CATH TO RIGHT LOWER QUADRANT. TELEMETRY IN PLACE. NO S/S OF DISTRESS OBSERVED.
[2019-01-29 20:00] VITALS: BP 110/53
[2019-01-30] VITALS: BP 105/67
[2019-01-30 04:00] VITALS: BP 134/63
[2019-01-30 07:26] LABS: HEMATOCRIT 27.9 % (42.0-54.0); HEMOGLOBIN 8.3 g/dL (13.5-17.5); MCH 31.2 pg (26.0-34.0); MCHC 29.7 g/dL (31.0-37.0); MCV 104.9 fL (80.0-100.0); MEAN PLATELET VOLUME 10.6 fL (7.4-10.4); PLATELET COUNT 342 10x3/uL (130-400); RBC 2.66 10x6/uL (4.20-6.10); RDW 16.9 % (11.5-14.5); WBC 23.5 10x3/uL (4.8-10.8)
[2019-01-30 07:32] LABS: ALBUMIN 2.6 g/dL (3.4-5.0); ANION GAP 23.3 mmol/L (8-16); BILIRUBIN - TOTAL 0.44 mg/dL (0.2-1.3); CALCIUM 9.5 mg/dL (8.5-10.1); CREATININE - SERUM 11.9 mg/dL (0.6-1.3); MAGNESIUM - SERUM 1.8 mg/dL (1.8-2.4); POTASSIUM - SERUM 5.3 mmol/L (3.5-5.1); PROTEIN - SERUM 7.7 g/dL (6.4-8.2)
--- NOTE | 2019-01-30 07:35 | NUR ---
ASSESSMENT DONE. DENIES NEEDS
[2019-01-30 08:42] VITALS: BP 124/79
[2019-01-30 09:13] LABS: LYMPHOCYTES 7 % (15-50); MONOCYTES 3 % (2-11); NEUTROPHILS 89 % (40-80); PLATELET ESTIMATE NORMAL
[2019-01-30 14:05] VITALS: BP 130/73
--- NOTE | 2019-01-30 16:08 | NUR ---
I have reviewed this patient and I concur with the Shift Assessment completed by the Licensed Practical Nurse today this shift.
[2019-01-30 16:20] VITALS: BP 117/42
--- NOTE | 2019-01-30 19:32 | NUR ---
REPORT RECIEVD AND ROUNDING COMPLETE. PATIENT LAYING IN BED IN LOW FOLWERS, PATIENT COMPLAINS OF A COUGH. PAITENT STATES HE HAS NO NEEDS AT THIS TIME. PATIENT HAS A RIGHT UPPER ARM PIV, PATIENT IS WEARING NASAL CANNULA WIT 02 AT 2L. PAITNET SHOWS NO S/SX OF DISTRESS AT THIS TIME. CALL LIGHT WITHIN REACH AND BED IN LOWEST LOCKED POSITION.
[2019-01-30 20:00] VITALS: BP 107/42
--- NOTE | 2019-01-30 23:05 | NUR ---
PAGED DR. SÁNCHEZ ABOUT PATIENT'S COMPLAINT OF BEING FULL AND BURNING SENSATION IN ABD.
[2019-01-31] VITALS: BP 132/46
--- NOTE | 2019-01-31 02:28 | NUR ---
ENTERED PATIENTS ROOM FROM PD EXCHANGE, PATIENT LAYING IN BED IN LOWER FOWLERS POSITION, PATIENT EXPLAINED THAT HE HAD PULLED ON HIS PIV AND THINKS HE IS BLEEDING. WHEN TURNING ON THE LIGHT IN FACT HE DID PULL OUT HIS PIV AND HAD BLED ON HIS GOWN AND BEDDING. COMPLETE BED CHANGE AND GOWN CHANGED AND CLEANED HIM UP. NEW PIV NOT STARTED AT THIS TIME, PATIENT ASKED IF HE COULD WAIT UNTIL THE MORNING BECAUSE HE WAS NOT IN THE MOOD TO BE STUCK TONIGHT. I TOLD HIM THAT I NEEDED TO GET IT DONE AND HE THEN STATED NO DO NOT STICK ME WITH ANY MORE DAMN NEEDLES. WILL TRY AGAIN AFTER PD EXCHANGE AND A BIT OF TIME. PATIENT IS RESTLING COMFORTABLY NOW AND HANDLING PD EXCHANGE WELL. CALL LANI HERNANDEZ REACH AND BED IN LOWEST LOCKED POSITITON.
--- NOTE | 2019-01-31 03:06 | NUR ---
I have reviewed this patient and I concur with the Shift Assessment completed by the Licensed Practical Nurse today this shift.
[2019-01-31 04:00] VITALS: BP 148/70
[2019-01-31 05:44] LABS: BASOPHILS 0 % (0-2); EOSINOPHILS 0 % (0-7); HEMATOCRIT 26.9 % (42.0-54.0); IMMATURE GRANULOCYTES 2.5 % (0-5); LYMPHOCYTES 2.5 % (15-50); MCH 31.1 pg (26.0-34.0); MCHC 29.7 g/dL (31.0-37.0); MCV 104.7 fL (80.0-100.0); MEAN PLATELET VOLUME 10.6 fL (7.4-10.4); MONOCYTES 2.6 % (2-11); NEUTROPHILS 92.4 % (40-80); PLATELET COUNT 326 10x3/uL (130-400); RBC 2.57 10x6/uL (4.20-6.10); RDW 16.8 % (11.5-14.5); WBC 23.6 10x3/uL (4.8-10.8)
[2019-01-31 06:10] LABS: ALBUMIN 2.5 g/dL (3.4-5.0); ANION GAP 22.4 mmol/L (8-16); BILIRUBIN - TOTAL 0.44 mg/dL (0.2-1.3); CARBON DIOXIDE 22.7 mmol/L (21.0-32.0); CREATININE - SERUM 11.3 mg/dL (0.6-1.3); MAGNESIUM - SERUM 1.9 mg/dL (1.8-2.4); POTASSIUM - SERUM 5.1 mmol/L (3.5-5.1); PROTEIN - SERUM 7.5 g/dL (6.4-8.2)
[2019-01-31 07:28] LABS: APTT 30.8 SECONDS (22.8-39.4); INR 1.14 (0.85-1.17); PROTIME 14.1 SECONDS (11.6-15.0)
--- NOTE | 2019-01-31 07:35 | NUR ---
ASSESSMENT DONE. DENIES NEEDS
[2019-01-31 10:29] VITALS: BP 119/39
[2019-01-31 14:04] VITALS: BP 134/50
[2019-01-31 14:32] VITALS: BMI 28.2
--- NOTE | 2019-01-31 16:52 | MORECARE ---
CASE MANAGEMENT DISCHARGE SUMMARY PATIENT: ASHLEY HSU III UNIT: [id number] ADM DATE: 01/29/19 AGE: 73 : 44 SEX: M ROOM/BED: D.2128 AUTHOR: JUDITH CASE PHYSICIAN: REFERRING PHYSICIAN: YESIKA SMITH MD DATE OF SERVICE: 01/31/19 Discharge Plan Patient Name: ASHLEY HSU [facility] [facility] 1945 Planned Disposition: Longterm Facility Anticipated Discharge Date: Discharge Date: Expected LOS: Initial Reviewer: [id number] Initial Review Date: 01/31/2019 Generated: 01/31/19 5:51 pm Coverage Notice Reviewer: [id number] - Tate Paula Notice Issued Date-Time: 01/31/2019 9:50 Notice Type: Patient Choice Letter Notice Delivered To: Family Member Relationship to Patient: Spouse Sewer Pipe Cleaner Name: ENRIQUETA HSU Delivery Method: HAND - Hand Delivered Suki Days: Prior Verbal Notification: Recipient Understood Notice: Yes Recipient Signature: Yes Med Rec Note Co-signed by Attending: Coverage Notice Comment: NO HALFWAY PREFERENCE Patient Name: ASHLEY HSU Page [phone] at 1652 All edits/amendments must be made on the electronic document DICTATION DATE: 01/31/191650 AUTOMATIC CASTING MACHINE OPERATOR: KARIN 01/31/191650 RPT#: [id number] DC DATE: STATUS: ADM IN [facility] [address] [place] [address] END OF REPORT
--- NOTE | 2019-01-31 16:59 | MORECARE ---
CASE MANAGEMENT DISCHARGE SUMMARY PATIENT: ASHLEY HSU III UNIT: [id number] ADM DATE: 01/29/19 AGE: 73 : 44 SEX: M ROOM/BED: D.4848 AUTHOR: EVIEDOC PHYSICIAN: REFERRING PHYSICIAN: YESIKA SMITH MD DATE OF SERVICE: 01/31/19 Discharge Plan Patient Name: ASHLEY HSU Facility: [facility]:[place] : 1945 Planned Disposition: Nursing Home Facility Anticipated Discharge Date: Discharge Date: Expected LOS: Initial Reviewer: [id number] Initial Review Date: 01/31/2019 Generated: 01/31/19 5:59 pm Comments DCP- Discharge Planning Updated by [id number]: Tate Paula on 01/31/19 3:[address] Patient Name: ASHLEY HSU Admission Status: ER Accout number: [id number] Admission Date: 01-29-2019 : 1945 Admission Diagnosis: Attending: YESIKA SMITH Current LOS: 2 Anticipated DC Date: Planned Disposition: Nursing Home Facility Primary Insurance: MEDICARE A & B PLANNED EXTERNAL PROVIDER: TO BE DETERMINED Discharge Planning Comments: CM MET WITH PT AND SPOUSE IN ROOM TO DISCUSS DISCHARGE PLANNING AND NEEDS. ASHLEY HSU provided verbal consent to discuss current and ongoing needs with/in the presence of: ENRIQUETA, HIS . PT LIVING AT HOME DEPENDENTLY WITH WHO REPORTS HAVING TO ASSIST WITH EVERYTHING AT THIS TIME EXCEPT EATING. PT HAS BEDSIDE COMMODE, CANE, NEBULIZER, OXYGEN AT NIGHT, ROLLING WALKER AND WHEELCHAIR FROM [facility]. PT HAD HOME HEALTH WITH [facility]. CM DISCUSSED AVAILABILITY OF HOME HEALTH, REHAB SERVICES AND MEDICAL EQUIPMENT. PT'S REPORTS INABILITY TO CARE FOR PT AT HOME ANY LONGER AND WANTS PT IN ALF IN [place] STATING THEY WILL HAVE TO BE ABLE TO DO "PD" SHE IS NOT ABLE TO GO TO THE FACILITY DAILY TO DO IT ANY LONGER, CHOICE FOR NO [facility] FACILITY PREFERENCE SIGNED. CM SPOKE TO ELIAN MCCORMICK OF [facility], PD CANNOT BE DONE AT [facility] OR [facility]. CM SPOKE TO DIANN WHO INFORMED CM THEY WOULD CONSIDER PD AT THE FACILITY. CM WILL CONTINUE TO EXPLORE ALF POSSIBILITIES IN [place]. Geological Survey Field Assistant: Tate Paula DCPIA - Discharge Planning Initial Assessment Updated by [id number]: Tate Paula on 01/31/19 4:53 pm * Is the patient Alert and Oriented? Yes * How many steps to enter\\exit or inside your home? 13 * PCP DR. KYLE SANABRIA * Pharmacy [facility] ON [address] * Preadmission Environment Home with Family * ADLs Partial Dependent * Partial ADLs (Assistance needed) Ambulation Bathing Medication Management Toileting Transfers * Equipment Bedside Commode Cane Nebulizer Oxygen Rolling Walker Wheelchair * Other Equipment NIGHT OXYGEN ONLY [facility] IS PROVIDER * List name and contact numbers for known caregivers / representatives who currently or will assist patient after discharge: ENRIQUETA CANSECO, , * Verbal permission to speak to the caregivers and representatives has been obtained from the patient. Yes * Community resources currently utilized Other * Please name any agencies selected above. [facility] * Additional services required to return to the preadmission environment? Yes * Can the patient safely return to the preadmission environment? Yes * Has this patient been hospitalized within the prior 30 days at any hospital? No Coverage Notice Reviewer: [id number] - Tate Paula Notice Issued Date-Time: 01/31/2019 9:50 Notice Type: Patient Choice Letter Notice Delivered To: Family Member Relationship to Patient: Spouse Railroad Car Cleaner Name: ENRIQUETA HSU Delivery Method: HAND - Hand Delivered Suki Days: Prior Verbal Notification: Recipient Understood Notice: Yes Recipient Signature: Yes Med Rec Note Co-signed by Attending: Coverage Notice Comment: NO [facility] PREFERENCE Last DP export: 01/31/19 3:52 Patient Name: ASHLEY HSU Page [phone] at 1659 All edits/amendments must be made on the electronic document DICTATION DATE: 01/31/191658 ARCHIVES SPECIALIST: KARIN 01/31/191658 RPT#: [id number] [place] DATE: STATUS: ADM IN [facility] [address] [place] [address] END OF REPORT
--- NOTE | 2019-01-31 17:03 | NUR ---
OT NOTE: PT CONFUSED . PT AT EOB UPON ENTERING ROOM. PT REQUIRED MIN A FOR SIT TO SUPINE. PT COMPLETED LB HYGIENE WITH MAX A. PT COMPLETED UE AROM AXS. [id number] THANK YOU, DEBI KING
[2019-01-31 17:43] VITALS: BP 136/75
--- NOTE | 2019-01-31 19:09 | NUR ---
I have reviewed this patient and I concur with the Shift Assessment completed by the Licensed Practical Nurse today this shift.
--- NOTE | 2019-01-31 20:00 | NUR ---
EVENING ROUNDS COMPLETED. VSS, PT ALERT BUT CONFUSED. NO S/S OF RT DISTRESS. PD SITE C/D/I. ASSESED BLOOD SUGAR THROUGH MOBILE PHONE, 285. BED ALARM ON. PROVIDED PT WITH FRESH LINEN AND GOWN. PT DENIES ANY FURTHER NEEDS AT THIS TIME. WILL CPOC. CL WITHIN REACH, BED IN LOWEST POSITION, SR UP X2.
[2019-01-31 20:30] VITALS: BP 140/68
[2019-02-01 00:30] VITALS: BP 152/65
--- NOTE | 2019-02-01 02:35 | NUR ---
PT FOUND RANDOMLY SCREAMING IN THE ROOM ABOUT HOW HE ORDERED A BOWL OF SHRIMP. PT PLEASANTLY CONFUSED. HE ALSO STATED THAT HE CAN HEAR HIS FROM ACCROSS THE HERNANDEZ. HELPED REORIENT PT. DIALYSIS IN PROGRESS. WILL CTM. CL WITHIN REACH.
[2019-02-01 04:00] VITALS: BP 149/57
[2019-02-01 06:15] LABS: ALBUMIN 2.4 g/dL (3.4-5.0); ANION GAP 23.1 mmol/L (8-16); BILIRUBIN - TOTAL 0.48 mg/dL (0.2-1.3); CALCIUM 8.7 mg/dL (8.5-10.1); CARBON DIOXIDE 22.5 mmol/L (21.0-32.0); CREATININE - SERUM 10.7 mg/dL (0.6-1.3); MAGNESIUM - SERUM 1.9 mg/dL (1.8-2.4); POTASSIUM - SERUM 4.6 mmol/L (3.5-5.1); PROTEIN - SERUM 7.2 g/dL (6.4-8.2)
--- NOTE | 2019-02-01 06:33 | NUR ---
FSBS 441 28 UNITS OF HUMULIN GIVEN, MAURI BRENNER CALLED. JORDIN DOTSON ORDERED [id number].
[2019-02-01 06:59] LABS: HEMATOCRIT 26.3 % (42.0-54.0); HEMOGLOBIN 7.9 g/dL (13.5-17.5); MCH 31.2 pg (26.0-34.0); MEAN PLATELET VOLUME 10.5 fL (7.4-10.4); PLATELET COUNT 324 10x3/uL (130-400); RBC 2.53 10x6/uL (4.20-6.10); RDW 16.9 % (11.5-14.5); WBC 22.6 10x3/uL (4.8-10.8)
--- NOTE | 2019-02-01 07:35 | NUR ---
ASSESSMENT DONE. DENIES NEEDS
[2019-02-01 09:26] LABS: LYMPHOCYTES 7 % (15-50); MONOCYTES 9 % (2-11); NEUTROPHILS 83 % (40-80); PLATELET ESTIMATE NORMAL
[2019-02-01 09:27] LABS: ROULEAUX OCC
[2019-02-01 10:13] VITALS: BP 121/50
[2019-02-01 12:20] LABS: MACROPHAGES BF 23 %; MESOTHELIALS BF 3 %; NEUT - BF 56 %
[2019-02-01 14:25] VITALS: BP 138/66
--- NOTE | 2019-02-01 15:24 | NUR ---
I have reviewed this patient and I concur with the Shift Assessment completed by the Licensed Practical Nurse today this shift.
--- NOTE | 2019-02-01 15:30 | MORECARE ---
CASE MANAGEMENT DISCHARGE SUMMARY PATIENT: ASHLEY HSU III UNIT: [id number] ADM DATE: 01/29/19 AGE: 73 : 44 SEX: M ROOM/BED: D.7567 AUTHOR: EVIEDOC PHYSICIAN: REFERRING PHYSICIAN: YESIKA SMITH MD DATE OF SERVICE: 02/01/19 Discharge Plan Patient Name: ASHLEY HSU Facility: [facility]:[place] : 1945 Planned Disposition: Alf Facility Anticipated Discharge Date: Discharge Date: Expected LOS: Initial Reviewer: [id number] Initial Review Date: 01/31/2019 Generated: 02/01/19 4:30 pm Comments DCP- Discharge Planning Updated by [id number]: Tate Paula on 01/31/19 3:[address] Patient Name: ASHLEY HSU Admission Status: ER Accout number: [id number] Admission Date: 01-29-2019 : 1945 Admission Diagnosis: Attending: YESIKA SMITH Current LOS: 2 Anticipated DC Date: Planned Disposition: Alf Facility Primary Insurance: MEDICARE A & B PLANNED EXTERNAL PROVIDER: TO BE DETERMINED Discharge Planning Comments: CM MET WITH PT AND SPOUSE IN ROOM TO DISCUSS DISCHARGE PLANNING AND NEEDS. ASHLEY HSU provided verbal consent to discuss current and ongoing needs with/in the presence of: ENRIQUETA, HIS . PT LIVING AT HOME DEPENDENTLY WITH WHO REPORTS HAVING TO ASSIST WITH EVERYTHING AT THIS TIME EXCEPT EATING. PT HAS BEDSIDE COMMODE, CANE, NEBULIZER, OXYGEN AT NIGHT, ROLLING WALKER AND WHEELCHAIR FROM [facility]. PT HAD HOME HEALTH WITH [facility]. CM DISCUSSED AVAILABILITY OF HOME HEALTH, REHAB SERVICES AND MEDICAL EQUIPMENT. PT'S REPORTS INABILITY TO CARE FOR PT AT HOME ANY LONGER AND WANTS PT IN [facility] IN [place] STATING THEY WILL HAVE TO BE ABLE TO DO "PD" SHE IS NOT ABLE TO GO TO THE FACILITY DAILY TO DO IT ANY LONGER, CHOICE FOR NO DETENTION FACILITY PREFERENCE SIGNED. CM SPOKE TO ELIAN MCCORMICK OF [facility], PD CANNOT BE DONE AT [facility] OR [facility]. CM SPOKE TO DIANN WHO INFORMED CM THEY WOULD CONSIDER PD AT THE FACILITY. CM WILL CONTINUE TO EXPLORE [facility] POSSIBILITIES IN [place]. Extruder Operator Multiple: Tate Paula DCPIA - Discharge Planning Initial Assessment Updated by [id number]: Tate Paula on 01/31/19 4:53 pm * Is the patient Alert and Oriented? Yes * How many steps to enter\\exit or inside your home? 13 * PCP DR. KYLE SANABRIA * Pharmacy [facility] ON [address] * Preadmission Environment Home with Family * ADLs Partial Dependent * Partial ADLs (Assistance needed) Ambulation Bathing Medication Management Toileting Transfers * Equipment Bedside Commode Cane Nebulizer Oxygen Rolling Walker Wheelchair * Other Equipment NIGHT OXYGEN ONLY [facility] IS PROVIDER * List name and contact numbers for known caregivers / representatives who currently or will assist patient after discharge: ENRIQUETA CANSECO, , * Verbal permission to speak to the caregivers and representatives has been obtained from the patient. Yes * Community resources currently utilized Other * Please name any agencies selected above. [facility] * Additional services required to return to the preadmission environment? Yes * Can the patient safely return to the preadmission environment? Yes * Has this patient been hospitalized within the prior 30 days at any hospital? No Coverage Notice Reviewer: [id number] - Tate Paula Notice Issued Date-Time: 01/31/2019 9:50 Notice Type: Patient Choice Letter Notice Delivered To: Family Member Relationship to Patient: Spouse Insurance Sales Executive Name: ENRIQUETA HSU Delivery Method: HAND - Hand Delivered Suki Days: Prior Verbal Notification: Recipient Understood Notice: Yes Recipient Signature: Yes Med Rec Note Co-signed by Attending: Coverage Notice Comment: NO DETENTION PREFERENCE Last DP export: 01/31/19 3:59 Patient Name: ASHLEY HSU Page [phone] at 1530 All edits/amendments must be made on the electronic document DICTATION DATE: 02/01/191528 CAR TOP BOLTER: KARIN 02/01/191528 RPT#: [id number] DC DATE: STATUS: ADM IN [facility] [address] [place] [address] END OF REPORT
--- NOTE | 2019-02-01 16:33 | NUR ---
OT NOTE: PT REQUIRED ASSISTANCE SEVERAL TIMES THROUGH OUT AM. PT REQUIRED MAX A WITH BED MOB TASKS . PT REQUIRED MAX A X3 FOR TRANSFER FROM BED TO CHAIR. PT REQUIRED MIN A FOR HAND HYGIENE AND MAX A FOR LB HYGIENE. PT COMPLETED BUE AROM AX . PT IS CONFUSED. THERAPY AND NURSING AGREE PT IS NOT YET READY FOR BSC. [id number] THANK YOU, DEBI KING
--- NOTE | 2019-02-01 17:01 | MORECARE ---
CASE MANAGEMENT DISCHARGE SUMMARY PATIENT: ASHLEY HSU III UNIT: [id number] ADM DATE: 01/29/19 AGE: 73 : 44 SEX: M ROOM/BED: D.2908 AUTHOR: EVIE,DOC PHYSICIAN: REFERRING PHYSICIAN: YESIKA SMITH MD DATE OF SERVICE: 02/01/19 Discharge Plan Patient Name: ASHLEY HSU Facility: [facility]:[place] : 1945 Planned Disposition: [facility] Facility Anticipated Discharge Date: Discharge Date: Expected LOS: Initial Reviewer: [id number] Initial Review Date: 01/31/2019 Generated: 02/01/19 6:00 pm Comments DCP- Discharge Planning Updated by [id number]: Tate Paula on 02/01/19 3:[address] Patient Name: ASHLEY HSU Encounter No: [id number] : 1945 Primary Insurance: MEDICARE A & B Anticipated DC Date: Planned Disposition: [facility] Facility External Planned Provider: [facility], MEDICARE REHAB BED DCP follow-up note: CM SPOKE TO PT'S SPOUSE IN ROOM WITH PT, THEY HAVE MET WITH DIANN OF [facility] WHO TOLD THEM [facility] CAN DO [facility] AT FACILITY. THEY WOULD LIKE REFERRAL SENT TO [facility] WHEN PT IS CLOSER TO LEAVING HOSPITAL. CHOICE SIGNED. CM TO SEND REFERRAL FOR REHAB TO DETENTION CARE SERVICES TO [facility] WHEN PT IS MORE MEDICALLY STABLE WITH PROJECTED DISCHARGE DATE. Tate Paula, GUILLERMO DCP- Discharge Planning Updated by [id number]: Tate Paula on 01/31/19 3:[address] Patient Name: ASHLEY HSU Admission Status: ER Accout number: [id number] Admission Date: 01-29-2019 : 1945 Admission Diagnosis: Attending: YESIKA SMITH Current LOS: 2 Anticipated DC Date: Planned Disposition: [facility] Facility Primary Insurance: MEDICARE A & B PLANNED EXTERNAL PROVIDER: TO BE DETERMINED Discharge Planning Comments: CM MET WITH PT AND SPOUSE IN ROOM TO DISCUSS DISCHARGE PLANNING AND NEEDS. ASHLEY HSU provided verbal consent to discuss current and ongoing needs with/in the presence of: ENRIQUETA, HIS . PT LIVING AT HOME DEPENDENTLY WITH WHO REPORTS HAVING TO ASSIST WITH EVERYTHING AT THIS TIME EXCEPT EATING. PT HAS BEDSIDE COMMODE, CANE, NEBULIZER, OXYGEN AT NIGHT, ROLLING WALKER AND WHEELCHAIR FROM [facility]. PT HAD HOME HEALTH WITH [facility]. CM DISCUSSED AVAILABILITY OF HOME HEALTH, REHAB SERVICES AND MEDICAL EQUIPMENT. PT'S REPORTS INABILITY TO CARE FOR PT AT HOME ANY LONGER AND WANTS PT IN PENITENTIARY IN [place] STATING THEY WILL HAVE TO BE ABLE TO DO "PD" SHE IS NOT ABLE TO GO TO THE FACILITY DAILY TO DO IT ANY LONGER, CHOICE FOR NO LONG TERM FACILITY PREFERENCE SIGNED. CM SPOKE TO ELIAN MCCORMICK OF [facility], PD CANNOT BE DONE AT [facility]. CM SPOKE TO DIANN WHO INFORMED CM THEY WOULD CONSIDER PD AT THE FACILITY. CM WILL CONTINUE TO EXPLORE PENITENTIARY POSSIBILITIES IN [place]. [place]inoor Operator: Tate Paula DCPIA - Discharge Planning Initial Assessment Updated by [id number]: Tate Paula on 01/31/19 4:53 pm * Is the patient Alert and Oriented? Yes * How many steps to enter\\exit or inside your home? 13 * PCP DR. KYLE SANABRIA * Pharmacy [facility] * Preadmission Environment Home with Family * ADLs Partial Dependent * Partial ADLs (Assistance needed) Ambulation Bathing Medication Management Toileting Transfers * Equipment Bedside Commode Cane Nebulizer Oxygen Rolling Walker Wheelchair * Other Equipment NIGHT OXYGEN ONLY [facility] IS PROVIDER * List name and contact numbers for known caregivers / representatives who currently or will assist patient after discharge: ENRIQUETA CANSECO, , * Verbal permission to speak to the caregivers and representatives has been obtained from the patient. Yes * Community resources currently utilized Other * Please name any agencies selected above. [facility] * Additional services required to return to the preadmission environment? Yes * Can the patient safely return to the preadmission environment? Yes * Has this patient been hospitalized within the prior 30 days at any hospital? No Coverage Notice Reviewer: [id number] - Tate Paula Notice Issued Date-Time: 01/31/2019 9:50 Notice Type: Patient Choice Letter Notice Delivered To: Family Member Relationship to Patient: Spouse Respiratory Care Faculty Name: ENRIQUETA HSU Delivery Method: HAND - Hand Delivered Suki Days: Prior Verbal Notification: Recipient Understood Notice: Yes Recipient Signature: Yes Med Rec Note Co-signed by Attending: Coverage Notice Comment: NO LONG TERM PREFERENCE Reviewer: [id number] - Tate Paula Notice Issued Date-Time: 02/01/2019 16:40 Notice Type: Patient Choice Letter Notice Delivered To: Family Member Relationship to Patient: Spouse Respiratory Care Faculty Name: ENRIQUETA HSU Delivery Method: HAND - Hand Delivered Suki Days: Prior Verbal Notification: Recipient Understood Notice: Yes Recipient Signature: Yes Med Rec Note Co-signed by Attending: Coverage Notice Comment: [place] Last DP export: 02/01/19 2:30 Patient Name: ASHLEY HSU Page [phone] at 1701 All edits/amendments must be made on the electronic document DICTATION DATE: 02/01/191699 SUPERVISOR TESTING: KARIN 02/01/191699 RPT#: [id number] DC DATE: STATUS: ADM IN [facility] [address] [place] [address] END OF REPORT
[2019-02-01 17:05] VITALS: BP 122/58
--- NOTE | 2019-02-01 21:13 | NUR ---
EVENING ROUNDS COMPLETED. ALERT/CONFUSED. FSBS 537 CALLED AND NOTIFIED JORDIN DOTSON. HE STATES TO CONTINUE WITH TX REGIMEN. HE ORDERED SOME STAT LAB. BP 152/61 PROAMATINE HELD AT THIS TIME. WILL CTM. CL WITHIN REACH, BED IN LOW, SR UP X2.
[2019-02-01 21:48] VITALS: BP 152/61
[2019-02-01 22:06] LABS: KETONE - SERUM NEGATIVE (NEGATIVE)
[2019-02-01 22:13] LABS: CALC OSMOLALITY 320 mosm/kg (275-300); CALCIUM 8.6 mg/dL (8.5-10.1); CARBON DIOXIDE 23.1 mmol/L (21.0-32.0); CHLORIDE - SERUM 91 mmol/L (98-107); CREATININE - SERUM 10.6 mg/dL (0.6-1.3); SODIUM 132 mmol/L (136-145); UREA NITROGEN 114 mg/dL (7-18); eGFR NON AFRICAN AMERICAN 5 mL/min (90-120)
[2019-02-01 22:17] LABS: GLUCOSE 467 mg/dL (74-106)
[2019-02-02 00:30] VITALS: BP 131/65
--- NOTE | 2019-02-02 00:45 | NUR ---
FSBS 399 AT THIS TIME 24 UNITS GIVEN PER SLIDING SCALE. WILL CTM. PT ALERT/CONFUSED. BED ALARM ON.
[2019-02-02 04:30] VITALS: BP 128/58
[2019-02-02 05:13] LABS: BASOPHILS 0.1 % (0-2); EOSINOPHILS 0 % (0-7); HEMATOCRIT 26.4 % (42.0-54.0); HEMOGLOBIN 7.9 g/dL (13.5-17.5); IMMATURE GRANULOCYTES 8.6 % (0-5); LYMPHOCYTES 2.3 % (15-50); MCHC 29.9 g/dL (31.0-37.0); MCV 103.5 fL (80.0-100.0); MEAN PLATELET VOLUME 10.7 fL (7.4-10.4); PLATELET COUNT 306 10x3/uL (130-400); RBC 2.55 10x6/uL (4.20-6.10); RDW 16.9 % (11.5-14.5); WBC 31.1 10x3/uL (4.8-10.8)
[2019-02-02 05:56] LABS: ALBUMIN 2.4 g/dL (3.4-5.0); ANION GAP 21.9 mmol/L (8-16); BILIRUBIN - TOTAL 0.38 mg/dL (0.2-1.3); CALCIUM 8.7 mg/dL (8.5-10.1); CARBON DIOXIDE 24.1 mmol/L (21.0-32.0); CREATININE - SERUM 10.2 mg/dL (0.6-1.3); MAGNESIUM - SERUM 1.8 mg/dL (1.8-2.4); PROTEIN - SERUM 7.3 g/dL (6.4-8.2); THYROID STIMULATING HORMONE 4.88 uIU/mL (0.36-3.74)
--- NOTE | 2019-02-02 07:15 | NUR ---
PT AWAKE AND CONFUSED TO TIME AND PLACE. LAYING IN BED, REFUSES BEING PULLED UP AT THIS TIME. PT HAS NO CONCERNS OR QUESTIONS AT THIS TIME. NO FAMILY PRESENT AT BEDSIDE. BLOOD SUGAR CHECKED ON PHONE, WAS 203. CL IN REACH, SRX2, BED ALARM ON AND FUNCTIONING WNL.
--- NOTE | 2019-02-02 07:33 | NUR ---
UNABLE TO COLLECT D/T PT BEING ANURIC, PT PRODUCES NO URINE AND IS ON P.D CATH Q4. PT IS CALLING OUT FOR ENRIQUETA AND REPEATEDLY ASKING WHERE SHE IS LOUDLY DOWN THE HERNA[place]DEZ. CONFUSED. CL IN REACH,S RX2.
[2019-02-02 09:05] VITALS: BP 137/51
[2019-02-02 10:11] LABS: PROTIME 12.7 SECONDS (11.6-15.0)
--- NOTE | 2019-02-02 15:02 | NUR ---
P.D SCHEDULE CHANGED D/T PT ONLY HAVING ONE ROUND OF PD TODAY. DR. ROYAL WANTED TO PT TO HAVE STAT LABS, GET THE FLUID DRAINED, PAUSED BEFORE FILLING, DO A THORACENTISIS, AND FILL. PT CURRENTLY FILLING.ASSISTED DR. ROYAL IN PREFORMING THORACENTIS. GOT 700CC LIGHT RED/PINK FLUID OFF. SITE CLEAN/DRY AND INTACT. CL IN REACH, SRX2. HAS LEFT FOR SUPPER
[2019-02-02 16:00] VITALS: BP 153/65
--- NOTE | 2019-02-02 16:25 | NUR ---
I have reviewed this patient and I concur with the Shift Assessment completed by the Licensed Practical Nurse today this shift.
[2019-02-02 17:46] LABS: PROTEIN - BODY FLUID 3.6 G/DL
[2019-02-02 18:28] VITALS: BP 152/74
[2019-02-02 20:00] VITALS: BP 161/83
--- NOTE | 2019-02-02 20:45 | NUR ---
PT TOLERATED PD WITH NO COMPLAINTS, REMOVED 1400
[2019-02-03 00:05] VITALS: BP 143/74
--- NOTE | 2019-02-03 00:26 | NUR ---
PD COMPLETE, REMOVED 1700
--- NOTE | 2019-02-03 01:10 | NUR ---
[id number] 12 UNIT HUMULIN R
[2019-02-03 04:36] VITALS: BP 122/57
[2019-02-03 05:29] LABS: HEMATOCRIT 26.9 % (42.0-54.0); MCH 30.8 pg (26.0-34.0); MCHC 29.7 g/dL (31.0-37.0); MCV 103.5 fL (80.0-100.0); MEAN PLATELET VOLUME 10.7 fL (7.4-10.4); PLATELET COUNT 284 10x3/uL (130-400); RDW 16.5 % (11.5-14.5); WBC 28.8 10x3/uL (4.8-10.8)
[2019-02-03 05:42] LABS: ALBUMIN 2.3 g/dL (3.4-5.0); BILIRUBIN - TOTAL 0.39 mg/dL (0.2-1.3); CALCIUM 8.8 mg/dL (8.5-10.1); CARBON DIOXIDE 25.8 mmol/L (21.0-32.0); CREATININE - SERUM 10.4 mg/dL (0.6-1.3); MAGNESIUM - SERUM 1.9 mg/dL (1.8-2.4); POTASSIUM - SERUM 3.8 mmol/L (3.5-5.1); PROTEIN - SERUM 6.8 g/dL (6.4-8.2)
--- NOTE | 2019-02-03 06:03 | NUR ---
I have reviewed this patient and I concur with the Shift Assessment completed by the Licensed Practical Nurse today this shift.
[2019-02-03 07:03] LABS: LYMPHOCYTES 18 % (15-50); MONOCYTES 2 % (2-11); NEUTROPHILS 74 % (40-80); PLATELET ESTIMATE NORMAL
--- NOTE | 2019-02-03 07:30 | NUR ---
ASSESSMENT COMPLETED, LETHARGIC AND CONFUSED. O2 AT 2 L/M PER NC. RIGHT AC SL.LAVF. PD CATH TO RIGHT SIDE OF ABD. DRSG TO RIGHT FLANK. AT BEDSIDE. NO NEEDS VOICED. SR UP WITH CALL LIGHT IN REACH
[2019-02-03 07:35] VITALS: BP 141/74
[2019-02-03 11:28] VITALS: BP 113/59
[2019-02-03 16:06] VITALS: BP 138/64
--- NOTE | 2019-02-03 17:17 | NUR ---
I have reviewed this patient and I concur with the Shift Assessment completed by the Licensed Practical Nurse today this shift.
[2019-02-03 18:39] VITALS: Ht 172.7 cm; Wt 85.6 kg
[2019-02-03 20:45] VITALS: BP 119/68
--- NOTE | 2019-02-03 23:53 | NUR ---
PT IS EXTREMELY CONFUSED FOR EXAMPLE WANTING HELP UP TO GO TO THE [place]ARD[place] AND REFERING TO OBJECTS IN ROOM THINGS THEY ARE NOT HE WILL HOLLER OUT HELP ME LIKE HE IS IN SEVERE DISTRESS I WILL ANSWER AND HE DOES NOT WANT ANYTHING OR HE WILL SAY HELP ME WITH WORK ECT. ATTEMPTED TO EDUCATE PT ON TIME AND PLACE
[2019-02-04] VITALS (31 sets, daily range): BP systolic 65–162; BP diastolic 41–119
--- NOTE | 2019-02-04 01:00 | NUR ---
CONTINUES TO HOLLER OUT PT IS COMPLETELY CONFUSED OF TIME PLACE AND SITUATION
--- NOTE | 2019-02-04 05:07 | NUR ---
PT COMPLAINT OF SOB AND COUGH IS MORE PROMANANT SPO2 CHECKED AND FOUND TO BE 85% RESP CALLED FOR TX
--- NOTE | 2019-02-04 05:17 | NUR ---
SPO2 NOW 95% PT MORE CALM
[2019-02-04 06:46] LABS: BASOPHILS 0.2 % (0-2); EOSINOPHILS 0.2 % (0-7); HEMATOCRIT 28.2 % (42.0-54.0); HEMOGLOBIN 8.4 g/dL (13.5-17.5); IMMATURE GRANULOCYTES 21.7 % (0-5); LYMPHOCYTES 4.8 % (15-50); MCH 31.3 pg (26.0-34.0); MCHC 29.8 g/dL (31.0-37.0); MCV 105.2 fL (80.0-100.0); MEAN PLATELET VOLUME 11.5 fL (7.4-10.4); NEUTROPHILS 68.1 % (40-80); PLATELET COUNT 270 10x3/uL (130-400); RBC 2.68 10x6/uL (4.20-6.10); RDW 16.8 % (11.5-14.5); WBC 27.6 10x3/uL (4.8-10.8)
[2019-02-04 06:50] LABS: APTT 30.1 SECONDS (22.8-39.4); INR 1.08 (0.85-1.17); PROTIME 13.5 SECONDS (11.6-15.0)
[2019-02-04 06:57] LABS: ALBUMIN 2.3 g/dL (3.4-5.0); ANION GAP 19.8 mmol/L (8-16); BILIRUBIN - TOTAL 0.38 mg/dL (0.2-1.3); CREATININE - SERUM 10.5 mg/dL (0.6-1.3); POTASSIUM - SERUM 3.8 mmol/L (3.5-5.1); PROTEIN - SERUM 6.9 g/dL (6.4-8.2)
[2019-02-04 07:01] LABS: PHOSPHOROUS 4.9 mg/dL (2.5-4.9)
--- NOTE | 2019-02-04 07:22 | NUR ---
SPOKE WITH ENRIQUETA HSU PER TELEPHONE AND RECEIVED CONSENTS FOR SURGERY, BLOOD, AND ANESTHESIA. EKG ON CHART. PT IS CONFUSED AT THIS TIME. R.AC PIV IS SALINE LOCKED. RR EVEN AND UNLABORED ON 2L 02. WILL CTM.
--- NOTE | 2019-02-04 08:23 | NUR ---
RECEIVED TELEPHONE ORDERS PER JUNIOR DOTSON TO PERFORM PD AND JUST DRAIN PT BEFORE HEMESPLIT PLACEMENT.
--- NOTE | 2019-02-04 09:56 | MORECARE ---
CASE MANAGEMENT DISCHARGE SUMMARY PATIENT: ASHLEY HSU III UNIT: [id number] ADM DATE: 01/29/19 AGE: 73 : 43 SEX: M ROOM/BED: D.7870 AUTHOR: EVIEDOC PHYSICIAN: REFERRING PHYSICIAN: YESIKA SMITH MD DATE OF SERVICE: 02/04/19 Discharge Plan Patient Name: ASHLEY HSU Facility: [facility]:[place] : 1945 Planned Disposition: Nursing Home Facility Anticipated Discharge Date: Discharge Date: Expected LOS: Initial Reviewer: [email or web address] Initial Review Date: 01/31/2019 Generated: 02/04/19 10:55 am Comments DCP- Discharge Planning Updated by [id number]: Tate Paula on 02/01/19 3:[address] Patient Name: ASHLEY HSU Encounter No: [id number] : 1945 Primary Insurance: MEDICARE A & B Anticipated DC Date: Planned Disposition: Nursing Home Facility External Planned Provider: [facility], MEDICARE REHAB BED DCP follow-up note: CM SPOKE TO PT'S SPOUSE IN ROOM WITH PT, THEY HAVE MET WITH DIANN OF THE [facility] WHO TOLD THEM [facility] CAN DO [facility] AT FACILITY. THEY WOULD LIKE REFERRAL SENT TO THE [facility] WHEN PT IS CLOSER TO LEAVING HOSPITAL. CHOICE SIGNED. CM TO SEND REFERRAL FOR REHAB TO [facility] TO [facility] WHEN PT IS MORE MEDICALLY STABLE WITH PROJECTED DISCHARGE DATE. Tate Paula, GUILLERMO DCP- Discharge Planning Updated by [email or web address]: Tate Paula on 01/31/19 3:[address] Patient Name: ASHLEY HSU Admission Status: ER Accout number: [id number] Admission Date: 01-29-2019 : 1945 Admission Diagnosis: Attending: YESIKA SMITH Current LOS: 2 Anticipated DC Date: Planned Disposition: Nursing Home Facility Primary Insurance: MEDICARE A & B PLANNED EXTERNAL PROVIDER: TO BE DETERMINED Discharge Planning Comments: CM MET WITH PT AND SPOUSE IN ROOM TO DISCUSS DISCHARGE PLANNING AND NEEDS. ASHLEY HSU provided verbal consent to discuss current and ongoing needs with/in the presence of: ENRIQUETA, HIS . PT LIVING AT HOME DEPENDENTLY WITH WHO REPORTS HAVING TO ASSIST WITH EVERYTHING AT THIS TIME EXCEPT EATING. PT HAS BEDSIDE COMMODE, CANE, NEBULIZER, OXYGEN AT NIGHT, ROLLING WALKER AND WHEELCHAIR FROM [facility]. PT HAD HOME HEALTH WITH [facility]. CM DISCUSSED AVAILABILITY OF HOME HEALTH, REHAB SERVICES AND MEDICAL EQUIPMENT. PT'S REPORTS INABILITY TO CARE FOR PT AT HOME ANY LONGER AND WANTS PT IN [facility] [place] STATING THEY WILL HAVE TO BE ABLE TO DO "PD" SHE IS NOT ABLE TO GO TO THE FACILITY DAILY TO DO IT ANY LONGER, CHOICE FOR NO RESIDENTIAL FACILITY PREFERENCE SIGNED. CM SPOKE TO ELIAN MCCORMICK OF [facility], PD CANNOT BE DONE AT [facility] OR [facility]. CM SPOKE TO DIANN WHO INFORMED CM THEY WOULD CONSIDER PD AT THE FACILITY. CM WILL CONTINUE TO EXPLORE [facility] IN [place]. Senior Executive Assistant: Tate Paula DCPIA - Discharge Planning Initial Assessment Updated by [email or web address]: Tate Paula on 01/31/19 4:53 pm * Is the patient Alert and Oriented? Yes * How many steps to enter\\exit or inside your home? 13 * PCP DR. KYLE SANABRIA * Pharmacy [facility] * Preadmission Environment Home with Family * ADLs Partial Dependent * Partial ADLs (Assistance needed) Ambulation Bathing Medication Management Toileting Transfers * Equipment Bedside Commode Cane Nebulizer Oxygen Rolling Walker Wheelchair * Other Equipment NIGHT OXYGEN ONLY [facility] IS PROVIDER * List name and contact numbers for known caregivers / representatives who currently or will assist patient after discharge: ENRIQUETA CANSECO, , * Verbal permission to speak to the caregivers and representatives has been obtained from the patient. Yes * Community resources currently utilized Other * Please name any agencies selected above. [facility] * Additional services required to return to the preadmission environment? Yes * Can the patient safely return to the preadmission environment? Yes * Has this patient been hospitalized within the prior 30 days at any hospital? No Coverage Notice Reviewer: [email or web address] - Tate Paula Notice Issued Date-Time: 01/31/2019 9:50 Notice Type: Patient Choice Letter Notice Delivered To: Family Member Relationship to Patient: Spouse Clinical Material Handler Name: ENRIQUETA HSU Delivery Method: HAND - Hand Delivered Suki Days: Prior Verbal Notification: Recipient Understood Notice: Yes Recipient Signature: Yes Med Rec Note Co-signed by Attending: Coverage Notice Comment: NO RESIDENTIAL PREFERENCE Reviewer: [id number] - Tate Paula Notice Issued Date-Time: 02/01/2019 16:40 Notice Type: Patient Choice Letter Notice Delivered To: Family Member Relationship to Patient: Spouse Clinical Material Handler Name: ENRIQUETA HSU Delivery Method: HAND - Hand Delivered Suki Days: Prior Verbal Notification: Recipient Understood Notice: Yes Recipient Signature: Yes Med Rec Note Co-signed by Attending: Coverage Notice Comment: [facility] Last DP export: 02/01/19 4:01 Patient Name: ASHLEY HSU Page [phone] at 0956 All edits/amendments must be made on the electronic document DICTATION DATE: 02/04/19954 ASSOCIATE PROFESSOR OF LITERATURE: KARIN 02/04/19954 RPT#: [id number] DC DATE: STATUS: ADM IN [facility] [address] [place] [address] END OF REPORT
--- NOTE | 2019-02-04 10:16 | NUR ---
PT PULLED PREVIOUS PIV OUT WITH CATHETER TIP FULLY INTACT. ATTEMPTED TO START NEW PIV BUT WAS UNSUCCESSFUL. NOTIFIED SURGERY FOR THE NEED OF AN PIV. PD EMPTY COMPLETE. RECEIVED ORDERS TO PREOP. NOTIFIED SURGERY THAT NO PREOP MEDS IN [facility]. WILL CTM. CONSENTS SIGNED PER .
--- NOTE | 2019-02-04 10:52 | NUR ---
PT TRANSFERED TO SURGERY. WILL CTM.
--- NOTE | 2019-02-04 13:08 | NUR ---
PT BROUGHT IN TO ROOM INTUBATED. ACCIDENTAL EXTUBATED. DR LANDERS AT BEDSIDE FOR REINTUBATION.
--- NOTE | 2019-02-04 13:46 | NUR ---
SPOKE WITH DR VILLARREAL. LET HER KNOW PT NOW IN ICU. DR MONAHAN HAS SPOKE WITH FAMILY, DR GALVAN AND DR MILLER SPEAKING WITH FAMILY. PT INTUBATED AND SEDATED NOW WITH BRYN. HAS OGT.
--- NOTE | 2019-02-04 14:06 | NUR ---
FAMILY HAS BEEN BROUGHT IN TO BEDSIDE. PT BP DROPPING. PHYSICIANS BEING PAGED AT THIS TIME
--- NOTE | 2019-02-04 14:26 | NUR ---
LEVOPHED STARTED. PT BP RESPONDING.
--- NOTE | 2019-02-04 15:14 | NUR ---
Nutrition Follow-up: Hemosplit placement scheduled for today. Noted pt coded in OR and intubated. Diet: NPO Wt: 194# (02/03); 186# (01/31) Last BM: 01/31 per chart Labs noted: K+ 3.8, Glu 129, Alb 2.3 Meds noted: Miralax, Humulin, Lantus, Nephrovite, Colace -If pt remains intubated, rec initiate nutrition support within 24-48 hours as medically feasible. -RD following.
[2019-02-04 15:37] LABS: HEMATOCRIT 26.2 % (42.0-54.0); HEMOGLOBIN 7.8 g/dL (13.5-17.5); MCH 31.3 pg (26.0-34.0); MCHC 29.8 g/dL (31.0-37.0); MCV 105.2 fL (80.0-100.0); MEAN PLATELET VOLUME 10.5 fL (7.4-10.4); PLATELET COUNT 263 10x3/uL (130-400); RBC 2.49 10x6/uL (4.20-6.10); RDW 16.8 % (11.5-14.5); WBC 50.7 10x3/uL (4.8-10.8)
[2019-02-04 16:02] LABS: CKMB 6.1 U/L (0.0-3.6); CREATINE KINASE 96 UL (21-232)
[2019-02-04 16:04] LABS: TROPONIN-I 0.337 ng/mL (0.000-0.060)
[2019-02-04 16:09] LABS: BILIRUBIN - TOTAL 0.36 mg/dL (0.2-1.3); CALCIUM 8.6 mg/dL (8.5-10.1); CREATININE - SERUM 10.7 mg/dL (0.6-1.3); PROTEIN - SERUM 6.2 g/dL (6.4-8.2)
[2019-02-04 16:10] LABS: ANION GAP 22.6 mmol/L (8-16); POTASSIUM - SERUM 4.6 mmol/L (3.5-5.1)
[2019-02-04 16:27] LABS: EOSINOPHILS 2 % (0-7); LYMPHOCYTES 7 % (15-50); NEUTROPHILS 89 % (40-80); PLATELET ESTIMATE NORMAL
--- NOTE | 2019-02-04 16:48 | NUR ---
AT BEDSIDE. REVIEWED CONSENTS AND NOW SIGNED. FAMILY ASKING ABOUT PT'S RING. IS NOT ON HIM, THEY HAVE LOOKED IN BAGS AND NOT FOUND. DO NOT SEE ONE CLIPPED TO CHART. CALLED RN WHO HAD HIM ON FLOOR, ADITYA SAYS HE DID NOT TAKE ONE OFF OF THE PATIENT. UNABLE TO REACH ANYONE IN SURGERY TO ASK AT THIS TIME.
--- NOTE | 2019-02-04 17:41 | NUR ---
DR VILLARREAL ON UNIT. HAS BEEN NOTIFIED OF WBC RESULT
--- NOTE | 2019-02-04 18:21 | NUR ---
DR GALVAN AT BEDSIDE TO PLACE CENTRAL LINE AND ART LINE. ASKED FOR VECURONIUM FOR PATIENT.
--- NOTE | 2019-02-04 19:00 | NUR ---
BEDSIDE REPORT AND SHIFT ASSESSMENT COMPLETE, SEE FLOWSHEET. PT INTUBATED, SEDATED. R GROIN CVL PATENT, SEE IV FLOWSHEET. R GROIN ART LINE GOOD WAVEFORM. DRESSING CDI. R CHEST HEMESPLIT SALINE LOCKED, DRESSING CDI. LLQ BLOOD SUGAR MONITOR SITE WNL. RLQ PD CATHETER DRESSING CDI. BS HYPO X 4, ABD SOFT, ROUND. BILAT WRIST RESTRAINTS IN PLACE. WILL CONTINUE PLAN OF CARE.
--- NOTE | 2019-02-04 20:30 | NUR ---
FAMILY AT BEDSIDE, UPDATE GIVEN. VSS, NO SIGNS OF ACUTE DISTRESS NOTED. WILL MONITOR.
--- NOTE | 2019-02-04 20:45 | NUR ---
DR GALVAN AT BEDSIDE UPDATING FAMILY.
--- NOTE | 2019-02-04 21:00 | NUR ---
SPOKE WITH DR OKEEFE, UPDATE GIVEN. WILL START DIALYSIS TOMORROW AFTER PT RETURNS FROM [facility]. NO NEW ORDERS RECEIVED.
--- NOTE | 2019-02-04 21:50 | NUR ---
FIRST UNIT OF PRBC VERIFIED AND STARTED. VSS, NO SIGNS OF ACUTE DISTRESS NOTED. WILL MONITOR.
--- NOTE | 2019-02-04 23:00 | NUR ---
REASSESSMENT COMPLETE, SEE FLOWSHEET. VSS, NO SIGNS OF ACUTE DISTRESS NOTED. PT AGITATED, FENTANYL TITRATED PER ORDERS. WILL CONTINUE PLAN OF CARE.
[2019-02-05] VITALS (88 sets, daily range): BP systolic 83–147; BP diastolic 41–82
--- NOTE | 2019-02-05 00:30 | NUR ---
SECOND UNIT OF PRBC STARTED.
--- NOTE | 2019-02-05 01:30 | NUR ---
RESPIRATORY AT BEDSIDE. VSS, NO SIGNS OF ACUTE DISTRESS NOTED. WILL CONTINUE PLAN OF CARE.
--- NOTE | 2019-02-05 03:00 | NUR ---
REASSESSMENT COMPLETE, SEE FLOWSHEET. PT SEDATED, AROUSES TO VOICE. SECOND UNIT OF PRBC INFUSING AT THIS TIME. R GROIN CVL PATENT, DRESSING CDI, SEE IV FLOWSHEET. VSS, NO SIGNS OF ACUTE DISTRESS NOTED. WILL MONITOR.
[2019-02-05 03:04] LABS: CKMB 5.7 U/L (0.0-3.6); CREATINE KINASE 47 UL (21-232)
[2019-02-05 03:05] LABS: TROPONIN-I 0.314 ng/mL (0.000-0.060)
--- NOTE | 2019-02-05 05:00 | NUR ---
CHG BATH AND LINEN CHANGE COMPLETE. SKIN TEAR NOTED ON L HAND, DRESSING APPLIED.
[2019-02-05 05:08] LABS: BASOPHILS 0.1 % (0-2); EOSINOPHILS 0 % (0-7); HEMATOCRIT 31.3 % (42.0-54.0); HEMOGLOBIN 9.4 g/dL (13.5-17.5); IMMATURE GRANULOCYTES 17.7 % (0-5); LYMPHOCYTES 3.7 % (15-50); MCV 96.6 fL (80.0-100.0); MEAN PLATELET VOLUME 11.8 fL (7.4-10.4); MONOCYTES 3.2 % (2-11); NEUTROPHILS 75.3 % (40-80); PLATELET COUNT 227 10x3/uL (130-400); RBC 3.24 10x6/uL (4.20-6.10); RDW 23.3 % (11.5-14.5); WBC 26.4 10x3/uL (4.8-10.8)
[2019-02-05 05:32] LABS: ALBUMIN 2.1 g/dL (3.4-5.0); BILIRUBIN - TOTAL 0.55 mg/dL (0.2-1.3); CALCIUM 8.6 mg/dL (8.5-10.1); CREATININE - SERUM 11.5 mg/dL (0.6-1.3); MAGNESIUM - SERUM 2.1 mg/dL (1.8-2.4); PROTEIN - SERUM 6.3 g/dL (6.4-8.2); VANCOMYCIN - RANDOM 8.3 ug/mL (10.0-20.0)
[2019-02-05 05:34] LABS: ANION GAP 20.4 mmol/L (8-16); PHOSPHOROUS 7.2 mg/dL (2.5-4.9); POTASSIUM - SERUM 5.4 mmol/L (3.5-5.1); TROPONIN-I 0.345 ng/mL (0.000-0.060)
--- NOTE | 2019-02-05 08:26 | NUR ---
FAMILY AT BEDSIDE AT THIS TIME. ELAINE FROM [facility] HERE TO TRANSPORT PATIENT. ECHO HAS NOW BEEN COMPLETED. HEBER IN SURGERY HAS BEEN CALLED AND NOTIFIED OF PT MISSING RING. SHE IS LOOKING INTO IT AND WILL CALL BACK WITH FINDINGS.
--- NOTE | 2019-02-05 08:32 | NUR ---
PT OFF UNIT AT THIS TIME TO HEALTH POLICY ANALYST
--- NOTE | 2019-02-05 09:53 | NUR ---
PT RETURNED TO ROOM FROM [facility]. STENTS X2 TO LAD
--- NOTE | 2019-02-05 10:44 | NUR ---
SHAE MARTINS WITH RENAL NOTIFIED PT GLUCOSE LEVELS AND TREATMENT GIVEN. SHE WILL ENTER NEW ORDERS.
--- NOTE | 2019-02-05 12:48 | NUR ---
NUTRITION F/U PT RETURNED FROM [facility]. REMAINS NPO AT THIS TIME. WILL MONITOR DIET ADVANCEMENT, PO INTAKE. RD FOLLOWING
[2019-02-05 13:09] LABS: HEPATITIS C ANTIBODY <0.1 S/CO RAT (0.0-0.9)
--- NOTE | 2019-02-05 16:15 | NUR ---
spoke with rogerio in surgery dept. she is calling the nurse who had pt yesterday again to find out. had not heard back from her when she tried this morning to reach her. rogerio will call back when has information
--- NOTE | 2019-02-05 16:16 | NUR ---
pt remains on dialysis treatment at this time.
--- NOTE | 2019-02-05 19:00 | NUR ---
ASSESSMENT COMPLETED. SEE FLOWSHEETS FOR ALL FINDINGS. PT SEDATED ON VENT OPENS EYES WITH VOICES, ANXIOUS. CONT SEDATION TO KEEP PT CALM ON VENT. SR ON CM WITH HR AT 85BPM, LUNG SOUNDS DIMINSHED TO LLB, UNLABORED ON VENT. LEGT GROIN AT PUNCTURE SITE DRESSING C,D,I, NO S/S OF HEMATOMA OR BLEEDING AT THIS TIME. PPP. CONT TO MONITOR.
--- NOTE | 2019-02-05 20:35 | NUR ---
FAMILY AT BEDSIDE, UPDATED.
--- NOTE | 2019-02-05 23:00 | NUR ---
REASSESSMENT COMPLETED PER FLOWSHEETS. NO ACUTE CHANGES IN PTS STATUS NOTED AT THIS TIME. CONT LEVOPHED DRIP PER ORDER TO KEEP SBP> 90S. CONT TO MONITOR.
[2019-02-06] VITALS (100 sets, daily range): BP systolic 19–144; BP diastolic 35–99
--- NOTE | 2019-02-06 01:00 | NUR ---
PT SEDATED ON VENT RESTING QUIETLY AT THIS TIME .TITRATED LEVOPHED TO 5MCG/MIN PER ORDER TO KEEP MAP> 65. CPOC.
--- NOTE | 2019-02-06 03:00 | NUR ---
REASSESSMENT COMPLETED. SEE FLOWSHEETS FOR ALL FINDINGS. PT SEDATED ON VENT OPEN EYES WITH VOICES. NO ACUTE CHANGES NOTED ON PT'S CONDITION. VSS. CPOC.
--- NOTE | 2019-02-06 04:30 | NUR ---
I&O COMPLETED TO CHART.
--- NOTE | 2019-02-06 05:10 | NUR ---
AM LABS DRAWN TO LAB. RESULTS PENDING.
[2019-02-06 06:04] LABS: HEMATOCRIT 28.7 % (42.0-54.0); HEMOGLOBIN 8.8 g/dL (13.5-17.5); MCH 29.5 pg (26.0-34.0); MCHC 30.7 g/dL (31.0-37.0); MCV 96.3 fL (80.0-100.0); MEAN PLATELET VOLUME 10.8 fL (7.4-10.4); PLATELET COUNT 195 10x3/uL (130-400); RBC 2.98 10x6/uL (4.20-6.10); RDW 23.9 % (11.5-14.5); WBC 20.6 10x3/uL (4.8-10.8)
[2019-02-06 06:10] LABS: BILIRUBIN - TOTAL 0.51 mg/dL (0.2-1.3); CALCIUM 8.2 mg/dL (8.5-10.1); CARBON DIOXIDE 22.5 mmol/L (21.0-32.0); CREATININE - SERUM 9.2 mg/dL (0.6-1.3); MAGNESIUM - SERUM 1.7 mg/dL (1.8-2.4); VANCOMYCIN - RANDOM 15.9 ug/mL (10.0-20.0)
[2019-02-06 06:12] LABS: ANION GAP 19.9 mmol/L (8-16); PHOSPHOROUS 5.1 mg/dL (2.5-4.9); POTASSIUM - SERUM 4.4 mmol/L (3.5-5.1)
--- NOTE | 2019-02-06 07:00 | NUR ---
PT RESTING IN BED, VSS AND WNL. BED ALARM ON. ETT SECURED, PULSES PRESENT WITH DOPPLER. NO SIGNS OF DISTRESS NOTED AT THIS TIME, WILL CONT TO FOLLOW POC
[2019-02-06 08:43] LABS: ANISOCYTOSIS OCC; EOSINOPHILS 1 % (0-7); HYPOCHROMASIA OCC; LYMPHOCYTES 12 % (15-50); MONOCYTES 13 % (2-11); NEUTROPHILS 70 % (40-80); PLATELET ESTIMATE NORMAL
--- NOTE | 2019-02-06 09:00 | NUR ---
PT RESTING IN BED, VSS AND WNL. PT REPOSITIONED. BED ALARM ON. ETT SECURED. ANSELMO WRIST RESTRAINTS RELEASED FOR BREAK AND REAPPLIED. NO SIGNS OF DISTRESS NOTED AT THIS TIME, WILL CONT TO FOLLOW POC
--- NOTE | 2019-02-06 11:00 | NUR ---
PT RESTING IN BED, ETT SECURED. VSS AND WNL. BED ALARM ON. WRIST RESTRAINTS IN PLACE. NO SIGNS OF DISTRESS NOTED. WILL CONT TO FOLLOW POC
--- NOTE | 2019-02-06 13:00 | NUR ---
PT RESTING IN BED, VSS AND WNL. BED ALARM ON. NO SIGNS OF DISTRESS NOTED. WILL CONT TO FOLLOW POC
--- NOTE | 2019-02-06 15:10 | NUR ---
DIALYSIS HERE. PT RESTING IN BED, VSS. WILL CONT TO FOLLOW POC
--- NOTE | 2019-02-06 16:21 | NUR ---
PT TEMP 100.5, PRN APAP GIVEN AND NOTIFIED. WILL CONT TO FOLLOW POC
--- NOTE | 2019-02-06 18:27 | NUR ---
PER , PT SHOULD NOT BE ON ELECTROLYTE PROTOCOL DUE TO BEING A RENAL PT. NEW ORDER TO D/C PROTOCOL. PT RESTING IN BED, VSS AND WNL. DIALYSIS COMPLETED VIA HEMESPLIT. BED ALARM ON, ETT SECURE. WILL CONT TO FOLLOW POC
--- NOTE | 2019-02-06 19:00 | NUR ---
SHIFT ASSESSMENT COMPLETED. PT CARE ASSUMED. MONITORS ON AND WORKING, SEE FLOW SHEET FOR FURTHER DETAILS. WILL CONTINUE TO OBSERVE.
--- NOTE | 2019-02-06 21:00 | NUR ---
PT TURNED AND REPOSITIONED FOR COMFORT, MONITORS ON AND WORKING, AT BEDSIDE, UPDATE PROVIDED. WILL CONTINUE TO OBSERVE.
[2019-02-07] VITALS (66 sets, daily range): BP systolic 90–137; BP diastolic 45–73
[2019-02-07 06:49] LABS: BASOPHILS 0 % (0-2); EOSINOPHILS 0.2 % (0-7); HEMATOCRIT 28.3 % (42.0-54.0); HEMOGLOBIN 8.6 g/dL (13.5-17.5); IMMATURE GRANULOCYTES 10.1 % (0-5); LYMPHOCYTES 6.6 % (15-50); MCH 29.2 pg (26.0-34.0); MCHC 30.4 g/dL (31.0-37.0); MCV 95.9 fL (80.0-100.0); MEAN PLATELET VOLUME 11.4 fL (7.4-10.4); MONOCYTES 11.8 % (2-11); NEUTROPHILS 71.3 % (40-80); PLATELET COUNT 200 10x3/uL (130-400); RBC 2.95 10x6/uL (4.20-6.10); RDW 22.6 % (11.5-14.5); WBC 21.9 10x3/uL (4.8-10.8)
--- NOTE | 2019-02-07 07:15 | NUR ---
REPORT RECEIVED. ASSESSMENT COMPLETE PER FLOW SHEET. VSS. NO NEW CHANGES PT RESTING COMFORTABLY WILL CONTINUE TO MONITOR
[2019-02-07 07:24] LABS: ALBUMIN 1.9 g/dL (3.4-5.0); ANION GAP 24.3 mmol/L (8-16); BILIRUBIN - TOTAL 0.69 mg/dL (0.2-1.3); CARBON DIOXIDE 19.4 mmol/L (21.0-32.0); CREATININE - SERUM 8.8 mg/dL (0.6-1.3); POTASSIUM - SERUM 4.7 mmol/L (3.5-5.1); PROTEIN - SERUM 6.3 g/dL (6.4-8.2); VANCOMYCIN - RANDOM 23.2 ug/mL (10.0-20.0)
--- NOTE | 2019-02-07 08:55 | NUR ---
Nutrition follow-up: Intubated, sedated Labs reviewed Dialysis pt Nurse reports possible extubation today. If pt not extubated will need to begin nutrition support. RDN following.
--- NOTE | 2019-02-07 11:15 | NUR ---
REASSESSMENT COMPLETE PER FLOW SHEET. VSS NO NEW CHANGES PT RESTING COMFORTABLY WILL CONTINUE TO MONITOR
--- NOTE | 2019-02-07 15:15 | NUR ---
REASSESSMENT COMPLETE PER FLOW SHEET. VSS. NO NEW CHANGES WILL CONTINUE TOMONITOR
--- NOTE | 2019-02-07 18:22 | OP ---
PATIENT NAME: ASHLEY HSU III MEDICAL RECORD: [id number] :43 LOCATION:[facility] D.2312 ADMISSION DATE:01/29/19 SURGEON: СЕРГЕЙ GALVAN MD DATE OF OPERATION: 02/04/2019 PREOPERATIVE DIAGNOSIS: End-stage renal disease without chronic access for hemodialysis. POSTOPERATIVE DIAGNOSIS: End-stage renal disease without chronic access for hemodialysis. PROCEDURES: 1. Insertion of right internal jugular 19 cm HemoSplit catheter under fluoroscopic guidance. 2. Immediate surgeon interpretation of the fluoroscopic images. SURGEON: Сергей Galvan MD DUPLICATOR PUNCH OPERATOR: None. BLOOD LOSS: Minimal. ANESTHESIA: Local with IV sedation. COMPLICATIONS: None. The risks, possible complications and alternatives to the procedure were explained to the patient. He elects to proceed. The discussion specifically included, but was not limited to, bleeding requiring emergency reoperation, infection, and great vessel injury. OPERATIVE COURSE: The patient was conveyed to the operating room electively on 02/04/2019. General anesthesia was induced by anesthesia staff. The right neck and right chest were sterilely prepped and draped. Local anesthetic was used to infiltrate the skin and subcutaneous tissues at the base of the right neck. Under ultrasonographic guidance, I percutaneously accessed the right internal jugular vein in an antegrade fashion. A guidewire passed easily. A small skin dinh was accomplished. A counterincision was accomplished in the right anterior superior infraclavicular chest. I tunneled a 19 cm HemoSplit catheter, which is a tunneled cuffed dual-lumen hemodialysis catheter, from the chest incision to the neck incision. Over the wire, I dilated to a larger size. Dilator sheath was then advanced under fluoroscopy as well. No radiologist was present for this procedure. Static fluoroscopic images were obtained and are kept in the PACS system. The surgeon interpretation of the radiographic images is dictated within the body of this operative note. A dilator sheath was advanced over the wire. The dilator and wire were removed. Through sheath, the tips of the HemoSplit catheter were advanced. The Peel-Away sheath was then removed. I then pulled back on the flange of the HemoSplit catheter in order to seat the HemoSplit catheter into these subcutaneous tissues. There was no apparent kinking or twisting of the HemoSplit catheter. No radiographic evidence of complication. The neck incision was closed with interrupted intracuticular 4-0 Vicryls and OPERATIVE REPORT [id number] ASHLEY HSU III then a single 3-0 Vicryl Rapide in a horizontal mattress fashion. The flange of the HemoSplit catheter was sutured to the underlying skin with 2-0 nylons. Both lumens of the HemoSplit catheter flushed easily and aspirated dark, nonpulsatile blood. A stat portable chest x-ray is pending in the recovery room. TRANSINT:[id number] Voice Confirmation ID: [id number] DOCUMENT ID: [id number] СЕРГЕЙ GALVAN MD at 1822 CC: YESIKA SMITH MD and BAN SÁNCHEZ [id number] DICTATION DATE: 02/04/19 1242 VACUUM METALIZING SUPERVISOR: 02/04/19 1852 ADM IN [facility] [address] [id number]
--- NOTE | 2019-02-07 18:22 | OP ---
PATIENT NAME: ASHLEY HSU III MEDICAL RECORD: [id number] :43 LOCATION:[facility] D.2312 ADMISSION DATE:01/29/19 SURGEON: KEVIN GALVAN MD DATE OF OPERATION: 02/04/2019 PREOPERATIVE DIAGNOSES: 1. Postoperative hypotension. 2. Intraoperative cardiac arrest. 3. Ventilatory failure. 4. In need of continuous arterial monitoring. POSTOPERATIVE DIAGNOSES: 1. Postoperative hypotension. 2. Intraoperative cardiac arrest. 3. Ventilatory failure. 4. In need of continuous arterial monitoring. PROCEDURES: 1. Insertion of right groin arterial line for hemodynamic monitoring. 2. Insertion of right groin triple lumen central venous catheter for intravenous medications. SURGEON: Kevin Galvan MD ADVANCED SOLUTIONS ARCHITECT: None. BLOOD LOSS: Minimal. ANESTHESIA: Local. COMPLICATIONS: None. The patient was given fentanyl as well as an IV paralytic during the procedure as he was agitated and was moving around a good bit. I chose insertion of the central line to be in the groin for the following reasons, the patient just had an internal jugular HemoSplit catheter placed. If I placed a contralateral internal jugular catheter, there will be a significant chance of bilateral hematomas as the patient is going to undergo cardiac catheterization tomorrow and likely will be on some type of anticoagulation during the procedure and probably after the procedure. I did not want to place central venous line at the subclavian sites for fear of causing subclavian stenoses. The groins had been shaved and appeared to be in pretty good condition. With regard to the arterial line placement, I really cannot place an arterial line at the left wrist as there is an arteriovenous fistula present there. I do not want to place one in the right wrist either for fear that I might end up ruining a potential site for arteriovenous fistula creation sometime in the future. For this reason, I elected to place an arterial line of the right groin as well. OPERATIVE COURSE: The patient was positioned in the reverse Trendelenburg position. The right groin was sterilely prepped and draped. A local anesthetic was used to infiltrate the skin and subcutaneous tissue at the base of the right groin. I percutaneously accessed the right common femoral vein in an antegrade OPERATIVE REPORT [id number] ASHLEY HSU III fashion. Guidewire was passed easily. A small skin dinh was accomplished. A vessel dilator was used to dilate a subcutaneous tract. A 16-cm triple lumen central venous catheter was inserted to the hub. It was sutured in place times 3. All lumens flushed easily and aspirated dark, nonpulsatile blood. Attention was then turned to the arterial line placement. I percutaneously accessed the right common femoral artery in a retrograde fashion. A guidewire passed easily. A small skin dinh was accomplished. I advanced an Angiocath type of catheter over the wire. This was attached to a flush transducer tubing. There was an excellent arterial waveform on the monitor. The arterial line was sutured in place times 3. Sterile dressings were applied. The line can be used immediately. No post-procedure x-ray is necessary. TRANSINT:[id number] Voice Confirmation ID: [id number] DOCUMENT ID: [id number] KEVIN GALVAN MD at 1822 CC: [id number] DICTATION DATE: 02/04/191938 ONCOLOGY REGISTRAR: 02/05/19 0042 ADM IN [facility] [address] [place] [address]
--- NOTE | 2019-02-07 19:00 | NUR ---
SHIFT ASSESSMENT COMPLETED. PT CARE ASSUMED. MONITORS ON AND WORKING VITALS STABLE, SEE FLOW SHEET FOR FURTHER DETAILS. WILL CONTINUE TO OBSERVE.
--- NOTE | 2019-02-07 21:00 | NUR ---
PT TURNED AND REPOSITIONED FOR COMFORT. MONITORS ON AND WORKING, VITALS STABLE. WILL CONTINUE TO OBSERVE.
--- NOTE | 2019-02-07 23:00 | NUR ---
PT TURNED AND REPOSITIONED FOR COMFORT, MONITORS ON AND WORKING, TUBE FEEDS STARTED, SEE FLOW SHEET FOR FURTHER DETAILS. WILL CONTINUE TO OBSERVE.
[2019-02-08] VITALS (22 sets, daily range): BP systolic 83–122; BP diastolic 39–76
--- NOTE | 2019-02-08 01:00 | NUR ---
PT TURNED AND REPOSITIONED FOR COMFORT, MONITORS ON AND WORKING, VITALS STABLE, WILL CONTINUE TO OBSERVE,
--- NOTE | 2019-02-08 03:00 | NUR ---
NO CHNAGES, SEE FLOW SHEET FOR FURTHER DETAILS. WILL CONTINUE TO OBSERVE.
[2019-02-08 06:04] LABS: MCH 28.7 pg (26.0-34.0); MCHC 30.1 g/dL (31.0-37.0); MCV 95.4 fL (80.0-100.0); MEAN PLATELET VOLUME 11.2 fL (7.4-10.4); RBC 2.37 10x6/uL (4.20-6.10); RDW 22.2 % (11.5-14.5)
[2019-02-08 06:18] LABS: ALBUMIN 2.6 g/dL (3.4-5.0); ANION GAP 21.1 mmol/L (8-16); BILIRUBIN - TOTAL 0.71 mg/dL (0.2-1.3); CARBON DIOXIDE 22.6 mmol/L (21.0-32.0); CREATININE - SERUM 6.1 mg/dL (0.6-1.3); MAGNESIUM - SERUM 1.9 mg/dL (1.8-2.4); PHOSPHOROUS 5.1 mg/dL (2.5-4.9); POTASSIUM - SERUM 3.7 mmol/L (3.5-5.1); PROTEIN - SERUM 6.1 g/dL (6.4-8.2); VANCOMYCIN - RANDOM 18.3 ug/mL (10.0-20.0)
[2019-02-08 06:21] LABS: HEMATOCRIT 22.6 % (42.0-54.0); HEMOGLOBIN 6.8 g/dL (13.5-17.5); PLATELET COUNT 156 10x3/uL (130-400)
--- NOTE | 2019-02-08 06:45 | NUR ---
SPOKE WITH MD ABOUT DROP IN H AND H. REC'D ORDERS TO TRANSFUSE 2 UNITS OF PRBCS AND INCREASE DOBUTAMINE TO 5MCG. ONCOMING NURSE AWARE OF NEW ORDERS.
--- NOTE | 2019-02-08 07:00 | NUR ---
BEDSIDE REPORT RECEIVED. SHIFT ASSESSMENT COMPLETED PER FLOWSHEET, SEE FLOWSHEET FOR INFORMATION. PAGED. WILL CONT TO MONITOR. VSS.
[2019-02-08 07:12] LABS: LYMPHOCYTES 12 % (15-50); MONOCYTES 4 % (2-11); NEUTROPHILS 84 % (40-80); PLATELET ESTIMATE NORMAL
[2019-02-08 07:13] LABS: ELLIPTOCYTES 1+; POIKILOCYTOSIS OCC; POLYCHROMASIA OCC
--- NOTE | 2019-02-08 07:30 | NUR ---
NEW ORDERS RECEIVED. WILL CONT TO MONITOR.
--- NOTE | 2019-02-08 08:33 | NUR ---
Nutrition follow-up: Pt intubated, sedated Nepro started @ 20 ml/hr with no flush per Dr. Brown Labs reviewed Recommend increasing TF to goal rate of 50 ml/hr with 100 ml h2o flush q [address]N following.
--- NOTE | 2019-02-08 09:00 | NUR ---
DIALYSIS NURSE AT BEDSIDE. WILL CONT TO MONITOR.
--- NOTE | 2019-02-08 11:00 | NUR ---
REASSESSMENT COMPLETED PER FLOWSHEET, SEE FLOWSHEET FOR INFORMATION. DIALYSIS NURESE AT BEDSIDE, FAMILY AT BEDSIDE. UPDATE GIVEN. WILL CONT TO MONITOR.
[2019-02-08 11:09] LABS: FUNGUS STAIN Final report (())
--- NOTE | 2019-02-08 13:00 | NUR ---
DIALYSIS NURSE AT BEDSIDE, FAMILY GIVEN UPDATE. WILL CONT TO MONITOR.
[2019-02-08 14:09] LABS: ACID FAST SMEAR Negative (()); AFB SPECIMEN PROCESSING Concentration (())
--- NOTE | 2019-02-08 15:00 | NUR ---
REASSESSMENT COMPLETED PER FLOWSHEET, SEE FLOWSHEET FOR INFORMATION. NO ACUTE NEEDS OR DISTRESS NOTED AT THIS TIME. WILL CONT TO MONITOR.
--- NOTE | 2019-02-08 17:00 | NUR ---
FAMILY AT BEDSIDE, NO ACUTE NEEDS OR DISTRESS NOTED AT THIS TIME. WILL CONT TO MONITOR.
--- NOTE | 2019-02-08 19:00 | NUR ---
ASSESSMENT COMPLETED. OGT PATENT, PLACEMENT CHECKED, NO RESIDUAL. NEPRO AT 20ML/HR. REPOSITIONED AND ORAL CARE PROVIDED.
--- NOTE | 2019-02-08 21:00 | NUR ---
REPOSITIONED AND ORAL CARE PROVIDED.
--- NOTE | 2019-02-08 23:00 | NUR ---
RE-ASSESSMENT COMPLETED. NO CHANGES SINCE LAST ASSESSMENT. LAYING BACK IN BED WITH EYES CLOSED, EASILY WAKES. DENIES ANY NEEDS
--- NOTE | 2019-02-08 23:00 | NUR ---
RE-ASSESSMENT COMPLETED. NO CHANGES SINCE LAST ASSESSMENT. CHG BATH GIVEN WITH COMPLETE LINEN CHANGE. REPOSITIONED AND ORAL CARE PROVIDED
[2019-02-09] VITALS (24 sets, daily range): BP systolic 99–140; BP diastolic 46–73
--- NOTE | 2019-02-09 01:00 | NUR ---
REPOSITIONED AND ORAL CARE PROVIDED.
--- NOTE | 2019-02-09 03:00 | NUR ---
RE-ASSESSMENT COMPLETED. NO CHANGES SINCE LAST ASSESSMENT. REPOSITIONED AND ORAL CARE PROVIDED
[2019-02-09 04:33] LABS: BASOPHILS 0 % (0-2); EOSINOPHILS 0.2 % (0-7); HEMATOCRIT 29.1 % (42.0-54.0); HEMOGLOBIN 8.9 g/dL (13.5-17.5); IMMATURE GRANULOCYTES 2.6 % (0-5); LYMPHOCYTES 9.7 % (15-50); MCH 28.9 pg (26.0-34.0); MCHC 30.6 g/dL (31.0-37.0); MCV 94.5 fL (80.0-100.0); MEAN PLATELET VOLUME 11.4 fL (7.4-10.4); MONOCYTES 10.1 % (2-11); NEUTROPHILS 77.4 % (40-80); PLATELET COUNT 160 10x3/uL (130-400); RBC 3.08 10x6/uL (4.20-6.10); RDW 21.6 % (11.5-14.5); WBC 14.8 10x3/uL (4.8-10.8)
[2019-02-09 04:40] LABS: ANION GAP 18.4 mmol/L (8-16); BILIRUBIN - TOTAL 0.93 mg/dL (0.2-1.3); CALCIUM 8.1 mg/dL (8.5-10.1); CARBON DIOXIDE 25.4 mmol/L (21.0-32.0); CREATININE - SERUM 4.7 mg/dL (0.6-1.3); POTASSIUM - SERUM 3.8 mmol/L (3.5-5.1); PROTEIN - SERUM 6.1 g/dL (6.4-8.2); VANCOMYCIN - RANDOM 21.8 ug/mL (10.0-20.0)
--- NOTE | 2019-02-09 05:00 | NUR ---
REPOSITIONED AND ORAL CARE PROVIDED
--- NOTE | 2019-02-09 07:00 | NUR ---
BEDSIDE REPORT RECEIVED. SHIFT ASSESSMENT COMPLETED PER FLOWSHEET, SEE FLOWSHEET FOR INFORMATION. NO ACUTE NEEDS OR DISTRESS NOTED AT THIS TIME, VSS. WILL CONT TO MONITOR.
--- NOTE | 2019-02-09 09:00 | NUR ---
DIALYSIS NURSE AT BEDSIDE. FAMILY AT BEDSIDE, UPDATE GIVEN. ORAL CARE GIVEN. 0900 MEDICATIONS GIVEN. VSS. WILL CONT TO MONITOR.
--- NOTE | 2019-02-09 11:00 | NUR ---
REASSESSMENT COMPLETED PER FLOWSHEET, SEE FLOWSHEET FOR INFORMATION. NO ACUTE NEEDS OR DISTRESS NOTED AT THIS TIME. DIALYSIS NURSE AT BEDSIDE. VSS. WILL CONT TO MONITOR.
--- NOTE | 2019-02-09 13:00 | NUR ---
TURNED PT PER COMFORT, NO ACUTE NEEDS OR DISTRESS NOTED AT THIS TIME. VSS. WILL CONT TO MONITOR.
--- NOTE | 2019-02-09 15:00 | NUR ---
REASSESSMENT COMPLETED PER FLOWSHEET, SEE FLOWSHEET FOR INFORMATION. VSS. WILL CONT TO MONITOR.
--- NOTE | 2019-02-09 17:00 | NUR ---
FAMILY AT BEDSIDE, UPDATE GIVEN. EKG OBTAINED. AT BEDSIDE. SPOKE WITH FAMILY ABOUT DNR STATUS. VSS. WILL CONT TO MONITOR.
--- NOTE | 2019-02-09 19:00 | NUR ---
ASSESSMENT COMPLETED. REPOSITIONED AND ORAL CARE PROVIDED.
--- NOTE | 2019-02-09 21:00 | NUR ---
REPOSITIONED AND ORAL CARE PROVIDED.
--- NOTE | 2019-02-09 23:00 | NUR ---
RE-ASSESSMENT COMPLETED. REPOSITIONED AND ORAL CARE PROVIDED. CHG BATH GIVEN WITH COMPLETE LINEN CHANGE.
[2019-02-10] VITALS (25 sets, daily range): BP systolic 114–161; BP diastolic 42–69
--- NOTE | 2019-02-10 01:00 | NUR ---
REPOSITIONED AND ORAL CARE PROVIDED.
--- NOTE | 2019-02-10 03:00 | NUR ---
RE-ASSESSMENT COMPLETED. REPOSITIONED AND ORAL CARE PROVIDED.
--- NOTE | 2019-02-10 05:00 | NUR ---
REPOSITIONED AND ORAL CARE PROVIDED
[2019-02-10 06:55] LABS: HEMATOCRIT 28.4 % (42.0-54.0); HEMOGLOBIN 8.4 g/dL (13.5-17.5); MCH 28.9 pg (26.0-34.0); MCHC 29.6 g/dL (31.0-37.0); MCV 97.6 fL (80.0-100.0); MEAN PLATELET VOLUME 11.3 fL (7.4-10.4); PLATELET COUNT 161 10x3/uL (130-400); RBC 2.91 10x6/uL (4.20-6.10); RDW 21.8 % (11.5-14.5); WBC 21.8 10x3/uL (4.8-10.8)
--- NOTE | 2019-02-10 07:00 | NUR ---
BEDSIDE REPORT RECEIVED. SHIFT ASSESSMENT COMPLETED PER FLOWSHEET, SEE FLOWSHEET FOR INFORMATION. ARIELLE DOTSON AT BEDSIDE, NO NEW ORDERS RECEIVED. NO ACUTE NEEDS OR DISTRESS NOTED AT THIS TIME. VSS. WILL CONT TO MONITOR.
[2019-02-10 07:02] LABS: ALBUMIN 3.1 g/dL (3.4-5.0); ANION GAP 15.5 mmol/L (8-16); BILIRUBIN - TOTAL 0.95 mg/dL (0.2-1.3); CARBON DIOXIDE 28.1 mmol/L (21.0-32.0); PHOSPHOROUS 2.9 mg/dL (2.5-4.9); POTASSIUM - SERUM 3.6 mmol/L (3.5-5.1); PROTEIN - SERUM 6.2 g/dL (6.4-8.2); VANCOMYCIN - RANDOM 16.2 ug/mL (10.0-20.0)
[2019-02-10 07:34] LABS: LYMPHOCYTES 4 % (15-50); MONOCYTES 11 % (2-11); NEUTROPHILS 83 % (40-80); PLATELET ESTIMATE NORMAL
--- NOTE | 2019-02-10 09:00 | NUR ---
PT FAMILY AT BEDSIDE. PT FAMILY TOLD ME "I THINK WE'RE THINKING ABOUT TAKING THAT TUBE OUT TOMORROW, WE WERE JUST WAITING ON TO GET HERE AND SEE HIM." INFORMED RAILWAY SIGNALLING ENGINEER AND CHARGE CHANNING. NO ACUTE NEEDS OR DISTRESS NOTED AT THIS TIME. VSS. WILL CONT TO MONITOR.
--- NOTE | 2019-02-10 10:16 | NUR ---
SPOKE WITH , NEW ORDERS RECEIVED. WILL CONT TO MONITOR.
--- NOTE | 2019-02-10 11:00 | NUR ---
REASSESSMENT COMPLETED PER FLOWSHEET, SEE FLOWSHEET FOR INFORMATION. NEW ORDERS RECEIVED. FAMILY AT BEDSIDE ALONG WITH DIVERSIFIED CROPS II FARMWORKER. ICE REPLACED ON PT FOR TEMP. NO ACUTE NEEDS OR DISTRESS NOTED AT THIS TIME, VSS. WILL CONT TO MONITOR.
--- NOTE | 2019-02-10 13:00 | NUR ---
REPOSITIONED PER COMFORT. REPLACED ICE BAGS ON PT PER TEMP. WILL CONT TO MONITOR.
--- NOTE | 2019-02-10 13:38 | MORECARE ---
CASE MANAGEMENT DISCHARGE SUMMARY PATIENT: ASHLEY HSU III UNIT: [id number] ADM DATE: 01/29/19 AGE: 73 : [birth year] SEX: M ROOM/BED: D.2312 AUTHOR: EVIE,DOC PHYSICIAN: REFERRING PHYSICIAN: YESIKA SMITH MD DATE OF SERVICE: 02/10/19 Discharge Plan Patient Name: ASHLEY HSU Facility: [facility]:[place] : 1945 Planned Disposition: Intermediate Facility Anticipated Discharge Date: Discharge Date: Expected LOS: Initial Reviewer: [id number] Initial Review Date: 01/31/2019 Generated: 02/10/19 2:38 pm Comments DCP- Discharge Planning Updated by [id number]: Laurie Torres on 02/10/19 12:[address] CM spoke with family they are planning on terminal extubation tomorrow after speaking with doctor Mitchell in am. CM gave the family information on comfort care and the process of extubation. CM spoke to them in regards to Hospice Care. Family is requesting to see if patient is a candidate for [facility] donation. CM called [facility] and spoke with inside sales account representative regarding donation and she stated since patient has had recent blood transfusion and has positive sputum culture patient would not be a candidate for donation. CM gave family a brochure on cremation services. CM will continue to follow and assist as needed with discharge planning / needs. DCP- Discharge Planning Updated by [id number]: Tate Paula on 02/01/19 3:[address] Patient Name: ASHLEY HSU Encounter No: [id number] : 1945 Primary Insurance: MEDICARE A & B Anticipated DC Date: Planned Disposition: Intermediate Facility External Planned Provider: [facility], MEDICARE REHAB BED DCP follow-up note: CM SPOKE TO PT'S SPOUSE IN ROOM WITH PT, THEY HAVE MET WITH [facility] WHO TOLD THEM [facility] AT FACILITY. THEY WOULD LIKE REFERRAL SENT TO THE [facility] WHEN PT IS CLOSER TO LEAVING HOSPITAL. CHOICE SIGNED. CM TO SEND REFERRAL FOR REHAB TO [facility] TO THE [facility] WHEN PT IS MORE MEDICALLY STABLE WITH PROJECTED DISCHARGE DATE. Tate Paula, MANAGEMENT DCP- Discharge Planning Updated by [email or web address]: Tate Puala on 01/31/19 3:[address] Patient Name: ASHLEY HSU Admission Status: ER Accout number: [id number] Admission Date: 01-29-2019 : 1945 Admission Diagnosis: Attending: YESIKA SMITH Current LOS: 2 Anticipated DC Date: Planned Disposition: Intermediate Facility Primary Insurance: MEDICARE A & B PLANNED EXTERNAL PROVIDER: TO BE DETERMINED Discharge Planning Comments: CM MET WITH PT AND SPOUSE IN ROOM TO DISCUSS DISCHARGE PLANNING AND NEEDS. ASHLEY HSU provided verbal consent to discuss current and ongoing needs with/in the presence of: ENRIQUETA, HIS . PT LIVING AT HOME DEPENDENTLY WITH WHO REPORTS HAVING TO ASSIST WITH EVERYTHING AT THIS TIME EXCEPT EATING. PT HAS BEDSIDE COMMODE, CANE, NEBULIZER, OXYGEN AT NIGHT, ROLLING WALKER AND WHEELCHAIR FROM [facility]. PT HAD HOME HEALTH WITH [facility]. CM DISCUSSED AVAILABILITY OF HOME HEALTH, REHAB SERVICES AND MEDICAL EQUIPMENT. PT'S REPORTS INABILITY TO CARE FOR PT AT HOME ANY LONGER AND WANTS PT IN [facility] IN [place] STATING THEY WILL HAVE TO BE ABLE TO DO "PD" SHE IS NOT ABLE TO GO TO THE FACILITY DAILY TO DO IT ANY LONGER, CHOICE FOR NO [facility] FACILITY PREFERENCE SIGNED. CM SPOKE TO ELIAN MCCORMICK OF [facility], PD CANNOT BE DONE AT [facility] OR [facility]. CM SPOKE TO DIANN WHO INFORMED CM THEY WOULD CONSIDER PD AT THE FACILITY. CM WILL CONTINUE TO EXPLORE [facility] POSSIBILITIES IN [place]. Votator Machine Operator: Tate Paula DCPIA - Discharge Planning Initial Assessment Updated by [id number]: Tate Paula on 01/31/19 4:53 pm * Is the patient Alert and Oriented? Yes * How many steps to enter\\exit or inside your home? 13 * PCP DR. KYLE SANABRIA * Pharmacy [facility] [address] * Preadmission Environment Home with Family * ADLs Partial Dependent * Partial ADLs (Assistance needed) Ambulation Bathing Medication Management Toileting Transfers * Equipment Bedside Commode Cane Nebulizer Oxygen Rolling Walker Wheelchair * Other Equipment NIGHT OXYGEN ONLY [facility] IS PROVIDER * List name and contact numbers for known caregivers / representatives who currently or will assist patient after discharge: ENRIQUETA CANSECO, , * Verbal permission to speak to the caregivers and representatives has been obtained from the patient. Yes * Community resources currently utilized Other * Please name any agencies selected above. [facility] * Additional services required to return to the preadmission environment? Yes * Can the patient safely return to the preadmission environment? Yes * Has this patient been hospitalized within the prior 30 days at any hospital? No Coverage Notice Reviewer: [id number] Roxanna Paula Notice Issued Date-Time: 01/31/2019 9:50 Notice Type: Patient Choice Letter Notice Delivered To: Family Member Relationship to Patient: Spouse Computer Operations Supervisor Name: ENRIQUETA HSU Delivery Method: HAND - Hand Delivered Suki Days: Prior Verbal Notification: Recipient Understood Notice: Yes Recipient Signature: Yes Med Rec Note Co-signed by Attending: Coverage Notice Comment: NO [facility] PREFERENCE Reviewer: [id number] Roxanna Paula Notice Issued Date-Time: 02/01/2019 16:40 Notice Type: Patient Choice Letter Notice Delivered To: Family Member Relationship to Patient: Spouse Computer Operations Supervisor Name: ENRIQUETA HSU Delivery Method: HAND - Hand Delivered Suki Days: Prior Verbal Notification: Recipient Understood Notice: Yes Recipient Signature: Yes Med Rec Note Co-signed by Attending: Coverage Notice Comment: [place] Last DP export: 02/04/19 8:56 Patient Name: ASHLEY HSU Page [phone] at 1338 All edits/amendments must be made on the electronic document DICTATION DATE: 02/10/191337 POST SPLITTER: KARIN 02/10/19 1338 RPT#: [id number] DC DATE: STATUS: ADM IN [facility] [address] [place] [address] END OF REPORT
--- NOTE | 2019-02-10 13:51 | NUR ---
AT BEDSIDE ALONG WITH FAMILY. SPOKE WITH FAMILY ABOUT PT HEALTH AND CONCERNS OF CODE STATUS. EXPLAINED IN GREAT DETAIL THE RISKS OF CPR, PT AND DAUGHTER IN-LAW BOTH VERBALIZED UNDERSTANDING. PT STATED "I NEED TO TALK TO MY KIDS BEFORE I MAKE ANY DECISIONS, BUT I UNDERSTAND WHAT YOU'RE SAYING." PT DENIED ANY FURTHER QUESTIONS TO . NO ACUTE NEEDS OR DISTRESS NOTED AT THIS TIME. WILL CONT TO MONITOR.
--- NOTE | 2019-02-10 14:34 | NUR ---
ART LINED PULLED FROM RIGHT GROIN, HELD PRESSURE FOR 5 MINUTES. NO S/S OF BLEEDING. DRESSING CDI. NO ACUTE NEEDS OR DISTRESS NOTED AT THIS TIME. WILL CONT TO MONITOR.
--- NOTE | 2019-02-10 15:00 | NUR ---
REASSESSMENT COMPLETED PER FLOWSHEET, SEE FLOWSHEET FOR INFORMATION. FAMILY AT BEDSIDE, GIVEN UPDATE. NO ACUTE NEEDS OR DISTRESS NOTED AT THIS TIME. VSS. ORAL AND INLINE SUCTIONED. WILL CONT TO MONITOR.
--- NOTE | 2019-02-10 17:00 | NUR ---
AT BEDSIDE. NO NEW ORDERS. WILL CONT TO MONITOR.
--- NOTE | 2019-02-10 19:30 | NUR ---
ASSESSMENT COMPLETED, PT EYES OPEN, UNABLE TO MAKE NEEDS KNOWN, ETT PATENT TO VENT, OGT IN PLACE WITH NEPRO @ 20 CC/HR, RIGHT CHEST HEMOSPLIT INTACT, PD CATH TO ABDOMEN IN PLACE WITH DRESSING OVER SITE, RIGHT GROIN CVL INTACT WITH IVF'S INFUSING, GENERALIZED EDEMA NOTED, SCD'S TO BILAT LOWER LEGS, VITALS STABLE
--- NOTE | 2019-02-10 21:00 | NUR ---
PT REMAINS SEDATED WITH EYES OPEN, NO DISTRESS NOTED, WILL CONT TO MONITOR
--- NOTE | 2019-02-10 23:15 | NUR ---
NO CHANGES NOTED IN STATUS, WILL CONT TO MONITOR, VITALS STABLE
[2019-02-11] VITALS (15 sets, daily range): BP systolic 124–155; BP diastolic 59–93
--- NOTE | 2019-02-11 01:00 | NUR ---
PT REMAINS WITH EYES OPEN, NO COGNITIVE RESPONSE NOTED, VITAL SIGNS STABLE
[2019-02-11 04:47] LABS: BASOPHILS 0.1 % (0-2); EOSINOPHILS 0.1 % (0-7); HEMATOCRIT 27.8 % (42.0-54.0); HEMOGLOBIN 8.2 g/dL (13.5-17.5); IMMATURE GRANULOCYTES 1.8 % (0-5); LYMPHOCYTES 5.9 % (15-50); MCH 29.1 pg (26.0-34.0); MCHC 29.5 g/dL (31.0-37.0); MCV 98.6 fL (80.0-100.0); MEAN PLATELET VOLUME 11.1 fL (7.4-10.4); MONOCYTES 16.9 % (2-11); NEUTROPHILS 75.2 % (40-80); PLATELET COUNT 166 10x3/uL (130-400); RBC 2.82 10x6/uL (4.20-6.10); RDW 21.6 % (11.5-14.5); WBC 14.7 10x3/uL (4.8-10.8)
[2019-02-11 04:58] LABS: ALBUMIN 3.2 g/dL (3.4-5.0); ANION GAP 16.7 mmol/L (8-16); BILIRUBIN - TOTAL 0.82 mg/dL (0.2-1.3); CALCIUM 8.3 mg/dL (8.5-10.1); CARBON DIOXIDE 25.8 mmol/L (21.0-32.0); PHOSPHOROUS 3.6 mg/dL (2.5-4.9); POTASSIUM - SERUM 3.5 mmol/L (3.5-5.1); PROTEIN - SERUM 6.8 g/dL (6.4-8.2); VANCOMYCIN - RANDOM 25.9 ug/mL (10.0-20.0)
[2019-02-11 05:00] LABS: CREATININE - SERUM 6.1 mg/dL (0.6-1.3)
--- NOTE | 2019-02-11 05:17 | NUR ---
pt resting with eyes closed, repositioned for comfort, vitals stable
--- NOTE | 2019-02-11 10:41 | NUR ---
0700 PT RECIEVED SEDATED ON VENT, VSS, NO SIGNS OF PAIN, SEE SHIFT ASSESSMENT FOR DETAILS 0900 AM MEDS GIVEN 1030 FAMILY HERE WAITING TO SPEAK WITH DR SANTOYO, DR SANTOYO AWARE
--- NOTE | 2019-02-11 11:13 | EC ---
PATIENT:ASHLEY HSU III DATE OF SERVICE: 01/29/19 SEX: M MEDICAL RECORD: [id number] DATE OF : [birth year] LOCATION:[place] [address] AGE OF PATIENT: 73 ADMISSION DATE: 01/29/19 REFERRING PHYSICIAN: INTERPRETING PHYSICIAN: ELISSA GUZMÁN MD ECHOCARDIOGRAM REPORT ECHO CHARGES 4 ECHO COMPLETE Date: 02/05/19 CLINICAL DIAGNOSIS: POST CODE, [place] ECHOCARDIOGRAPHIC MEASUREMENTS (adult normal given) AC root (d.<3.7cm) 2.6 cm LV Septum d (<1.2 cm> 0.7 cm Valve Excursion 1.0 cm LV Septum (systole) 0.9 cm Left Atria (s.<4.0cm> 4.4 cm LVPW d(<1.2cm) 1.0 cm RV (d.<2.3cm) 3.7 cm LVPW (sytole) 1.1 cm LV diastole(<5.6CM) 6.3 cm MV E-F(>70mm/sec) cm LV systole 5.3 cm LVOT Diameter 1.7 cm MV exc.(>10mm) cm Est.ejection fraction (50-75%) % DOPPLER: LVIT cm/sec A 62 cm/sec E 84 cm/sec LA cm/sec RVSP 14.9 mmHg LVOT 87 cm/sec AOP1/2T m/s Asc. Ao 184 cm/sec RVOT 64 cm/sec RA cm/sec PA 75 cm/sec AV Gradient Peak 13.6 mmHg AV Mean 8.3 mmHg AV Area 0.9 cm MV Gradient Peak 4.3 mmHg MV Mean 1.8 mmHg MV Area cm COMMENTS: Political Science Faculty Member: Izzy MENDEZ Plastic Parts Designer: 1 Dr. Guzmán TAPE# PACS Pericardial Effusion N DATE OF SERVICE: ECHOCARDIOGRAM FINDINGS: 1. Left ventricular chamber size is mildly dilated. Left ventricular systolic function is moderately reduced at 30% to 35%. 2. Left atrium is enlarged at 4.4 cm. Right atrium and right ventricular chamber sizes are within normal limits. 3. Valvular structures have normal structure and motion. ECHOCARDIOGRAM REPORT [id number] ASHLEY HSU III 4. Doppler interrogation reveals mild aortic insufficiency, mild mitral regurgitation, no other valvular insufficiency or stenosis. Pulmonary systolic pressure is normal estimated at 15 mmHg. 5. No evidence of pericardial effusion or left ventricular thrombus. TRANSINT:[id number] Voice Confirmation ID: [id number] DOCUMENT ID: [id number] ELISSA GUZMÁN MD at 1113 CC: [id number] DICTATION DATE: 02/05/19 1018 INTERNET PROGRAMMER: 02/05/19 1304 ADM IN [facility] [address] [place] [address]
--- NOTE | 2019-02-11 11:13 | OP ---
PATIENT NAME: ASHLEY HSU III MEDICAL RECORD: [id number] :[birth year] LOCATION:.[facility] D.2312 ADMISSION DATE:01/29/19 SURGEON: ELISSA MILLER MD DATE OF OPERATION: 02/05/2019 PROCEDURES: 1. PTCA stent LAD. 2. Left heart catheterization. 3. Selective coronary angiography. 4. Left ventriculogram. INDICATION: Myocardial infarction. DESCRIPTION OF PROCEDURE: After informed consent was obtained and after a detailed description of the risks, benefits as well as alternative therapies, the patient elected to proceed with angiogram and angioplasty. The left femoral area was prepped and draped in normal sterile fashion. Left femoral artery was cannulated via modified Seldinger technique with placement of 6-Slovenian sheath. All catheters exchanged through this sheath. FINDINGS: Left ventriculogram was performed in standard 30-degree POSADA view, reveals a mildly depressed ejection fraction of 40%. SELECTIVE CORONARY ANGIOGRAPHY: 1. Left main is with no significant angiographic disease. 2. Left anterior descending is acutely occluded at the site of the previously placed stent, proximal vessel. 3. The left circumflex has mild irregularities, no flow-limiting stenosis. 4. Right coronary has mild irregularities, no flow-limiting stenosis. PTCA STENT OF THE LAD: Stents used were 2.0 x 30 and 2.0 x 22, both Henrik stents. Result was 0% residual stenosis. OVERALL IMPRESSION: Successful percutaneous transluminal coronary angioplasty stent of the left anterior descending going from 100% initial stenosis to 0% residual. TRANSINT:[id number] Voice Confirmation ID: [id number] DOCUMENT ID: [id number] ELISSA MILLER MD at 1113 CC: [id number] DICTATION DATE: 02/05/19 0932 PARTY HOST: 02/05/19 1357 ADM IN [facility] [address] [place] [address]
--- NOTE | 2019-02-11 11:13 | CN ---
PATIENT NAME:ASHLEY HSU III MEDICAL RECORD: [id number] : [birth year] [facility] AD[facility] DATE: 01/29/19 ACCOUNT: [id number] CONSULTING PHYSICIAN: ELISSA MILLER MD REFERRING PHYSICIAN: YESIKA SMITH MD DATE OF CONSULTATION: 02/04/2019 CARDIOLOGY CONSULTATION DIAGNOSES: 1. Ventricular tachycardia arrest. 2. Coronary artery disease. 3. Peripheral vascular disease. 4. Previous percutaneous transluminal coronary angioplasty stent. 5. Paroxysmal atrial fibrillation. 6. End-stage renal failure, dialysis. HISTORY OF PRESENT ILLNESS: Mr. Hsu is in the hospital for end-stage renal failure, dialysis. He is on peritoneal dialysis. He was in the operating room, getting HemoSplit. He went into ventricular tachycardia at approximately 30 seconds of CPR, one shock restoring sinus rhythm. EKG after sinus rhythm was restored has ST-T changes inferolaterally compatible with ischemia. He is now in the unit, intubated. Systolic blood pressures approximately 100-110, heart rate is 100-110 as well. It appears to be a sinus rhythm. He was previously on amiodarone for atrial fibrillation and underwent DC cardioversion in August. His last cardiac stent was in August. PHYSICAL EXAMINATION: CONSTITUTIONAL/GENERAL APPEARANCE: Well nourished, well developed, appears stated age. EYES: Lids and conjunctivae noninjected. No discharge. No pallor. ENT: Lips within normal limit. No cyanosis. No pallor. NECK: Carotid arteries, bilateral normal upstroke. No bruits. No thrills. No jugular venous pressure or distention. CERVICAL LYMPH NODES: Nontender. Nonenlarged. THYROID: Not enlarged. No nodules. CARDIOVASCULAR: Precordial exam, nondisplaced. No heaves or pericardial thrills. Rate and rhythm, regular. Heart sounds, normal S1, normal S2. No S3, no gallop, no rub. Systolic murmur, not heard. Diastolic murmur, not heard. RESPIRATORY: Respiratory effort, unlabored. Normal curvature. No thoracic deformity. No chest wall tenderness. Percussion, resonant. Auscultation, clear. No wheezes, no rales, no rhonchi. ABDOMEN: Soft, nondistended, nontender. No abdominal pain, no vomiting and normal appetite. MUSCULOSKELETAL: No joint tenderness, normal gait, normal tone. SKIN: Warm and dry. The patient is sedated and intubated in the ICU. Review of system per daughter. FAMILY HISTORY: Positive for coronary artery disease and hypertension. SOCIAL HISTORY: Lives in the [place] area with his . His daughter lives nearby. CONSULT REPORT [id number] ASHLEY HSU III OVERALL IMPRESSION: Ventricular tachycardia arrest with ischemic changes on EKG. Most likely has recurrent hemodynamically significant coronary artery disease as etiology of this. We will plan for coronary angiography in the a.m. TRANSINT:[id number] Voice Confirmation ID: [id number] DOCUMENT ID: [id number] ELISSA MILLER MD at 1113 CC: [id number] DICTATION DATE: 02/04/19 1353 SENIOR ENGINEERING TEAM LEADER: 02/04/192037 ADM IN [facility] [address] [place] [address]
--- NOTE | 2019-02-11 12:14 | NUR ---
Nutrition follow-up: Intubated, sedated Nepro @ 20 ml/hr Labs reviewed Noted plans for possible terminal extubation this afternoon RDN following.
--- NOTE | 2019-02-11 13:32 | NUR ---
FAMILY SPOKE IN DETAIL WITH DR SANTOYO, ORDERS FOR TERMINAL EXTUBATION
--- NOTE | 2019-02-11 14:29 | NUR ---
PT EXTUBATED [id number] FAMILY AT BEDSIDE
--- NOTE | 2019-02-11 15:00 | NUR ---
1440 PT BECAME APNIC THEN ASYSTOLE, FAMILY AT BEDSIDE, ARIELLA WAS PREVIOUSLY NOTIFIED AND STATED TO RETURN CALL WHEN PRONOUNCED, CALLED BACK TO NOTIFY AND AWAITING A RETURN CALL
--- NOTE | 2019-02-11 15:14 | NUR ---
HOME NOTIFIED, RECIEVED CALL FROM ARIELLA STATING PT IS NOT A CANDIDATE
--- NOTE | 2019-02-11 17:52 | NUR ---
PT LEFT WITH HOME 172
--- NOTE | 2019-02-12 09:29 | NUR ---
Per CMS protocol, restraint report logged into data base.
[2019-02-12 13:10] LABS: FUNGUS CULTURE RESULT 1 Candida albicans (()); FUNGUS MYCOLOGY CULTURE Preliminary report (())
--- NOTE | 2019-02-12 17:19 | MORECARE ---
CASE MANAGEMENT DISCHARGE SUMMARY PATIENT: ASHLEY HSU III UNIT: [id number] ADM DATE: 01/29/19 AGE: 73 : 43 SEX: M ROOM/BED: D.2312 AUTHOR: EVIE,DOC PHYSICIAN: REFERRING PHYSICIAN: YESIKA SMITH MD DATE OF SERVICE: 02/12/19 Discharge Plan Patient Name: ASHLEY HSU Facility: [facility]:[place] : 1945 Planned Disposition: Longterm Facility Anticipated Discharge Date: Discharge Date: 02/11/2019 Expected LOS: Initial Reviewer: [id number] Initial Review Date: 01/31/2019 Generated: 02/12/19 6:19 pm DCP- Discharge Planning Updated by [email or web address]: Laurie Torres on 02/10/19 12:[address] CM spoke with family they are planning on terminal extubation tomorrow after speaking with doctor Paula in am. CM gave the family information on comfort care and the process of extubation. CM spoke to them in regards to Hospice Care. Family is requesting to see if patient is a candidate for [facility] donation. CM called [facility] and spoke with client care representative regarding donation and she stated since patient has had recent blood transfusion and has positive sputum culture patient would not be a candidate for donation. CM gave family a brochure on cremation services. CM will continue to follow and assist as needed with discharge planning / needs. DCP- Discharge Planning Updated by [id number]: Tate Paula on 02/01/19 3:[address] Patient Name: ASHLEY HSU Encounter No: [id number] : 1945 Primary Insurance: MEDICARE A & B Anticipated DC Date: Planned Disposition: Longterm Facility External Planned Provider: [facility], MEDICARE REHAB BED DCP follow-up note: CM SPOKE TO PT'S SPOUSE IN ROOM WITH PT, THEY HAVE MET WITH [facility] WHO TOLD THEM [facility] AT FACILITY. THEY WOULD LIKE REFERRAL SENT TO THE [facility] WHEN PT IS CLOSER TO LEAVING HOSPITAL. CHOICE SIGNED. CM TO SEND REFERRAL FOR REHAB TO RETIREMENT CARE SERVICES TO THE [facility] WHEN PT IS MORE MEDICALLY STABLE WITH PROJECTED DISCHARGE DATE. Tate Paula, MANAGEMENT DCP- Discharge Planning Updated by [id number]: Tate Paula on 01/31/19 3:[address] Patient Name: ASHLEY HSU Admission Status: ER Accout number: [id number] Admission Date: 01-29-2019 : 1945 Admission Diagnosis: Attending: YESIKA SMITH Current LOS: 2 Anticipated DC Date: Planned Disposition: Longterm Facility Primary Insurance: MEDICARE A & B PLANNED EXTERNAL PROVIDER: TO BE DETERMINED Discharge Planning Comments: CM MET WITH PT AND SPOUSE IN ROOM TO DISCUSS DISCHARGE PLANNING AND NEEDS. ASHLEY HSU provided verbal consent to discuss current and ongoing needs with/in the presence of: ENRIQUETA, HIS . PT LIVING AT HOME DEPENDENTLY WITH WHO REPORTS HAVING TO ASSIST WITH EVERYTHING AT THIS TIME EXCEPT EATING. PT HAS BEDSIDE COMMODE, CANE, NEBULIZER, OXYGEN AT NIGHT, ROLLING WALKER AND WHEELCHAIR FROM [facility] [place]. PT HAD HOME HEALTH WITH [facility]. CM DISCUSSED AVAILABILITY OF HOME HEALTH, REHAB SERVICES AND MEDICAL EQUIPMENT. PT'S REPORTS INABILITY TO CARE FOR PT AT HOME ANY LONGER AND WANTS PT IN [facility] IN [place] STATING THEY WILL HAVE TO BE ABLE TO DO "PD" SHE IS NOT ABLE TO GO TO THE FACILITY DAILY TO DO IT ANY LONGER, CHOICE FOR NO [facility] FACILITY PREFERENCE SIGNED. CM SPOKE TO ELIAN MCCORMICK OF [facility], PD CANNOT BE DONE AT [facility] OR [facility]. CM SPOKE TO DIANN WHO INFORMED CM THEY WOULD CONSIDER PD AT THE FACILITY. CM WILL CONTINUE TO EXPLORE RETIREMENT POSSIBILITIES IN [place]. Organ Fixer: Tate Paula DCPIA - Discharge Planning Initial Assessment Updated by [id number]: Tate Paula on 01/31/19 4:53 pm * Is the patient Alert and Oriented? Yes * How many steps to enter\\exit or inside your home? 13 * PCP DR. KYLE SANABRIA * Pharmacy [facility] [address] * Preadmission Environment Home with Family * ADLs Partial Dependent * Partial ADLs (Assistance needed) Ambulation Bathing Medication Management Toileting Transfers * Equipment Bedside Commode Cane Nebulizer Oxygen Rolling Walker Wheelchair * Other Equipment NIGHT OXYGEN [facility] * List name and contact numbers for known caregivers / representatives who currently or will assist patient after discharge: ENRIQUETA CANSECO, , * Verbal permission to speak to the caregivers and representatives has been obtained from the patient. Yes * Community resources currently utilized Other * Please name any agencies selected above. [facility] * Additional services required to return to the preadmission environment? Yes * Can the patient safely return to the preadmission environment? Yes * Has this patient been hospitalized within the prior 30 days at any hospital? No Coverage Notice Reviewer: [id number] Roxanna Paula Notice Issued Date-Time: 01/31/2019 9:50 Notice Type: Patient Choice Letter Notice Delivered To: Family Member Relationship to Patient: Spouse Direct Marketing Representative Name: ENRIQUETA HSU Delivery Method: HAND - Hand Delivered Suki Days: Prior Verbal Notification: Recipient Understood Notice: Yes Recipient Signature: Yes Med Rec Note Co-signed by Attending: Coverage Notice Comment: NO [facility]DC PREFERENCE Reviewer: [id number] Roxanna Paula Notice Issued Date-Time: 02/01/2019 16:40 Notice Type: Patient Choice Letter Notice Delivered To: Family Member Relationship to Patient: Spouse Direct Marketing Representative Name: ENRIQUETA HSU Delivery Method: HAND - Hand Delivered Suki Days: Prior Verbal Notification: Recipient Understood Notice: Yes Recipient Signature: Yes Med Rec Note Co-signed by Attending: Coverage Notice Comment: [place] Last DP export: 02/10/19 12:38 pm Patient Name: ASHLEY HSU Page [id number] at 1719 All edits/amendments must be made on the electronic document DICTATION DATE: 02/12/191718 STUDENT LIFE ADVISOR: KARIN 02/12/191718 RPT#: [id number] DC DATE:02/11/19 STATUS: DIS IN [facility] [address] [place] [address] END OF REPORT
== END 2019-02-11 17:20 | DRG 853 ==
LOC: D.ER 11:40 → D.ICU 12:17 → D.M2 12:17 → D.ICU 02-04 13:07
PROVIDERS: Anesthesiology; Family Medicine; Internal Medicine; Internal Medicine Interventional Cardiology; Internal Medicine Nephrology; Internal Medicine Pulmonary Disease; Radiology Vascular & Interventional Radiology; Specialist; ADMIT Internal Medicine Nephrology; ATTEND Internal Medicine Nephrology
PROC: 0W993ZZ Drainage of Right Pleural Cavity, Percutaneous Approach (ICD-10-PCS; 2019-02-02)
PROC: 0JH63XZ Insertion of Tunneled Vascular Access Device into Chest Subcutaneous Tissue and Fascia, Percutaneous Approach (ICD-10-PCS; 2019-02-04)
PROC: 05HM33Z Insertion of Infusion Device into Right Internal Jugular Vein, Percutaneous Approach (ICD-10-PCS; 2019-02-04)
PROC: B5131ZA Fluoroscopy of Right Jugular Veins using Low Osmolar Contrast, Guidance (ICD-10-PCS; 2019-02-04)
PROC: 04HK33Z Insertion of Infusion Device into Right Femoral Artery, Percutaneous Approach (ICD-10-PCS; 2019-02-04)
PROC: 0BH17EZ Insertion of Endotracheal Airway into Trachea, Via Natural or Artificial Opening (ICD-10-PCS; 2019-02-04)
PROC: 5A1955Z Respiratory Ventilation, Greater than 96 Consecutive Hours (ICD-10-PCS; 2019-02-04)
PROC: B2111ZZ Fluoroscopy of Multiple Coronary Arteries using Low Osmolar Contrast (ICD-10-PCS; 2019-02-05)
PROC: B2151ZZ Fluoroscopy of Left Heart using Low Osmolar Contrast (ICD-10-PCS; 2019-02-05)
PROC: 027035Z Dilation of Coronary Artery, One Artery with Two Drug-eluting Intraluminal Devices, Percutaneous Approach (ICD-10-PCS; principal; 2019-02-05 10:00)
PROC: 4A023N7 Measurement of Cardiac Sampling and Pressure, Left Heart, Percutaneous Approach (ICD-10-PCS; 2019-02-05 10:00)
PROC: 0B9F8ZZ Drainage of Right Lower Lung Lobe, Via Natural or Artificial Opening Endoscopic (ICD-10-PCS; 2019-02-07)
DX: A41.9 Sepsis, unspecified organism (principal); N18.6 End stage renal disease; G93.41 Metabolic encephalopathy; I50.23 Acute on chronic systolic (congestive) heart failure; R53.2 Functional quadriplegia; J96.01 Acute respiratory failure with hypoxia; I21.9 Acute myocardial infarction, unspecified; J18.9 Pneumonia, unspecified organism; I13.2 Hypertensive heart and chronic kidney disease with heart failure and with stage 5 chronic kidney disease, or end stage renal disease; J44.1 Chronic obstructive pulmonary disease with (acute) exacerbation; E87.1 Hypo-osmolality and hyponatremia; M48.56XA Collapsed vertebra, not elsewhere classified, lumbar region, initial encounter for fracture; I97.121 Postprocedural cardiac arrest following other surgery; J98.11 Atelectasis; J44.0 Chronic obstructive pulmonary disease with (acute) lower respiratory infection; R57.0 Cardiogenic shock; E11.22 Type 2 diabetes mellitus with diabetic chronic kidney disease; K21.9 Gastro-esophageal reflux disease without esophagitis; I25.10 Atherosclerotic heart disease of native coronary artery without angina pectoris; E78.5 Hyperlipidemia, unspecified; E87.5 Hyperkalemia; N40.0 Benign prostatic hyperplasia without lower urinary tract symptoms; I48.0 Paroxysmal atrial fibrillation; Y83.9 Surgical procedure, unspecified as the cause of abnormal reaction of the patient, or of later complication, without mention of misadventure at the time of the procedure; I95.81 Postprocedural hypotension; D63.1 Anemia in chronic kidney disease; G20 Parkinson's disease